=== PATIENT | female | born 1950 | race Two or more races ===

== ENCOUNTER 2018-04-05 12:06 | Emergency (ER) | payer MEDICARE, OTHER ==
[~2018-04-05] VITALS: Ht 157.5 cm; Wt 59.0 kg
[2018-04-05 12:16] VITALS: BP 117/69
[2018-04-05] MEDS ORDERED: IBUPROFEN 600 MG TAB PO ONE (13:30)
== END 2018-04-05 13:44 | disposition home or self-care (01) ==
LOC: ER 12:06
DX: S00.03XA Contusion of scalp, initial encounter (principal); E11.9 Type 2 diabetes mellitus without complications; W18.39XA Other fall on same level, initial encounter; Y93.89 Activity, other specified; Y92.89 Other specified places as the place of occurrence of the external cause; Y99.8 Other external cause status
CPT/HCPCS: 70450

== ENCOUNTER → 2023-01-10 | Outpatient (CLI) | payer MEDICARE, OTHER ==
[2023-01-10 06:58] LABS: Basophils # (auto) 0.1 10 ^3/uL (0-0.2); Monocytes # (auto) 0.3 10 ^3/uL (0-1.3); White Blood Cell 4.2 10^3/uL (4.4-10.8)
[2023-01-10 07:00] LABS: Eosinophils # (auto) 0.1 10 ^3/uL (0-0.8); Eosinophils % (auto) 1.5 % (0.0-7.0); Hematocrit 31.5 % (36.0-46.0); Hemoglobin 10.4 g/dL (12.2-16.2); Lymphocytes # (auto) 2.1 10 ^3/uL (0.4-5.4); Lymphocytes % (auto) 49.3 % (10.0-50.0); Mean Corpuscular Hemoglobin 23.1 pg (28.0-32.0); Mean Corpuscular Hgb Conc. 33.1 g/dL (32.0-36.0); Mean Corpuscular Volume 69.7 fL (80.0-100.0); Neutrophils # (auto) 1.7 10 ^3/uL (1.6-8.6); Neutrophils % (auto) 41.2 % (37.0-80.0); Nucleated Red Blood Cells % 0.2 %; Red Blood Cells 4.52 10^6/uL (4.0-5.20)
[2023-01-10 07:23] LABS: Potassium 4.1 mmol/L (3.5-5.1)
[2023-01-10 07:38] LABS: Albumin 3.6 g/dL (3.4-5.0); BUN/Creatinine Ratio 26.9 (10.0-20.0); Bilirubin, Total 0.2 mg/dL (0.2-1.0); Calcium 9.4 mg/dL (8.5-10.1); Magnesium 1.9 mg/dL (1.6-2.6); Total Protein 8.2 g/dL (6.4-8.2)
[2023-01-10 07:48] LABS: Urine Bacteria NONE SEEN /hpf (None Seen); Urine Blood Negative /uL (Negative); Urine Specific Gravity 1.008 (1.001-1.035); Urine WBC 1 /hpf (0 - 5)
[2023-01-10 09:43] LABS: Free T4 (Free Thyroxine) 1.19 ng/dL (0.89-1.76)
== END | disposition home or self-care (01) ==
LOC: EDBD 06:21 → LAB 06:21
PROVIDERS: ATTEND Internal Medicine
DX: I10 Essential (primary) hypertension (principal); E11.9 Type 2 diabetes mellitus without complications; R42 Dizziness and giddiness
CPT/HCPCS: 36415; 80053; 80061; 81001; 82607; 83735; 84439; 84443; 85025; 85379; 85652

== ENCOUNTER → 2023-03-06 | Outpatient (CLI) | payer MEDICARE, OTHER | END | disposition home or self-care (01) | LOC: LAB 15:29 | PROVIDERS: ATTEND Internal Medicine | DX: D64.9 Anemia, unspecified (principal) | CPT/HCPCS: 82270 ==

== ENCOUNTER 2023-04-11 15:38 | Emergency (ER) | payer MEDICARE, OTHER ==
[~2023-04-11] VITALS: Ht 154.9 cm; Wt 55.3 kg
[2023-04-11 15:45] VITALS: BP 134/60
[2023-04-11] MEDS ORDERED: SULF400T11 PO (18:48)
== END 2023-04-11 18:58 | disposition home or self-care (01) ==
LOC: ER 15:38
DX: N75.1 Abscess of Bartholin's gland (principal); E11.9 Type 2 diabetes mellitus without complications; E78.5 Hyperlipidemia, unspecified; Z79.899 Other long term (current) drug therapy
CPT/HCPCS: 82962

== ENCOUNTER → 2023-08-20 | Outpatient (CLI) | payer MEDICARE, OTHER ==
[~2023-08-20] MED LIST: SULF400T11 PO
== END | disposition home or self-care (01) ==
LOC: LAB 14:21
PROVIDERS: ATTEND Internal Medicine
DX: D64.9 Anemia, unspecified (principal)
CPT/HCPCS: 82270

== ENCOUNTER 2024-05-06 16:26 | Emergency (ER) | payer MEDICARE, OTHER ==
[~2024-05-06] VITALS: Ht 157.5 cm; Wt 52.3 kg
[2024-05-06 17:52] VITALS: PULSE 106; RESP 16; O2SAT 98
[2024-05-06 19:31] LABS: Basophils # (auto) 0 10 ^3/uL (0-0.2); Basophils % (auto) 0.2 % (0.0-2.0); Eosinophils # (auto) 0 10 ^3/uL (0-0.8); Hematocrit 31.5 % (36.0-46.0); Hemoglobin 10.1 g/dL (12.2-16.2); Lymphocytes # (auto) 1.2 10 ^3/uL (0.4-5.4); Lymphocytes % (auto) 20.2 % (10.0-50.0); Mean Corpuscular Hemoglobin 22.9 pg (28.0-32.0); Mean Corpuscular Hgb Conc. 32.2 g/dL (32.0-36.0); Mean Corpuscular Volume 71.2 fL (80.0-100.0); Monocytes # (auto) 0.5 10 ^3/uL (0-1.3); Neutrophils # (auto) 4.3 10 ^3/uL (1.6-8.6); Neutrophils % (auto) 71.6 % (37.0-80.0); Nucleated Red Blood Cells % 0.1 %; Red Blood Cells 4.42 10^6/uL (4.0-5.20); Red Cell Distribution Width 16.5 % (11.8-14.3)
[2024-05-06 19:40] LABS: Alanine Aminotransferase 24 U/L (7-40); Albumin 4.3 g/dL (3.2-4.8); Alkaline Phosphatase 65 U/L (46-116); Anion Gap 9 (5-15); Aspartate Aminotransferase 24 U/L (13-40); Blood Urea Nitrogen 17 mg/dL (9-23); Calcium 9.2 mg/dL (8.7-10.4); Carbon Dioxide 24 mmol/L (20-30); Chloride 99 mmol/L (98-107); Glucose 159 mg/dL (74-106); Potassium 4.3 mmol/L (3.5-5.1); Sodium 132 mmol/L (136-145)
[2024-05-06 19:41] LABS: Bilirubin, Total 0.4 mg/dL (0.2-1.0); Total Protein 8.8 g/dL (5.7-8.2)
[2024-05-06 21:56] VITALS: TEMP 99.2
[2024-05-06] MEDS ORDERED: BACL10TA PO (21:58)
[2024-05-06 22:05] LABS: Urine Amorphous Crystal FEW /hpf (None Seen); Urine Bacteria MOD /hpf (None Seen); Urine Blood TRACE /uL (Negative); Urine Clarity Turbid (Clear); Urine Color Colorless (Yellow); Urine Mucus FEW (None Seen); Urine Protein, UAD 1+ (Negative); Urine Specific Gravity 1.013 (1.001-1.035); Urine Urobilinogen Normal (Negative); Urine WBC 258 /hpf (0 - 5); Urine WBC Clumps PRESENT /hpf (None Seen); Urine pH 5.5 (5.0-9.0)
[2024-05-06 22:21] VITALS: BP 127/65; PULSE 95; RESP 14; O2SAT 98
== END 2024-05-06 22:24 | disposition home or self-care (01) ==
LOC: ER 16:26
DX: M54.16 Radiculopathy, lumbar region (principal); E11.9 Type 2 diabetes mellitus without complications; E78.5 Hyperlipidemia, unspecified
CPT/HCPCS: 36415; 71045; 80053; 81001; 83880; 85025

== ENCOUNTER → 2024-05-09 | Outpatient (CLI) | payer MEDICARE, OTHER ==
[~2024-05-09] MED LIST changes: +BACL10TA PO; +PANT40TA2 PO; +ZOFR4T PO
[2024-05-09 09:03] LABS: Basophils # (auto) 0 10 ^3/uL (0-0.2); Basophils % (auto) 0.1 % (0.0-2.0); Eosinophils # (auto) 0 10 ^3/uL (0-0.8); Eosinophils % (auto) 0.3 % (0.0-7.0); Hemoglobin 10.5 g/dL (12.2-16.2); Lymphocytes # (auto) 1.4 10 ^3/uL (0.4-5.4); Lymphocytes % (auto) 34.6 % (10.0-50.0); Mean Corpuscular Hemoglobin 23.4 pg (28.0-32.0); Mean Corpuscular Hgb Conc. 32.8 g/dL (32.0-36.0); Mean Corpuscular Volume 71.5 fL (80.0-100.0); Monocytes # (auto) 0.3 10 ^3/uL (0-1.3); Monocytes % (auto) 8.1 % (0.0-12.0); Neutrophils # (auto) 2.3 10 ^3/uL (1.6-8.6); Neutrophils % (auto) 56.9 % (37.0-80.0); Red Blood Cells 4.47 10^6/uL (4.0-5.20); Red Cell Distribution Width 16.3 % (11.8-14.3)
[2024-05-09 09:07] LABS: Urine Bacteria MOD /hpf (None Seen); Urine Blood TRACE /uL (Negative); Urine Clarity Turbid (Clear); Urine Color Colorless (Yellow); Urine Mucus FEW (None Seen); Urine Protein, UAD 1+ (Negative); Urine Specific Gravity 1.009 (1.001-1.035); Urine Urobilinogen Normal (Negative); Urine WBC 403 /hpf (0 - 5); Urine WBC Clumps PRESENT /hpf (None Seen); Urine pH 5.5 (5.0-9.0)
[2024-05-09 09:32] LABS: Erythrocyte Sedimentation Rate 91 mm/hr (0-20)
[2024-05-09 09:58] LABS: Creatinine, Urine 88.07 mg/dL (30.0-125.0)
[2024-05-09 10:06] LABS: Alanine Aminotransferase 27 U/L (7-40); Albumin 4.2 g/dL (3.2-4.8); Alkaline Phosphatase 68 U/L (46-116); Anion Gap 7 (5-15); Aspartate Aminotransferase 27 U/L (13-40); BUN/Creatinine Ratio 18.3 (10.0-20.0); Blood Urea Nitrogen 20 mg/dL (9-23); CRP High Sensitivity 0.79 mg/dL (<1.0); Calcium 9.5 mg/dL (8.7-10.4); Carbon Dioxide 27 mmol/L (20-30); Chloride 105 mmol/L (98-107); Glucose 228 mg/dL (74-106); LDL Cholesterol 98 mg/dL (< 100); Potassium 4.4 mmol/L (3.5-5.1); Sodium 139 mmol/L (136-145); Triglycerides 145 mg/dL (< 150)
[2024-05-09 10:07] LABS: Bilirubin, Total 0.3 mg/dL (0.2-1.0); Cholesterol 168 mg/dL (< 200); HDL Cholesterol 47 mg/dL (40-59); Total Protein 8.4 g/dL (5.7-8.2)
[2024-05-09 10:23] LABS: Free T4 (Free Thyroxine) 1.35 ng/dL (0.89-1.76)
== END | disposition home or self-care (01) ==
LOC: LAB 08:32
PROVIDERS: ATTEND Internal Medicine
DX: E11.9 Type 2 diabetes mellitus without complications (principal); E78.00 Pure hypercholesterolemia, unspecified
CPT/HCPCS: 36415; 80053; 80061; 81001; 82043; 82570; 82607; 83036; 84439; 84443; 85025; 85652; 86141; 86738

== ENCOUNTER 2024-05-10 01:18 | Emergency (ER) | payer MEDICARE, OTHER ==
[~2024-05-10] VITALS: Ht 157.5 cm; Wt 50.9 kg
[~2024-05-10 01:18] MED LIST changes: -PANT40TA2 PO; -ZOFR4T PO
[2024-05-10 03:43] LABS: Basophils # (auto) 0 10 ^3/uL (0-0.2); Eosinophils # (auto) 0 10 ^3/uL (0-0.8); Hemoglobin 9.6 g/dL (12.2-16.2); Monocytes # (auto) 0.3 10 ^3/uL (0-1.3); Neutrophils # (auto) 3.3 10 ^3/uL (1.6-8.6); Nucleated Red Blood Cells % 0.1 %; White Blood Cell 5.5 10^3/uL (4.4-10.8)
[2024-05-10 03:45] LABS: Basophils % (auto) 0.7 % (0.0-2.0); Eosinophils % (auto) 0.1 % (0.0-7.0); Hematocrit 29.8 % (36.0-46.0); Lymphocytes # (auto) 1.9 10 ^3/uL (0.4-5.4); Lymphocytes % (auto) 34.4 % (10.0-50.0); Mean Corpuscular Hgb Conc. 32.3 g/dL (32.0-36.0); Mean Corpuscular Volume 71.2 fL (80.0-100.0); Monocytes % (auto) 5.9 % (0.0-12.0); Neutrophils % (auto) 58.9 % (37.0-80.0); Red Blood Cells 4.18 10^6/uL (4.0-5.20); Red Cell Distribution Width 16.4 % (11.8-14.3)
[2024-05-10 03:54] LABS: Alanine Aminotransferase 24 U/L (7-40); Albumin 4.2 g/dL (3.2-4.8); Alkaline Phosphatase 64 U/L (46-116); Anion Gap 8 (5-15); Aspartate Aminotransferase 23 U/L (13-40); BUN/Creatinine Ratio 19.8 (10.0-20.0); Bilirubin, Total 0.4 mg/dL (0.2-1.0); Blood Urea Nitrogen 18 mg/dL (9-23); Calcium 9.3 mg/dL (8.7-10.4); Carbon Dioxide 22 mmol/L (20-30); Chloride 104 mmol/L (98-107); Glucose 227 mg/dL (74-106); Total Protein 8.7 g/dL (5.7-8.2)
[2024-05-10 03:58] LABS: Sodium 134 mmol/L (136-145)
[2024-05-10] MEDS: ONDANSETRON ODT 4 MG TAB PO ONE (04:09)
[2024-05-10 04:11] VITALS: BP 145/79; PULSE 78; RESP 16; TEMP 98.2; O2SAT 100
[2024-05-10] MEDS ORDERED: ZOFR4T PO (04:59)
[2024-05-10] MEDS ORDERED: PANT40TA2 PO (04:59)
== END 2024-05-10 05:10 | disposition home or self-care (01) ==
LOC: ER 01:18
DX: K29.70 Gastritis, unspecified, without bleeding (principal); E11.9 Type 2 diabetes mellitus without complications; E78.5 Hyperlipidemia, unspecified
CPT/HCPCS: 36415; 74176; 80053; 85025; 93005; 99284; Q0162

== ENCOUNTER 2024-08-14 14:12 | Emergency (ER) | payer MEDICARE, OTHER ==
[~2024-08-14] VITALS: Ht 152.4 cm; Wt 48.8 kg
[~2024-08-14 14:12] MED LIST changes: +PANT40TA2 PO; +ZOFR4T PO
--- NOTE | 2024-08-14 14:55 | ED.PDOC ---
History of Present Illness HPI Comments A 74 YEAR OLD FEMALE PRESENTS TO THE ED WITH CHIEF COMPLAINT OF EPISODE FEVER. PATIENT REPORTS THAT SHE HAS BEEN EXPERIENCING A FEVER SINCE YESTERDAY ON AND OFF. NO FEVER AT THIS TIME. PATIENT RELAYS THAT HER HAS BEEN SICK AT HOME PRIOR TO FEVER ONSET. PATIENT DENIES ANY N/V/D, CHEST PAIN, SOB, COUGH, OR DIZZINESS. PT IS ALERT, ORIENTATION X4 WITH NORMAL GAIT. Chief Complaint: Fever Time Seen by MD: 14:52 Primary Care Provider: DESI Hernandez Notes: Nurses Notes, Medications, Allergies Allergies: Coded Allergies: NO KNOWN ALLERGIES (Unverified , 04/05/18) Home Meds Active Scripts Acetaminophen (Tylenol 8 Hour Arthritis) 650 Mg Tab, 650 MG PO TID, #30 TAB Prov:DENIS YEH 08/14/24 Nitrofurantoin Monohydrate Mac (Macrobid) 100 Mg Cap, 100 MG PO BID, #14 CAP Prov:DENIS YEH 08/14/24 Pantoprazole Sodium Sesquihydr (Protonix) 40 Mg Tab, 40 MG PO DAILY PRN for 60 Days, #60 TAB Prov:RAMÓN RIDER MD 05/10/24 Ondansetron Odt 4MG Tab (ZOFRAN PO) 4 Mg Tb, 4 MG PO TID for 7 Days, #21 TAB ODT TAB-DISSOLVE IN MOUTH, THEN SWALLOW Prov:RAMÓN RIDER MD 05/10/24 Baclofen (Baclofen) 10 Mg Tab, 10 MG PO TID PRN, #30 TAB Prov:JAY HE 05/06/24 Sulfamethoxazole-Trimethoprim (Bactrim) 1 Tab Tab, 1 TAB PO BID for 7 Days, #14 TAB 0 Refills Prov:VARGHESE CABRERA 04/11/23 Information Source: Patient Mode of Arrival: Ambulatory Severity: Mild, Moderate Timing: Days Duration: Since onset, Intermittent Prehospital treatment: None Medication Refill: For: Other (ON AND OFF FEVER ) Past Medical History PAST MEDICAL HISTORY: DM, High Lipids Surgical History: Denies all surgeries [employer]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 Family History Family History: Reviewed,noncontributory to illness Social History Smoker: Non-Smoker Alcohol: Denies ETOH Use Drugs: Denies Drug Use Lives In: Home Constitutional: reports: fever; denies: chills, diaphoresis, fatigue, malaise, sweats, weakness, others EENTM: denies: blurred vision, double vision, ear bleeding, ear discharge, ear drainage, ear pain, ear ringing, eye pain, eye redness, hearing loss, mouth pain, mouth swelling, nasal discharge, nose bleeding, nose congestion, nose pain, photophobia, tearing, throat pain, throat swelling, voice changes, others Cardiovascular: denies: chest pain, dizzy spells, diaphoresis, Dyspnea on exertion, edema, irregular heart beat, left arm pain, lightheadedness, palpitations, PND, syncope, others Gastrointestinal: denies: abdomen distended, abdominal pain, blood streaked bowels, constipated, diarrhea, dysphagia, difficulty swallowing, hematemesis, melena, nausea, poor appetite, poor fluid intake, rectal bleeding, rectal pain, vomiting, others Genitourinary: denies: abnormal vagina bleeding, burning, dyspareunia, dysuria, flank pain, frequency, hematuria, incontinence, pain, , vagina discharge, urgency, others Neurological: denies: dizziness, fainting, headache, left sided numbness, left sided weakness, numbness, paresthesia, pre-existing deficit, right sided numbne ss, right sided weakness, seizure, speech problems, tingling, tremors, weakness, others Musculoskeletal: denies: back pain, gout, joint pain, joint swelling, muscle pain, muscle stiffness, neck pain, others Integumetry: denies: bruises, change in color, change in hair/nails, dryness, laceration, lesions, lumps, rash, wounds, others Allergic/Immunocompromised: denies: Difficulty Healing, Frequent Infections, Hives, Itching, others Hematologic/Lymphatic: denies: anemia, blood clots, easy bleeding, easy bruising, swollen glands, others Endocrine: denies: excessive hunger, excessive sweating, excessive thirst, excessive urination, flushing, intolerance to cold, intolerance to heat, unexplained weight gain, unexplained weight loss, others Psychiatric: denies: anxiety, bipolar disorder, depression, hopeless, panic disorder, schizophrenia, sleepless, suicidal, others All Other Systems: Reviewed and Negative Physical Exam General Appearance: No Apparent Distress, Normal HEENT: Normal ENT Inspection, PERRL/EOMI, Pharynx Normal Neck: Full Range of Motion, Non-Tender, Normal, Normal Inspection Respiratory: Chest Non-Tender, Lungs Clear, No Accessory Muscle Use, No Respiratory Distress, Normal Breath Sounds Cardiovascular: No Edema, No JVD, No Murmur, No Gallop, Normal Peripheral Pulses, Regular Rate/Rhythm Breast Exam: Deferred Gastrointestinal: No Organomegaly, Non Tender, No Pulsatile Mass, Normal Bowel Sounds, Soft Genitalia: Deferred Pelvic: Deferred Rectal: Deferred Extremities: No calf tenderness, Normal capillary refill, Normal inspection, Normal range of motion, Non-tender, No pedal edema Musculoskeletal : Apperance: Normal Neurologic: Alert, slide developer II-XII nml as Tested, No Motor Deficits, Normal Affect, Normal Mood, No Sensory Deficits Cerebellar Function: Normal Reflexes: Normal Skin: Dry, Normal Color, Warm Peripheral Pulses: 2+ carotid (R), 2+ carotid (L) Lymphatic: No Adenopathy Was a procedure done? Was a procedure done?: No Differential Dx Considerations may include: UTI, INTERMITTENT FEVER, PNEUMONIA X-Ray, Labs, Meds, VS Vital Signs Date Time Temp Pulse Resp B/P (MAP) Pulse Ox O2 Delivery O2 Flow Rate FiO2 08/14/24 15:00 99.6 92 17 133/62 (85) 99 99.6 08/14/24 15:00 92 17 99 Room Air 08/14/24 14:20 98.5 105 18 118/67 (84) 99 Lab Test 08/14/24 15:41 08/14/24 15:32 Range/Units Urine Color Light-yellow Yellow Urine Clarity Clear Clear Urine pH 6.5 5.0-9.0 Urine Specific [place] 1.014 1.001-1.035 Urine Protein Trace H Negative Urine Ketones Negative Negative Urine Blood Trace H Negative /uL Urine Nitrite Negative Negative Urine Bilirubin Negative Negative Urine Urobilinogen Normal Negative mg/dL Urine Leukocyte Esterase 1+ Negative /uL Urine RBC 6 0 - 4 /hpf Urine WBC 21 0 - 5 /hpf Urine Squamous Epithelial Cells Few <5 /hpf Urine Bacteria Few H None Seen /hpf Urine Mucus Few None Seen Urine Glucose 2+ H Normal mg/dL White Blood Count 4.7 4.4-10.8 10^3/uL Red Blood Count 3.58 L 4.0-5.20 10^6/uL Hemoglobin 8.4 L 12.2-16.2 g/dL Hematocrit 26.2 L 36.0-46.0 % Mean Corpuscular Volume 73.1 L 80.0-100.0 fL Mean Corpuscular Hemoglobin 23.6 L 28.0-32.0 pg Mean Corpuscular Hemoglobin Concent 32.3 32.0-36.0 g/dL Red Cell Distribution Width 19.8 H 11.8-14.3 % Platelet Count 162 140-450 10^3/uL Mean Platelet Volume 8.1 6.9-10.8 fL Neutrophils (%) (Auto) 82.0 H 37.0-80.0 % Lymphocytes (%) (Auto) 12.3 10.0-50.0 % Monocytes (%) (Auto) 5.0 0.0-12.0 % Eosinophils (%) (Auto) 0.1 0.0-7.0 % Basophils (%) (Auto) 0.6 0.0-2.0 % Neutrophils # (Auto) 3.9 1.6-8.6 10 ^3/uL Lymphocytes # (Auto) 0.6 0.4-5.4 10 ^3/uL Monocytes # (Auto) 0.2 0-1.3 10 ^3/uL Eosinophils # (Auto) 0 0-0.8 10 ^3/uL Basophils # (Auto) 0 0-0.2 10 ^3/uL Nucleated Red Blood Cells 0.0 % Sodium Level 135 L 136-145 mmol/L Potassium Level 4.2 3.5-5.1 mmol/L Chloride Level 103 98-107 mmol/L Carbon Dioxide Level 27 20-31 mmol/L Anion Gap 5 5-15 Blood Urea Nitrogen 20 9-23 mg/dL Creatinine 1.16 H 0.550-1.02 mg/dL Glomerular Filtration Rate Calc 49 >90 mL/min BUN/Creatinine Ratio 17.2 10.0-20.0 Serum Glucose 164 H 74-106 mg/dL Lactic Acid Level 0.8 0.4-2.0 mmol/L Calcium Level 9.2 8.7-10.4 mg/dL Current Medications Medications (Trade) Dose Ordered Sig/Walt Route Start Time Stop Time Status Last Admin Ceftriaxone Sodium (Rocephin) 1,000 mg ONCE ONCE IM 08/14/24 16:45 08/14/24 16:46 DC 08/14/24 17:17 CHEST XR: FINDINGS: Lines and Tubes: None Lungs: Clear Pleura: No effusion. No pneumothorax. Cardiomediastinal contours: Unremarkable Bones: Unremarkable IMPRESSION: No evidence of acute disease. X-Ray, Labs, Meds, VS Comment ROCEPHIN 1GM IM Images Reviewed?: Images reviewed and evaluated by me Time of 1ST Reevaluation: 15:23 Reevaluation 1ST: Improved Time of 2ND Reevaluation: 17:22 Reevaluation 2ND: Improved Patient Education/Counseling: Diagnosis, Treatment, Need For Follow Up Family Education/Counseling: Diagnosis, Treatment, Need For Follow Up, No Family Present Medical Screening: No EMC Exist At This Time Departure 1 Departure Time of Disposition: 17:40 Impression: Primary Impression: Subjective fever Additional Impression: UTI (urinary tract infection) Qualified Codes: N30.00 - Acute cystitis without hematuria Disposition: HOME / SELF CARE / HOMELESS Condition: Stable Additional Instructions: FOLLOW UP WITH PCP WITHIN 1-3 DAYS. RETURN TO THE ED IF SYMPTOMS PERSIST OR WORSEN. e-Prescriptions Acetaminophen (Tylenol 8 Hour Arthritis) 650 Mg Tab 650 MG PO TID, #30 TAB Prov: DENIS YEH 08/14/24 Nitrofurantoin Monohydrate Mac (Macrobid) 100 Mg Cap 100 MG PO BID, #14 CAP Prov: DENIS YEH 08/14/24 Discharged With: Self, Relative Critical Care Note Critical Care Time?: No Stability Stability form required: No Heart Score Heart Score: Heart Score Response (Comments) Value History N/A 0 EKG N/A 0 Age N/A 0 Risk Factors N/A 0 Troponin N/A 0 Total 0 I personally scribed for DENIS YEH ([email or web address]) on 08/14/24 at 14:55. Electronically submitted by Jay Villagran ([email or web address]). I personally scribed for DENIS YEH ([email or web address]) on 08/14/24 at 15:11. Electronically submitted by Jay Villagran ([email or web address]). I personally scribed for DENIS YEH ([email or web address]) on 08/14/24 at 15:12. Electronically submitted by Jay Villagran ([email or web address]). DENIS YEH Aug 14, 2024 14:55
--- NOTE | 2024-08-14 15:07 | DVH ---
CHEST RADIOGRAPH Indication:COUGH Technique: Frontal and lateral view of the chest was obtained Comparison: None FINDINGS: Lines and Tubes: None Lungs: Clear Pleura: No effusion. No pneumothorax. Cardiomediastinal contours: Unremarkable Bones: Unremarkable IMPRESSION: No evidence of acute disease.
[2024-08-14 16:03] LABS: Urine Bacteria FEW /hpf (None Seen); Urine Blood TRACE /uL (Negative); Urine Clarity Clear (Clear); Urine Color Light-Yellow (Yellow); Urine Mucus FEW (None Seen); Urine Protein, UAD TRACE (Negative); Urine Specific Gravity 1.014 (1.001-1.035); Urine Urobilinogen Normal (Negative); Urine WBC 21 /hpf (0 - 5); Urine pH 6.5 (5.0-9.0)
[2024-08-14 16:04] LABS: Basophils # (auto) 0 10 ^3/uL (0-0.2); Eosinophils # (auto) 0 10 ^3/uL (0-0.8); Eosinophils % (auto) 0.1 % (0.0-7.0); Lymphocytes # (auto) 0.6 10 ^3/uL (0.4-5.4); Red Cell Distribution Width 19.8 % (11.8-14.3)
[2024-08-14 16:06] LABS: Basophils % (auto) 0.6 % (0.0-2.0); Hematocrit 26.2 % (36.0-46.0); Hemoglobin 8.4 g/dL (12.2-16.2); Lymphocytes % (auto) 12.3 % (10.0-50.0); Mean Corpuscular Hemoglobin 23.6 pg (28.0-32.0); Mean Corpuscular Hgb Conc. 32.3 g/dL (32.0-36.0); Mean Corpuscular Volume 73.1 fL (80.0-100.0); Monocytes # (auto) 0.2 10 ^3/uL (0-1.3); Neutrophils # (auto) 3.9 10 ^3/uL (1.6-8.6); Platelet Count (auto) 162 10^3/uL (140-450); Red Blood Cells 3.58 10^6/uL (4.0-5.20); White Blood Cell 4.7 10^3/uL (4.4-10.8)
[2024-08-14 16:20] LABS: Chloride 103 mmol/L (98-107); Potassium 4.2 mmol/L (3.5-5.1); Sodium 135 mmol/L (136-145)
[2024-08-14 16:21] LABS: Anion Gap 5 (5-15); Calcium 9.2 mg/dL (8.7-10.4); Carbon Dioxide 27 mmol/L (20-31)
[2024-08-14 16:26] LABS: BUN/Creatinine Ratio 17.2 (10.0-20.0); Blood Urea Nitrogen 20 mg/dL (9-23); Glucose 164 mg/dL (74-106)
[2024-08-14] MEDS: cefTRIAXone SOD 1,000 MG VL IM ONE (17:17)
[2024-08-14] MEDS ORDERED: ACET-1080 PO (17:19)
[2024-08-14] MEDS ORDERED: NITR-87 PO (17:19)
[2024-08-14 17:38] VITALS: BP 132/60; PULSE 93; RESP 16; TEMP 98.5; O2SAT 95
== END 2024-08-14 17:46 | disposition home or self-care (01) ==
LOC: ER 14:17
DX: N39.0 Urinary tract infection, site not specified (principal); E11.9 Type 2 diabetes mellitus without complications
CPT/HCPCS: 36415; 71046; 80048; 81001; 83605; 85025; 96372; 99284; J0696

== ENCOUNTER 2024-08-25 14:41 | Inpatient (IN) | payer MEDICARE, OTHER ==
[~2024-08-25] VITALS: Ht 154.9 cm; Wt 58.3 kg
[~2024-08-25 14:41] MED LIST changes: +ACET-1080 PO; +NITR-87 PO
--- NOTE | 2024-08-25 15:34 | ED.PDOC ---
HPI (NEURO) HPI Comments 74-year-old female patient with past medical history of diabetes for which she takes metformin and glipizide and hyperlipidemia for which she takes simvastatin,presented with complaints of slurred speech that started at 0900 hours in the morning associated with generalized weakness after which patient had a fall at the same time. She did not lose consciousness and did not have any head injury. She had generalized weakness that started yesterday in the afternoon. She denied any previous history of any heart condition/stroke. Patient in the ED was evaluated, has slurred speech, as per that is not her baseline. Stroke protocol was activated. Tele neurology was consulted and patient was taken to head CT. Tele neurology Dr. Gomez called at 1526 and and mentioned that he will get access to completed in around 25 minutes and asked to order head CT and CTA. will follow up with the orders. CT head showed 1. No large acute territorial ischemia or intracranial hemorrhage. 2. Left frontal watershed infarcts can not be ruled out. Moderate underlying white matter disease / chronic microvascular ischemic changes limit evaluation. These can be better evaluated with MRI if clinically indicated. 3. Remote left FARNAZ territorial infarct Patient was given 325 mg aspirin and 80 mg atorvastatin, will be admitted for need for MRI and further assessment Past medical history Diabetes mellitus , dyslipidemia Medication history Metformin, glipizide, simvastatin Social history Does not drink, smoke, who marijuana or any other drug intake ROS Constitutional: Generalized weakness No: Fever, Chills, Sweats Respiratory: No: Cough, Dry, Shortness of breath, SOB with excertion, Wheezing, Hemoptysis, Pleuritic Pain, Sputum, Wheezing, Other Cardiovascular: No: Chest Pain, Palpitations, Orthopnea, Paroxysmal Noc. Dyspnea, Edema, Lt Headedness, Other Gastrointestinal: No: Nausea, Vomiting, Abdominal Pain, Diarrhea, Constipation, Melena, Hematochezia, Other Musculoskeletal: No: other, neck pain, shoulder pain, arm pain, back pain, hand pain, leg pain, foot pain Neurological:; mechanical fall, generalized weakness, slurred speech Examination General Appearance: Alert, Oriented X3, Cooperative, No acute distress Respiratory: Bilateral air entry present Cardiovascular: Regular rate, Normal S1, Normal S2 Abdominal: Normal bowel sounds Extremities: No cyanosis, No edema, Normal pulses, No tenderness/swelling Skin: No rashes, No breakdown Initial neuro examination Slurred speech Cranial nerve examination, 2-12, grossly intact No motor deficit, no sensory deficit, no cerebellar signs ( no nystagmus, normal [id number] test) Attestation note: Dr. Mcmullen: I was the supervising attending for this ED encounter. Please see the resident's notes. I was available for questions and consultations. Differential diagnosis: Stroke: DDX include TIA, TGA, CVA, intracranial bleed/mass/infection, cerebellar ischemia/infarct, carotid stenosis, lacunar infarct, vertebral/carotid artery dissection,, vertebrobasillary insufficiency, BPV, encephalopathy, electrolyte abnormality, thyroid disease, hydrocephalus, [place] palsy, multiple sclerosis, hypoglycemia, drug toxicity, cardiac arrhythmia, todds paralysis, seizure. MDM: Patient presented with the above HPI.---weakness/stroke-like symptoms---workup was initiated. patient was found with the above mentioned diagnosis. Stroke workup was initiated. Neurology was consulted. Patient was given antibiotics for multifocal pneumonia and UTI Patient ED course and VS have been stabilized. Patient has been reassessed in the ED and remained in a stable condition. Patient/family voices understanding and is agreeable with plan. Patient has been observed in the ED adequate length of time to insure improvement/stability. patient was admitted to the medicine team for further evaluation and treatment of their presentation. All the reports of any imaging studies that were ordered by myself were reviewed by myself. Chief Complaint: General Weakness Time Seen by MD: 14:50 Primary Care Provider: unknown Reviewed Notes: Nurses Notes, Allergies Information Source: Patient, Relative Mode of Arrival: Wheelchair Past Medical History PAST MEDICAL HISTORY: DM, High Lipids Surgical History: Denies all surgeries [employer] History: Denies all [employer] Hx Family History Family History: Reviewed,noncontributory to illness Social History Smoker: Non-Smoker Alcohol: Denies ETOH Use Drugs: Denies Drug Use Lives In: Home Physical Exam General Appearance: Other (Mentioned in the note) HEENT: Other (Mentioned in the notes) Neck: Other (Mentioned in the notes) Respiratory: Other (Mentioned in the note) Cardiovascular: Other (Mentioned in the note) Breast Exam: Deferred Gastrointestinal: Other (Mentioned in the note) Genitalia: Deferred Pelvic: Deferred Rectal: Deferred Extremities: Other (a) Neurologic: Speech Problem (slurred speach), Other (Mentioned in the note) Cerebellar Function: Other (Mentioned in the not) Reflexes: Other (Mentioned in the note) Skin: Other (Mentioned in the note) Lymphatic: Other (Mentioned in the note) Was a procedure done? Was a procedure done?: No Differential Diagnosis (SZ) CVA: Centeno's Palsy, CVA, Drug Overdose, Electrolyte Imbalance, Encephalopathy, Mass Lesion, SAH, TIA X-Ray, Labs, Meds, VS Vital Signs Date Time Temp Pulse Resp B/P (MAP) Pulse Ox O2 Delivery O2 Flow Rate FiO2 08/25/24 17:07 89 08/25/24 17:05 90 20 96 Room Air* 0 21 08/25/24 17:02 100.6 95 22 147/69 (95) 95 100.6 08/25/24 16:41 95 16 99 Room Air 08/25/24 16:41 98.7 95 16 157/69 (98) 99 98.7 08/25/24 15:00 113 08/25/24 15:00 99.0 116 20 139/68 (91) 96 Lab Test 08/25/24 15:57 08/25/24 14:54 Range/Units White Blood Count 10.6 4.4-10.8 10^3/uL Red Blood Count 3.77 L 4.0-5.20 10^6/uL Hemoglobin 8.8 L 12.2-16.2 g/dL Hematocrit 27.4 L 36.0-46.0 % Mean Corpuscular Volume 72.7 L 80.0-100.0 fL Mean Corpuscular Hemoglobin 23.4 L 28.0-32.0 pg Mean Corpuscular Hemoglobin Concent 32.2 32.0-36.0 g/dL Red Cell Distribution Width 19.8 H 11.8-14.3 % Platelet Count 225 140-450 10^3/uL Mean Platelet Volume 8.3 6.9-10.8 fL Neutrophils (%) (Auto) 37.0-80.0 % Lymphocytes (%) (Auto) 10.0-50.0 % Monocytes (%) (Auto) 0.0-12.0 % Basophils (%) (Auto) 0.0-2.0 % Neutrophils # (Auto) 1.6-8.6 10 ^3/uL Lymphocytes # (Auto) 0.4-5.4 10 ^3/uL Monocytes # (Auto) 0-1.3 10 ^3/uL Differential Total Cells Counted 100.0 100 Neutrophils % (Manual) 86 H 37.0-80.0 Band Neutrophils % (Manual) 6 Lymphocytes % (Manual) 4 L 10.0-50.0 Monocytes % (Manual) 4 0-12 Eosinophils % (Manual) 0 0-7 Basophils % (Manual) 0 0.0-2.0 Metamyelocytes % (manual) 0 Myelocytes % (Manual) 0 Promyelocytes % (Manual) 0 Blast Cells % (Manual) 0 Reactive Lymphocytes 0 Platelet Estimate Adequate Hypochromasia (manual) Moderate Anisocytosis (manual) Slight Microcytosis Moderate Sodium Level 136 136-145 mmol/L Potassium Level 3.9 3.5-5.1 mmol/L Chloride Level 103 98-107 mmol/L Carbon Dioxide Level 25 20-31 mmol/L Anion Gap 8 5-15 Blood Urea Nitrogen 18 9-23 mg/dL Creatinine 1.15 H 0.550-1.02 mg/dL Glomerular Filtration Rate Calc 49 >90 mL/min BUN/Creatinine Ratio 15.7 10.0-20.0 Serum Glucose 199 H 74-106 mg/dL Lactic Acid Level 1.2 0.4-2.0 mmol/L Calcium Level 9.5 8.7-10.4 mg/dL Magnesium Level 1.4 L 1.6-2.6 mg/dL Total Bilirubin 0.6 0.2-1.0 mg/dL Aspartate Amino Transferase (AST) 13 13-40 U/L Alanine Aminotransferase (ALT) 13 7-40 U/L Alkaline Phosphatase 74 46-116 U/L Troponin I High Sensitivity 28 </=34 ng/L Total Protein 8.8 H 5.7-8.2 g/dL Albumin 3.9 3.2-4.8 g/dL POC Glucose 207 H 70-106 mg/dl Microbiology Date/Time Source Procedure Growth Status 08/25/24 15:57 Blood Blood Culture - Final NO GROWTH AFTER 5 DAYS OF INCUBATION. [address] [address] Ph: [phone] DIAGNOSTIC IMAGING Diagnostic Imaging Report : [id number] Signed PATIENT: DAVID DOUGLAS ACCT: [id number] UNIT: [id number] : 1950 LOC: ER ROOM / BED: / AGE / SEX: 74 / F ADM STATUS: REG ER SERVICE 1533 ORDERING PHYSICIAN: AMBROSIO KAT RESIDENT PROCEDURE(s): [place] - ANGIO HEAD/Neck REASON: ?stroke ORDER NUMBER(s): [id number], ACCESSION NUMBER(s): [id number] EXAM: CT ANGIO HEAD/NECK HISTORY: stroke COMPARISON: None TECHNIQUE: CTA imaging of the head was performed through the [place] following the uneventful administration of intravenous contrast. Sagittal and coronal reformatted images were obtained from the source data. 3D/MIP post- processing of the source data set was performed and reviewed by the radiologist. Radiation Dose Information: CT Dose: CTDI volume is 22.36 mGy. Dose-length product is 728.12 mGy*cm All CT scans at this medical facility are performed using dose modulation techniques as appropriate to a performed exam including the following: Automated exposure control was utilized; adjustment of the MA and/or KV according to patient size; and use of iterative reconstruction technique. FINDINGS: CTA Neck: Aortic Arch: Not included in the field of view. Right brachiocephalic artery: Mild atherosclerotic calcification without significant stenosis. Right carotid artery: Mild atherosclerotic calcification of the carotid bulb and proximal ICA without significant stenosis. Right subclavian artery: Unremarkable. Right vertebral artery: Unremarkable. Left carotid artery: Mild atherosclerotic calcification of the carotid bulb and proximal ICA without significant stenosis. Left subclavian artery: Unremarkable. Left vertebral artery: Unremarkable. OTHER: Multinodular goiter predominantly involving the right lobe. Multilevel degenerative disc disease of the cervical spine noted CTA Head: [place]: The arteries of [place] are patent, without evidence of aneurysm, stenosis or thrombosis. Atherosclerotic calcification of the bilateral carotid siphons noted. Mild atherosclerotic calcification of the intracranial right vertebral artery. Dural venous: Grossly unremarkable. Other: None. IMPRESSION: 1. No large vessel occlusion or high-grade stenosis in the arteries of the head and neck. No aneurysm is identified. ATED BY: CAROLE WATSON MD DICTATED DATE/TIME: 08/25/24 1637 SIGNED BY: CAROLE WATSON MD SIGNED DATE/TIME: 08/25/24 1637 CC: [facility] [id number] [place] [address] Ph: [phone] DIAGNOSTIC IMAGING Diagnostic Imaging Report : [id number] Signed PATIENT: DAVID DOUGLAS ACCT: [id number] UNIT: [id number] : 1950 LOC: ER ROOM / BED: / AGE / SEX: 74 / F ADM STATUS: REG ER SERVICE 1511 ORDERING PHYSICIAN: MARY MCMULLEN DO PROCEDURE(s): CTH - STROKE CTH REASON: WEAK, FALL, SLURRED SPEECH ORDER NUMBER(s): [id number], ACCESSION NUMBER(s): [id number] EXAM: CT STROKE CTH HISTORY: WEAK, FALL, SLURRED SPEECH COMPARISON: None TECHNIQUE: Axial images were obtained and reformatted in coronal and sagittal planes. All CT scans at this medical facility are performed using dose modulation techniques as appropriate to a performed exam including the following: Automated exposure control was utilized; adjustment of the MA and/or KV according to patient size; and use of iterative reconstruction technique. CT Dose: CTDI volume is 54 mGy. Dose-length product is 864 mGy*cm FINDINGS: Supratentorial Region: No evidence for large acute territorial ischemia. Several small areas of old left upper frontal lobe infarcts noted. No intracranial hemorrhage is noted. Confluent white matter hypoattenuating foci are noted bilaterally, which typically reflect chronic microvascular ischemic changes. Posterior Fossa: No acute abnormality. Brainstem: Unremarkable. Sellar/Suprasellar Region: Unremarkable. Ventricles, Cisterns, Sulci: Age-appropriate. Orbits: Unremarkable. Paranasal Sinuses: Mild paranasal sinus mucosal thickening is seen. Mastoid Air Cells: Unremarkable. Vasculature: Intracranial arterial calcified plaque formation noted. Bones/Soft Tissues: No acute abnormality. Other: None. IMPRESSION: 1. No large acute territorial ischemia or intracranial hemorrhage. 2. Left frontal watershed infarcts can not be ruled out. Moderate underlying white matter disease / chronic microvascular ischemic changes limit evaluation. These can be better evaluated with MRI if clinically indicated. 3. Remote left FARNAZ territorial infarct . Dr. Kat was notified of findings on 08/25/2024 at 3 50 p.m.. ATED BY: CAROLE WATSON MD DICTATED DATE/TIME: 08/25/241555 SIGNED BY: CAROLE WATSON MD SIGNED DATE/TIME: 08/25/241555 CC: [address] [address] Ph: [phone] DIAGNOSTIC IMAGING Diagnostic Imaging Report : [id number] Signed PATIENT: DAVID DOUGLAS ACCT: [id number] UNIT: [id number] : 1950 LOC: ER ROOM / BED: / AGE / SEX: 74 / F ADM STATUS: REG ER SERVICE 150 ORDERING PHYSICIAN: MARY MCMULLEN DO PROCEDURE(s): CXRP - CHEST PORTABLE REASON: weakness ORDER NUMBER(s): [id number], ACCESSION NUMBER(s): [id number] EXAM: XY CHEST PORTABLE TECHNIQUE: Single frontal chest radiograph CLINICAL HISTORY: weakness COMPARISON: XY CHEST XRAY 1 VIEW on DOS: 05/06/24 Findings/Impression: Frontal chest radiograph demonstrates no acute osseous or superficial soft tissue abnormalities. The trachea is midline. The cardiac silhouette and mediastinum are within normal limits. Right mid and medial lower lung field haxy opacities may reflect multifocal pneumonia. No pneumothorax or pleural effusions. ATED BY: PRERNA SANTOS DO DICTATED DATE/TIME: 08/25/241551 SIGNED BY: PRERNA SANTOS DO SIGNED DATE/TIME: 08/25/241551 CC: Time of 1ST Reevaluation: 22:54 Reevaluation 1ST: Improved Patient Education/Counseling: Diagnosis, Treatment Family Education/Counseling: Diagnosis, Treatment Comments Patient presented with the slurred speech . workup was initiated. Stroke protocol was activated. Tele neurology was consulted and patient was taken to head CT. Tele neurology Dr. Gomez called at 1526 and and mentioned that he will get access to completed in around 25 minutes and asked to order head CT and CTA. will follow up with the orders. CT head showed 1. No large acute territorial ischemia or intracranial hemorrhage. 2. Left frontal watershed infarcts can not be ruled out. Moderate underlying white matter disease / chronic microvascular ischemic changes limit evaluation. These can be better evaluated with MRI if clinically indicated. 3. Remote left FARNAZ territorial infarct Patient was given 325 mg aspirin and 80 mg atorvastatin, will be admitted for need for MRI and further assessment Patient has been observed in the ED adequate length of time to insure improvement/stability. CTA was ordered, which revealed No large vessel occlusion or high-grade stenosis in the arteries of the head and neck. No aneurysm is identified. patient was admitted to the medicine team for further evaluation and treatment of their presentation. All the reports of any imaging studies that were ordered by myself were reviewed by myself. Departure 1 Departure Time of Disposition: 20:00 Impression: Primary Impression: Altered mental status Additional Impressions: Slurred speech Anemia Generalized weakness Multifocal pneumonia Stroke-like symptoms UTI (urinary tract infection) Disposition: ADMITTED INPATIENT Admit to: Tele Condition: Guarded Discharged With: Self, Spouse Critical Care Note Critical Care Time?: Yes (1 hr-critical care time only) Stability Stability form required: No Heart Score Heart Score: Heart Score Response (Comments) Value History N/A 0 EKG N/A 0 Age N/A 0 Risk Factors N/A 0 Troponin N/A 0 Total 0 AMBROSIO KAT RESIDENT Aug 25, 2024 15:34 MARY MCMULLEN DO Aug 25, 2024 19:25
--- NOTE | 2024-08-25 15:55 | DVH ---
EXAM: XY CHEST PORTABLE TECHNIQUE: Single frontal chest radiograph CLINICAL HISTORY: weakness COMPARISON: XY CHEST XRAY 1 VIEW on DOS: 05/06/24 Findings/Impression: Frontal chest radiograph demonstrates no acute osseous or superficial soft tissue abnormalities. The trachea is midline. The cardiac silhouette and mediastinum are within normal limits. Right mid and medial lower lung field haxy opacities may reflect multifocal pneumonia. No pneumothorax or pleural effusions.
--- NOTE | 2024-08-25 15:58 | DVH ---
EXAM: CT STROKE CTH HISTORY: WEAK, FALL, SLURRED SPEECH COMPARISON: None TECHNIQUE: Axial images were obtained and reformatted in coronal and sagittal planes. All CT scans at this medical facility are performed using dose modulation techniques as appropriate t o a performed exam including the following: Automated exposure control was utilized; adjustment of th e MA and/or KV according to patient size; and use of iterative reconstruction technique. CT Dose: CTDI volume is 54 mGy. Dose-length product is 864 mGy*cm FINDINGS: Supratentorial Region: No evidence for large acute territorial ischemia. Several small areas of old left upper frontal lobe infarcts noted. No intracranial hemorrhage is noted. Confluent white matter h ypoattenuating foci are noted bilaterally, which typically reflect chronic microvascular ischemic jaqueline nges. Posterior Fossa: No acute abnormality. Brainstem: Unremarkable. Sellar/Suprasellar Region: Unremarkable. Ventricles, Cisterns, Sulci: Age-appropriate. Orbits: Unremarkable. Paranasal Sinuses: Mild paranasal sinus mucosal thickening is seen. Mastoid Air Cells: Unremarkable. Vasculature: Intracranial arterial calcified plaque formation noted. Bones/Soft Tissues: No acute abnormality. Other: None. IMPRESSION: 1. No large acute territorial ischemia or intracranial hemorrhage. 2. Left frontal watershed infarcts can not be ruled out. Moderate underlying white matter disease / c hronic microvascular ischemic changes limit evaluation. These can be better evaluated with MRI if cli nically indicated. 3. Remote left FARNAZ territorial infarct . Dr. Kat was notified of findings on 08/25/2024 at 3 50 p.m..
[2024-08-25] MEDS: IOHEXOL 350 MG/ML 100ML IJ ONE (16:06)
[2024-08-25 16:18] LABS: Hemoglobin 8.8 g/dL (12.2-16.2); White Blood Cell 10.6 10^3/uL (4.4-10.8)
[2024-08-25 16:20] LABS: Hematocrit 27.4 % (36.0-46.0); Mean Corpuscular Hemoglobin 23.4 pg (28.0-32.0); Mean Corpuscular Hgb Conc. 32.2 g/dL (32.0-36.0); Mean Corpuscular Volume 72.7 fL (80.0-100.0); Platelet Count (auto) 225 10^3/uL (140-450); Red Blood Cells 3.77 10^6/uL (4.0-5.20); Red Cell Distribution Width 19.8 % (11.8-14.3)
[2024-08-25 16:29] LABS: Basophils % (manual) 0 (0.0-2.0); Blast Cells 0; Eosinophils % (manual) 0 (0-7); Metamyelocytes % 0; Myelocytes % 0; Promyelocytes % 0; Reactive Lymphocytes 0
[2024-08-25 16:35] LABS: Alanine Aminotransferase 13 U/L (7-40); Albumin 3.9 g/dL (3.2-4.8); Alkaline Phosphatase 74 U/L (46-116); Anion Gap 8 (5-15); Aspartate Aminotransferase 13 U/L (13-40); BUN/Creatinine Ratio 15.7 (10.0-20.0); Bilirubin, Total 0.6 mg/dL (0.2-1.0); Blood Urea Nitrogen 18 mg/dL (9-23); Calcium 9.5 mg/dL (8.7-10.4); Carbon Dioxide 25 mmol/L (20-31); Chloride 103 mmol/L (98-107); Glucose 199 mg/dL (74-106); Magnesium 1.4 mg/dL (1.6-2.6); Potassium 3.9 mmol/L (3.5-5.1); Sodium 136 mmol/L (136-145); Total Protein 8.8 g/dL (5.7-8.2)
--- NOTE | 2024-08-25 16:39 | DVH ---
EXAM: CT ANGIO HEAD/NECK HISTORY: stroke COMPARISON: None TECHNIQUE: CTA imaging of the head was performed through the [place] following the uneventf ul administration of intravenous contrast. Sagittal and coronal reformatted images were obtained from the source data. 3D/MIP post-processing of the source data set was performed and reviewed by the rad iologist. Radiation Dose Information: CT Dose: CTDI volume is 22.36 mGy. Dose-length product is 728.12 mGy*cm All CT scans at this medical facility are performed using dose modulation techniques as appropriate t o a performed exam including the following: Automated exposure control was utilized; adjustment of th e MA and/or KV according to patient size; and use of iterative reconstruction technique. FINDINGS: CTA Neck: Aortic Arch: Not included in the field of view. Right brachiocephalic artery: Mild atherosclerotic calcification without significant stenosis. Right carotid artery: Mild atherosclerotic calcification of the carotid bulb and proximal ICA without significant stenosis. Right subclavian artery: Unremarkable. Right vertebral artery: Unremarkable. Left carotid artery: Mild atherosclerotic calcification of the carotid bulb and proximal ICA without significant stenosis. Left subclavian artery: Unremarkable. Left vertebral artery: Unremarkable. OTHER: Multinodular goiter predominantly involving the right lobe. Multilevel degenerative disc disea se of the cervical spine noted CTA Head: [place]: The arteries of [place] are patent, without evidence of aneurysm, stenosis or thrombosis. Atherosclerotic calcification of the bilateral carotid siphons noted. Mild atherosclero tic calcification of the intracranial right vertebral artery. Dural venous: Grossly unremarkable. Other: None. IMPRESSION: 1. No large vessel occlusion or high-grade stenosis in the arteries of the head and neck. No aneurysm is identified.
[2024-08-25] MEDS: ATORVASTATIN 20 MG TAB PO ONE (16:49)
[2024-08-25] MEDS: ASPirin 325 MG TAB PO ONE (16:49)
[2024-08-25 17:05] VITALS: PULSE 90; RESP 20; O2SAT 96
[2024-08-25 17:05] LABS: Anisocytosis Slight; Band Neutrophils % (manual) 6; Hypochromia Moderate; Lymphocytes % (manual) 4 (10.0-50.0); Monocytes % (manual) 4 (0-12); Platelet Estimate Adequate
--- NOTE | 2024-08-25 17:29 | DVHHP2 ---
History of Present Illness Reason for Visit: Generalized weakness History of Present Illness The patient is a 74-year-old female with past medical history of diabetes mellitus, hypertension, and hyperlipidemia who presented to [facility] ED with complaint of generalized weakness. Patient reports symptoms progressively get worse with slurred speech, fall at home, altered mental status, getting worse that prompted this visit. Patient was seen and evaluated in the ED, stroke protocol was activated. Tele neurology was consulted and patient was taken to head CT. laboratory data shows WBC 10.6, hemoglobin 8.8, hematocrit 27.4, platelets 225, sodium 136, potassium 3.9, BUN 18, creatinine 1.15, GFR 49, glucose 199, magnesium 1.4, troponin 28, blood pressure 157/69, heart rate 89, temperature 98.7 F, O2 saturation 99% on oxygen. Head CT showed no large acute territorial ischemia or intracranial hemorrhage. Chest x-ray revealing right mid and medial lower lung filled hazy opacities may reflect multifocal pneumonia, no pneumothorax or pleural effusions. Patient was started on IV antibiotic regimen doxycycline, please see medication orders section in the computer. On my assessment, patient's at bedside, denies chest pain, no headache, no dizziness, no diaphoresis, no shortness of breath, no nausea, no vomiting, no fever, no chills. Patient was admitted for further evaluation and medical management. Past Medical History DM, High Lipids Past Surgical History Denies all surgeries Family History Reviewed, noncontributory to the management of this case. Past Social History The patient lives at home, denies smoking, alcohol or illicit drugs abuse. Review of Systems Constitutional: Yes: Weakness, Other (Fatigue); No: Fever, Chills, Sweats, Malaise Eyes: No: Pain, Vision change, Conjunctivae inflammation, Eyelid inflammation, Other, Redness ENT: No: Ear pain, Ear discharge, Nose pain, Nose discharge, Nose congestion, Mouth pain, Mouth swelling, Throat pain, Throat swelling, Other Respiratory: No: Cough, Dry, Shortness of breath, SOB with excertion, Wheezing, Hemoptysis, Pleuritic Pain, Sputum, Wheezing, Other Cardiovascular: No: Chest Pain, Palpitations, Orthopnea, Paroxysmal Noc. Dyspnea, Edema, Lt Headedness, Other Gastrointestinal: No: Nausea, Vomiting, Abdominal Pain, Diarrhea, Constipation, Melena, Hematochezia, Other Genitourinary: No Dysuria, No Frequency, No Incontinence, No Hematuria, No Rete ntion, No Other Musculoskeletal: No: other, neck pain, shoulder pain, arm pain, back pain, hand pain, leg pain, foot pain Skin: No: Rash, Lesions, Jaundice, Bruising, Other Neurological: Weakness, Change in speech; No: Numbness, Incoordination, Confusion, Seizures, Other Allergies: Coded Allergies: NO KNOWN ALLERGIES (Unverified , 04/05/18) Exam Vital Signs Vital Signs Date Time Temp Pulse Resp B/P (MAP) Pulse Ox O2 Delivery O2 Flow Rate FiO2 08/25/24 17:07 89 08/25/24 16:41 16 99 Room Air 08/25/24 16:41 98.7 157/69 (98) 98.7 General Appearance: Alert, Oriented X3, Cooperative, No acute distress HEENT: Atraumatic, PERRLA, EOMI, Mucous membr. moist/pink Respiratory: Normal air movement, Other (Diminished breath sounds) Cardiovascular: Regular rate, Normal S1, Normal S2, No murmurs Abdominal: Normal bowel sounds, Soft, No tenderness, No hepatospenomegaly, No masses Extremities: No clubbing, No cyanosis, No edema, Normal pulses, No tenderness/swelling Skin: No rashes, No breakdown, No significant lesion Neuro: Normal speech, Normal tone, Sensation intact, Cranial nerves 3-12 NL, Reflexes 2+, Other (Generalized weakness) Psych/Mental Status: Mood NL, Other (Altered mental status) Labs/Xrays Labs Test 08/25/24 15:57 08/25/24 14:54 Range/Units White Blood Count 10.6 4.4-10.8 10^3/uL Red Blood Count 3.77 L 4.0-5.20 10^6/uL Hemoglobin 8.8 L 12.2-16.2 g/dL Hematocrit 27.4 L 36.0-46.0 % Mean Corpuscular Volume 72.7 L 80.0-100.0 fL Mean Corpuscular Hemoglobin 23.4 L 28.0-32.0 pg Mean Corpuscular Hemoglobin Concent 32.2 32.0-36.0 g/dL Red Cell Distribution Width 19.8 H 11.8-14.3 % Platelet Count 225 140-450 10^3/uL Mean Platelet Volume 8.3 6.9-10.8 fL Neutrophils (%) (Auto) 37.0-80.0 % Lymphocytes (%) (Auto) 10.0-50.0 % Monocytes (%) (Auto) 0.0-12.0 % Basophils (%) (Auto) 0.0-2.0 % Neutrophils # (Auto) 1.6-8.6 10 ^3/uL Lymphocytes # (Auto) 0.4-5.4 10 ^3/uL Monocytes # (Auto) 0-1.3 10 ^3/uL Differential Total Cells Counted 100.0 100 Neutrophils % (Manual) 86 H 37.0-80.0 Band Neutrophils % (Manual) 6 Lymphocytes % (Manual) 4 L 10.0-50.0 Monocytes % (Manual) 4 0-12 Eosinophils % (Manual) 0 0-7 Basophils % (Manual) 0 0.0-2.0 Metamyelocytes % (manual) 0 Myelocytes % (Manual) 0 Promyelocytes % (Manual) 0 Blast Cells % (Manual) 0 Reactive Lymphocytes 0 Platelet Estimate Adequate Hypochromasia (manual) Moderate Anisocytosis (manual) Slight Microcytosis Moderate Sodium Level 136 136-145 mmol/L Potassium Level 3.9 3.5-5.1 mmol/L Chloride Level 103 98-107 mmol/L Carbon Dioxide Level 25 20-31 mmol/L Anion Gap 8 5-15 Blood Urea Nitrogen 18 9-23 mg/dL Creatinine 1.15 H 0.550-1.02 mg/dL Glomerular Filtration Rate Calc 49 >90 mL/min BUN/Creatinine Ratio 15.7 10.0-20.0 Serum Glucose 199 H 74-106 mg/dL Lactic Acid Level 1.2 0.4-2.0 mmol/L Calcium Level 9.5 8.7-10.4 mg/dL Magnesium Level 1.4 L 1.6-2.6 mg/dL Total Bilirubin 0.6 0.2-1.0 mg/dL Aspartate Amino Transferase (AST) 13 13-40 U/L Alanine Aminotransferase (ALT) 13 7-40 U/L Alkaline Phosphatase 74 46-116 U/L Troponin I High Sensitivity 28 </=34 ng/L Total Protein 8.8 H 5.7-8.2 g/dL Albumin 3.9 3.2-4.8 g/dL POC Glucose 207 H 70-106 mg/dl PATIENT: DAVID DOUGLAS ACCT: [id number] UNIT: [id number] : 1950 LOC: ER ROOM / BED: / AGE / SEX: 74 / F ADM STATUS: REG ER SERVICE 1511 ORDERING PHYSICIAN: MARY MCMULLEN DO PROCEDURE(s): CTH - STROKE CTH REASON: WEAK, FALL, SLURRED SPEECH ORDER NUMBER(s): [id number], ACCESSION NUMBER(s): [id number] EXAM: CT STROKE CTH HISTORY: WEAK, FALL, SLURRED SPEECH COMPARISON: None TECHNIQUE: Axial images were obtained and reformatted in coronal and sagittal planes. All CT scans at this medical facility are performed using dose modulation techniques as appropriate to a performed exam including the following: Automated exposure control was utilized; adjustment of the MA and/or KV according to patient size; and use of iterative reconstruction technique. CT Dose: CTDI volume is 54 mGy. Dose-length product is 864 mGy*cm FINDINGS: Supratentorial Region: No evidence for large acute territorial ischemia. Several small areas of old left upper frontal lobe infarcts noted. No intracranial hemorrhage is noted. Confluent white matter hypoattenuating foci are noted bilaterally, which typically reflect chronic microvascular ischemic changes. Posterior Fossa: No acute abnormality. Brainstem: Unremarkable. Sellar/Suprasellar Region: Unremarkable. Ventricles, Cisterns, Sulci: Age-appropriate. Orbits: Unremarkable. Paranasal Sinuses: Mild paranasal sinus mucosal thickening is seen. Mastoid Air Cells: Unremarkable. Vasculature: Intracranial arterial calcified plaque formation noted. Bones/Soft Tissues: No acute abnormality. Other: None. IMPRESSION: 1. No large acute territorial ischemia or intracranial hemorrhage. 2. Left frontal watershed infarcts can not be ruled out. Moderate underlying white matter disease/chronic microvascular ischemic changes limit evaluation. These can be better evaluated with MRI if clinically indicated. 3. Remote left FARNAZ territorial infarct. ORDERING PHYSICIAN: AMBROSIO ARZOLA PROCEDURE(s): [place] - ANGIO HEAD/Neck REASON: ?stroke ORDER NUMBER(s): [id number], ACCESSION NUMBER(s): [id number] EXAM: CT ANGIO HEAD/NECK HISTORY: stroke COMPARISON: None TECHNIQUE: CTA imaging of the head was performed through the [place] following the uneventful administration of intravenous contrast. Sagittal and coronal reformatted images were obtained from the source data. 3D/MIP post- processing of the source data set was performed and reviewed by the radiologist. Radiation Dose Information: CT Dose: CTDI volume is 22.36 mGy. Dose-length product is 728.12 mGy*cm All CT scans at this medical facility are performed using dose modulation techniques as appropriate to a performed exam including the following: Automated exposure control was utilized; adjustment of the MA and/or KV according to patient size; and use of iterative reconstruction technique. FINDINGS: CTA Neck: Aortic Arch: Not included in the field of view. Right brachiocephalic artery: Mild atherosclerotic calcification without significant stenosis. Right carotid artery: Mild atherosclerotic calcification of the carotid bulb and proximal ICA without significant stenosis. Right subclavian artery: Unremarkable. Right vertebral artery: Unremarkable. Left carotid artery: Mild atherosclerotic calcification of the carotid bulb and proximal ICA without significant stenosis. Left subclavian artery: Unremarkable. Left vertebral artery: Unremarkable. OTHER: Multinodular goiter predominantly involving the right lobe. Multilevel d egenerative disc disease of the cervical spine noted CTA Head: [place]: The arteries of [place] are patent, without evidence of aneurysm, stenosis or thrombosis. Atherosclerotic calcification of the bilateral carotid siphons noted. Mild atherosclerotic calcification of the intracranial right vertebral artery. Dural venous: Grossly unremarkable. Other: None. IMPRESSION: 1. No large vessel occlusion or high-grade stenosis in the arteries of the head and neck. No aneurysm is identified. ORDERING PHYSICIAN: MARY MCMULLEN DO PROCEDURE(s): CXRP - CHEST PORTABLE REASON: weakness ORDER NUMBER(s): [id number], ACCESSION NUMBER(s): [id number] EXAM: XY CHEST PORTABLE TECHNIQUE: Single frontal chest radiograph CLINICAL HISTORY: weakness COMPARISON: XY CHEST XRAY 1 VIEW on DOS: 05/06/24 Findings/Impression: Frontal chest radiograph demonstrates no acute osseous or superficial soft tissue abnormalities. The trachea is midline. The cardiac silhouette and mediastinum are within normal limits. Right mid and medial lower lung field haxy opacities may reflect multifocal pneumonia. No pneumothorax or pleural effusions. Assessment/Plan Assessment/Plan Altered mental status Slurred speech Hypomagnesemia Anemia, unspecified Generalized weakness Multifocal pneumonia Plan 1. Admit to telemetry unit 2. Breathing treatment 3. Pain control management 4. IV antibiotic management 5. Management of fluids and electrolytes 6. Consultation for hospitalist/neurology 7. Diagnostic test head CT 8. DVT prophylaxis-on aspirin 9. Repeat labs CBC, CMP in a.m. 10. Home medication reviewed and reconciled 11. Continue with current medical management 12. Treatment plan discussed with patient and RN. Patient/ verbalized understanding. Plan discussed with: Patient, Spouse ( at bedside), Other (RN) Problem List: (1) Altered mental status (2) Anemia, unspecified (3) Hypomagnesemia (4) Multifocal pneumonia (5) Slurred speech (6) Generalized weakness Date of Service: Aug 25, 2024 Billing Provider: SHEA CRISTINA DNP Common Visit Codes: [id number] INP/OBS CARE (HIGH) SHEA CRISTINA DNP Aug 25, 2024 17:29
[2024-08-25] MEDS ORDERED: DOCUSATE SOD 100 MG CAP PO PRN (17:30)
[2024-08-25] MEDS ORDERED: DEXTROSE (50%) 50ML SYRG IV PRN (17:30)
[2024-08-25] MEDS ORDERED: NITROGLYCERIN 0.4 MG SL TAB SL PRN (17:30)
[2024-08-25] MEDS ORDERED: MORPHINE SULFATE INJ 2 MG/ml SYRG IV PRN (17:30)
[2024-08-25] MEDS ORDERED: PIPERACILLIN-TAZOB 3.375GM 100 ML IV ONE (17:45)
[2024-08-25] MEDS: SODIUM CHLORIDE 0.9% 1,000 ML IV SCH (17:59)
[2024-08-25] MEDS: MAGNESIUM SULFATE 1GM/100ML 100 ML IV ONE (17:59)
[2024-08-25] MEDS: ACETAMINOPHEN 325 MG TAB PO PRN (18:00)
[2024-08-25] MEDS ORDERED: DOXYCYCLINE 100MG/250ML 250 ML IV SCH (18:15)
[2024-08-25 18:50] LABS: Urine Bacteria FEW /hpf (None Seen); Urine Blood TRACE /uL (Negative); Urine Budding Yeast FEW /hpf (None Seen); Urine Clarity Turbid (Clear); Urine Color Colorless (Yellow); Urine Protein, UAD TRACE (Negative); Urine Urobilinogen Normal (Negative); Urine WBC 257 /hpf (0 - 5); Urine pH 6.5 (5.0-9.0)
[2024-08-25 18:55] LABS: Urine Specific Gravity > 1.050 (1.001-1.035)
[2024-08-25] MEDS: PIPERACILLIN-TAZOB 3.375GM 100 ML IV ONE (19:07)
[2024-08-25 19:35] VITALS: PULSE 85; RESP 21
[2024-08-25] MEDS: DOXYCYCLINE 100MG/250ML 250 ML IV ONE (20:30)
--- NOTE | 2024-08-25 21:51 | BSKYNEURO ---
[place] Neuro Note # Demographics Consult Type: Acute Stroke Level 2 (4.5-24 hrs) Patient Location: Emergency Room First Name: Tyson Last Name: Kirt Date of : 1950 Age: 74 Gender: Female Facility: [facility] Time of Initial Page (): 08/25/2024, 15:11 Time of Return Call (): 08/25/2024, 15:14 # HPI History: 74 with diabetes around 9:00am this morning developed some slurred speech. She was also complaining of generalized weakness since yesterday # Scores Time of exam and NIHSS (): 08/25/2024, 16:29 Level of Consciousness 1a: [0] = Alert; keenly responsive LOC Questions 1b: [0] = Answers both questions correctly LOC Commands 1c: [0] = Performs both tasks correctly Best Gaze 2: [0] = Normal Visual 3: [0] = No visual loss Facial Palsy 4: [0] = Normal symmetrical movements Motor Arm Left 5a: [0] = No drift Motor Arm Right 5b: [0] = No drift Motor Leg Left 6a: [0] = No drift Motor Leg Right 6b: [0] = No drift Limb Ataxia 7: [0] = Absent Sensory 8: [0] = Normal Best Language 9: [0] = No aphasia Dysarthria 10: [0] = Normal Extinction and Inattention 11: [0] = No abnormality NIHSS Total: 0 # PMH-FH-SH Past Medical History: - Diabetes Social History: - non-smoker - non-drinker - no drugs Medications: - diabetic medication Allergies: - NKDA # Data Head CT: - no bleed CTA Head: no large vessel occlusion # Assessment Impression: possible CVA vs TIA # Plan Thrombolytic/Intervention: NOT IV Thrombolysis or IA Intervention candidate Thrombolytic Exclusion (< 3 hour window): - NIHSS = 0 Thrombolytic Exclusion: > 4.5 hours Intraarterial Exclusion: - no large vessel occlusion (LVO) Labs: - lipid panel - hemoglobin A1c - TSH Imaging: (urgency: STAT): - CT Angiogram Head and CT Angiogram Neck AND call back with results if abnormal Diagnostic Test: - echo without bubble study Imaging / diagnostics: (urgency: outpatient): - MRI brain without Therapy/Evaluation: - PT/OT evaluation - speech/swallow consultation Medication: - aspirin 81 mg daily Other: - If patient has any neurological deterioration please call back immediately - I have discussed my recommendations with the referring provider # Demographics First Name: Tyson Last Name: Kirt Facility: [facility] Yes MALCOM BERGERON Jr., MD Aug 25, 2024 21:51
[2024-08-25] MEDS: ATORVASTATIN 20 MG TAB PO SCH (22:08)
[2024-08-25] MEDS: InsuLIN REG 1unit/0.01ml Soln (100units/ml) SC SCH (22:09)
[2024-08-25] MEDS: ACCU-CHEK COMFORT CURVE STRIP VI SCH (22:12)
--- NOTE | 2024-08-25 23:35 | BSKYNEURO ---
[place] Neuro Note # Demographics Consult Type: General Neurology Patient Location: Emergency Room First Name: Tyson Last Name: Kirt Date of : 1950 Age: 74 Gender: Female Facility: [facility] Time of Initial Page (): 08/25/2024, 21:29 Time of Return Call (): 08/25/2024, 21:29 # HPI Chief Complaint: - speech changes - weakness (generalized) History: 74 yo F p/w word finding difficulties and difficulties with walking for the past 2-3 days. Last Known Normal: 2-3 days ago # Scores Time of exam and NIHSS (): 08/25/2024, 21:58 Level of Consciousness 1a: [0] = Alert; keenly responsive LOC Questions 1b: [0] = Answers both questions correctly LOC Commands 1c: [0] = Performs both tasks correctly Best Gaze 2: [0] = Normal Visual 3: [0] = No visual loss Facial Palsy 4: [0] = Normal symmetrical movements Motor Arm Left 5a: [0] = No drift Motor Arm Right 5b: [0] = No drift Motor Leg Left 6a: [0] = No drift Motor Leg Right 6b: [0] = No drift Limb Ataxia 7: [0] = Absent Sensory 8: [0] = Normal Best Language 9: [0] = No aphasia Dysarthria 10: [0] = Normal Extinction and Inattention 11: [0] = No abnormality NIHSS Total: 0 # ROS Additional: - complete review of systems otherwise negative # PMH-FH-SH Past Medical History: - Diabetes # Data Head CT: - no bleed Chronic L frontal infarct CTA Head: no large vessel occlusion # Assessment Impression: Acute ischemic stroke vs TIA # Plan Labs: - hemoglobin A1c - lipid panel - B12 - TSH - ua - ESR Imaging: (urgency: routine): - MRI Brain without contrast Diagnostic Test: - echo without bubble study Therapy/Evaluation: - PT/OT evaluation Medication: - aspirin 81 mg daily Other: - If patient has any neurological deterioration please call me back immediately - telemetry monitoring - I have discussed my recommendations with the referring provider - would not pursue stroke work-up if MRI is negative # Logistics Attestation of consult completion: The patient is located at: [facility]. Facility staff participated in the visit. I performed this telemedicine visit from my offsite office utilizing interactive 2 way audio and visual telecommunication technology. Total time spent in telemedicine encounter: I spent 21 minutes reviewing clinical data and/or imaging, obtaining history, examining the patient, communicating with the onsite care team, and in preparation of this report. # Demographics First Name: Tyson Last Name: Kirt Facility: [facility] Electronically signed at 08/25/2024 23:34 (Emmons Time) by Collette Kidd MD Yes COLLETTE KIDD MD Aug 25, 2024 23:35
[2024-08-25] MEDS ORDERED: GLIP5TAB21 PO (23:45)
[2024-08-25] MEDS ORDERED: PANT40T PO (23:45)
[2024-08-25 23:55] VITALS: BP 103/53; PULSE 73; RESP 18; TEMP 98.9; O2SAT 98
[2024-08-26] VITALS (8 sets, daily range): BP systolic 110–130; BP diastolic 46–69; PULSE 69–85; RESP 17–18; TEMP 97.4–98.5; O2SAT 97–100
[2024-08-26 06:13] LABS: Basophils # (auto) 0 10 ^3/uL (0-0.2); Basophils % (auto) 0.1 % (0.0-2.0); Eosinophils # (auto) 0 10 ^3/uL (0-0.8); Hemoglobin 7.7 g/dL (12.2-16.2); Red Blood Cells 3.25 10^6/uL (4.0-5.20)
[2024-08-26 06:14] LABS: Eosinophils % (auto) 0.1 % (0.0-7.0); Hematocrit 23.6 % (36.0-46.0); Lymphocytes # (auto) 0.7 10 ^3/uL (0.4-5.4); Lymphocytes % (auto) 8.9 % (10.0-50.0); Mean Corpuscular Hemoglobin 23.6 pg (28.0-32.0); Mean Corpuscular Hgb Conc. 32.4 g/dL (32.0-36.0); Mean Corpuscular Volume 72.7 fL (80.0-100.0); Monocytes # (auto) 0.4 10 ^3/uL (0-1.3); Monocytes % (auto) 4.9 % (0.0-12.0); Nucleated Red Blood Cells % 0.1 %; Platelet Count (auto) 167 10^3/uL (140-450); Red Cell Distribution Width 19.7 % (11.8-14.3); White Blood Cell 8.1 10^3/uL (4.4-10.8)
[2024-08-26 06:23] LABS: Alanine Aminotransferase 10 U/L (7-40); Albumin 3.4 g/dL (3.2-4.8); Alkaline Phosphatase 61 U/L (46-116); Anion Gap 8 (5-15); Aspartate Aminotransferase 13 U/L (13-40); BUN/Creatinine Ratio 15.5 (10.0-20.0); Bilirubin, Total 0.5 mg/dL (0.2-1.0); Blood Urea Nitrogen 16 mg/dL (9-23); Calcium 9.2 mg/dL (8.7-10.4); Carbon Dioxide 25 mmol/L (20-31); Chloride 105 mmol/L (98-107); Glucose 116 mg/dL (74-106); Potassium 3.7 mmol/L (3.5-5.1); Sodium 138 mmol/L (136-145); Total Protein 7.9 g/dL (5.7-8.2)
[2024-08-26] MEDS: InsuLIN REG 1unit/0.01ml Soln (100units/ml) SC SCH (06:46)
[2024-08-26] MEDS ORDERED: DOXYCYCLINE 100MG/250ML 250 ML IV SCH (10:00)
[2024-08-26] MEDS: FAMOTIDINE (10MG/ML) 2ML VL IV SCH (10:18)
[2024-08-26] MEDS: ASPirin 81 mg TAB PO SCH (10:19)
[2024-08-26] MEDS: DOXYCYCLINE 100MG/250ML 250 ML IV SCH (10:19)
--- NOTE | 2024-08-26 13:07 | ECG ---
[facility] Test Date: 2024-08-25 Test Time: 15:00:47 Pat Name: DAVID DOUGLAS Department: ER Room: 0214T B Gender: F [employer]: CONRADO : 1950 Requested By: MARY MCMULLEN Order Number: [id number] Reading MD: Melvin Armas Measurements Intervals [place] Rate: 113 P: 83 IL: 131 QRS: 87 QRSD: 76 T: 40 QT: 316 QTc: 434 Interpretive Statements Sinus tachycardia Right atrial enlargement Borderline right axis deviation Electronically Signed On 08-29-2024 17:14:09 PST by Melvin Armas Please click the below link to view image of tracing.
--- NOTE | 2024-08-26 13:30 | DVHPN2 ---
Reviewed: Care Plan, H&P, Labs, Medications, Previous Orders, Radiology Changes from previous H/P or p: No Changes Eyes: No Pain, No Vision change, No Conjunctivae inflammation, No Eyelid inflammation, No Other, No Redness ENT: No Ear pain, No Ear discharge, No Nose pain, No Nose discharge, No Nose congestion, No Mouth pain, No Mouth swelling, No Throat pain, No Throat swelling, No Other Cardiovascular: No Chest Pain, No Palpitations, No Orthopnea, No Paroxysmal Noc. Dyspnea, No Edema, No Lt Headedness, No Other Respiratory: No Cough, No Dry, No Shortness of breath, No SOB with excertion, No Wheezing, No Hemoptysis, No Pleuritic Pain, No Sputum, No Other Gastrointestinal: No Nausea, No Vomiting, No Abdominal Pain, No Diarrhea, No Constipation, No Melena, No Hematochezia, No Other Genitourinary: No Dysuria, No Frequency, No Incontinence, No Hematuria, No Retention, No Other Musculoskeletal: No other, No neck pain, No shoulder pain, No arm pain, No back pain, No hand pain, No leg pain, No foot pain Skin: No Rash, No Lesions, No Jaundice, No Bruising, No Other Objective Vitals Vital Signs Date Time Temp Pulse Resp B/P (MAP) Pulse Ox O2 Delivery O2 Flow Rate FiO2 08/26/24 12:24 98.0 76 18 120/57 (78) 97 98.0 08/25/24 23:40 Room Air* 0 21 Intake/Output Intake and Output 08/26/24 07:00 Intake Total 900 ml Output Total 300 ml Balance 600 ml Intake Oral 150 ml IV Total 750 ml Output Urine Total 300 ml Medications Current Medications Medications Dose Ordered Sig/Walt Route Start Time Stop Time Status Last Admin Dose Admin Aspirin 81 mg DAILY PO 08/26/24 10:00 08/26/24 10:19 81 MG Hydralazine HCl 10 mg Q6HP PRN IV 08/25/24 17:30 Atorvastatin Calcium 40 mg HS PO 08/25/24 22:00 08/25/24 22:08 40 MG Famotidine 20 mg DAILY IV 08/26/24 10:00 08/26/24 10:18 20 MG Diagnostic Test (Pha) 1 strip ACHS 08/25/24 22:00 08/26/24 11:28 1 STRIP Insulin Human Regular HS SC 11/18/24 22:00 08/25/24 22:09 6 UNITS Insulin Human Regular AC SC 08/26/24 07:00 08/26/24 11:26 3 UNITS Dextrose 50 ml UD PRN IV 08/25/24 17:30 Sodium Chloride 1,000 ml @ 60 mls/hr [id number] IV 08/25/24 17:30 08/26/24 10:20 60 MLS/HR Acetaminophen/ Hydrocodone Bitart 1 tab Q4HP PRN PO 08/25/24 17:30 Ondansetron HCl 4 mg Q4HP PRN IV 08/25/24 17:30 Docusate Sodium 100 mg BIDPRN PRN PO 08/25/24 17:30 Acetaminophen 650 mg Q6HP PRN PO 08/25/24 17:30 08/25/24 18:00 650 MG Nitroglycerin 0.4 mg Q5MINP PRN SL 08/25/24 17:30 Morphine Sulfate 2 mg Q30M PRN IV 08/25/24 17:30 Doxycycline Hyclate 250 ml @ 125 mls/hr Q12H IV 08/25/24 18:15 Cancel Doxycycline Hyclate 250 ml @ 125 mls/hr Q12HR IV 08/26/24 10:00 Cancel Doxycycline Hyclate 250 ml @ 125 mls/hr Q12HR IV 08/26/24 10:00 08/26/24 10:19 125 MLS/HR Ceftriaxone Sodium 50 ml @ 100 mls/hr DAILY@09 IV 08/27/24 09:00 UNV Laboratory Results Laboratory Tests 08/26/24 04:40 Chemistry Test 08/25/24 15:57 08/26/24 04:40 Albumin 3.9 g/dL (3.2-4.8) 3.4 g/dL (3.2-4.8) Calcium Level 9.5 mg/dL (8.7-10.4) 9.2 mg/dL (8.7-10.4) Magnesium Level 1.4 mg/dL (1.6-2.6) L Total Protein 8.8 g/dL (5.7-8.2) H 7.9 g/dL (5.7-8.2) LFT Test 08/25/24 15:57 08/26/24 04:40 Alanine Aminotransferase (ALT) 13 U/L (7-40) 10 U/L (7-40) Alkaline Phosphatase 74 U/L (46-116) 61 U/L (46-116) Aspartate Amino Transferase (AST) 13 U/L (13-40) 13 U/L (13-40) Total Bilirubin 0.6 mg/dL (0.2-1.0) 0.5 mg/dL (0.2-1.0) Urinalysis Test 08/25/24 18:33 Urine Color Colorless (Yellow) Urine Clarity Turbid (Clear) H Urine pH 6.5 (5.0-9.0) Urine Specific [place] > 1.050 (1.001-1.035) Urine Protein Trace (Negative) H Urine Ketones Negative (Negative) Urine Blood Trace /uL (Negative) H Urine Nitrite Negative (Negative) Urine Bilirubin Negative (Negative) Urine Urobilinogen Normal mg/dL (Negative) Urine Leukocyte Esterase 3+ /uL (Negative) Urine RBC 1 /hpf (0 - 4) Urine WBC 257 /hpf (0 - 5) Urine Squamous Epithelial Cells Few /hpf (<5) Urine Bacteria Few /hpf (None Seen) H Urine Yeast (Budding) Few /hpf (None Seen) Urine Glucose Normal mg/dL (Normal) Labs and/or images reviewed: Labs reviewed by me, Image(s) reviewed by me Assessment/Plan Assessment/Plan Generalized weakness and slurred speech rule out TIA rule out CVA: CT head negative CT angio neck negative, Neurology consult by Dr. Gomez appreciated, placed on aspirin Septic shock secondary to urinary tract infection: Blood cultures urine cultures Acute urinary tract infection: Rocephin Diabetes: Insulin sliding scale Hypertension Hypercholesterolemia Severe anemia hemoglobin 8.8, GI consult for Dr. Santamaria Time spent 65 minutes Patient is full code Advanced care planning time 20 mts Plan discussed with: Patient My Orders Orders - MARLIN SHAW MD Procedure Category Date Status Time Urine Bacterial ELICIA 08/26/24 Logged Culture 13:24 Blood Culture ELICIA 08/26/24 Transmitted 13:26 Ceftriaxone 1gm/50ml PHA 08/27/24 Logged D5w (Rocephin) 09:00 Ceftriaxone 1gm/50ml PHA 08/26/24 Logged D5w (Rocephin) 13:30 Date of Service: Aug 26, 2024 Billing Provider: MARLIN SHAW MD Common Visit Codes: [id number] CARE 30-74 MIN MARLIN SHAW MD Aug 26, 2024 13:30
--- NOTE | 2024-08-26 15:15 | DVH ---
PROCEDURE: MRI BRAIN HEAD WO CONTRAST INDICATION: Rule out stroke EXAM DATE: 08/26/2024 02:27 PM COMPARISON: None TECHNIQUE: MRI of the brain without intravenous contrast. FINDINGS: Diffusion weighted images of the brain demonstrate no evidence of acute infarction. There is no evidence of acute intracranial hemorrhage, extra-axial collection, mass effect, midline s hift, herniation or hydrocephalus. The ventricles, sulci and cisterns appear age appropriate. [id number] changes of chronic microvascular ischemic disease. There are no signal abnormalities on the susceptibility weighted sequences. The major vascular flow voids are present. The visualized paranasal sinuses and mastoid air cells are clear. The surrounding soft tissues and o sseous structures are unremarkable. IMPRESSION: 1. No evidence of acute infarction, intracranial hemorrhage, mass effect or hydrocephalus. Mild-to-mo derate changes of chronic microvascular ischemic disease. HS:Y
[2024-08-26] MEDS: cefTRIAXone 1GM/50ML D5W 50 ML IV ONE (17:00)
[2024-08-27] VITALS (8 sets, daily range): BP systolic 116–153; BP diastolic 46–71; PULSE 74–88; RESP 17–22; TEMP 97.7–98.4; O2SAT 96–100
--- NOTE | 2024-08-27 08:27 | DVHPN2 ---
Reviewed: Care Plan, H&P, Labs, Medications, Previous Orders, Radiology Changes from previous H/P or p: No Changes Eyes: No Pain, No Vision change, No Conjunctivae inflammation, No Eyelid inflammation, No Other, No Redness ENT: No Ear pain, No Ear discharge, No Nose pain, No Nose discharge, No Nose congestion, No Mouth pain, No Mouth swelling, No Throat pain, No Throat swelling, No Other Cardiovascular: No Chest Pain, No Palpitations, No Orthopnea, No Paroxysmal Noc. Dyspnea, No Edema, No Lt Headedness, No Other Respiratory: No Cough, No Dry, No Shortness of breath, No SOB with excertion, No Wheezing, No Hemoptysis, No Pleuritic Pain, No Sputum, No Other Gastrointestinal: No Nausea, No Vomiting, No Abdominal Pain, No Diarrhea, No Constipation, No Melena, No Hematochezia, No Other Genitourinary: No Dysuria, No Frequency, No Incontinence, No Hematuria, No Retention, No Other Musculoskeletal: No other, No neck pain, No shoulder pain, No arm pain, No back pain, No hand pain, No leg pain, No foot pain Skin: No Rash, No Lesions, No Jaundice, No Bruising, No Other Objective Vitals Vital Signs Date Time Temp Pulse Resp B/P (MAP) Pulse Ox O2 Delivery O2 Flow Rate FiO2 08/27/24 05:00 97.8 79 17 121/65 (83) 98 97.8 08/26/24 20:00 Room Air* 0 21 Intake/Output Intake and Output 08/27/24 07:00 Intake Total 1300 ml Balance 1300 ml Intake Oral 750 ml IV Total 550 ml # Voids 5 Medications Current Medications Medications Dose Ordered Sig/Walt Route Start Time Stop Time Status Last Admin Dose Admin Aspirin 81 mg DAILY PO 08/26/24 10:00 08/26/24 10:19 81 MG Hydralazine HCl 10 mg Q6HP PRN IV 08/25/24 17:30 Atorvastatin Calcium 40 mg HS PO 08/25/24 22:00 08/26/24 21:14 40 MG Famotidine 20 mg DAILY IV 08/26/24 10:00 08/26/24 10:18 20 MG Diagnostic Test (Pha) 1 strip ACHS 08/25/24 22:00 08/27/24 06:02 1 STRIP Insulin Human Regular HS SC 08/25/24 22:00 08/26/24 21:19 3 UNITS Insulin Human Regular AC SC 08/26/24 07:00 08/27/24 06:02 3 UNITS Dextrose 50 ml UD PRN IV 08/25/24 17:30 Sodium Chloride 1,000 ml @ 60 mls/hr [id number] IV 08/25/24 17:30 08/26/24 10:20 60 MLS/HR Acetaminophen/ Hydrocodone Bitart 1 tab Q4HP PRN PO 08/25/24 17:30 Ondansetron HCl 4 mg Q4HP PRN IV 08/25/24 17:30 Docusate Sodium 100 mg BIDPRN PRN PO 08/25/24 17:30 Acetaminophen 650 mg Q6HP PRN PO 08/25/24 17:30 08/25/24 18:00 650 MG Nitroglycerin 0.4 mg Q5MINP PRN SL 08/25/24 17:30 Morphine Sulfate 2 mg Q30M PRN IV 08/25/24 17:30 Doxycycline Hyclate 250 ml @ 125 mls/hr Q12H IV 08/25/24 18:15 Cancel Doxycycline Hyclate 250 ml @ 125 mls/hr Q12HR IV 08/26/24 10:00 Cancel Doxycycline Hyclate 250 ml @ 125 mls/hr Q12HR IV 08/26/24 10:00 08/26/24 21:11 125 MLS/HR Ceftriaxone Sodium 50 ml @ 100 mls/hr DAILY@09 IV 08/27/24 09:00 Laboratory Results Laboratory Tests 08/26/24 04:40 Urinalysis Test 08/25/24 18:33 Urine Color Colorless (Yellow) Urine Clarity Turbid (Clear) H Urine pH 6.5 (5.0-9.0) Urine Specific [place] > 1.050 (1.001-1.035) Urine Protein Trace (Negative) H Urine Ketones Negative (Negative) Urine Blood Trace /uL (Negative) H Urine Nitrite Negative (Negative) Urine Bilirubin Negative (Negative) Urine Urobilinogen Normal mg/dL (Negative) Urine Leukocyte Esterase 3+ /uL (Negative) Urine RBC 1 /hpf (0 - 4) Urine WBC 257 /hpf (0 - 5) Urine Squamous Epithelial Cells Few /hpf (<5) Urine Bacteria Few /hpf (None Seen) H Urine Yeast (Budding) Few /hpf (None Seen) Urine Glucose Normal mg/dL (Normal) Microbiology Microbiology Date/Time Source Procedure Growth Status 08/25/24 15:57 Blood Blood Culture - Preliminary NO GROWTH AFTER 24 HOURS OF INCUBATION. Resulted Labs and/or images reviewed: Labs reviewed by me, Image(s) reviewed by me Assessment/Plan Assessment/Plan Generalized weakness and slurred speech rule out TIA rule out CVA: CT head negative CT angio neck negative, MRI brain negative, Neurology consult by Dr. Gomez appreciated, placed on aspirin Septic shock secondary to urinary tract infection: Blood cultures negative, urine cultures pending Acute urinary tract infection: Rocephin Diabetes: Insulin sliding scale Hypertension Hypercholesterolemia Severe anemia hemoglobin 8.8, GI consult for Dr. Santamaria Time spent 55 minutes Patient is full code Plan discussed with: Patient My Orders Orders - MARLIN SHAW MD Procedure Category Date Status Time Urine Bacterial ELICIA 08/26/24 Logged Culture 13:24 Blood Culture ELICIA 08/26/24 In Process 13:26 Ceftriaxone 1gm/50ml PHA 08/27/24 In Process D5w (Rocephin) 09:00 Brain Head Wo Contrast MRI 08/26/24 Resulted 13:30 Date of Service: Aug 27, 2024 Billing Provider: MARLIN SHAW MD Common Visit Codes: [id number] INP/OBS CARE(HIGH) MARLIN SHAW MD Aug 27, 2024 08:27
[2024-08-27] MEDS: cefTRIAXone 1GM/50ML D5W 50 ML IV SCH (08:58)
--- NOTE | 2024-08-27 12:06 | DVHINCON2 ---
Date of service: Aug 27, [address] April MARTINI Reason for Consultation Severe generalized weakness and anemia History of Present Illness This 74-year-old female with a history of diabetes hypertension and hyperlipidemia came to the hospital with severe weakness apparently patient got worse slurring speech and almost fell at home and NSAID the neurological evaluation done which was unremarkable. Patient was found to have a hemoglobin is 8.8 patient is anemic grossly have was ordered a GI workup by the laryngologist oncologist Dr. Isabella Vu waiting for the GI workup and apparently has no prior mental loss next May and has not been able to schedu le the endoscopies apparently. Any gross GI bleeding has lost some weight but could not quantitate An EGD more than about eight years ago never had a colonoscopy Past Medical History Diabetes hypertension hyperlipidemia Past Surgical History None Family History: Patient reports no known family medical history. Family History Noncontributory Social History Denies smoking or drinking Allergies: Coded Allergies: NO KNOWN ALLERGIES (Unverified , 04/05/18) Home Meds Active Scripts Acetaminophen (Tylenol 8 Hour Arthritis) 650 Mg Tab, 650 MG PO TID, #30 TAB Prov:DENIS YEH 08/14/24 Nitrofurantoin Monohydrate Mac (Macrobid) 100 Mg Cap, 100 MG PO BID, #14 CAP Prov:DENIS YEH 08/14/24 Ondansetron Odt 4MG Tab (ZOFRAN PO) 4 Mg Tb, 4 MG PO TID for 7 Days, #21 TAB ODT TAB-DISSOLVE IN MOUTH, THEN SWALLOW Prov:RAMÓN RIDER MD 05/10/24 Baclofen (Baclofen) 10 Mg Tab, 10 MG PO TID PRN, #30 TAB Prov:JAY HE 05/06/24 Sulfamethoxazole-Trimethoprim (Bactrim) 1 Tab Tab, 1 TAB PO BID for 7 Days, #14 TAB 0 Refills Prov:VARGHESE CABRERA 04/11/23 Reported Medications Pantoprazole Sodium Sesquihydr (Pantoprazole Sodium) 40 Mg Tab, 1 TAB PO DAILY 08/25/24 Glipizide (Glipizide) 5 Mg Tab, 1 TAB PO BID 08/25/24 Current Medications Current Medications Medications (Trade) Dose Ordered Sig/Walt Route PRN Reason Start Time Stop Time Status Last Admin Ceftriaxone Sodium 50 ml @ 100 mls/hr DAILY@09 IV 08/27/24 09:00 08/27/24 08:58 Review of Systems Noncontributory Vital Signs Vital Signs Date Time Temp Pulse Resp B/P (MAP) Pulse Ox O2 Delivery O2 Flow Rate FiO2 08/27/24 08:25 98.2 75 18 116/59 (78) 96 98.2 08/26/24 20:00 Room Air* 0 21 Physical Exam Originally built and nourished slightly wasted female very cachectic in no acute distress vital signs stable HEENT examination mild pallor no icterus neck was supple no lymphadenopathy no thyromegaly Chest was bilaterally symmetrical lungs clear Cardiovascular unremarkable Abdomen soft no tenderness no rigidity no masses bowel sounds normal Extremities no edema Neurological grossly intact I have had shown that the hemoglobin was 8.8 hematocrit is 27.4 platelets 225 BUN creatinine normal Labs/Diagnostic Data Labs Test 08/27/24 05:52 08/26/24 04:40 08/25/24 19:54 08/25/24 18:33 Range/Units POC Glucose 197 H 70-106 mg/dl White Blood Count 8.1 4.4-10.8 10^3/uL Red Blood Count 3.25 L 4.0-5.20 10^6/uL Hemoglobin 7.7 L 12.2-16.2 g/dL Hematocrit 23.6 #L 36.0-46.0 % Mean Corpuscular Volume 72.7 L 80.0-100.0 fL Mean Corpuscular Hemoglobin 23.6 L 28.0-32.0 pg Mean Corpuscular Hemoglobin Concent 32.4 32.0-36.0 g/dL Red Cell Distribution Width 19.7 H 11.8-14.3 % Platelet Count 167 140-450 10^3/uL Mean Platelet Volume 7.7 6.9-10.8 fL Neutrophils (%) (Auto) 86.0 H 37.0-80.0 % Lymphocytes (%) (Auto) 8.9 L 10.0-50.0 % Monocytes (%) (Auto) 4.9 0.0-12.0 % Eosinophils (%) (Auto) 0.1 0.0-7.0 % Basophils (%) (Auto) 0.1 0.0-2.0 % Neutrophils # (Auto) 7.0 1.6-8.6 10 ^3/uL Lymphocytes # (Auto) 0.7 0.4-5.4 10 ^3/uL Monocytes # (Auto) 0.4 0-1.3 10 ^3/uL Eosinophils # (Auto) 0 0-0.8 10 ^3/uL Basophils # (Auto) 0 0-0.2 10 ^3/uL Nucleated Red Blood Cells 0.1 % Sodium Level 138 136-145 mmol/L Potassium Level 3.7 3.5-5.1 mmol/L Chloride Level 105 98-107 mmol/L Carbon Dioxide Level 25 20-31 mmol/L Anion Gap 8 5-15 Blood Urea Nitrogen 16 9-23 mg/dL Creatinine 1.03 H 0.550-1.02 mg/dL Glomerular Filtration Rate Calc 56 >90 mL/min BUN/Creatinine Ratio 15.5 10.0-20.0 Serum Glucose 116 H 74-106 mg/dL Calcium Level 9.2 8.7-10.4 mg/dL Total Bilirubin 0.5 0.2-1.0 mg/dL Aspartate Amino Transferase (AST) 13 13-40 U/L Alanine Aminotransferase (ALT) 10 7-40 U/L Alkaline Phosphatase 61 46-116 U/L Total Protein 7.9 5.7-8.2 g/dL Albumin 3.4 3.2-4.8 g/dL Troponin I High Sensitivity 34 </=34 ng/L Urine Color Colorless Yellow Urine Clarity Turbid H Clear Urine pH 6.5 5.0-9.0 Urine Specific [place] > 1.050 H 1.001-1.035 Urine Protein Trace H Negative Urine Ketones Negative Negative Urine Blood Trace H Negative /uL Urine Nitrite Negative Negative Urine Bilirubin Negative Negative Urine Urobilinogen Normal Negative mg/dL Urine Leukocyte Esterase 3+ Negative /uL Urine RBC 1 0 - 4 /hpf Urine WBC 257 0 - 5 /hpf Urine Squamous Epithelial Cells Few <5 /hpf Urine Bacteria Few H None Seen /hpf Urine Yeast (Budding) Few None Seen /hpf Urine Glucose Normal Normal mg/dL Test 08/25/24 15:57 Range/Units Differential Total Cells Counted 100.0 100 Neutrophils % (Manual) 86 H 37.0-80.0 Band Neutrophils % (Manual) 6 Lymphocytes % (Manual) 4 L 10.0-50.0 Monocytes % (Manual) 4 0-12 Eosinophils % (Manual) 0 0-7 Basophils % (Manual) 0 0.0-2.0 Metamyelocytes % (manual) 0 Myelocytes % (Manual) 0 Promyelocytes % (Manual) 0 Blast Cells % (Manual) 0 Reactive Lymphocytes 0 Platelet Estimate Adequate Hypochromasia (manual) Moderate Anisocytosis (manual) Slight Microcytosis Moderate Lactic Acid Level 1.2 0.4-2.0 mmol/L Magnesium Level 1.4 L 1.6-2.6 mg/dL Microbiology Date/Time Source Procedure Growth Status 08/25/24 15:57 Blood Blood Culture - Preliminary NO GROWTH AFTER 24 HOURS OF INCUBATION. Resulted Assessment A 74-year-old with a history of diabetes hypertension hyperlipidemia with a history of slurring speech as well as weakness and tiredness found to be anemic patient apparently has got chronic anemia and awaiting GI workup. But no gross GI bleeding but completely weak and tired. Impression is properly generalized weakness from severe anemia and possible dizziness because of the anemia no gross bleeding seen possible GI pathology gastric be ruled out as advised by laryngologist Dr. Rosario Plan/Recommendation We will recommend EGD and colon evaluation and further workup and treatment depending upon the finding Procedure risks benefits alternatives all explained to the patient and the family and agreeable for the same We will schedule those for tomorrow Thank you Dr. Rosalio Mcgee discussed with: Patient MISHA LESTER MD Aug 27, 2024 12:06
[2024-08-27] MEDS: GOLYTELY 4L KIT PO ONE (15:41)
[2024-08-27] MEDS: hydrALAZINE HCL 20 MG/ML VL IV PRN (21:11)
[2024-08-28] VITALS (9 sets, daily range): BP systolic 129–215; BP diastolic 60–93; PULSE 68–96; RESP 14–22; TEMP 97.7–98.3; O2SAT 97–100
[2024-08-28 07:14] LABS: INR 1.12 (0.9-1.15); Prothrombin Time 11.8 sec (9.3-11.8)
[2024-08-28 07:15] LABS: Basophils # (auto) 0 10 ^3/uL (0-0.2); Basophils % (auto) 0.6 % (0.0-2.0); Eosinophils # (auto) 0 10 ^3/uL (0-0.8); Hemoglobin 7.4 g/dL (12.2-16.2); Mean Corpuscular Volume 72.7 fL (80.0-100.0); Monocytes # (auto) 0.4 10 ^3/uL (0-1.3); Neutrophils # (auto) 1.6 10 ^3/uL (1.6-8.6); White Blood Cell 3.2 10^3/uL (4.4-10.8)
[2024-08-28 07:17] LABS: Eosinophils % (auto) 0.8 % (0.0-7.0); Hematocrit 23.4 % (36.0-46.0); Lymphocytes # (auto) 1.2 10 ^3/uL (0.4-5.4); Lymphocytes % (auto) 36.8 % (10.0-50.0); Mean Corpuscular Hemoglobin 22.9 pg (28.0-32.0); Mean Corpuscular Hgb Conc. 31.5 g/dL (32.0-36.0); Monocytes % (auto) 12.1 % (0.0-12.0); Neutrophils % (auto) 49.7 % (37.0-80.0); Platelet Count (auto) 209 10^3/uL (140-450); Red Blood Cells 3.22 10^6/uL (4.0-5.20)
[2024-08-28 07:22] LABS: Alanine Aminotransferase 18 U/L (7-40); Albumin 3.6 g/dL (3.2-4.8); Alkaline Phosphatase 56 U/L (46-116); Anion Gap 12 (5-15); Aspartate Aminotransferase 17 U/L (13-40); BUN/Creatinine Ratio 8.9 (10.0-20.0); Bilirubin, Total 0.4 mg/dL (0.2-1.0); Blood Urea Nitrogen 8 mg/dL (9-23); Calcium 9.1 mg/dL (8.7-10.4); Carbon Dioxide 22 mmol/L (20-31); Chloride 108 mmol/L (98-107); Glucose 185 mg/dL (74-106); Potassium 3.6 mmol/L (3.5-5.1); Sodium 142 mmol/L (136-145); Total Protein 7.9 g/dL (5.7-8.2)
[2024-08-28] MEDS ORDERED: SODIUM CHLORIDE LOCK 10 ML ONE (07:39)
[2024-08-28] MEDS ORDERED: NALOXONE HCL 0.4 MG/ML VIAL ONE (07:39)
[2024-08-28] MEDS ORDERED: diphenhdrAMINE HCL 50 MG/1 ML VL ONE (07:39)
[2024-08-28] MEDS ORDERED: FLUMAZENIL 0.1 MG/ML INJ 10ML MDV IV ONE (07:39)
[2024-08-28 08:14] LABS: Hypochromia Moderate; Platelet Estimate Adequate
[2024-08-28 08:15] LABS: Anisocytosis Slight
[2024-08-28 08:16] LABS: Ovalocytes FEW
[2024-08-28 08:17] LABS: Target Cell MODERATE
--- NOTE | 2024-08-28 08:29 | DVHPN2 ---
Reviewed: Care Plan, H&P, Labs, Medications, Previous Orders, Radiology Changes from previous H/P or p: No Changes Eyes: No Pain, No Vision change, No Conjunctivae inflammation, No Eyelid inflammation, No Other, No Redness ENT: No Ear pain, No Ear discharge, No Nose pain, No Nose discharge, No Nose congestion, No Mouth pain, No Mouth swelling, No Throat pain, No Throat swelling, No Other Cardiovascular: No Chest Pain, No Palpitations, No Orthopnea, No Paroxysmal Noc. Dyspnea, No Edema, No Lt Headedness, No Other Respiratory: No Cough, No Dry, No Shortness of breath, No SOB with excertion, No Wheezing, No Hemoptysis, No Pleuritic Pain, No Sputum, No Other Gastrointestinal: No Nausea, No Vomiting, No Abdominal Pain, No Diarrhea, No Constipation, No Melena, No Hematochezia, No Other Genitourinary: No Dysuria, No Frequency, No Incontinence, No Hematuria, No Retention, No Other Musculoskeletal: No other, No neck pain, No shoulder pain, No arm pain, No back pain, No hand pain, No leg pain, No foot pain Skin: No Rash, No Lesions, No Jaundice, No Bruising, No Other Objective Vitals Vital Signs Date Time Temp Pulse Resp B/P (MAP) Pulse Ox O2 Delivery O2 Flow Rate FiO2 08/28/24 05:00 98.3 84 22 142/60 (87) 99 98.3 08/27/24 20:00 Room Air* 0 21 Intake/Output Intake and Output 08/28/24 07:00 Intake Total 1845 ml Output Total 650 ml Balance 1195 ml Intake Oral 1295 ml IV Total 550 ml Output Urine Total 650 ml # Voids 2 # Bowel Movements 5 Medications Current Medications Medications Dose Ordered Sig/Walt Route Start Time Stop Time Status Last Admin Dose Admin Aspirin 81 mg DAILY PO 08/26/24 10:00 08/27/24 08:58 81 MG Hydralazine HCl 10 mg Q6HP PRN IV 08/25/24 17:30 08/27/24 21:11 10 MG Atorvastatin Calcium 40 mg HS PO 08/25/24 22:00 08/27/24 21:11 40 MG Famotidine 20 mg DAILY IV 08/26/24 10:00 08/27/24 08:59 20 MG Diagnostic Test (Pha) 1 strip ACHS 08/25/24 22:00 08/28/24 06:22 1 STRIP Insulin Human Regular HS SC 08/25/24 22:00 08/27/24 21:32 4 UNITS Insulin Human Regular AC SC 08/26/24 07:00 08/27/24 12:06 6 UNITS Dextrose 50 ml UD PRN IV 08/25/24 17:30 Sodium Chloride 1,000 ml @ 60 mls/hr [id number] IV 08/25/24 17:30 08/27/24 21:19 60 MLS/HR Acetaminophen/ Hydrocodone Bitart 1 tab Q4HP PRN PO 08/25/24 17:30 Ondansetron HCl 4 mg Q4HP PRN IV 08/25/24 17:30 Docusate Sodium 100 mg BIDPRN PRN PO 08/25/24 17:30 Acetaminophen 650 mg Q6HP PRN PO 08/25/24 17:30 08/25/24 18:00 650 MG Nitroglycerin 0.4 mg Q5MINP PRN SL 08/25/24 17:30 Morphine Sulfate 2 mg Q30M PRN IV 08/25/24 17:30 Doxycycline Hyclate 250 ml @ 125 mls/hr Q12H IV 08/25/24 18:15 Cancel Doxycycline Hyclate 250 ml @ 125 mls/hr Q12HR IV 08/26/24 10:00 Cancel Doxycycline Hyclate 250 ml @ 125 mls/hr Q12HR IV 08/26/24 10:00 08/27/24 22:20 125 MLS/HR Ceftriaxone Sodium 50 ml @ 100 mls/hr DAILY@09 IV 08/27/24 09:00 08/27/24 08:58 100 MLS/HR Laboratory Results Laboratory Tests 08/28/24 06:33 Chemistry Test 08/28/24 06:33 Albumin 3.6 g/dL (3.2-4.8) Calcium Level 9.1 mg/dL (8.7-10.4) Total Protein 7.9 g/dL (5.7-8.2) Coagulation Test 08/28/24 06:33 Prothrombin Time 11.8 sec (9.3-11.8) Prothrombin Time INR 1.12 (0.9-1.15) Activated Partial Thromboplast Time 23.0 SEC (24.5-34.5) L LFT Test 08/28/24 06:33 Alanine Aminotransferase (ALT) 18 U/L (7-40) Alkaline Phosphatase 56 U/L (46-116) Aspartate Amino Transferase (AST) 17 U/L (13-40) Total Bilirubin 0.4 mg/dL (0.2-1.0) Urinalysis Test 08/25/24 18:33 Urine Color Colorless (Yellow) Urine Clarity Turbid (Clear) H Urine pH 6.5 (5.0-9.0) Urine Specific [place] > 1.050 (1.001-1.035) Urine Protein Trace (Negative) H Urine Ketones Negative (Negative) Urine Blood Trace /uL (Negative) H Urine Nitrite Negative (Negative) Urine Bilirubin Negative (Negative) Urine Urobilinogen Normal mg/dL (Negative) Urine Leukocyte Esterase 3+ /uL (Negative) Urine RBC 1 /hpf (0 - 4) Urine WBC 257 /hpf (0 - 5) Urine Squamous Epithelial Cells Few /hpf (<5) Urine Bacteria Few /hpf (None Seen) H Urine Yeast (Budding) Few /hpf (None Seen) Urine Glucose Normal mg/dL (Normal) Microbiology Microbiology Date/Time Source Procedure Growth Status 08/26/24 15:03 Blood Blood Culture - Preliminary NO GROWTH AFTER 24 HOURS OF INCUBATION. Resulted Labs and/or images reviewed: Labs reviewed by me, Image(s) reviewed by me Assessment/Plan Assessment/Plan Generalized weakness and slurred speech rule out TIA rule out CVA: CT head negative CT angio neck negative, MRI brain negative, Neurology consult by Dr. Gomez appreciated, placed on aspirin Septic shock secondary to urinary tract infection: Blood cultures negative, urine cultures pending Acute urinary tract infection: Rocephin Diabetes: Insulin sliding scale Hypertension Hypercholesterolemia Severe anemia hemoglobin 8.8, GI consult for Dr. Santamaria appreciated, patient getting EGD and colonoscopy today Time spent 55 minutes Patient is full code Plan discussed with: Patient Date of Service: Aug 28, 2024 Billing Provider: MARLIN SHAW MD Common Visit Codes: [id number] INP/OBS CARE(HIGH) MARLIN SHAW MD Aug 28, 2024 08:29
[2024-08-28] MEDS: LIDOCAINE VISCOUS 2% 15ML UD ONE (13:29)
[2024-08-28] MEDS: fentaNYL CITRATE 100 MCG/2 ML VL ONE (13:35)
[2024-08-28] MEDS: MIDAZOLAM HCL 5 MG/ML-1ML VIAL ONE (13:35)
--- NOTE | 2024-08-28 14:14 | DVHOP2 ---
Operative Report DATE OF PROCEDURE: 08/28/24 INDICATIONS FOR THE PROCEDURE: Anemia possible GI lesion PROCEDURE PERFORMED: 1. Esophagogastroduodenoscopy and biopsy Esophagogastroduodenoscopy and polypectomy by biopsy of the gastric polyp POSTOPERATIVE DIAGNOSIS: Small gastric polyp 5 mm removed by biopsy Antral gastritis biopsies taken to ensure the nurse pylori or other pathology Minimal duodenitis without any bleeding or ulcers biopsies taken to ensure there is no celiac disease or other pathology No hiatal hernia no esophagitis no varices no bleeding INFORMED CONSENT: The risks and benefits and alternatives were explained to the patient and informed consent was obtained. PROCEDURE IN DETAIL: The patient was kept NPO after midnight. In the endoscopy room, she was given IV fentanyl 50 mcg and Versed, 2mg titrated slowly to get her sedated. Olympus gastroscope was passed through the oropharynx into the stomach and the duodenum, and the findings were as follows. Esophagus: No hiatal hernia No Esophagitis No bleeding Stomach: Small gastric polyp 5 mm in the fundus removed by biopsy forceps Body and antrum mild erythematous streaks suggestive of gastritis biopsies taken to ensure there is no H pylori or other pathology No ulcers no bleeding Pylorus normal Duodenum Mild duodenitis biopsies taken to ensure there is no celiac disease or other pathologie ENDOSCOPIC IMPRESSION: Mild gastritis of the antrum no ulcers no bleeding Small gastric polyp 5 mm in the fundus removed by biopsy Mild duodenitis No ulcers no bleeding SUGGESTIONS: Await the biopsy results Treat with PPIs or Pepcid for the gastritis Unable to explain the anemia from this study We will check the colon also Thank you With warm regards, MISHA Constantino MD Aug 28, 2024 14:14
--- NOTE | 2024-08-28 14:24 | DVHOP2 ---
Operative Report DATE OF PROCEDURE: 08/28/24 INDICATIONS FOR THE PROCEDURE: Anemia possible GI etiology PROCEDURE PERFORMED: Colonoscopy and biopsy of hepatic flexure lesion Colonoscopy and tattooing of the hepatic flexure lesion POSTOPERATIVE DIAGNOSIS: Hepatic flexor lesions slightly polypoid of about 2.5 cm to 3 cm possible villous adenoma possibility CA can not be excluded INFORMED CONSENT: The risks and benefits and alternatives were explained to the patient and informed consent was obtained. PROCEDURE IN DETAIL: The patient was kept NPO after midnight. Sedation was given with 3 mg Versed and 75 mcg of fentanyl Olympus colonoscope was passed through the rectum all the way up to cecum. Cecum, ascending colon, hepatic flexure, transverse colon, splenic flexure, descending colon, and sigmoid colon were all visualized and the findings were as follows: Findings: This some scattered stool particles in the right colon which was cleaned out as much as possible At the hepatic flexure there was a lesion which is slightly polypoid attached to the wall of about 2.5 to 3 cm possible villous adenoma with attached to the wall quite a lot and hence unable to remove endoscopically Multiple biopsies were taken and tattooing was done to delineate this area for possible surgical intervention Other alternative is to do EMR in a referral center The rest of the colon showed some few scattered diverticula without any gross bleeding In the rectum the internal hemorrhoids without any bleeding Patient tolerated the procedure extremely well and postop vitals stable ENDOSCOPIC IMPRESSION: Lesion of the hepatic flexure of about 2.5-3 cm slightly polypoid attached to the wall possible villous adenoma but malignancy can not be excluded since attached to the wall unable to remove endoscopically and hence multiple biopsies were taken and tattooing done delineate this area for possible surgical intervention Alternative with EMR in a referral center with lesion flat with with polypoid changes and attached and attached to the wall SUGGESTIONS: We will await the biopsy result Surgical consult for possible removal Alternative is to refer to a referral center for possible attempt at EMR, surgery may be more preferable for the patient Thank you Dr. Larson for asking me to take part in the care of this pleasant lady With warm regards, MISHA Constantino MD Aug 28, 2024 14:24
[2024-08-29] VITALS (8 sets, daily range): BP systolic 97–154; BP diastolic 56–79; PULSE 75–99; RESP 16–18; TEMP 97.4–99; O2SAT 98–100
--- NOTE | 2024-08-29 08:48 | DVHPN2 ---
Reviewed: Care Plan, H&P, Labs, Medications, Previous Orders, Radiology Changes from previous H/P or p: No Changes Eyes: No Pain, No Vision change, No Conjunctivae inflammation, No Eyelid inflammation, No Other, No Redness ENT: No Ear pain, No Ear discharge, No Nose pain, No Nose discharge, No Nose congestion, No Mouth pain, No Mouth swelling, No Throat pain, No Throat swelling, No Other Cardiovascular: No Chest Pain, No Palpitations, No Orthopnea, No Paroxysmal Noc. Dyspnea, No Edema, No Lt Headedness, No Other Respiratory: No Cough, No Dry, No Shortness of breath, No SOB with excertion, No Wheezing, No Hemoptysis, No Pleuritic Pain, No Sputum, No Other Gastrointestinal: No Nausea, No Vomiting, No Abdominal Pain, No Diarrhea, No Constipation, No Melena, No Hematochezia, No Other Genitourinary: No Dysuria, No Frequency, No Incontinence, No Hematuria, No Retention, No Other Musculoskeletal: No other, No neck pain, No shoulder pain, No arm pain, No back pain, No hand pain, No leg pain, No foot pain Skin: No Rash, No Lesions, No Jaundice, No Bruising, No Other Objective Vitals Vital Signs Date Time Temp Pulse Resp B/P (MAP) Pulse Ox O2 Delivery O2 Flow Rate FiO2 08/29/24 05:00 97.4 99 16 138/64 (88) 100 97.4 08/28/24 20:00 Room Air* 0 21 Intake/Output Intake and Output 08/29/24 07:00 Intake Total 450 ml Balance 450 ml Intake Oral 150 ml IV Total 300 ml # Voids 5 # Bowel Movements 2 Medications Current Medications Medications Dose Ordered Sig/Walt Route Start Time Stop Time Status Last Admin Dose Admin Aspirin 81 mg DAILY PO 08/26/24 10:00 08/27/24 08:58 81 MG Hydralazine HCl 10 mg Q6HP PRN IV 08/25/24 17:30 08/27/24 21:11 10 MG Atorvastatin Calcium 40 mg HS PO 08/25/24 22:00 08/28/24 22:54 40 MG Famotidine 20 mg DAILY IV 08/26/24 10:00 08/28/24 09:32 20 MG Diagnostic Test (Pha) 1 strip ACHS 08/25/24 22:00 08/29/24 06:08 1 STRIP Insulin Human Regular HS SC 08/25/24 22:00 08/27/24 21:32 4 UNITS Insulin Human Regular AC SC 08/26/24 07:00 08/29/24 06:12 6 UNITS Dextrose 50 ml UD PRN IV 08/25/24 17:30 Sodium Chloride 1,000 ml @ 60 mls/hr [id number] IV 08/25/24 17:30 08/29/24 06:08 60 MLS/HR Acetaminophen/ Hydrocodone Bitart 1 tab Q4HP PRN PO 08/25/24 17:30 Ondansetron HCl 4 mg Q4HP PRN IV 08/25/24 17:30 Docusate Sodium 100 mg BIDPRN PRN PO 08/25/24 17:30 Acetaminophen 650 mg Q6HP PRN PO 08/25/24 17:30 08/25/24 18:00 650 MG Nitroglycerin 0.4 mg Q5MINP PRN SL 08/25/24 17:30 Morphine Sulfate 2 mg Q30M PRN IV 08/25/24 17:30 Doxycycline Hyclate 250 ml @ 125 mls/hr Q12H IV 08/25/24 18:15 Cancel Doxycycline Hyclate 250 ml @ 125 mls/hr Q12HR IV 08/26/24 10:00 Cancel Doxycycline Hyclate 250 ml @ 125 mls/hr Q12HR IV 08/26/24 10:00 08/28/24 22:02 125 MLS/HR Ceftriaxone Sodium 50 ml @ 100 mls/hr DAILY@09 IV 08/27/24 09:00 08/28/24 09:32 100 MLS/HR Laboratory Results Laboratory Tests 08/28/24 06:33 Urinalysis Test 08/25/24 18:33 Urine Color Colorless (Yellow) Urine Clarity Turbid (Clear) H Urine pH 6.5 (5.0-9.0) Urine Specific [place] > 1.050 (1.001-1.035) Urine Protein Trace (Negative) H Urine Ketones Negative (Negative) Urine Blood Trace /uL (Negative) H Urine Nitrite Negative (Negative) Urine Bilirubin Negative (Negative) Urine Urobilinogen Normal mg/dL (Negative) Urine Leukocyte Esterase 3+ /uL (Negative) Urine RBC 1 /hpf (0 - 4) Urine WBC 257 /hpf (0 - 5) Urine Squamous Epithelial Cells Few /hpf (<5) Urine Bacteria Few /hpf (None Seen) H Urine Yeast (Budding) Few /hpf (None Seen) Urine Glucose Normal mg/dL (Normal) Microbiology Microbiology Date/Time Source Procedure Growth Status 08/26/24 15:03 Blood Blood Culture - Preliminary NO GROWTH AFTER 48 HOURS OF INCUBATION. Resulted Labs and/or images reviewed: Labs reviewed by me, Image(s) reviewed by me Assessment/Plan Assessment/Plan Generalized weakness and slurred speech rule out TIA rule out CVA: CT head negative CT angio neck negative, MRI brain negative, Neurology consult by Dr. Gomez appreciated, placed on aspirin Septic shock secondary to urinary tract infection: Blood cultures negative, urine cultures pending Acute urinary tract infection: Rocephin Diabetes: Insulin sliding scale Hypertension Hypercholesterolemia Severe anemia hemoglobin 8.8,, consult for Dr. Rosario Hepatic flexor lesions slightly polypoid of about 2.5 cm to 3 cm possible villous adenoma possibility CA can not be excluded by colonoscopy by Dr. Santamaria awaiting biopsy result, surgical consult for Dr. Lyle EGD and polypectomy with the biopsy of the gastric polyp by Dr. Santmaaria, Time spent 55 minutes Patient is full code Plan discussed with: Patient Date of Service: Aug 29, 2024 Billing Provider: MARLIN SHAW MD Common Visit Codes: [id number] INP/OBS CARE(HIGH) MARLIN SHAW MD Aug 29, 2024 08:48
--- NOTE | 2024-08-29 11:42 | DVHINCON2 ---
Date of service: Aug 29, 2024 Family History: Patient reports no known family medical history. Allergies: Coded Allergies: NO KNOWN ALLERGIES (Unverified , 04/05/18) Home Meds Active Scripts Acetaminophen (Tylenol 8 Hour Arthritis) 650 Mg Tab, 650 MG PO TID, #30 TAB Prov:DENIS YEH 08/14/24 Nitrofurantoin Monohydrate Mac (Macrobid) 100 Mg Cap, 100 MG PO BID, #14 CAP Prov:DENIS YEH 08/14/24 Ondansetron Odt 4MG Tab (ZOFRAN PO) 4 Mg Tb, 4 MG PO TID for 7 Days, #21 TAB ODT TAB-DISSOLVE IN MOUTH, THEN SWALLOW Prov:RAMÓN RIDER MD 05/10/24 Baclofen (Baclofen) 10 Mg Tab, 10 MG PO TID PRN, #30 TAB Prov:JAY HE 05/06/24 Sulfamethoxazole-Trimethoprim (Bactrim) 1 Tab Tab, 1 TAB PO BID for 7 Days, #14 TAB 0 Refills Prov:VARGHESE CABRERA 04/11/23 Reported Medications Pantoprazole Sodium Sesquihydr (Pantoprazole Sodium) 40 Mg Tab, 1 TAB PO DAILY 08/25/24 Glipizide (Glipizide) 5 Mg Tab, 1 TAB PO BID 08/25/24 Vital Signs Vital Signs Date Time Temp Pulse Resp B/P (MAP) Pulse Ox O2 Delivery O2 Flow Rate FiO2 08/29/24 09:00 98.1 91 17 132/63 (86) 98 98.1 08/29/24 08:00 Room Air* 0 21 Labs/Diagnostic Data Labs Test 08/29/24 05:59 08/28/24 06:33 08/25/24 19:54 08/25/24 18:33 Range/Units POC Glucose 222 H 70-106 mg/dl White Blood Count 3.2 #L 4.4-10.8 10^3/uL Red Blood Count 3.22 L 4.0-5.20 10^6/uL Hemoglobin 7.4 L 12.2-16.2 g/dL Hematocrit 23.4 L 36.0-46.0 % Mean Corpuscular Volume 72.7 L 80.0-100.0 fL Mean Corpuscular Hemoglobin 22.9 L 28.0-32.0 pg Mean Corpuscular Hemoglobin Concent 31.5 L 32.0-36.0 g/dL Red Cell Distribution Width 20.0 H 11.8-14.3 % Platelet Count 209 140-450 10^3/uL Mean Platelet Volume 8.0 6.9-10.8 fL Neutrophils (%) (Auto) 49.7 37.0-80.0 % Lymphocytes (%) (Auto) 36.8 10.0-50.0 % Monocytes (%) (Auto) 12.1 H 0.0-12.0 % Eosinophils (%) (Auto) 0.8 0.0-7.0 % Basophils (%) (Auto) 0.6 0.0-2.0 % Neutrophils # (Auto) 1.6 1.6-8.6 10 ^3/uL Lymphocytes # (Auto) 1.2 0.4-5.4 10 ^3/uL Monocytes # (Auto) 0.4 0-1.3 10 ^3/uL Eosinophils # (Auto) 0 0-0.8 10 ^3/uL Basophils # (Auto) 0 0-0.2 10 ^3/uL Nucleated Red Blood Cells 0.0 % Platelet Estimate Adequate Hypochromasia (manual) Moderate Anisocytosis (manual) Slight Microcytosis Moderate Target Cells Moderate Ovalocytes Few Prothrombin Time 11.8 9.3-11.8 sec Prothrombin Time INR 1.12 0.9-1.15 Activated Partial Thromboplast Time 23.0 L 24.5-34.5 SEC Sodium Level 142 136-145 mmol/L Potassium Level 3.6 3.5-5.1 mmol/L Chloride Level 108 H 98-107 mmol/L Carbon Dioxide Level 22 20-31 mmol/L Anion Gap 12 5-15 Blood Urea Nitrogen 8 L 9-23 mg/dL Creatinine 0.90 0.550-1.02 mg/dL Glomerular Filtration Rate Calc 66 >90 mL/min BUN/Creatinine Ratio 8.9 L 10.0-20.0 Serum Glucose 185 H 74-106 mg/dL Calcium Level 9.1 8.7-10.4 mg/dL Total Bilirubin 0.4 0.2-1.0 mg/dL Aspartate Amino Transferase (AST) 17 13-40 U/L Alanine Aminotransferase (ALT) 18 7-40 U/L Alkaline Phosphatase 56 46-116 U/L Total Protein 7.9 5.7-8.2 g/dL Albumin 3.6 3.2-4.8 g/dL Troponin I High Sensitivity 34 </=34 ng/L Urine Color Colorless Yellow Urine Clarity Turbid H Clear Urine pH 6.5 5.0-9.0 Urine Specific [place] > 1.050 H 1.001-1.035 Urine Protein Trace H Negative Urine Ketones Negative Negative Urine Blood Trace H Negative /uL Urine Nitrite Negative Negative Urine Bilirubin Negative Negative Urine Urobilinogen Normal Negative mg/dL Urine Leukocyte Esterase 3+ Negative /uL Urine RBC 1 0 - 4 /hpf Urine WBC 257 0 - 5 /hpf Urine Squamous Epithelial Cells Few <5 /hpf Urine Bacteria Few H None Seen /hpf Urine Yeast (Budding) Few None Seen /hpf Urine Glucose Normal Normal mg/dL Test 08/25/24 15:57 Range/Units Differential Total Cells Counted 100.0 100 Neutrophils % (Manual) 86 H 37.0-80.0 Band Neutrophils % (Manual) 6 Lymphocytes % (Manual) 4 L 10.0-50.0 Monocytes % (Manual) 4 0-12 Eosinophils % (Manual) 0 0-7 Basophils % (Manual) 0 0.0-2.0 Metamyelocytes % (manual) 0 Myelocytes % (Manual) 0 Promyelocytes % (Manual) 0 Blast Cells % (Manual) 0 Reactive Lymphocytes 0 Lactic Acid Level 1.2 0.4-2.0 mmol/L Magnesium Level 1.4 L 1.6-2.6 mg/dL Microbiology Date/Time Source Procedure Growth Status 08/26/24 15:03 Blood Blood Culture - Preliminary NO GROWTH AFTER 48 HOURS OF INCUBATION. Resulted Assessment 08/29/24 patient has mass in the hepatic flexure of her colon, needs cardiology eval and results of biopsy prior to resection, abdomen non distended, non tender, will order a PICC line and initiate TPN Plan discussed with: Patient LESTER PAREDES MD Aug 29, 2024 11:42
[2024-08-29] MEDS: HYDROcodone-ACET 5/325MG TAB PO PRN (21:21)
[2024-08-30] VITALS (9 sets, daily range): BP systolic 108–139; BP diastolic 52–72; PULSE 70–85; RESP 16–19; TEMP 97.5–98.4; O2SAT 96–99
--- NOTE | 2024-08-30 08:53 | DVHPN2 ---
Reviewed: Care Plan, H&P, Labs, Medications, Previous Orders, Radiology Changes from previous H/P or p: No Changes Eyes: No Pain, No Vision change, No Conjunctivae inflammation, No Eyelid inflammation, No Other, No Redness ENT: No Ear pain, No Ear discharge, No Nose pain, No Nose discharge, No Nose congestion, No Mouth pain, No Mouth swelling, No Throat pain, No Throat swelling, No Other Cardiovascular: No Chest Pain, No Palpitations, No Orthopnea, No Paroxysmal Noc. Dyspnea, No Edema, No Lt Headedness, No Other Respiratory: No Cough, No Dry, No Shortness of breath, No SOB with excertion, No Wheezing, No Hemoptysis, No Pleuritic Pain, No Sputum, No Other Gastrointestinal: No Nausea, No Vomiting, No Abdominal Pain, No Diarrhea, No Constipation, No Melena, No Hematochezia, No Other Genitourinary: No Dysuria, No Frequency, No Incontinence, No Hematuria, No Retention, No Other Musculoskeletal: No other, No neck pain, No shoulder pain, No arm pain, No back pain, No hand pain, No leg pain, No foot pain Skin: No Rash, No Lesions, No Jaundice, No Bruising, No Other Objective Vitals Vital Signs Date Time Temp Pulse Resp B/P (MAP) Pulse Ox O2 Delivery O2 Flow Rate FiO2 08/30/24 08:09 85 18 97 Room Air* 0 21 08/30/24 05:00 97.8 120/57 (78) 97.8 Intake/Output Intake and Output 08/30/24 07:00 Intake Total 1690 ml Balance 1690 ml Intake Oral 1140 ml IV Total 550 ml # Voids 10 # Bowel Movements 1 Medications Current Medications Medications Dose Ordered Sig/Walt Route Start Time Stop Time Status Last Admin Dose Admin Aspirin 81 mg DAILY PO 08/26/24 10:00 08/29/24 09:24 81 MG Hydralazine HCl 10 mg Q6HP PRN IV 08/25/24 17:30 08/27/24 21:11 10 MG Atorvastatin Calcium 40 mg HS PO 08/25/24 22:00 08/29/24 21:20 40 MG Famotidine 20 mg DAILY IV 08/26/24 10:00 08/29/24 09:24 20 MG Diagnostic Test (Pha) 1 strip ACHS 08/25/24 22:00 08/30/24 06:10 1 STRIP Insulin Human Regular HS SC 08/25/24 22:00 08/27/24 21:32 4 UNITS Insulin Human Regular AC SC 08/26/24 07:00 08/30/24 06:14 3 UNITS Dextrose 50 ml UD PRN IV 08/25/24 17:30 Sodium Chloride 1,000 ml @ 60 mls/hr [id number] IV 08/25/24 17:30 08/29/24 21:21 60 MLS/HR Acetaminophen/ Hydrocodone Bitart 1 tab Q4HP PRN PO 08/25/24 17:30 08/29/24 21:21 1 TAB Ondansetron HCl 4 mg Q4HP PRN IV 08/25/24 17:30 Docusate Sodium 100 mg BIDPRN PRN PO 08/25/24 17:30 Acetaminophen 650 mg Q6HP PRN PO 08/25/24 17:30 08/25/24 18:00 650 MG Nitroglycerin 0.4 mg Q5MINP PRN SL 08/25/24 17:30 Morphine Sulfate 2 mg Q30M PRN IV 08/25/24 17:30 Doxycycline Hyclate 250 ml @ 125 mls/hr Q12H IV 08/25/24 18:15 Cancel Doxycycline Hyclate 250 ml @ 125 mls/hr Q12HR IV 08/26/24 10:00 Cancel Doxycycline Hyclate 250 ml @ 125 mls/hr Q12HR IV 08/26/24 10:00 08/29/24 21:21 125 MLS/HR Ceftriaxone Sodium 50 ml @ 100 mls/hr DAILY@09 IV 08/27/24 09:00 08/29/24 09:24 100 MLS/HR Laboratory Results Laboratory Tests 08/28/24 06:33 Urinalysis Test 08/25/24 18:33 Urine Color Colorless (Yellow) Urine Clarity Turbid (Clear) H Urine pH 6.5 (5.0-9.0) Urine Specific [place] > 1.050 (1.001-1.035) Urine Protein Trace (Negative) H Urine Ketones Negative (Negative) Urine Blood Trace /uL (Negative) H Urine Nitrite Negative (Negative) Urine Bilirubin Negative (Negative) Urine Urobilinogen Normal mg/dL (Negative) Urine Leukocyte Esterase 3+ /uL (Negative) Urine RBC 1 /hpf (0 - 4) Urine WBC 257 /hpf (0 - 5) Urine Squamous Epithelial Cells Few /hpf (<5) Urine Bacteria Few /hpf (None Seen) H Urine Yeast (Budding) Few /hpf (None Seen) Urine Glucose Normal mg/dL (Normal) Microbiology Microbiology Date/Time Source Procedure Growth Status 08/28/24 06:00 Urine - Midstream Clean Catch Urine Culture - Preliminary Resulted 08/26/24 15:03 Blood Blood Culture - Preliminary NO GROWTH AFTER 72 HOURS OF INCUBATION. Resulted Labs and/or images reviewed: Labs reviewed by me, Image(s) reviewed by me Assessment/Plan Assessment/Plan Generalized weakness and slurred speech rule out TIA rule out CVA: CT head negative CT angio neck negative, MRI brain negative, Neurology consult by Dr. Gomez appreciated, placed on aspirin Septic shock secondary to urinary tract infection: Blood cultures negative, urine cultures pending Acute urinary tract infection: Rocephin Diabetes: Insulin sliding scale Hypertension Hypercholesterolemia Severe anemia hemoglobin 8.8,, consult for Dr. Rosario Hepatic flexor lesions slightly polypoid of about 2.5 cm to 3 cm possible villous adenoma possibility CA can not be excluded by colonoscopy by Dr. Santamaria awaiting biopsy result, surgical consult for Dr. Lyle appreciated requesting cardiac clearance started on TPN, PICC line order placed EGD and polypectomy with the biopsy of the gastric polyp by Dr. Santamaria, Time spent 55 minutes Patient is full code Discussed in detail with the patient and her at the bedside about the current diagnosis management and further plan for: colon Surgery after the biopsy result Advanced care planning time 20 minutes Plan discussed with: Patient My Orders Orders - MARLIN SHAW MD Procedure Category Date Status Time * Surgical Consult CONS 08/29/24 Transmitted * Hematology/Oncology CONS 08/29/24 Transmitted Consult 08:48 * Cardiology Consult CONS 08/30/24 Verified 08:36 Date of Service: Aug 30, 2024 Billing Provider: MARLIN SHAW MD Common Visit Codes: [id number] INP/OBS CARE(HIGH) Secondary Visit Codes: [id number] CARE PLAN 30 MINUTES MARLIN SHAW MD Aug 30, 2024 08:53
--- NOTE | 2024-08-30 14:33 | DVHSR ---
APPROVED REPORT EXAM: Two-dimensional and M-mode echocardiogram with Doppler and color Doppler. Blood Pressure: 125/53 mmHg INDICATION Pre-Op RISK FACTORS Height: 5'1", Weight: 109 DIMENSIONS LVDd3.6 (3.8-5.7cm)LA (2D)3.6 (1.9-4.0cm)Aortic Root3.2 (2.0-3.7cm) LVDs2.2 (2.5-4.0cm)LA (MM) (1.9-4.0cm)Aortic Cusp Exc1.1 (1.5-2.0cm) EF (%) 61.0 (55-70%)Rt. Atrium3.6 (1.9-4.0cm)Asc. Aorta cm IVSd1.1 (0.7-1.1cm)RV (D)3.3 (1.8-2.4cm) PWd0.8 (0.7-1.1cm) Mitral Valve MitralMitral Stenosis E wave1.03m/sMV Mean GR.mmHg A wave1.06m/sMV Peak GR.mmHg E/A ratio1.02D MVAcm2 DECEL [id number] 1/2 Timems Aortic Valve Aortic ValveAortic Stenosis V10.82m/Brandon Mean GR.3mmHg V21.10m/Brandon Peak GR.5mmHg LVOT Diameter1.8 (1.8-2.4cm)Doppler AVA1.90cm2 AI P 1/2 Scmt701.50ms Pulmonic Valve V20.77m/s Conclusion MILD LVH AND MILD LV DIASTOLIC DYSFUNCTION LV EJECTION FRACTION IS 65% HEAVILY CALCIFIED AORTIC LEAFLETS AORTIC CUSP SEPERATIN IS 1.1 CM (NORMAL MORE THAN 1.4 CM) AORTIC VALVE AREA IS 1.9 CM SQUARE STUDY SUGGEST MILD AORTIC STENOSIS NORMAL MV,TV AND PV NO EFFUSION NORMAL RV FUNCTION
[2024-08-30] MEDS ORDERED: TPN PER PHARMACY 0 ML IV SCH (17:15)
[2024-08-30] MEDS: LIDOCAINE 1% (LOCAL ANESTH.) PF 5ml SDV ID ONE (17:15)
[2024-08-30] MEDS ORDERED: DEXTROSE (50%) 50ML SYRG IV SCH (18:00)
[2024-08-30] MEDS: ACCU-CHEK COMFORT CURVE STRIP VI SCH (18:00)
[2024-08-30] MEDS: InsuLIN REG 1unit/0.01ml Soln (100units/ml) SC SCH (18:00)
--- NOTE | 2024-08-30 22:02 | DVHINCON2 ---
Date of service: Aug 30, 2024 Referring Physician Neo Reason for Consultation Preop clearance History of Present Illness This is a 74-year-old female patient with a past medical history of diabetes presented to the ED on 08/25 with complaints of slurred speech that started at 0900 hours on 08/25 associated with generalized weakness after which patient had a fall at the same time. Per chart review, the patient did not lose consciousness and did not have any head injuries. Patient denied any previous history of any heart condition/stroke. WBC 3.2, HGB 7.4, HCT 23.4. CT head dated 08/25 showed no large acute territorial ischemia or intracranial hemorrhage. Left frontal watershed infarcts can not be ruled out. Moderate underlying white matter disease / chronic microvascular ischemic changes limit evaluation. Remote left FARNAZ territorial infarct. Patient was admitted to the hospital. I am asked to consult on this patient for cardiac clearance. Family History: Patient reports no known family medical history. Allergies: Coded Allergies: NO KNOWN ALLERGIES (Unverified , 04/05/18) Home Meds Active Scripts Acetaminophen (Tylenol 8 Hour Arthritis) 650 Mg Tab, 650 MG PO TID, #30 TAB Prov:DENIS YEH 08/14/24 Nitrofurantoin Monohydrate Mac (Macrobid) 100 Mg Cap, 100 MG PO BID, #14 CAP Prov:DENIS YEH 08/14/24 Ondansetron Odt 4MG Tab (ZOFRAN PO) 4 Mg Tb, 4 MG PO TID for 7 Days, #21 TAB ODT TAB-DISSOLVE IN MOUTH, THEN SWALLOW Prov:RAMÓN RIDER MD 05/10/24 Baclofen (Baclofen) 10 Mg Tab, 10 MG PO TID PRN, #30 TAB Prov:JAY HE 05/06/24 Sulfamethoxazole-Trimethoprim (Bactrim) 1 Tab Tab, 1 TAB PO BID for 7 Days, #14 TAB 0 Refills Prov:VARGHESE CABRERA 04/11/23 Reported Medications Pantoprazole Sodium Sesquihydr (Pantoprazole Sodium) 40 Mg Tab, 1 TAB PO DAILY 08/25/24 Glipizide (Glipizide) 5 Mg Tab, 1 TAB PO BID 08/25/24 Current Medications Current Medications Medications (Trade) Dose Ordered Sig/Walt Route PRN Reason Start Time Stop Time Status Last Admin Sodium Chloride (Saline Lock Ns) 10 ml QSHIFT@10,22 IV 08/30/24 22:00 Amino Acids 0 ml @ 0 mls/hr PER PHARMACY IV 08/30/24 17:15 Amino Acids/ Electrolytes/ Dextrose 1,000 ml @ 41 mls/hr DAILY@2200 IV 08/30/24 22:00 08/31/24 21:59 Diagnostic Test (Pha) (Accu-Chek Comfort Curve T) 1 strip Q6HR 08/30/24 18:00 Insulin Human Regular (InsuLIN R) FOLLOW SLIDING SCALE Q6HR SC 08/30/24 18:00 Dextrose 50 ml UD IV 08/30/24 18:00 Review of Systems Constitutional: Generalized weakness No: Fever, Chills, Sweats Respiratory: No: Cough, Dry, Shortness of breath, SOB with excertion, Wheezing, Hemoptysis, Pleuritic Pain, Sputum, Wheezing, Other Cardiovascular: No: Chest Pain, Palpitations, Orthopnea, Paroxysmal Noc. Dyspnea, Edema, Lt Headedness, Other Gastrointestinal: No: Nausea, Vomiting, Abdominal Pain, Diarrhea, Constipation, Melena, Hematochezia, Other Musculoskeletal: No: other, neck pain, shoulder pain, arm pain, back pain, hand pain, leg pain, foot pain Neurological:; mechanical fall, generalized weakness, slurred speech Vital Signs Vital Signs Date Time Temp Pulse Resp B/P (MAP) Pulse Ox O2 Delivery O2 Flow Rate FiO2 08/30/24 16:54 98.4 78 16 139/72 (94) 96 98.4 08/30/24 08:09 Room Air* 0 21 Physical Exam GENERAL: Awake, alert, oriented. LUNGS: Clear. CARDIOVASCULAR: Heart sounds are good. ABDOMEN: Soft. NEURO: Slurred speech. Labs/Diagnostic Data Labs Test 08/30/24 17:29 08/29/24 15:22 08/28/24 06:33 08/25/24 19:54 Range/Units POC Glucose 162 H 70-106 mg/dl Carcinoembryonic Antigen 1.57 <=5.0 ng/mL White Blood Count 3.2 #L 4.4-10.8 10^3/uL Red Blood Count 3.22 L 4.0-5.20 10^6/uL Hemoglobin 7.4 L 12.2-16.2 g/dL Hematocrit 23.4 L 36.0-46.0 % Mean Corpuscular Volume 72.7 L 80.0-100.0 fL Mean Corpuscular Hemoglobin 22.9 L 28.0-32.0 pg Mean Corpuscular Hemoglobin Concent 31.5 L 32.0-36.0 g/dL Red Cell Distribution Width 20.0 H 11.8-14.3 % Platelet Count 209 140-450 10^3/uL Mean Platelet Volume 8.0 6.9-10.8 fL Neutrophils (%) (Auto) 49.7 37.0-80.0 % Lymphocytes (%) (Auto) 36.8 10.0-50.0 % Monocytes (%) (Auto) 12.1 H 0.0-12.0 % Eosinophils (%) (Auto) 0.8 0.0-7.0 % Basophils (%) (Auto) 0.6 0.0-2.0 % Neutrophils # (Auto) 1.6 1.6-8.6 10 ^3/uL Lymphocytes # (Auto) 1.2 0.4-5.4 10 ^3/uL Monocytes # (Auto) 0.4 0-1.3 10 ^3/uL Eosinophils # (Auto) 0 0-0.8 10 ^3/uL Basophils # (Auto) 0 0-0.2 10 ^3/uL Nucleated Red Blood Cells 0.0 % Platelet Estimate Adequate Hypochromasia (manual) Moderate Anisocytosis (manual) Slight Microcytosis Moderate Target Cells Moderate Ovalocytes Few Prothrombin Time 11.8 9.3-11.8 sec Prothrombin Time INR 1.12 0.9-1.15 Activated Partial Thromboplast Time 23.0 L 24.5-34.5 SEC Sodium Level 142 136-145 mmol/L Potassium Level 3.6 3.5-5.1 mmol/L Chloride Level 108 H 98-107 mmol/L Carbon Dioxide Level 22 20-31 mmol/L Anion Gap 12 5-15 Blood Urea Nitrogen 8 L 9-23 mg/dL Creatinine 0.90 0.550-1.02 mg/dL Glomerular Filtration Rate Calc 66 >90 mL/min BUN/Creatinine Ratio 8.9 L 10.0-20.0 Serum Glucose 185 H 74-106 mg/dL Calcium Level 9.1 8.7-10.4 mg/dL Total Bilirubin 0.4 0.2-1.0 mg/dL Aspartate Amino Transferase (AST) 17 13-40 U/L Alanine Aminotransferase (ALT) 18 7-40 U/L Alkaline Phosphatase 56 46-116 U/L Total Protein 7.9 5.7-8.2 g/dL Albumin 3.6 3.2-4.8 g/dL Troponin I High Sensitivity 34 </=34 ng/L Test 08/25/24 18:33 08/25/24 15:57 Range/Units Urine Color Colorless Yellow Urine Clarity Turbid H Clear Urine pH 6.5 5.0-9.0 Urine Specific [place] > 1.050 H 1.001-1.035 Urine Protein Trace H Negative Urine Ketones Negative Negative Urine Blood Trace H Negative /uL Urine Nitrite Negative Negative Urine Bilirubin Negative Negative Urine Urobilinogen Normal Negative mg/dL Urine Leukocyte Esterase 3+ Negative /uL Urine RBC 1 0 - 4 /hpf Urine WBC 257 0 - 5 /hpf Urine Squamous Epithelial Cells Few <5 /hpf Urine Bacteria Few H None Seen /hpf Urine Yeast (Budding) Few None Seen /hpf Urine Glucose Normal Normal mg/dL Differential Total Cells Counted 100.0 100 Neutrophils % (Manual) 86 H 37.0-80.0 Band Neutrophils % (Manual) 6 Lymphocytes % (Manual) 4 L 10.0-50.0 Monocytes % (Manual) 4 0-12 Eosinophils % (Manual) 0 0-7 Basophils % (Manual) 0 0.0-2.0 Metamyelocytes % (manual) 0 Myelocytes % (Manual) 0 Promyelocytes % (Manual) 0 Blast Cells % (Manual) 0 Reactive Lymphocytes 0 Lactic Acid Level 1.2 0.4-2.0 mmol/L Magnesium Level 1.4 L 1.6-2.6 mg/dL Microbiology Date/Time Source Procedure Growth Status 08/28/24 06:00 Urine - Midstream Clean Catch Urine Culture - Final Complete 08/26/24 15:03 Blood Blood Culture - Preliminary NO GROWTH AFTER 72 HOURS OF INCUBATION. Resulted Assessment Generalized weakness and slurred speech rule out TIA rule out CVA. Septic shock secondary to urinary tract infection. Acute urinary tract infection. Diabetes. Hypertension. Hypercholesterolemia. Severe anemia. Hepatic flexor lesions. Plan/Recommendation I agree with your ongoing assessment and care of plan. Echocardiogram. Aspirin, Lipitor. IV antibiotics as ordered. Morphine and [place] for pain management. Additional plan as per the hospital course. A total of 45 minutes was spent reviewing the patient record, examining the patient, making a diagnostic and therapeutic plan, discussing this plan with medical personnel, following up on diagnostic studies and following the patient for clinical stability excluding any and all procedures. At least 50% of this time was spent in direct, [id number] contact. Plan discussed with: Patient OTIS JOHNSON MD Aug 30, 2024 20:46
[2024-08-30] MEDS: SODIUM CHLOR 0.9% PF (SALINE LOCK) 10ML VIAL/SYR IV SCH (22:18)
[2024-08-30] MEDS: AMINO ACID INFUSION IN D10W 1,000 ML IV SCH (22:19)
[2024-08-31] VITALS (9 sets, daily range): BP systolic 133–158; BP diastolic 55–72; PULSE 74–85; RESP 16–19; TEMP 97.8–98.2; O2SAT 97–99
[2024-08-31 06:27] LABS: Alanine Aminotransferase 11 U/L (7-40); Albumin 3.2 g/dL (3.2-4.8); Alkaline Phosphatase 50 U/L (46-116); Anion Gap 7 (5-15); Aspartate Aminotransferase 15 U/L (13-40); BUN/Creatinine Ratio 7.7 (10.0-20.0); Bilirubin, Total 0.3 mg/dL (0.2-1.0); Blood Urea Nitrogen 6 mg/dL (9-23); Calcium 8.9 mg/dL (8.7-10.4); Carbon Dioxide 24 mmol/L (20-31); Chloride 113 mmol/L (98-107); Glucose 78 mg/dL (74-106); Magnesium 1.5 mg/dL (1.6-2.6); Phosphorus 2.4 mg/dL (2.4-5.1); Potassium 3.5 mmol/L (3.5-5.1); Sodium 144 mmol/L (136-145); Total Protein 7.2 g/dL (5.7-8.2); Triglycerides 87 mg/dL (< 150)
--- NOTE | 2024-08-31 08:27 | DVHPN2 ---
Reviewed: Care Plan, H&P, Labs, Medications, Previous Orders, Radiology Changes from previous H/P or p: No Changes Eyes: No Pain, No Vision change, No Conjunctivae inflammation, No Eyelid inflammation, No Other, No Redness ENT: No Ear pain, No Ear discharge, No Nose pain, No Nose discharge, No Nose congestion, No Mouth pain, No Mouth swelling, No Throat pain, No Throat swelling, No Other Cardiovascular: No Chest Pain, No Palpitations, No Orthopnea, No Paroxysmal Noc. Dyspnea, No Edema, No Lt Headedness, No Other Respiratory: No Cough, No Dry, No Shortness of breath, No SOB with excertion, No Wheezing, No Hemoptysis, No Pleuritic Pain, No Sputum, No Other Gastrointestinal: No Nausea, No Vomiting, No Abdominal Pain, No Diarrhea, No Constipation, No Melena, No Hematochezia, No Other Genitourinary: No Dysuria, No Frequency, No Incontinence, No Hematuria, No Retention, No Other Musculoskeletal: No other, No neck pain, No shoulder pain, No arm pain, No back pain, No hand pain, No leg pain, No foot pain Skin: No Rash, No Lesions, No Jaundice, No Bruising, No Other Objective Vitals Vital Signs Date Time Temp Pulse Resp B/P (MAP) Pulse Ox O2 Delivery O2 Flow Rate FiO2 08/31/24 05:00 98.1 78 19 141/67 (91) 99 98.1 08/30/24 20:00 Room Air* 0 21 Intake/Output Intake and Output 08/31/24 07:00 Intake Total 2100 ml Balance 2100 ml Intake Oral 830 ml IV Total 1270 ml # Voids 8 # Bowel Movements 5 Medications Current Medications Medications Dose Ordered Sig/Walt Route Start Time Stop Time Status Last Admin Dose Admin Aspirin 81 mg DAILY PO 08/26/24 10:00 08/30/24 10:35 81 MG Hydralazine HCl 10 mg Q6HP PRN IV 08/25/24 17:30 08/27/24 21:11 10 MG Atorvastatin Calcium 40 mg HS PO 08/25/24 22:00 08/30/24 22:19 40 MG Famotidine 20 mg DAILY IV 08/26/24 10:00 08/30/24 10:35 20 MG Sodium Chloride 1,000 ml @ 60 mls/hr [id number] IV 08/25/24 17:30 08/31/24 05:34 60 MLS/HR Acetaminophen/ Hydrocodone Bitart 1 tab Q4HP PRN PO 08/25/24 17:30 08/29/24 21:21 1 TAB Ondansetron HCl 4 mg Q4HP PRN IV 08/25/24 17:30 Docusate Sodium 100 mg BIDPRN PRN PO 08/25/24 17:30 Acetaminophen 650 mg Q6HP PRN PO 08/25/24 17:30 08/25/24 18:00 650 MG Nitroglycerin 0.4 mg Q5MINP PRN SL 08/25/24 17:30 Morphine Sulfate 2 mg Q30M PRN IV 08/25/24 17:30 Doxycycline Hyclate 250 ml @ 125 mls/hr Q12H IV 08/25/24 18:15 Cancel Doxycycline Hyclate 250 ml @ 125 mls/hr Q12HR IV 08/26/24 10:00 Cancel Doxycycline Hyclate 250 ml @ 125 mls/hr Q12HR IV 08/26/24 10:00 08/30/24 22:18 125 MLS/HR Ceftriaxone Sodium 50 ml @ 100 mls/hr DAILY@09 IV 08/27/24 09:00 08/30/24 08:59 100 MLS/HR Sodium Chloride 10 ml QSHIFT@10,22 IV 08/30/24 22:00 08/30/24 22:18 10 ML Amino Acids 0 ml @ 0 mls/hr PER PHARMACY IV 08/30/24 17:15 Amino Acids/ Electrolytes/ Dextrose 1,000 ml @ 41 mls/hr DAILY@2200 IV 08/30/24 22:00 08/31/24 21:59 08/30/24 22:19 41 MLS/HR Diagnostic Test (Pha) 1 strip Q6HR 08/30/24 18:00 08/31/24 05:28 1 STRIP Insulin Human Regular FOLLOW SLIDING SCALE Q6HR SC 08/30/24 18:00 08/31/24 00:26 216 UNITS Dextrose 50 ml UD IV 08/30/24 18:00 Laboratory Results Laboratory Tests 08/28/24 06:33 08/31/24 05:31 Chemistry Test 08/31/24 05:31 Albumin 3.2 g/dL (3.2-4.8) Calcium Level 8.9 mg/dL (8.7-10.4) Magnesium Level 1.5 mg/dL (1.6-2.6) L Phosphorus Level 2.4 mg/dL (2.4-5.1) Total Protein 7.2 g/dL (5.7-8.2) Lipid panel Test 08/31/24 05:31 Triglycerides Level 87 mg/dL (< 150) LFT Test 08/31/24 05:31 Alanine Aminotransferase (ALT) 11 U/L (7-40) Alkaline Phosphatase 50 U/L (46-116) Aspartate Amino Transferase (AST) 15 U/L (13-40) Total Bilirubin 0.3 mg/dL (0.2-1.0) Urinalysis Test 08/25/24 18:33 Urine Color Colorless (Yellow) Urine Clarity Turbid (Clear) H Urine pH 6.5 (5.0-9.0) Urine Specific [place] > 1.050 (1.001-1.035) Urine Protein Trace (Negative) H Urine Ketones Negative (Negative) Urine Blood Trace /uL (Negative) H Urine Nitrite Negative (Negative) Urine Bilirubin Negative (Negative) Urine Urobilinogen Normal mg/dL (Negative) Urine Leukocyte Esterase 3+ /uL (Negative) Urine RBC 1 /hpf (0 - 4) Urine WBC 257 /hpf (0 - 5) Urine Squamous Epithelial Cells Few /hpf (<5) Urine Bacteria Few /hpf (None Seen) H Urine Yeast (Budding) Few /hpf (None Seen) Urine Glucose Normal mg/dL (Normal) Microbiology Microbiology Date/Time Source Procedure Growth Status 08/28/24 06:00 Urine - Midstream Clean Catch Urine Culture - Final Complete 08/26/24 15:03 Blood Blood Culture - Preliminary NO GROWTH AFTER 72 HOURS OF INCUBATION. Resulted Labs and/or images reviewed: Labs reviewed by me, Image(s) reviewed by me Assessment/Plan Assessment/Plan Generalized weakness and slurred speech rule out TIA rule out CVA: CT head negative CT angio neck negative, MRI brain negative, Neurology consult by Dr. Gomez appreciated, placed on aspirin Septic shock secondary to urinary tract infection: Blood cultures negative, urine cultures pending Acute urinary tract infection: Rocephin Diabetes: Insulin sliding scale Hypertension Hypercholesterolemia Severe anemia hemoglobin 8.8,, consult for Dr. Rosario Hepatic flexor lesions slightly polypoid of about 2.5 cm to 3 cm possible villous adenoma possibility CA can not be excluded by colonoscopy by Dr. Santamaria awaiting biopsy result, surgical consult for Dr. Lyle appreciated requesting cardiac clearance started on TPN, PICC line order placed EGD and polypectomy with the biopsy of the gastric polyp by Dr. Santamaria, Time spent 55 minutes Patient is full code Discussed in detail with the patient and her at the bedside about the current diagnosis management and further plan for: colon Surgery after the biopsy result Advanced care planning time 20 minutes Awaiting biopsy report Plan discussed with: Patient My Orders Orders - MARLIN SHAW MD Procedure Category Date Status Time * Cardiology Consult CONS 08/30/24 Transmitted 08:36 Echo 2d Mode Cardiac US 08/30/24 Resulted DOP 09:13 Date of Service: Aug 31, 2024 Billing Provider: MARLIN SHAW MD Common Visit Codes: [id number] INP/OBS CARE(HIGH) MARLIN SHAW MD Aug 31, 2024 08:27
--- NOTE | 2024-08-31 09:27 | DVHPN2 ---
Progress Note Date Seen: Aug 31, 2024 Medical Necessity Reason Pt with a Central, PICC or Fol: Yes The following are medically ne: PICC Line Objective vital signs Vital Sign Date Time Temp Pulse Resp B/P (MAP) Pulse Ox O2 Delivery O2 Flow Rate FiO2 08/31/24 08:33 98.2 84 16 148/72 (97) 98 98.2 08/30/24 20:00 Room Air* 0 21 Total Intake and Output 08/30/24 08/30/24 08/31/24 15:00 23:00 07:00 Intake Total 770 ml 730 ml 600 ml Balance 770 ml 730 ml 600 ml medications Current Medications Medications Dose Ordered Sig/Walt Route Start Time Stop Time Status Last Admin Dose Admin Aspirin 81 mg DAILY PO 08/26/24 10:00 08/31/24 08:42 81 MG Hydralazine HCl 10 mg Q6HP PRN IV 08/25/24 17:30 08/27/24 21:11 10 MG Atorvastatin Calcium 40 mg HS PO 08/25/24 22:00 08/30/24 22:19 40 MG Famotidine 20 mg DAILY IV 08/26/24 10:00 08/31/24 08:42 20 MG Sodium Chloride 1,000 ml @ 60 mls/hr [id number] IV 08/25/24 17:30 08/31/24 05:34 60 MLS/HR Acetaminophen/ Hydrocodone Bitart 1 tab Q4HP PRN PO 08/25/24 17:30 08/31/24 08:56 1 TAB Ondansetron HCl 4 mg Q4HP PRN IV 08/25/24 17:30 Docusate Sodium 100 mg BIDPRN PRN PO 08/25/24 17:30 Acetaminophen 650 mg Q6HP PRN PO 08/25/24 17:30 08/25/24 18:00 650 MG Nitroglycerin 0.4 mg Q5MINP PRN SL 08/25/24 17:30 Morphine Sulfate 2 mg Q30M PRN IV 08/25/24 17:30 Doxycycline Hyclate 250 ml @ 125 mls/hr Q12H IV 08/25/24 18:15 Cancel Doxycycline Hyclate 250 ml @ 125 mls/hr Q12HR IV 08/26/24 10:00 Cancel Doxycycline Hyclate 250 ml @ 125 mls/hr Q12HR IV 08/26/24 10:00 08/30/24 22:18 125 MLS/HR Ceftriaxone Sodium 50 ml @ 100 mls/hr DAILY@09 IV 08/27/24 09:00 08/31/24 08:42 100 MLS/HR Sodium Chloride 10 ml QSHIFT@, IV 08/30/24 22:00 08/30/24 22:18 10 ML Amino Acids 0 ml @ 0 mls/hr PER PHARMACY IV 08/30/24 17:15 Amino Acids/ Electrolytes/ Dextrose 1,000 ml @ 41 mls/hr DAILY@2200 IV 08/30/24 22:00 08/31/24 21:59 08/30/24 22:19 41 MLS/HR Diagnostic Test (Pha) 1 strip Q6HR 08/30/24 18:00 08/31/24 05:28 1 STRIP Insulin Human Regular FOLLOW SLIDING SCALE Q6HR SC 08/30/24 18:00 08/31/24 00:26 216 UNITS Dextrose 50 ml UD IV 08/30/24 18:00 laboratory and microbiology Laboratory Tests 08/31/24 05:31 08/28/24 06:33 Test 08/31/24 05:31 Range/Units Serum Glucose 78 74-106 mg/dL Problem List/Assessment/Plan Problem List/Assessment/Plan 08/31/[address], NEEDS TO START TPN, AWAITING BIOPSY RESULTS Plan discussed with: Patient, Other LESTER PAREDES MD Aug 31, 2024 09:27
[2024-08-31] MEDS: MAGNESIUM SULFATE 1GM/100ML 100 ML IV ONE (16:10)
[2024-08-31] MEDS: POTASSIUM PHOSPHATE 22 MEQ in SODIUM CHL 0.9% 100 ML IV ONE (18:39)
--- NOTE | 2024-08-31 20:50 | DVHPN2 ---
Progress Note - Dictate Date Seen: Aug 31, 2024 Medical Necessity Reason Pt with a Central, PICC or Fol: Yes The following are medically ne: PICC Line Subjective Patient was seen and evaluated in follow up. Patient is complaining of generalized pain. GLUC 216. Patient is awaiting biopsy results. Planned to be started on TPN for nutritional support. vital signs Vital Sign Date Time Temp Pulse Resp B/P (MAP) Pulse Ox O2 Delivery O2 Flow Rate FiO2 08/31/24 12:20 84 16 133/55 (81) 08/31/24 12:11 97.8 98 97.8 08/30/24 20:00 Room Air* 0 21 Total Intake and Output 08/30/24 08/30/24 08/31/24 15:00 23:00 07:00 Intake Total 770 ml 730 ml 600 ml Balance 770 ml 730 ml 600 ml medications Current Medications Medications Dose Ordered Sig/Walt Route Start Time Stop Time Status Last Admin Dose Admin Aspirin 81 mg DAILY PO 08/26/24 10:00 08/31/24 08:42 81 MG Hydralazine HCl 10 mg Q6HP PRN IV 08/25/24 17:30 08/27/24 21:11 10 MG Atorvastatin Calcium 40 mg HS PO 08/25/24 22:00 08/30/24 22:19 40 MG Famotidine 20 mg DAILY IV 08/26/24 10:00 08/31/24 08:42 20 MG Sodium Chloride 1,000 ml @ 60 mls/hr [id number] IV 08/25/24 17:30 08/31/24 21:59 08/31/24 05:34 60 MLS/HR Acetaminophen/ Hydrocodone Bitart 1 tab Q4HP PRN PO 08/25/24 17:30 08/31/24 08:56 1 TAB Ondansetron HCl 4 mg Q4HP PRN IV 08/25/24 17:30 Docusate Sodium 100 mg BIDPRN PRN PO 08/25/24 17:30 Acetaminophen 650 mg Q6HP PRN PO 08/25/24 17:30 08/25/24 18:00 650 MG Nitroglycerin 0.4 mg Q5MINP PRN SL 08/25/24 17:30 Morphine Sulfate 2 mg Q30M PRN IV 08/25/24 17:30 Doxycycline Hyclate 250 ml @ 125 mls/hr Q12H IV 08/25/24 18:15 Cancel Doxycycline Hyclate 250 ml @ 125 mls/hr Q12HR IV 08/26/24 10:00 Cancel Doxycycline Hyclate 250 ml @ 125 mls/hr Q12HR IV 08/26/24 10:00 08/31/24 10:55 125 MLS/HR Ceftriaxone Sodium 50 ml @ 100 mls/hr DAILY@09 IV 08/27/24 09:00 08/31/24 08:42 100 MLS/HR Sodium Chloride 10 ml QSHIFT@,22 IV 08/30/24 22:00 08/31/24 10:00 10 ML Amino Acids 0 ml @ 0 mls/hr PER PHARMACY IV 08/30/24 17:15 Amino Acids/ Electrolytes/ Dextrose 1,000 ml @ 41 mls/hr DAILY@2200 IV 08/30/24 22:00 08/31/24 21:59 08/30/24 22:19 41 MLS/HR Diagnostic Test (Pha) 1 strip Q6HR 08/30/24 18:00 08/31/24 12:00 1 STRIP Insulin Human Regular FOLLOW SLIDING SCALE Q6HR SC 08/30/24 18:00 08/31/24 12:55 12 UNITS Dextrose 50 ml UD IV 08/30/24 18:00 Fat Emulsion Intravenous 50 ml/ Potassium Acetate 10 meq/Potassium Phosphate 22 meq/ Magnesium Sulfate 10 meq/ Multivitamins 10 ml/Chromium/ Copper/Manganese/ Zinc 1 ml/Amino Acids/Dextrose/ Purified Water 1,023.5 ml @ 42 mls/hr [id number] IV 08/31/24 22:00 09/01/24 21:59 Sodium Chloride 1,000 ml @ 30 mls/hr Q24H IV 08/31/24 22:00 objective GENERAL: Awake, alert, oriented. LUNGS: Clear. CARDIOVASCULAR: Heart sounds are good. ABDOMEN: Soft. NEURO: Slurred speech. laboratory and microbiology Laboratory Tests 08/31/24 05:31 08/28/24 06:33 Test 08/31/24 05:31 Range/Units Serum Glucose 78 74-106 mg/dL Problem List Generalized weakness and slurred speech rule out TIA rule out CVA. Septic shock secondary to urinary tract infection. Acute urinary tract infection. Diabetes. Hypertension. Hypercholesterolemia. Severe anemia. Hepatic flexor lesions. Assessment/Plan Continued all current supportive medical care. Aspirin, Lipitor. IV antibiotics as ordered. Morphine and [place] for pain management. Additional plan as per the hospital course. Plan discussed with: Patient OTIS JOHNSON MD Aug 31, 2024 13:52
[2024-08-31] MEDS: SODIUM CHLORIDE 0.9% 1,000 ML IV SCH (22:00)
[2024-09-01] VITALS (8 sets, daily range): BP systolic 144–151; BP diastolic 62–79; PULSE 71–82; RESP 16–20; TEMP 97.5–98.1; O2SAT 98–100
[2024-09-01] MEDS: TPN PER PHARMACY IV NR ×2 (00:12→22:13)
[2024-09-01 07:11] LABS: Alanine Aminotransferase 14 U/L (7-40); Albumin 3.4 g/dL (3.2-4.8); Alkaline Phosphatase 52 U/L (46-116); Anion Gap 8 (5-15); Aspartate Aminotransferase 16 U/L (13-40); BUN/Creatinine Ratio 9.9 (10.0-20.0); Bilirubin, Total 0.3 mg/dL (0.2-1.0); Blood Urea Nitrogen 8 mg/dL (9-23); Calcium 9.1 mg/dL (8.7-10.4); Carbon Dioxide 24 mmol/L (20-31); Chloride 111 mmol/L (98-107); Glucose 190 mg/dL (74-106); Magnesium 1.7 mg/dL (1.6-2.6); Phosphorus 3.6 mg/dL (2.4-5.1); Potassium 3.5 mmol/L (3.5-5.1); Sodium 143 mmol/L (136-145); Total Protein 7.5 g/dL (5.7-8.2)
--- NOTE | 2024-09-01 08:29 | DVHINCON2 ---
Date of service: Sep 01, [address] April Larson Reason for Consultation Anemia and colon mass History of Present Illness 74 years old female with a history of controlled diabetes and hyperlipidemia. She came to the hospital complaints of weakness and some slurring of the speech she was found to be anemic. She does not complain of any GI bleeding. No nausea vomiting. Slight abdominal discomfort more so on the right side. On 08/28/2024: He colonoscope a showed a lesion of the hepatic flexure of about 2.5-3 cm, slightly polypoid, attached to the wall possible villous adenoma but malignancy could not be excluded and unable to remove endoscopically and multip le biopsies were taken and the report is pending Her CBC from 08/28/2024 showed a white count of 3.2 hemoglobin 7.4 MCV 72.7 jacki telets [id number] Normal renal functions. Normal liver functions. Total protein 7.2 albumin 3.2 CEA 1.57 brain MRI was unremarkable without IV contrast The patient has been evaluated by the surgeon and is pending surgery for the colonic mass after the pathology report is available The patient does give a history of significant weight loss. No fevers night sweats. Past Medical History Diabetes mellitus Hyperlipidemia Some vaginal surgery Family History: Patient reports no known family medical history. Family History Mother had a colon cancer Social History Patient is . No smoking no drinking Allergies: Coded Allergies: NO KNOWN ALLERGIES (Unverified , 04/05/18) Home Meds Active Scripts Acetaminophen (Tylenol 8 Hour Arthritis) 650 Mg Tab, 650 MG PO TID, #30 TAB Prov:DENIS YEH 08/14/24 Nitrofurantoin Monohydrate Mac (Macrobid) 100 Mg Cap, 100 MG PO BID, #14 CAP Prov:DENIS YEH 08/14/24 Ondansetron Odt 4MG Tab (ZOFRAN PO) 4 Mg Tb, 4 MG PO TID for 7 Days, #21 TAB ODT TAB-DISSOLVE IN MOUTH, THEN SWALLOW Prov:RAMÓN RIDER MD 05/10/24 Baclofen (Baclofen) 10 Mg Tab, 10 MG PO TID PRN, #30 TAB Prov:JAY HE 05/06/24 Sulfamethoxazole-Trimethoprim (Bactrim) 1 Tab Tab, 1 TAB PO BID for 7 Days, #14 TAB 0 Refills Prov:ALDINONajmaVARGHESE MCKINNON 04/11/23 Reported Medications Pantoprazole Sodium Sesquihydr (Pantoprazole Sodium) 40 Mg Tab, 1 TAB PO DAILY 08/25/24 Glipizide (Glipizide) 5 Mg Tab, 1 TAB PO BID 08/25/24 Current Medications Current Medications Medications (Trade) Dose Ordered Sig/Walt Route PRN Reason Start Time Stop Time Status Last Admin Fat Emulsion Intravenous 50 ml/ Potassium Acetate 10 meq/Potassium Phosphate 22 meq/ Magnesium Sulfate 10 meq/ Multivitamins 10 ml/Chromium/ Copper/Manganese/ Zinc 1 ml/Amino Acids/Dextrose/ Purified Water 1,023.5 ml @ 42 mls/hr [id number] IV 08/31/24 22:00 09/01/24 21:59 09/01/24 00:12 Sodium Chloride 1,000 ml @ 30 mls/hr Q24H IV 08/31/24 22:00 Vital Signs Vital Signs Date Time Temp Pulse Resp B/P (MAP) Pulse Ox O2 Delivery O2 Flow Rate FiO2 09/01/24 05:00 98.1 72 16 151/72 (98) 98 98.1 08/31/24 20:00 Room Air* 0 21 Physical Exam Moderately built and nourished, in no acute distress, alert and oriented. No jaundice Head and neck: Unremarkable for any masses or neck nodes. No conjunctival or mucosal hemorrhage Lungs: Clear Cardiovascular: S1-S2 heard well Abdomen: No organomegaly, tenderness or ascites. Bowel sounds are present. Extremities: No clubbing edema cyanosis or calf tenderness. Skin: Unremarkable for petechia purpura ecchymosis Lymphadenopathy: None Neurological exam: No focal deficit Labs/Diagnostic Data Labs Test 09/01/24 05:39 08/31/24 23:58 08/31/24 05:31 08/29/24 15:22 Range/Units Sodium Level 143 136-145 mmol/L Potassium Level 3.5 3.5-5.1 mmol/L Chloride Level 111 H 98-107 mmol/L Carbon Dioxide Level 24 20-31 mmol/L Anion Gap 8 5-15 Blood Urea Nitrogen 8 L 9-23 mg/dL Creatinine 0.81 0.550-1.02 mg/dL Glomerular Filtration Rate Calc 75 >90 mL/min BUN/Creatinine Ratio 9.9 L 10.0-20.0 Serum Glucose 190 H 74-106 mg/dL Calcium Level 9.1 8.7-10.4 mg/dL Phosphorus Level 3.6 2.4-5.1 mg/dL Magnesium Level 1.7 1.6-2.6 mg/dL Total Bilirubin 0.3 0.2-1.0 mg/dL Aspartate Amino Transferase (AST) 16 13-40 U/L Alanine Aminotransferase (ALT) 14 7-40 U/L Alkaline Phosphatase 52 46-116 U/L Total Protein 7.5 5.7-8.2 g/dL Albumin 3.4 3.2-4.8 g/dL POC Glucose 230 H 70-106 mg/dl Triglycerides Level 87 < 150 mg/dL Carcinoembryonic Antigen 1.57 <=5.0 ng/mL Test 08/28/24 06:33 08/25/24 19:54 08/25/24 18:33 08/25/24 15:57 Range/Units White Blood Count 3.2 #L 4.4-10.8 10^3/uL Red Blood Count 3.22 L 4.0-5.20 10^6/uL Hemoglobin 7.4 L 12.2-16.2 g/dL Hematocrit 23.4 L 36.0-46.0 % Mean Corpuscular Volume 72.7 L 80.0-100.0 fL Mean Corpuscular Hemoglobin 22.9 L 28.0-32.0 pg Mean Corpuscular Hemoglobin Concent 31.5 L 32.0-36.0 g/dL Red Cell Distribution Width 20.0 H 11.8-14.3 % Platelet Count 209 140-450 10^3/uL Mean Platelet Volume 8.0 6.9-10.8 fL Neutrophils (%) (Auto) 49.7 37.0-80.0 % Lymphocytes (%) (Auto) 36.8 10.0-50.0 % Monocytes (%) (Auto) 12.1 H 0.0-12.0 % Eosinophils (%) (Auto) 0.8 0.0-7.0 % Basophils (%) (Auto) 0.6 0.0-2.0 % Neutrophils # (Auto) 1.6 1.6-8.6 10 ^3/uL Lymphocytes # (Auto) 1.2 0.4-5.4 10 ^3/uL Monocytes # (Auto) 0.4 0-1.3 10 ^3/uL Eosinophils # (Auto) 0 0-0.8 10 ^3/uL Basophils # (Auto) 0 0-0.2 10 ^3/uL Nucleated Red Blood Cells 0.0 % Platelet Estimate Adequate Hypochromasia (manual) Moderate Anisocytosis (manual) Slight Microcytosis Moderate Target Cells Moderate Ovalocytes Few Prothrombin Time 11.8 9.3-11.8 sec Prothrombin Time INR 1.12 0.9-1.15 Activated Partial Thromboplast Time 23.0 L 24.5-34.5 SEC Troponin I High Sensitivity 34 </=34 ng/L Urine Color Colorless Yellow Urine Clarity Turbid H Clear Urine pH 6.5 5.0-9.0 Urine Specific [place] > 1.050 H 1.001-1.035 Urine Protein Trace H Negative Urine Ketones Negative Negative Urine Blood Trace H Negative /uL Urine Nitrite Negative Negative Urine Bilirubin Negative Negative Urine Urobilinogen Normal Negative mg/dL Urine Leukocyte Esterase 3+ Negative /uL Urine RBC 1 0 - 4 /hpf Urine WBC 257 0 - 5 /hpf Urine Squamous Epithelial Cells Few <5 /hpf Urine Bacteria Few H None Seen /hpf Urine Yeast (Budding) Few None Seen /hpf Urine Glucose Normal Normal mg/dL Differential Total Cells Counted 100.0 100 Neutrophils % (Manual) 86 H 37.0-80.0 Band Neutrophils % (Manual) 6 Lymphocytes % (Manual) 4 L 10.0-50.0 Monocytes % (Manual) 4 0-12 Eosinophils % (Manual) 0 0-7 Basophils % (Manual) 0 0.0-2.0 Metamyelocytes % (manual) 0 Myelocytes % (Manual) 0 Promyelocytes % (Manual) 0 Blast Cells % (Manual) 0 Reactive Lymphocytes 0 Lactic Acid Level 1.2 0.4-2.0 mmol/L Microbiology Date/Time Source Procedure Growth Status 08/28/24 06:00 Urine - Midstream Clean Catch Urine Culture - Final Complete 08/26/24 15:03 Blood Blood Culture - Final NO GROWTH AFTER 5 DAYS OF INCUBATION. Complete Assessment 1. Right hepatic flexure colon mass status post biopsies in the report pending. CEA 1.57. The patient presented with anemia 2. Diabetes 3. Hyperlipidemia Plan/Recommendation For the pathology We will do a CT scan of the chest abdomen pelvis with IV contrast For the large mass in the hepatic flexure which was not able to be endoscopically removed the patient will need surgery and the extent of the surgery will depend on the pathology I will follow her after the surgery Plan discussed with: Patient CANDY FOLEY MD Sep 01, 2024 08:29
--- NOTE | 2024-09-01 09:16 | DVHPN2 ---
Reviewed: Care Plan, H&P, Labs, Medications, Previous Orders, Radiology Changes from previous H/P or p: No Changes Eyes: No Pain, No Vision change, No Conjunctivae inflammation, No Eyelid inflammation, No Other, No Redness ENT: No Ear pain, No Ear discharge, No Nose pain, No Nose discharge, No Nose congestion, No Mouth pain, No Mouth swelling, No Throat pain, No Throat swelling, No Other Cardiovascular: No Chest Pain, No Palpitations, No Orthopnea, No Paroxysmal Noc. Dyspnea, No Edema, No Lt Headedness, No Other Respiratory: No Cough, No Dry, No Shortness of breath, No SOB with excertion, No Wheezing, No Hemoptysis, No Pleuritic Pain, No Sputum, No Other Gastrointestinal: No Nausea, No Vomiting, No Abdominal Pain, No Diarrhea, No Constipation, No Melena, No Hematochezia, No Other Genitourinary: No Dysuria, No Frequency, No Incontinence, No Hematuria, No Retention, No Other Musculoskeletal: No other, No neck pain, No shoulder pain, No arm pain, No back pain, No hand pain, No leg pain, No foot pain Skin: No Rash, No Lesions, No Jaundice, No Bruising, No Other Objective Vitals Vital Signs Date Time Temp Pulse Resp B/P (MAP) Pulse Ox O2 Delivery O2 Flow Rate FiO2 09/01/24 08:25 97.6 76 18 150/68 (95) 100 97.6 09/01/24 08:00 Room Air* 0 21 Intake/Output Intake and Output 09/01/24 07:00 Intake Total 1975.00 ml Output Total 1000 ml Balance 975.00 ml Intake Oral 400 ml IV Total 1575.00 ml Output Urine Total 1000 ml # Voids 1 # Bowel Movements 1 Medications Current Medications Medications Dose Ordered Sig/Walt Route Start Time Stop Time Status Last Admin Dose Admin Aspirin 81 mg DAILY PO 08/26/24 10:00 08/31/24 08:42 81 MG Hydralazine HCl 10 mg Q6HP PRN IV 08/25/24 17:30 08/27/24 21:11 10 MG Atorvastatin Calcium 40 mg HS PO 08/25/24 22:00 08/31/24 21:34 40 MG Famotidine 20 mg DAILY IV 08/26/24 10:00 08/31/24 08:42 20 MG Acetaminophen/ Hydrocodone Bitart 1 tab Q4HP PRN PO 08/25/24 17:30 08/31/24 08:56 1 TAB Ondansetron HCl 4 mg Q4HP PRN IV 08/25/24 17:30 Docusate Sodium 100 mg BIDPRN PRN PO 08/25/24 17:30 Acetaminophen 650 mg Q6HP PRN PO 08/25/24 17:30 08/25/24 18:00 650 MG Nitroglycerin 0.4 mg Q5MINP PRN SL 08/25/24 17:30 Morphine Sulfate 2 mg Q30M PRN IV 08/25/24 17:30 Doxycycline Hyclate 250 ml @ 125 mls/hr Q12H IV 08/25/24 18:15 Cancel Doxycycline Hyclate 250 ml @ 125 mls/hr Q12HR IV 08/26/24 10:00 Cancel Doxycycline Hyclate 250 ml @ 125 mls/hr Q12HR IV 08/26/24 10:00 08/31/24 21:36 125 MLS/HR Ceftriaxone Sodium 50 ml @ 100 mls/hr DAILY@09 IV 08/27/24 09:00 09/01/24 08:50 100 MLS/HR Sodium Chloride 10 ml QSHIFT@10,22 IV 08/30/24 22:00 08/31/24 21:36 10 ML Amino Acids 0 ml @ 0 mls/hr PER PHARMACY IV 08/30/24 17:15 Diagnostic Test (Pha) 1 strip Q6HR 08/30/24 18:00 09/01/24 05:12 1 STRIP Insulin Human Regular FOLLOW SLIDING SCALE Q6HR SC 08/30/24 18:00 09/01/24 05:25 2 UNITS Dextrose 50 ml UD IV 08/30/24 18:00 Fat Emulsion Intravenous 50 ml/ Potassium Acetate 10 meq/Potassium Phosphate 22 meq/ Magnesium Sulfate 10 meq/ Multivitamins 10 ml/Chromium/ Copper/Manganese/ Zinc 1 ml/Amino Acids/Dextrose/ Purified Water 1,023.5 ml @ 42 mls/hr [id number] IV 08/31/24 22:00 09/01/24 21:59 09/01/24 00:12 42 MLS/HR Sodium Chloride 1,000 ml @ 30 mls/hr Q24H IV 08/31/24 22:00 Laboratory Results Laboratory Tests 08/28/24 06:33 09/01/24 05:39 Chemistry Test 09/01/24 05:39 Albumin 3.4 g/dL (3.2-4.8) Calcium Level 9.1 mg/dL (8.7-10.4) Magnesium Level 1.7 mg/dL (1.6-2.6) Phosphorus Level 3.6 mg/dL (2.4-5.1) Total Protein 7.5 g/dL (5.7-8.2) LFT Test 09/01/24 05:39 Alanine Aminotransferase (ALT) 14 U/L (7-40) Alkaline Phosphatase 52 U/L (46-116) Aspartate Amino Transferase (AST) 16 U/L (13-40) Total Bilirubin 0.3 mg/dL (0.2-1.0) Urinalysis Test 08/25/24 18:33 Urine Color Colorless (Yellow) Urine Clarity Turbid (Clear) H Urine pH 6.5 (5.0-9.0) Urine Specific [place] > 1.050 (1.001-1.035) Urine Protein Trace (Negative) H Urine Ketones Negative (Negative) Urine Blood Trace /uL (Negative) H Urine Nitrite Negative (Negative) Urine Bilirubin Negative (Negative) Urine Urobilinogen Normal mg/dL (Negative) Urine Leukocyte Esterase 3+ /uL (Negative) Urine RBC 1 /hpf (0 - 4) Urine WBC 257 /hpf (0 - 5) Urine Squamous Epithelial Cells Few /hpf (<5) Urine Bacteria Few /hpf (None Seen) H Urine Yeast (Budding) Few /hpf (None Seen) Urine Glucose Normal mg/dL (Normal) Microbiology Microbiology Date/Time Source Procedure Growth Status 08/28/24 06:00 Urine - Midstream Clean Catch Urine Culture - Final Complete 08/26/24 15:03 Blood Blood Culture - Final NO GROWTH AFTER 5 DAYS OF INCUBATION. Complete Labs and/or images reviewed: Labs reviewed by me, Image(s) reviewed by me Assessment/Plan Assessment/Plan Generalized weakness and slurred speech rule out TIA rule out CVA: CT head negative CT angio neck negative, MRI brain negative, Neurology consult by Dr. Gomez appreciated, placed on aspirin Septic shock secondary to urinary tract infection: Blood cultures negative, urine cultures pending Acute urinary tract infection: Rocephin Diabetes: Insulin sliding scale Hypertension Hypercholesterolemia Severe anemia hemoglobin 8.8,, consult for Dr. Rosario Hepatic flexor lesions slightly polypoid of about 2.5 cm to 3 cm possible villous adenoma possibility CA can not be excluded by colonoscopy by Dr. Santamaria awaiting biopsy result, surgical consult for Dr. Lyle appreciated requesting cardiac clearance started on TPN, PICC line order placed EGD and polypectomy with the biopsy of the gastric polyp by Dr. Santamaria, Oncology consult by Dr. Rosario appreciated, he ordered CT chest abdomen pelvis with IV contrast, awaiting biopsy report for further plan for surgery Time spent 55 minutes Patient is full code Discussed in detail with the patient and her at the bedside about the current diagnosis management and further plan for: colon Surgery after the biopsy result Plan discussed with: Patient Date of Service: Sep 01, 2024 Billing Provider: MARLIN SHAW MD Common Visit Codes: [id number] INP/OBS CARE(HIGH) MARLIN SHAW MD Sep 01, 2024 09:16
[2024-09-01] MEDS: IOHEXOL 300 MG/ML 100ML BOTTLE IJ ONE (09:49)
--- NOTE | 2024-09-01 12:08 | DVH ---
Exam: US US GUIDED VASCULAR ACCESS Date: 08/30/2024 03:49 PM Clinical History: PICC line placement Comparison: None Findings: Targeted sonographic evaluation of the RUE was obtained utilizing grayscale and color Doppler imaging . IMPRESSION: Sonographic assistance for central line placement. Please refer to procedural report for detailed fin dings.
--- NOTE | 2024-09-01 12:27 | DVH ---
CLINICAL HISTORY: R/O METS TECHNIQUE: CT of the chest, abdomen and pelvis was performed with IV contrast . This exam was perform ed according to our departmental dose optimization program. Up-to-date CT equipment and radiation dos e reduction techniques are utilized as appropriate. CTDI: [CTDIvol] DLP: 388.03 COMPARISON: CT CT AB PEL WO CON-NO ORAL OR IV on DOS: 05/10/24 FINDINGS: CHEST FINDINGS: Lower Neck: There are low-density bilateral thyroid nodules, more numerous on the right, with a repre sentative nodule measuring 1.4 cm on series 2, image 11 Axilla, Mediastinum and Flower: Mildly prominent mediastinal and hilar lymph nodes, though are predomin antly normal-sized. No axillary lymphadenopathy. Heart and Great Vessels: Normal-sized heart without pericardial effusion. The thoracic aorta is lópez nt and normal caliber containing mild mixed atherosclerotic plaque. the central pulmonary arteries ar e normal in caliber. There is a right PICC in place with the tip terminating in the low SVC. At least mild coronary artery calcifications most pronounced in the left anterior descending artery. Airway, Lungs and Pleura: The trachea and central airways are patent. Mild linear bibasilar scarring or atelectasis. A few patchy ground-glass opacities in the right upper and right middle lobes no airs pace consolidation, pleural effusion, or pneumothorax Chest Wall and Osseous Structures: Mild multilevel thoracic spondylosis. No destructive osseous lesio n. Abdomen and Pelvis Findings: Liver and Biliary system: Hepatic steatosis. Normal-sized liver. No discrete hepatic lesion. Major portal veins are patent. There is cholelithiasis and a normal caliber gallbladder. There is no biliar y ductal dilatation. Spleen: There are hypodense splenic lesions likely cysts or hemangiomas. Normal-sized spleen. Adrenal Glands and Kidneys: Mild thickening of the bilateral adrenal glands without discrete mass. Th ere is no hydronephrosis or nephrolithiasis. There are patchy peripheral renal hypodensities. Pancreas and Retroperitoneum: Normal pancreas. Mildly prominent retroperitoneal lymph nodes Aorta and Major Vessels: Aortoiliac vessels are patent and normal caliber containing [id number] mixed atherosclerotic plaque. Bowel, Mesentery and Peritoneal space: The small and large bowel loops are normal in caliber. Normal appendix. Trace ascites. There is mild wall thickening of the large bowel. There is no free air or fl uid collection Pelvis: Mild bladder wall thickening the uterus and ovaries are grossly unremarkable. 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 no yuan tructive osseous lesion. Multilevel lumbar spondylosis IMPRESSION: 1. Patchy peripheral hypodensities in the kidneys which could reflect pyelonephritis. Correlate with urinalysis and urine culture. 2. Mild bladder wall thickening, nonspecific though could reflect cystitis. This could also be evalua edu with a urinalysis. 3. A few patchy ground-glass opacities in the right middle and upper lobes which could reflect atypic al infection or atelectasis. 4. Mild hepatic steatosis. 5. Mildly prominent mediastinal, hilar, and retroperitoneal lymph nodes, nonspecific. This could be r eactive. If there is history of malignancy, follow-up CT could be obtained in 3 -6 months for re-eval uation. 6. Mild wall thickening throughout the large bowel which may be in part due to underdistention or mil d infectious or inflammatory colitis 7. At least mild calcified coronary artery disease. 8. Low-density thyroid nodules more numerous in the right lobe. This is not optimally evaluated by CT . If clinically indicated, thyroid ultrasound could be obtained for characterization on a nonemergen t or outpatient basis 9. Cholelithiasis.
[2024-09-01] MEDS: GOLYTELY 4L KIT PO ONE (13:08)
--- NOTE | 2024-09-01 18:13 | DVHPN2 ---
Progress Note - Dictate Date Seen: Sep 01, 2024 Medical Necessity Reason Pt with a Central, PICC or Fol: Yes The following are medically ne: PICC Line Subjective Patient was seen and evaluated in follow up. Patient is complaining of generalized pain. Oncologist by Dr. Rosario seen patient and ordered CT chest abdomen pelvis with IV contrast. Awaiting biopsy report for further plan for surgery. vital signs Vital Sign Date Time Temp Pulse Resp B/P (MAP) Pulse Ox O2 Delivery O2 Flow Rate FiO2 09/01/24 16:00 98.0 78 19 151/79 (103) 100 98.0 09/01/24 08:00 Room Air* 0 21 Total Intake and Output 08/31/24 08/31/24 09/01/24 15:00 23:00 07:00 Intake Total 50 ml 1496.25 ml 428.75 ml Output Total 1000 ml Balance 50 ml 496.25 ml 428.75 ml medications Current Medications Medications Dose Ordered Sig/Walt Route Start Time Stop Time Status Last Admin Dose Admin Aspirin 81 mg DAILY PO 08/26/24 10:00 09/01/24 10:11 81 MG Hydralazine HCl 10 mg Q6HP PRN IV 08/25/24 17:30 08/27/24 21:11 10 MG Atorvastatin Calcium 40 mg HS PO 08/25/24 22:00 08/31/24 21:34 40 MG Famotidine 20 mg DAILY IV 08/26/24 10:00 09/01/24 10:11 20 MG Acetaminophen/ Hydrocodone Bitart 1 tab Q4HP PRN PO 08/25/24 17:30 08/31/24 08:56 1 TAB Ondansetron HCl 4 mg Q4HP PRN IV 08/25/24 17:30 Docusate Sodium 100 mg BIDPRN PRN PO 08/25/24 17:30 Acetaminophen 650 mg Q6HP PRN PO 08/25/24 17:30 08/25/24 18:00 650 MG Nitroglycerin 0.4 mg Q5MINP PRN SL 08/25/24 17:30 Morphine Sulfate 2 mg Q30M PRN IV 08/25/24 17:30 Doxycycline Hyclate 250 ml @ 125 mls/hr Q12H IV 08/25/24 18:15 Cancel Doxycycline Hyclate 250 ml @ 125 mls/hr Q12HR IV 08/26/24 10:00 Cancel Doxycycline Hyclate 250 ml @ 125 mls/hr Q12HR IV 08/26/24 10:00 09/01/24 10:11 125 MLS/HR Ceftriaxone Sodium 50 ml @ 100 mls/hr DAILY@09 IV 08/27/24 09:00 09/01/24 08:50 100 MLS/HR Sodium Chloride 10 ml QSHIFT@10,22 IV 08/30/24 22:00 09/01/24 10:14 10 ML Amino Acids 0 ml @ 0 mls/hr PER PHARMACY IV 08/30/24 17:15 Diagnostic Test (Pha) 1 strip Q6HR 08/30/24 18:00 09/01/24 13:09 1 STRIP Insulin Human Regular FOLLOW SLIDING SCALE Q6HR SC 08/30/24 18:00 09/01/24 13:18 16 UNITS Dextrose 50 ml UD IV 08/30/24 18:00 Fat Emulsion Intravenous 50 ml/ Potassium Acetate 10 meq/Potassium Phosphate 22 meq/ Magnesium Sulfate 10 meq/ Multivitamins 10 ml/Chromium/ Copper/Manganese/ Zinc 1 ml/Amino Acids/Dextrose/ Purified Water 1,023.5 ml @ 42 mls/hr [id number] IV 08/31/24 22:00 09/01/24 21:59 09/01/24 00:12 42 MLS/HR Sodium Chloride 1,000 ml @ 30 mls/hr Q24H IV 08/31/24 22:00 Fat Emulsion Intravenous 100 ml/Potassium Acetate 30 meq/ Potassium Phosphate 22 meq/ Magnesium Sulfate 18 meq/ Multivitamins 10 ml/Chromium/ Copper/Manganese/ Zinc 1 ml/Amino Acids/Dextrose/ Purified Water 1,135.5 ml @ 47 mls/hr [id number] IV 09/01/24 22:00 09/02/24 21:59 objective GENERAL: Awake, alert, oriented. LUNGS: Clear. CARDIOVASCULAR: Heart sounds are good. ABDOMEN: Soft. NEURO: Slurred speech. laboratory and microbiology Laboratory Tests 09/01/24 05:39 08/28/24 06:33 Test 09/01/24 05:39 Range/Units Serum Glucose 190 H 74-106 mg/dL Problem List Generalized weakness and slurred speech rule out TIA rule out CVA. Septic shock secondary to urinary tract infection. Acute urinary tract infection. Diabetes. Hypertension. Hypercholesterolemia. Severe anemia. Hepatic flexor lesions. Assessment/Plan Continued all current supportive medical care. Aspirin, Lipitor. IV antibiotics as ordered. Morphine and [place] for pain management. Additional plan as per the hospital course. Dietary Evaluation Review Comments: 1) Advance pt diet when medically feasible to a CCHO 45g/2gNa diet 2) Continue current plan of care Expected Outcomes/Goals: 1) Pt diet to advance Plan discussed with: Patient OTIS JOHNSON MD Sep 01, 2024 18:13
[2024-09-02] VITALS (7 sets, daily range): BP systolic 132–146; BP diastolic 66–75; PULSE 77–111; RESP 12–20; TEMP 97.6–100.8; O2SAT 98–100
[2024-09-02 07:19] LABS: Alanine Aminotransferase 16 U/L (7-40); Albumin 3.7 g/dL (3.2-4.8); Alkaline Phosphatase 59 U/L (46-116); Anion Gap 8 (5-15); Aspartate Aminotransferase 17 U/L (13-40); BUN/Creatinine Ratio 15.7 (10.0-20.0); Bilirubin, Total 0.2 mg/dL (0.2-1.0); Blood Urea Nitrogen 13 mg/dL (9-23); Calcium 9.7 mg/dL (8.7-10.4); Carbon Dioxide 26 mmol/L (20-31); Chloride 108 mmol/L (98-107); Glucose 90 mg/dL (74-106); Magnesium 1.9 mg/dL (1.6-2.6); Phosphorus 3.6 mg/dL (2.4-5.1); Potassium 3.5 mmol/L (3.5-5.1); Sodium 142 mmol/L (136-145); Total Protein 8.5 g/dL (5.7-8.2)
[2024-09-02] MEDS: ceFAZolin 2 GM/D5W100ml 100 ML IV ONE (08:29)
[2024-09-02] MEDS: BUPIVACAINE W/ EPINEPH 0.5% INJ 50ML MDV IJ ONE (08:55)
[2024-09-02] MEDS ORDERED: fentaNYL CITRATE 100 MCG/2 ML VL ONE (09:03)
[2024-09-02] MEDS ORDERED: MIDAZOLAM HCL 2MG/2ML 2ml VIAL (1mg/ml) ONE (09:03)
--- NOTE | 2024-09-02 09:19 | DVHPN2 ---
Reviewed: Care Plan, H&P, Labs, Medications, Previous Orders, Radiology Changes from previous H/P or p: No Changes Eyes: No Pain, No Vision change, No Conjunctivae inflammation, No Eyelid inflammation, No Other, No Redness ENT: No Ear pain, No Ear discharge, No Nose pain, No Nose discharge, No Nose congestion, No Mouth pain, No Mouth swelling, No Throat pain, No Throat swelling, No Other Cardiovascular: No Chest Pain, No Palpitations, No Orthopnea, No Paroxysmal Noc. Dyspnea, No Edema, No Lt Headedness, No Other Respiratory: No Cough, No Dry, No Shortness of breath, No SOB with excertion, No Wheezing, No Hemoptysis, No Pleuritic Pain, No Sputum, No Other Gastrointestinal: No Nausea, No Vomiting, No Abdominal Pain, No Diarrhea, No Constipation, No Melena, No Hematochezia, No Other Genitourinary: No Dysuria, No Frequency, No Incontinence, No Hematuria, No Retention, No Other Musculoskeletal: No other, No neck pain, No shoulder pain, No arm pain, No back pain, No hand pain, No leg pain, No foot pain Skin: No Rash, No Lesions, No Jaundice, No Bruising, No Other Objective Vitals Vital Signs Date Time Temp Pulse Resp B/P (MAP) Pulse Ox O2 Delivery O2 Flow Rate FiO2 09/02/24 07:51 Room Air* 0 21 09/02/24 05:00 98.6 87 20 134/75 (94) 98 98.6 Intake/Output Intake and Output 09/02/24 07:00 Intake Total 640 ml Output Total 1300 ml Balance -660 ml IV Total 640 ml Output Urine Total 1300 ml # Bowel Movements 4 Medications Current Medications Medications Dose Ordered Sig/Walt Route Start Time Stop Time Status Last Admin Dose Admin Aspirin 81 mg DAILY PO 08/26/24 10:00 09/01/24 10:11 81 MG Hydralazine HCl 10 mg Q6HP PRN IV 08/25/24 17:30 08/27/24 21:11 10 MG Atorvastatin Calcium 40 mg HS PO 08/25/24 22:00 09/01/24 21:52 40 MG Famotidine 20 mg DAILY IV 08/26/24 10:00 09/01/24 10:11 20 MG Acetaminophen/ Hydrocodone Bitart 1 tab Q4HP PRN PO 08/25/24 17:30 08/31/24 08:56 1 TAB Ondansetron HCl 4 mg Q4HP PRN IV 08/25/24 17:30 Docusate Sodium 100 mg BIDPRN PRN PO 08/25/24 17:30 Acetaminophen 650 mg Q6HP PRN PO 08/25/24 17:30 08/25/24 18:00 650 MG Nitroglycerin 0.4 mg Q5MINP PRN SL 08/25/24 17:30 Morphine Sulfate 2 mg Q30M PRN IV 08/25/24 17:30 Doxycycline Hyclate 250 ml @ 125 mls/hr Q12H IV 08/25/24 18:15 Cancel Doxycycline Hyclate 250 ml @ 125 mls/hr Q12HR IV 08/26/24 10:00 Cancel Doxycycline Hyclate 250 ml @ 125 mls/hr Q12HR IV 08/26/24 10:00 09/01/24 21:52 125 MLS/HR Ceftriaxone Sodium 50 ml @ 100 mls/hr DAILY@09 IV 08/27/24 09:00 09/01/24 08:50 100 MLS/HR Sodium Chloride 10 ml QSHIFT@10,22 IV 08/30/24 22:00 09/01/24 21:52 10 ML Amino Acids 0 ml @ 0 mls/hr PER PHARMACY IV 08/30/24 17:15 Diagnostic Test (Pha) 1 strip Q6HR 08/30/24 18:00 09/02/24 05:21 1 STRIP Insulin Human Regular FOLLOW SLIDING SCALE Q6HR SC 08/30/24 18:00 09/02/24 00:12 12 UNITS Dextrose 50 ml UD IV 08/30/24 18:00 Sodium Chloride 1,000 ml @ 30 mls/hr Q24H IV 08/31/24 22:00 09/02/24 00:05 30 MLS/HR Fat Emulsion Intravenous 100 ml/Potassium Acetate 30 meq/ Potassium Phosphate 22 meq/ Magnesium Sulfate 18 meq/ Multivitamins 10 ml/Chromium/ Copper/Manganese/ Zinc 1 ml/Amino Acids/Dextrose/ Purified Water 1,135.5 ml @ 47 mls/hr [id number] IV 09/01/24 22:00 09/02/24 21:59 09/01/24 22:13 47 MLS/HR Laboratory Results Laboratory Tests 08/28/24 06:33 09/02/24 04:42 Chemistry Test 09/02/24 04:42 Albumin 3.7 g/dL (3.2-4.8) Calcium Level 9.7 mg/dL (8.7-10.4) Magnesium Level 1.9 mg/dL (1.6-2.6) Phosphorus Level 3.6 mg/dL (2.4-5.1) Total Protein 8.5 g/dL (5.7-8.2) H LFT Test 09/02/24 04:42 Alanine Aminotransferase (ALT) 16 U/L (7-40) Alkaline Phosphatase 59 U/L (46-116) Aspartate Amino Transferase (AST) 17 U/L (13-40) Total Bilirubin 0.2 mg/dL (0.2-1.0) Urinalysis Test 08/25/24 18:33 Urine Color Colorless (Yellow) Urine Clarity Turbid (Clear) H Urine pH 6.5 (5.0-9.0) Urine Specific [place] > 1.050 (1.001-1.035) Urine Protein Trace (Negative) H Urine Ketones Negative (Negative) Urine Blood Trace /uL (Negative) H Urine Nitrite Negative (Negative) Urine Bilirubin Negative (Negative) Urine Urobilinogen Normal mg/dL (Negative) Urine Leukocyte Esterase 3+ /uL (Negative) Urine RBC 1 /hpf (0 - 4) Urine WBC 257 /hpf (0 - 5) Urine Squamous Epithelial Cells Few /hpf (<5) Urine Bacteria Few /hpf (None Seen) H Urine Yeast (Budding) Few /hpf (None Seen) Urine Glucose Normal mg/dL (Normal) Microbiology Microbiology Date/Time Source Procedure Growth Status 08/28/24 06:00 Urine - Midstream Clean Catch Urine Culture - Final Complete 08/26/24 15:03 Blood Blood Culture - Final NO GROWTH AFTER 5 DAYS OF INCUBATION. Complete Labs and/or images reviewed: Labs reviewed by me, Image(s) reviewed by me Assessment/Plan Assessment/Plan Generalized weakness and slurred speech rule out TIA rule out CVA: CT head negative CT angio neck negative, MRI brain negative, Neurology consult by Dr. Gomez appreciated, placed on aspirin Septic shock secondary to urinary tract infection: Blood cultures negative, urine cultures pending Acute urinary tract infection: Rocephin Diabetes: Insulin sliding scale Hypertension Hypercholesterolemia Severe anemia hemoglobin 8.8,, consult for Dr. Rosario Hepatic flexor lesions slightly polypoid of about 2.5 cm to 3 cm possible villous adenoma possibility CA can not be excluded by colonoscopy by Dr. Santamaria awaiting biopsy result, surgical consult for Dr. Lyle appreciated requesting cardiac clearance started on TPN, PICC line order placed EGD and polypectomy with the biopsy of the gastric polyp by Dr. Santamaria, Oncology consult by Dr. Rosario appreciated, he ordered CT chest abdomen pelvis with IV contrast, awaiting biopsy report for further plan for surgery Time spent 55 minutes Patient is full code Discussed in detail with the patient and her at the bedside about the current diagnosis management and further plan for: colon Surgery after the biopsy result Plan discussed with: Patient MARLIN SHAW MD Sep 02, 2024 09:19
[2024-09-02] MEDS ORDERED: MEPERIDINE HCL (50 MG/ML) 1 ML VIAL ONE ×2 (09:23→09:25)
--- NOTE | 2024-09-02 09:23 | DVHPN2 ---
Reviewed: Care Plan, H&P, Labs, Medications, Previous Orders, Radiology Changes from previous H/P or p: No Changes Eyes: No Pain, No Vision change, No Conjunctivae inflammation, No Eyelid inflammation, No Other, No Redness ENT: No Ear pain, No Ear discharge, No Nose pain, No Nose discharge, No Nose congestion, No Mouth pain, No Mouth swelling, No Throat pain, No Throat swelling, No Other Cardiovascular: No Chest Pain, No Palpitations, No Orthopnea, No Paroxysmal Noc. Dyspnea, No Edema, No Lt Headedness, No Other Respiratory: No Cough, No Dry, No Shortness of breath, No SOB with excertion, No Wheezing, No Hemoptysis, No Pleuritic Pain, No Sputum, No Other Gastrointestinal: No Nausea, No Vomiting, No Abdominal Pain, No Diarrhea, No Constipation, No Melena, No Hematochezia, No Other Genitourinary: No Dysuria, No Frequency, No Incontinence, No Hematuria, No Retention, No Other Musculoskeletal: No other, No neck pain, No shoulder pain, No arm pain, No back pain, No hand pain, No leg pain, No foot pain Skin: No Rash, No Lesions, No Jaundice, No Bruising, No Other Objective Vitals Vital Signs Date Time Temp Pulse Resp B/P (MAP) Pulse Ox O2 Delivery O2 Flow Rate FiO2 09/02/24 07:51 Room Air* 0 21 09/02/24 05:00 98.6 87 20 134/75 (94) 98 98.6 Intake/Output Intake and Output 09/02/24 07:00 Intake Total 640 ml Output Total 1300 ml Balance -660 ml IV Total 640 ml Output Urine Total 1300 ml # Bowel Movements 4 Medications Current Medications Medications Dose Ordered Sig/Walt Route Start Time Stop Time Status Last Admin Dose Admin Aspirin 81 mg DAILY PO 08/26/24 10:00 09/01/24 10:11 81 MG Hydralazine HCl 10 mg Q6HP PRN IV 08/25/24 17:30 08/27/24 21:11 10 MG Atorvastatin Calcium 40 mg HS PO 08/25/24 22:00 09/01/24 21:52 40 MG Famotidine 20 mg DAILY IV 08/26/24 10:00 09/01/24 10:11 20 MG Acetaminophen/ Hydrocodone Bitart 1 tab Q4HP PRN PO 08/25/24 17:30 08/31/24 08:56 1 TAB Ondansetron HCl 4 mg Q4HP PRN IV 08/25/24 17:30 Docusate Sodium 100 mg BIDPRN PRN PO 08/25/24 17:30 Acetaminophen 650 mg Q6HP PRN PO 08/25/24 17:30 08/25/24 18:00 650 MG Nitroglycerin 0.4 mg Q5MINP PRN SL 08/25/24 17:30 Morphine Sulfate 2 mg Q30M PRN IV 08/25/24 17:30 Doxycycline Hyclate 250 ml @ 125 mls/hr Q12H IV 08/25/24 18:15 Cancel Doxycycline Hyclate 250 ml @ 125 mls/hr Q12HR IV 08/26/24 10:00 Cancel Doxycycline Hyclate 250 ml @ 125 mls/hr Q12HR IV 08/26/24 10:00 09/01/24 21:52 125 MLS/HR Ceftriaxone Sodium 50 ml @ 100 mls/hr DAILY@09 IV 08/27/24 09:00 09/01/24 08:50 100 MLS/HR Sodium Chloride 10 ml QSHIFT@10,22 IV 08/30/24 22:00 09/01/24 21:52 10 ML Amino Acids 0 ml @ 0 mls/hr PER PHARMACY IV 08/30/24 17:15 Diagnostic Test (Pha) 1 strip Q6HR 08/30/24 18:00 09/02/24 05:21 1 STRIP Insulin Human Regular FOLLOW SLIDING SCALE Q6HR SC 08/30/24 18:00 09/02/24 00:12 12 UNITS Dextrose 50 ml UD IV 08/30/24 18:00 Sodium Chloride 1,000 ml @ 30 mls/hr Q24H IV 08/31/24 22:00 09/02/24 00:05 30 MLS/HR Fat Emulsion Intravenous 100 ml/Potassium Acetate 30 meq/ Potassium Phosphate 22 meq/ Magnesium Sulfate 18 meq/ Multivitamins 10 ml/Chromium/ Copper/Manganese/ Zinc 1 ml/Amino Acids/Dextrose/ Purified Water 1,135.5 ml @ 47 mls/hr [id number] IV 09/01/24 22:00 09/02/24 21:59 09/01/24 22:13 47 MLS/HR Laboratory Results Laboratory Tests 08/28/24 06:33 09/02/24 04:42 Chemistry Test 09/02/24 04:42 Albumin 3.7 g/dL (3.2-4.8) Calcium Level 9.7 mg/dL (8.7-10.4) Magnesium Level 1.9 mg/dL (1.6-2.6) Phosphorus Level 3.6 mg/dL (2.4-5.1) Total Protein 8.5 g/dL (5.7-8.2) H LFT Test 09/02/24 04:42 Alanine Aminotransferase (ALT) 16 U/L (7-40) Alkaline Phosphatase 59 U/L (46-116) Aspartate Amino Transferase (AST) 17 U/L (13-40) Total Bilirubin 0.2 mg/dL (0.2-1.0) Urinalysis Test 08/25/24 18:33 Urine Color Colorless (Yellow) Urine Clarity Turbid (Clear) H Urine pH 6.5 (5.0-9.0) Urine Specific [place] > 1.050 (1.001-1.035) Urine Protein Trace (Negative) H Urine Ketones Negative (Negative) Urine Blood Trace /uL (Negative) H Urine Nitrite Negative (Negative) Urine Bilirubin Negative (Negative) Urine Urobilinogen Normal mg/dL (Negative) Urine Leukocyte Esterase 3+ /uL (Negative) Urine RBC 1 /hpf (0 - 4) Urine WBC 257 /hpf (0 - 5) Urine Squamous Epithelial Cells Few /hpf (<5) Urine Bacteria Few /hpf (None Seen) H Urine Yeast (Budding) Few /hpf (None Seen) Urine Glucose Normal mg/dL (Normal) Microbiology Microbiology Date/Time Source Procedure Growth Status 08/28/24 06:00 Urine - Midstream Clean Catch Urine Culture - Final Complete 08/26/24 15:03 Blood Blood Culture - Final NO GROWTH AFTER 5 DAYS OF INCUBATION. Complete Labs and/or images reviewed: Labs reviewed by me, Image(s) reviewed by me Assessment/Plan Assessment/Plan Generalized weakness and slurred speech rule out TIA rule out CVA: CT head negative CT angio neck negative, MRI brain negative, Neurology consult by Dr. Gomez appreciated, placed on aspirin Septic shock secondary to urinary tract infection: Blood cultures negative, urine cultures pending Acute urinary tract infection: Rocephin Diabetes: Insulin sliding scale Hypertension Hypercholesterolemia Severe anemia hemoglobin 8.8,, consult for Dr. Rosario Hepatic flexor lesions slightly polypoid of about 2.5 cm to 3 cm possible villous adenoma possibility CA can not be excluded by colonoscopy by Dr. Santamaria awaiting biopsy result, surgical consult for Dr. Lyle appreciated requesting cardiac clearance started on TPN, PICC line order placed EGD and polypectomy with the biopsy of the gastric polyp by Dr. Santamaria, Oncology consult by Dr. Rosario appreciated, he ordered CT chest abdomen pelvis with IV contrast, awaiting biopsy report for further plan for surgery Time spent 55 minutes Patient is full code Patient getting surgery today by Dr. Lyle. Plan discussed with: Patient Date of Service: Sep 02, 2024 Billing Provider: MARLIN SHAW MD Common Visit Codes: [id number] INP/OBS CARE(HIGH) MARLIN SHAW MD Sep 02, 2024 09:23
[2024-09-02] MEDS ORDERED: ETOMIDATE (2MG/ML) 20ML VIAL IV ONE (09:24)
[2024-09-02] MEDS ORDERED: DexAMETHasone SOD PHOS 10MG/1ML VIAL INJ ONE (09:24)
[2024-09-02] MEDS: POTASSIUM CHLORIDE 20 MEQ in D5W/LACTATED RINGERS 1,000 ML IV SCH (12:00)
[2024-09-02] MEDS ORDERED: MIDAZOLAM HCL 2MG/2ML 2ml VIAL (1mg/ml) IV PRN (12:15)
[2024-09-02] MEDS ORDERED: hydrALAZINE HCL 20 MG/ML VL IV PRN ×2 (12:15→13:00)
[2024-09-02] MEDS: ONDANSETRON HCL 4 MG/2 ML VIAL IV ONE (12:15)
[2024-09-02] MEDS ORDERED: ePHEDrine SULFATE 50 MG/ML AMP IV PRN (12:15)
[2024-09-02] MEDS: HYDROmorphone HCL 2 MG/ML VL/or syr ONE ×2 (12:24→17:53)
[2024-09-02] MEDS: HYDROmorphone HCL 2 MG/ML VL/or syr IV ONE ×2 (12:43→14:28)
[2024-09-02 12:47] LABS: Basophils # (auto) 0 10 ^3/uL (0-0.2); Eosinophils # (auto) 0 10 ^3/uL (0-0.8); Monocytes # (auto) 0.4 10 ^3/uL (0-1.3); White Blood Cell 4.2 10^3/uL (4.4-10.8)
[2024-09-02 12:49] LABS: Basophils % (auto) 0.2 % (0.0-2.0); Eosinophils % (auto) 1.1 % (0.0-7.0); Hematocrit 26.3 % (36.0-46.0); Hemoglobin 8.4 g/dL (12.2-16.2); Lymphocytes # (auto) 1.3 10 ^3/uL (0.4-5.4); Lymphocytes % (auto) 30.9 % (10.0-50.0); Mean Corpuscular Hemoglobin 23.1 pg (28.0-32.0); Mean Corpuscular Hgb Conc. 31.9 g/dL (32.0-36.0); Mean Corpuscular Volume 72.5 fL (80.0-100.0); Monocytes % (auto) 10.4 % (0.0-12.0); Neutrophils # (auto) 2.4 10 ^3/uL (1.6-8.6); Neutrophils % (auto) 57.4 % (37.0-80.0); Nucleated Red Blood Cells % 0.2 %; Platelet Count (auto) 260 10^3/uL (140-450); Red Blood Cells 3.63 10^6/uL (4.0-5.20)
[2024-09-02 12:50] LABS: Red Cell Distribution Width 20.3 % (11.8-14.3)
[2024-09-02] MEDS: hydrALAZINE HCL 20 MG/ML VL ONE (13:14)
[2024-09-02] MEDS ORDERED: LABETALOL HCL 20 MG/4 ML VL IV PRN (13:15)
[2024-09-02] MEDS: LABETALOL HCL 20 MG/4 ML VL IV ONE (13:20)
[2024-09-02 13:32] LABS: Basophils # (auto) 0 10 ^3/uL (0-0.2); Basophils % (auto) 0.5 % (0.0-2.0); Eosinophils # (auto) 0 10 ^3/uL (0-0.8); Eosinophils % (auto) 0.4 % (0.0-7.0); Hemoglobin 11.2 g/dL (12.2-16.2); Lymphocytes # (auto) 1.9 10 ^3/uL (0.4-5.4); Lymphocytes % (auto) 25.2 % (10.0-50.0); Mean Corpuscular Hemoglobin 25.2 pg (28.0-32.0); Mean Corpuscular Volume 78.9 fL (80.0-100.0); Monocytes # (auto) 0.3 10 ^3/uL (0-1.3); Monocytes % (auto) 4.3 % (0.0-12.0); Neutrophils # (auto) 5.3 10 ^3/uL (1.6-8.6); Neutrophils % (auto) 69.6 % (37.0-80.0); Nucleated Red Blood Cells % 0.2 %; Platelet Count (auto) 203 10^3/uL (140-450); Red Blood Cells 4.43 10^6/uL (4.0-5.20); Red Cell Distribution Width 21.3 % (11.8-14.3); White Blood Cell 7.6 10^3/uL (4.4-10.8)
[2024-09-02 14:16] LABS: Anisocytosis Slight; Platelet Estimate Adequate
[2024-09-02 14:17] LABS: Hypochromia Slight
[2024-09-02 14:18] LABS: Ovalocytes FEW
[2024-09-02] MEDS: MORPHINE SULFATE 4 MG/ML SYR/VIAL IV PRN (15:34)
--- NOTE | 2024-09-02 16:17 | DVHOP ---
DATE OF SURGERY: 09/02/2024 PREOPERATIVE DIAGNOSIS: Tumor hepatic flexure of the colon. POSTOPERATIVE DIAGNOSIS: Tumor ascending colon. SURGEON: Donny Lyle MD EPILEPSY PHYSICIAN: Miky Groves. ANESTHESIA: General endotracheal. ANESTHESIOLOGIST: Dr. Beltran. PROCEDURES: Exploratory laparotomy, right hemicolectomy. DESCRIPTION OF PROCEDURE: Under general endotracheal anesthesia, with the patient's skin prepped and draped, upper abdominal incision was made through which the hepatic flexure was delivered. Palpation and visual inspection of the part of the abdomen was devoid of any unexpected pathology. The liver appears normal. However, the entire colon on the right side was stained with the tattooing ink. It was impossible to distinguish the exact location of the mass in the reportedly hepatic flexure of the colon. There was one area just to the left of the hepatic flexure, which felt like it may contain a nodularity. For which reason, that part of the colon was mobilized. The mesentery, which was also stained with ink as well as the omentum as well as the anterior surface of the liver was from the colon and the section of the colon was secured with bowel clamps and Cem clamps. The portion of the transverse colon and the hepatic flexure of the colon was then completely mobilized by incision along the mesentery. Mesenteric vessels were ligated, divided and the specimen submitted for histopathologic examination. This was reported as showing no evidence of mass, tumor or mucosal abnormality. For this reason, the incision was extended and the entire right colon was mobilized due to the fact that it was stained with ink from the cecum just to the right of the middle colic artery. The distal ileum was divided between clamps and the entire right colon was then excised with mesenteric being ligated. Appendix cecum, ascending colon and proximal part of the splenic flexure were all submitted as a second specimen. The second specimen was reported ____ ascending colon containing mucosal abnormalities. The anastomosis was fashioned between the distal ileum and the transverse colon using 3-0 Monocryl sutures for the inner layer and 3-0 Prolene suture for the outer layer. The mesenteric defect was approximated using 2-0 Monocryl suture. The abdomen was irrigated, irrigant was aspirated. Hemostasis was meticulously accomplished, found to be complete. A 10 mm José Miguel-Alejo drain was then inserted to the vicinity, but not abutting against the anastomosis. The drain was exteriorized through separate incision, secured with a 2-0 nylon suture. The wound was then approximated using #1 double stranded PDS suture for approximation of the fascia. Skin was approximated using metallic skin nikki. The patient remained hemodynamically stable throughout the procedure and she left the operating room following an accurate needle and sponge count. Her was thoroughly informed by phone. MD ATUL Jo TID: [id number] RECEIPT: [id number]
[2024-09-02] MEDS: HYDROmorphone HCL 2 MG/ML VL/or syr IV PRN (17:40)
[2024-09-02] MEDS: TPN PER PHARMACY IV NR (21:31)
--- NOTE | 2024-09-02 22:33 | DVHPN2 ---
Progress Note - Dictate Date Seen: Sep 02, 2024 Medical Necessity Reason Pt with a Central, PICC or Fol: Yes The following are medically ne: PICC Line Subjective Patient was seen and evaluated in follow up. Patient underwent exploratory laparotomy, right hemicolectomy with Dr. Lyle and tolerated the procedure well. Patient is receiving Dilaudid for postop pain. vital signs Vital Sign Date Time Temp Pulse Resp B/P (MAP) Pulse Ox O2 Delivery O2 Flow Rate FiO2 09/02/24 22:17 99.7 99.7 09/02/24 21:38 151/66 09/02/24 21:00 111 18 100 09/02/24 20:00 Nasal Cannula* 2 28 Total Intake and Output 09/01/24 09/01/24 09/02/24 15:00 23:00 07:00 Intake Total 300 ml 340 ml Output Total 800 ml 500 ml Balance 300 ml -800 ml -160 ml medications Current Medications Medications Dose Ordered Sig/Walt Route Start Time Stop Time Status Last Admin Dose Admin Aspirin 81 mg DAILY PO 08/26/24 10:00 09/01/24 10:11 81 MG Hydralazine HCl 10 mg Q6HP PRN IV 08/25/24 17:30 09/02/24 21:38 10 MG Atorvastatin Calcium 40 mg HS PO 08/25/24 22:00 09/01/24 21:52 40 MG Famotidine 20 mg DAILY IV 08/26/24 10:00 09/01/24 10:11 20 MG Ondansetron HCl 4 mg Q4HP PRN IV 08/25/24 17:30 Docusate Sodium 100 mg BIDPRN PRN PO 08/25/24 17:30 Acetaminophen 650 mg Q6HP PRN PO 08/25/24 17:30 08/25/24 18:00 650 MG Nitroglycerin 0.4 mg Q5MINP PRN SL 08/25/24 17:30 Morphine Sulfate 2 mg Q30M PRN IV 08/25/24 17:30 Doxycycline Hyclate 250 ml @ 125 mls/hr Q12H IV 08/25/24 18:15 Cancel Doxycycline Hyclate 250 ml @ 125 mls/hr Q12HR IV 08/26/24 10:00 Cancel Doxycycline Hyclate 250 ml @ 125 mls/hr Q12HR IV 08/26/24 10:00 09/02/24 21:26 125 MLS/HR Ceftriaxone Sodium 50 ml @ 100 mls/hr DAILY@09 IV 08/27/24 09:00 09/01/24 08:50 100 MLS/HR Sodium Chloride 10 ml QSHIFT@10,22 IV 08/30/24 22:00 09/02/24 21:38 10 ML Amino Acids 0 ml @ 0 mls/hr PER PHARMACY IV 08/30/24 17:15 Diagnostic Test (Pha) 1 strip Q6HR 08/30/24 18:00 09/02/24 05:21 1 STRIP Insulin Human Regular FOLLOW SLIDING SCALE Q6HR SC 08/30/24 18:00 09/02/24 00:12 12 UNITS Dextrose 50 ml UD IV 08/30/24 18:00 Sodium Chloride 1,000 ml @ 30 mls/hr Q24H IV 08/31/24 22:00 09/02/24 00:05 30 MLS/HR Fat Emulsion Intravenous 100 ml/Potassium Acetate 40 meq/ Potassium Phosphate 22 meq/ Magnesium Sulfate 20 meq/ Multivitamins 10 ml/Chromium/ Copper/Manganese/ Zinc 1 ml/Insulin Human Regular 4 units/Amino Acids/ Dextrose/Purified Water 1,241.04 ml @ 52 mls/hr [id number] IV 09/02/24 22:00 09/03/24 21:59 09/02/24 21:31 52 MLS/HR Potassium Chloride 20 meq/ Dextrose/Lactated Ringer's 1,010 ml @ 100 mls/hr Q10H6M IV 09/02/24 12:00 09/02/24 12:00 100 MLS/HR Hydralazine HCl 5 mg [id number] PRN IV 09/02/24 13:00 Labetalol HCl 5 mg Q5MINP PRN IV 09/02/24 13:15 Hydromorphone HCl 0.5 mg Q4HPRN PRN IV 09/02/24 17:30 objective GENERAL: Awake, alert, oriented. LUNGS: Clear. CARDIOVASCULAR: Heart sounds are good. ABDOMEN: Soft. NEURO: Slurred speech. laboratory and microbiology Laboratory Tests 09/02/24 12:53 09/02/24 04:42 Test 09/02/24 04:42 Range/Units Serum Glucose 90 74-106 mg/dL Problem List Generalized weakness and slurred speech rule out TIA rule out CVA. Septic shock secondary to urinary tract infection. Acute urinary tract infection. Diabetes. Hypertension. Hypercholesterolemia. Severe anemia. Hepatic flexor lesions. Assessment/Plan Continued all current supportive medical care. Aspirin, Lipitor. IV antibiotics as ordered. Morphine and Concan for pain management. Additional plan as per the hospital course. Dietary Evaluation Review Comments: 1) Advance pt diet when medically feasible to a CCHO 45g/2gNa diet 2) Continue current plan of care Expected Outcomes/Goals: 1) Pt diet to advance Plan discussed with: Patient OTIS JOHNSON MD Sep 02, 2024 22:33
[2024-09-03] VITALS (15 sets, daily range): BP systolic 114–155; BP diastolic 56–66; PULSE 95–125; RESP 13–27; TEMP 98–99.3; O2SAT 96–100
[2024-09-03] MEDS ORDERED: DEXTROSE (50%) 50ML SYRG IV SCH (00:30)
[2024-09-03] MEDS: ACCU-CHEK COMFORT CURVE STRIP VI SCH ×2 (00:38→15:51)
[2024-09-03] MEDS: InsuLIN REG 1unit/0.01ml Soln (100units/ml) SC SCH ×2 (00:38→15:48)
[2024-09-03] MEDS: HYDROmorphone HCL 2 MG/ML VL/or syr IV PRN (01:58)
[2024-09-03 06:31] LABS: Alanine Aminotransferase 12 U/L (7-40); Alkaline Phosphatase 54 U/L (46-116); Anion Gap 7 (5-15); BUN/Creatinine Ratio 17.8 (10.0-20.0); Blood Urea Nitrogen 19 mg/dL (9-23); Calcium 9.1 mg/dL (8.7-10.4); Carbon Dioxide 25 mmol/L (20-31); Chloride 109 mmol/L (98-107); Magnesium 1.7 mg/dL (1.6-2.6); Potassium 4.3 mmol/L (3.5-5.1); Sodium 141 mmol/L (136-145)
[2024-09-03 06:32] LABS: Albumin 2.9 g/dL (3.2-4.8); Aspartate Aminotransferase 15 U/L (13-40)
[2024-09-03 06:33] LABS: Bilirubin, Total 0.4 mg/dL (0.2-1.0)
[2024-09-03 06:40] LABS: Basophils # (auto) 0 10 ^3/uL (0-0.2); Eosinophils # (auto) 0 10 ^3/uL (0-0.8); Hemoglobin 8.6 g/dL (12.2-16.2); Lymphocytes # (auto) 0.5 10 ^3/uL (0.4-5.4); Monocytes # (auto) 0.3 10 ^3/uL (0-1.3); Neutrophils # (auto) 6.4 10 ^3/uL (1.6-8.6); Nucleated Red Blood Cells % 0.1 %
[2024-09-03 06:43] LABS: Basophils % (auto) 0.2 % (0.0-2.0); Hematocrit 25.7 % (36.0-46.0); Lymphocytes % (auto) 6.9 % (10.0-50.0); Mean Corpuscular Hemoglobin 25.6 pg (28.0-32.0); Mean Corpuscular Hgb Conc. 33.3 g/dL (32.0-36.0); Mean Corpuscular Volume 76.8 fL (80.0-100.0); Monocytes % (auto) 4.4 % (0.0-12.0); Neutrophils % (auto) 88.5 % (37.0-80.0); Platelet Count (auto) 167 10^3/uL (140-450); Red Blood Cells 3.35 10^6/uL (4.0-5.20); White Blood Cell 7.2 10^3/uL (4.4-10.8)
[2024-09-03 06:44] LABS: Glucose 407 mg/dL (74-106)
[2024-09-03 06:46] LABS: Red Cell Distribution Width 20.7 % (11.8-14.3)
[2024-09-03 09:14] LABS: Anisocytosis Slight; Hypochromia Moderate
[2024-09-03 09:15] LABS: Ovalocytes FEW; Platelet Estimate Decreased
--- NOTE | 2024-09-03 10:54 | DVHPN2 ---
Reviewed: Care Plan, H&P, Labs, Medications, Previous Orders, Radiology Changes from previous H/P or p: No Changes Eyes: No Pain, No Vision change, No Conjunctivae inflammation, No Eyelid inflammation, No Other, No Redness ENT: No Ear pain, No Ear discharge, No Nose pain, No Nose discharge, No Nose congestion, No Mouth pain, No Mouth swelling, No Throat pain, No Throat swelling, No Other Cardiovascular: No Chest Pain, No Palpitations, No Orthopnea, No Paroxysmal Noc. Dyspnea, No Edema, No Lt Headedness, No Other Respiratory: No Cough, No Dry, No Shortness of breath, No SOB with excertion, No Wheezing, No Hemoptysis, No Pleuritic Pain, No Sputum, No Other Gastrointestinal: No Nausea, No Vomiting, No Abdominal Pain, No Diarrhea, No Constipation, No Melena, No Hematochezia, No Other Genitourinary: No Dysuria, No Frequency, No Incontinence, No Hematuria, No Retention, No Other Musculoskeletal: No other, No neck pain, No shoulder pain, No arm pain, No back pain, No hand pain, No leg pain, No foot pain Skin: No Rash, No Lesions, No Jaundice, No Bruising, No Other Objective Vitals Vital Signs Date Time Temp Pulse Resp B/P (MAP) Pulse Ox O2 Delivery O2 Flow Rate FiO2 09/03/24 09:43 112 16 144/62 09/03/24 07:00 98 09/03/24 04:00 99.3 99.3 09/02/24 20:00 Nasal Cannula* 2 28 Intake/Output Intake and Output 09/03/24 07:00 Intake Total 1612.0 ml Output Total 1895 ml Balance -283.0 ml Intake Oral 0 ml IV Total 1612.0 ml Output Urine Total 1825 ml Other 70 ml Medications Current Medications Medications Dose Ordered Sig/Walt Route Start Time Stop Time Status Last Admin Dose Admin Aspirin 81 mg DAILY PO 08/26/24 10:00 09/01/24 10:11 81 MG Hydralazine HCl 10 mg Q6HP PRN IV 08/25/24 17:30 09/02/24 21:38 10 MG Atorvastatin Calcium 40 mg HS PO 08/25/24 22:00 09/01/24 21:52 40 MG Famotidine 20 mg DAILY IV 08/26/24 10:00 09/01/24 10:11 20 MG Ondansetron HCl 4 mg Q4HP PRN IV 08/25/24 17:30 Docusate Sodium 100 mg BIDPRN PRN PO 08/25/24 17:30 Acetaminophen 650 mg Q6HP PRN PO 08/25/24 17:30 08/25/24 18:00 650 MG Nitroglycerin 0.4 mg Q5MINP PRN SL 08/25/24 17:30 Morphine Sulfate 2 mg Q30M PRN IV 08/25/24 17:30 Doxycycline Hyclate 250 ml @ 125 mls/hr Q12H IV 08/25/24 18:15 Cancel Doxycycline Hyclate 250 ml @ 125 mls/hr Q12HR IV 08/26/24 10:00 Cancel Doxycycline Hyclate 250 ml @ 125 mls/hr Q12HR IV 08/26/24 10:00 09/02/24 21:26 125 MLS/HR Ceftriaxone Sodium 50 ml @ 100 mls/hr DAILY@09 IV 08/27/24 09:00 09/03/24 09:52 100 MLS/HR Sodium Chloride 10 ml QSHIFT@10,22 IV 08/30/24 22:00 09/02/24 21:38 10 ML Amino Acids 0 ml @ 0 mls/hr PER PHARMACY IV 08/30/24 17:15 Sodium Chloride 1,000 ml @ 30 mls/hr Q24H IV 08/31/24 22:00 09/02/24 00:05 30 MLS/HR Fat Emulsion Intravenous 100 ml/Potassium Acetate 40 meq/ Potassium Phosphate 22 meq/ Magnesium Sulfate 20 meq/ Multivitamins 10 ml/Chromium/ Copper/Manganese/ Zinc 1 ml/Insulin Human Regular 4 units/Amino Acids/ Dextrose/Purified Water 1,241.04 ml @ 52 mls/hr [id number] IV 09/02/24 22:00 09/03/24 21:59 09/02/24 21:31 52 MLS/HR Potassium Chloride 20 meq/ Dextrose/Lactated Ringer's 1,010 ml @ 100 mls/hr Q10H6M IV 09/02/24 12:00 09/02/24 22:06 100 MLS/HR Hydralazine HCl 5 mg [id number] PRN IV 09/02/24 13:00 Labetalol HCl 5 mg Q5MINP PRN IV 09/02/24 13:15 Hydromorphone HCl 0.5 mg Q4HPRN PRN IV 09/02/24 17:30 09/03/24 09:10 0.5 MG Dextrose 50 ml UD IV 09/03/24 00:30 Diagnostic Test (Pha) 1 strip Q4HR 09/03/24 00:30 09/03/24 09:44 1 STRIP Insulin Human Regular FOLLOW SLIDING SCALE Q4HR SC 09/03/24 00:30 09/03/24 09:49 16 UNITS Laboratory Results Laboratory Tests 09/03/24 05:36 Chemistry Test 09/03/24 05:36 Albumin 2.9 g/dL (3.2-4.8) L Calcium Level 9.1 mg/dL (8.7-10.4) Magnesium Level 1.7 mg/dL (1.6-2.6) Phosphorus Level 3.0 mg/dL (2.4-5.1) Total Protein 7.0 g/dL (5.7-8.2) LFT Test 09/03/24 05:36 Alanine Aminotransferase (ALT) 12 U/L (7-40) Alkaline Phosphatase 54 U/L (46-116) Aspartate Amino Transferase (AST) 15 U/L (13-40) Total Bilirubin 0.4 mg/dL (0.2-1.0) Urinalysis Test 08/25/24 18:33 Urine Color Colorless (Yellow) Urine Clarity Turbid (Clear) H Urine pH 6.5 (5.0-9.0) Urine Specific [place] > 1.050 (1.001-1.035) Urine Protein Trace (Negative) H Urine Ketones Negative (Negative) Urine Blood Trace /uL (Negative) H Urine Nitrite Negative (Negative) Urine Bilirubin Negative (Negative) Urine Urobilinogen Normal mg/dL (Negative) Urine Leukocyte Esterase 3+ /uL (Negative) Urine RBC 1 /hpf (0 - 4) Urine WBC 257 /hpf (0 - 5) Urine Squamous Epithelial Cells Few /hpf (<5) Urine Bacteria Few /hpf (None Seen) H Urine Yeast (Budding) Few /hpf (None Seen) Urine Glucose Normal mg/dL (Normal) Microbiology Microbiology Date/Time Source Procedure Growth Status 08/28/24 06:00 Urine - Midstream Clean Catch Urine Culture - Final Complete 08/26/24 15:03 Blood Blood Culture - Final NO GROWTH AFTER 5 DAYS OF INCUBATION. 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 Lyle on 09-02-24 with INDU drain, no colostomy bag Generalized weakness and slurred speech rule out TIA rule out CVA: CT head negative CT angio neck negative, MRI brain negative, Neurology consult by Dr. Gomez appreciated, placed on aspirin Septic shock secondary to urinary tract infection: Blood cultures negative, urine cultures pending Acute urinary tract infection: Rocephin Diabetes: Insulin sliding scale Hypertension Hypercholesterolemia Anxiety: Ativan 0.5 mg IV q.8h Severe anemia hemoglobin 8.8,, consult for Dr. Rosario TPN, PICC line order placed EGD and polypectomy with the biopsy of the gastric polyp by Dr. Santamaria, Oncology consult by Dr. Rosario appreciated, he ordered CT chest abdomen pelvis with IV contrast, awaiting biopsy report for further plan for surgery Time spent 65 minutes Patient is full code Plan discussed with: Patient Date of Service: Sep 03, 2024 Billing Provider: MARLIN SHAW MD Common Visit Codes: [id number] CARE 30-74 MIN MARLIN SHAW MD Sep 03, 2024 10:54
--- NOTE | 2024-09-03 10:59 | DVHPN2 ---
Progress Note Date Seen: Sep 03, 2024 Medical Necessity Reason Pt with a Central, PICC or Fol: Yes The following are medically ne: PICC Line Objective vital signs Vital Sign Date Time Temp Pulse Resp B/P (MAP) Pulse Ox O2 Delivery O2 Flow Rate FiO2 09/03/24 09:43 112 16 144/62 09/03/24 07:00 98 09/03/24 04:00 99.3 99.3 09/02/24 20:00 Nasal Cannula* 2 28 Total Intake and Output 09/02/24 09/02/24 09/03/24 15:00 23:00 07:00 Intake Total 20 ml 465.5 ml 1126.5 ml Output Total 375 ml 1520 ml Balance -355 ml 465.5 ml -393.5 ml medications Current Medications Medications Dose Ordered Sig/Walt Route Start Time Stop Time Status Last Admin Dose Admin Aspirin 81 mg DAILY PO 08/26/24 10:00 09/01/24 10:11 81 MG Hydralazine HCl 10 mg Q6HP PRN IV 08/25/24 17:30 09/02/24 21:38 10 MG Atorvastatin Calcium 40 mg HS PO 08/25/24 22:00 09/01/24 21:52 40 MG Famotidine 20 mg DAILY IV 08/26/24 10:00 09/01/24 10:11 20 MG Ondansetron HCl 4 mg Q4HP PRN IV 08/25/24 17:30 Docusate Sodium 100 mg BIDPRN PRN PO 08/25/24 17:30 Acetaminophen 650 mg Q6HP PRN PO 08/25/24 17:30 08/25/24 18:00 650 MG Nitroglycerin 0.4 mg Q5MINP PRN SL 08/25/24 17:30 Morphine Sulfate 2 mg Q30M PRN IV 08/25/24 17:30 Doxycycline Hyclate 250 ml @ 125 mls/hr Q12H IV 08/25/24 18:15 Cancel Doxycycline Hyclate 250 ml @ 125 mls/hr Q12HR IV 08/26/24 10:00 Cancel Doxycycline Hyclate 250 ml @ 125 mls/hr Q12HR IV 08/26/24 10:00 09/02/24 21:26 125 MLS/HR Ceftriaxone Sodium 50 ml @ 100 mls/hr DAILY@09 IV 08/27/24 09:00 09/03/24 09:52 100 MLS/HR Sodium Chloride 10 ml QSHIFT@10,22 IV 08/30/24 22:00 09/02/24 21:38 10 ML Amino Acids 0 ml @ 0 mls/hr PER PHARMACY IV 08/30/24 17:15 Sodium Chloride 1,000 ml @ 30 mls/hr Q24H IV 08/31/24 22:00 09/02/24 00:05 30 MLS/HR Fat Emulsion Intravenous 100 ml/Potassium Acetate 40 meq/ Potassium Phosphate 22 meq/ Magnesium Sulfate 20 meq/ Multivitamins 10 ml/Chromium/ Copper/Manganese/ Zinc 1 ml/Insulin Human Regular 4 units/Amino Acids/ Dextrose/Purified Water 1,241.04 ml @ 52 mls/hr [id number] IV 09/02/24 22:00 09/03/24 21:59 09/02/24 21:31 52 MLS/HR Potassium Chloride 20 meq/ Dextrose/Lactated Ringer's 1,010 ml @ 100 mls/hr Q10H6M IV 09/02/24 12:00 09/02/24 22:06 100 MLS/HR Hydralazine HCl 5 mg [id number] PRN IV 09/02/24 13:00 Labetalol HCl 5 mg Q5MINP PRN IV 09/02/24 13:15 Hydromorphone HCl 0.5 mg Q4HPRN PRN IV 09/02/24 17:30 09/03/24 09:10 0.5 MG Dextrose 50 ml UD IV 09/03/24 00:30 Diagnostic Test (Pha) 1 strip Q4HR 09/03/24 00:30 09/03/24 09:44 1 STRIP Insulin Human Regular FOLLOW SLIDING SCALE Q4HR SC 09/03/24 00:30 09/03/24 09:49 16 UNITS Lorazepam 0.5 mg Q6HP PRN IV 09/03/24 11:00 UNV laboratory and microbiology Laboratory Tests 09/03/24 05:36 Test 09/03/24 05:36 Range/Units Serum Glucose 407 *H 74-106 mg/dL Problem List/Assessment/Plan Problem List/Assessment/Plan 08/31/[address], NEEDS TO START TPN, AWAITING BIOPSY RESULTS 11/27/24 awake orientsed, cooperative, wound clean and dressing dry, serous drainage, abdomen non distended. Plan discussed with: Patient Dietary Evaluation Review Comments: 1) Advance pt diet when medically feasible to a CCHO 45g/2gNa diet 2) Continue current plan of care Expected Outcomes/Goals: 1) Pt diet to advance LESTER PAREDES MD Sep 03, 2024 10:59
[2024-09-03] MEDS: KETOROLAC TROMETH 30 MG/ML 1ML VIAL IV PRN (12:34)
[2024-09-03] MEDS ORDERED: DEXTROSE (50%) 50ML SYRG IV PRN (13:30)
[2024-09-03] MEDS: INSULIN LANTUS (GLARGINE) 1 /0.01ml (100units/ml) SC ONE (15:49)
[2024-09-03] MEDS: POTASSIUM CHLORIDE 20 MEQ in LACTATED RINGER'S 1,000 ML IV SCH (16:15)
--- NOTE | 2024-09-03 20:15 | DVHPN2 ---
Progress Note - Dictate Date Seen: Sep 03, 2024 Medical Necessity Reason Pt with a Central, PICC or Fol: Yes The following are medically ne: PICC Line Subjective Patient was seen and evaluated in follow up in the [facility]. Patient is complaining of generalized pain. NGT had 50 ml light brown drainage. HGB 8.6, HCT 25.7, CL 109, MA[employer] YACHT 1.07, GLUC 335. vital signs Vital Sign Date Time Temp Pulse Resp B/P (MAP) Pulse Ox O2 Delivery O2 Flow Rate FiO2 09/03/24 12:30 98.0 98 20 145/60 (88) 96 98.0 09/03/24 10:40 Nasal Cannula* 2 28 Total Intake and Output 09/02/24 09/02/24 09/03/24 15:00 23:00 07:00 Intake Total 20 ml 465.5 ml 1126.5 ml Output Total 375 ml 1520 ml Balance -355 ml 465.5 ml -393.5 ml medications Current Medications Medications Dose Ordered Sig/Walt Route Start Time Stop Time Status Last Admin Dose Admin Aspirin 81 mg DAILY PO 08/26/24 10:00 09/01/24 10:11 81 MG Hydralazine HCl 10 mg Q6HP PRN IV 08/25/24 17:30 09/02/24 21:38 10 MG Atorvastatin Calcium 40 mg HS PO 08/25/24 22:00 09/01/24 21:52 40 MG Famotidine 20 mg DAILY IV 08/26/24 10:00 09/03/24 11:20 20 MG Ondansetron HCl 4 mg Q4HP PRN IV 08/25/24 17:30 Docusate Sodium 100 mg BIDPRN PRN PO 08/25/24 17:30 Acetaminophen 650 mg Q6HP PRN PO 08/25/24 17:30 08/25/24 18:00 650 MG Nitroglycerin 0.4 mg Q5MINP PRN SL 08/25/24 17:30 Morphine Sulfate 2 mg Q30M PRN IV 08/25/24 17:30 Doxycycline Hyclate 250 ml @ 125 mls/hr Q12H IV 08/25/24 18:15 Cancel Doxycycline Hyclate 250 ml @ 125 mls/hr Q12HR IV 08/26/24 10:00 Cancel Doxycycline Hyclate 250 ml @ 125 mls/hr Q12HR IV 08/26/24 10:00 09/03/24 11:21 125 MLS/HR Ceftriaxone Sodium 50 ml @ 100 mls/hr DAILY@09 IV 08/27/24 09:00 09/03/24 09:52 100 MLS/HR Sodium Chloride 10 ml QSHIFT@10,22 IV 08/30/24 22:00 09/03/24 11:21 10 ML Amino Acids 0 ml @ 0 mls/hr PER PHARMACY IV 08/30/24 17:15 Sodium Chloride 1,000 ml @ 30 mls/hr Q24H IV 08/31/24 22:00 09/02/24 00:05 30 MLS/HR Fat Emulsion Intravenous 100 ml/Potassium Acetate 40 meq/ Potassium Phosphate 22 meq/ Magnesium Sulfate 20 meq/ Multivitamins 10 ml/Chromium/ Copper/Manganese/ Zinc 1 ml/Insulin Human Regular 4 units/Amino Acids/ Dextrose/Purified Water 1,241.04 ml @ 52 mls/hr [id number] IV 09/02/24 22:00 09/03/24 21:59 09/02/24 21:31 52 MLS/HR Hydromorphone HCl 0.5 mg Q4HPRN PRN IV 09/02/24 17:30 09/03/24 09:10 0.5 MG Dextrose 50 ml UD IV 09/03/24 00:30 Lorazepam 0.5 mg Q6HP PRN IV 09/03/24 11:00 Ketorolac Tromethamine 15 mg Q6HPRN PRN IV 09/03/24 11:00 09/08/24 10:59 09/03/24 12:34 15 MG Fat Emulsion Intravenous 100 ml/Sodium Phosphate 20 meq/ Potassium Acetate 10 meq/Potassium Phosphate 22 meq/ Magnesium Sulfate 26 meq/ Multivitamins 10 ml/Chromium/ Copper/Manganese/ Zinc 1 ml/Insulin Human Regular 10 units/Amino Acids/ Dextrose/Purified Water 1,182.6 ml @ 49 mls/hr Q24H9M IV 09/03/24 22:00 09/04/24 21:59 Insulin Glargine 30 units DAILY@1000 SC 09/04/24 10:00 UNV Diagnostic Test (Pha) 1 strip IQ4HR 09/03/24 16:00 UNV Insulin Human Regular IQ4HR SC 09/03/24 16:00 UNV Dextrose 50 ml UD PRN IV 09/03/24 13:30 UNV Potassium Chloride 20 meq/ Lactated Ringer's 1,010 ml @ 100 mls/hr Q10H6M IV 09/03/24 13:30 UNV objective GENERAL: Awake, alert, oriented. LUNGS: Clear. CARDIOVASCULAR: Heart sounds are good. ABDOMEN: Soft. NEURO: Slurred speech. laboratory and microbiology Laboratory Tests 09/03/24 05:36 Test 09/03/24 05:36 Range/Units Serum Glucose 407 *H 74-106 mg/dL Problem List Generalized weakness and slurred speech rule out TIA rule out CVA. Septic shock secondary to urinary tract infection. Acute urinary tract infection. Diabetes. Hypertension. Hypercholesterolemia. Severe anemia. Hepatic flexor lesions. Assessment/Plan Continued all current supportive medical care. Aspirin, Lipitor. IV antibiotics as ordered. Morphine and [place] for pain management. Additional plan as per the hospital course. Critical care time of 45 minutes provided to include time spent evaluation of patient at bedside, when appropriate patient/family education for diagnosis, treatment plan, review of pertinent medical information and discussion of care with specialty providers and PCP. Dietary Evaluation Review Comments: 1) Advance pt diet when medically feasible to a CCHO 45g/2gNa diet 2) Continue current plan of care Expected Outcomes/Goals: 1) Pt diet to advance Plan discussed with: Patient OTIS JOHNSON MD Sep 03, 2024 14:03
[2024-09-03] MEDS: TPN PER PHARMACY IV NR (21:12)
[2024-09-04] VITALS (8 sets, daily range): BP systolic 129–148; BP diastolic 58–120; PULSE 89–97; RESP 13–24; TEMP 97.8–98.6; O2SAT 94–97
[2024-09-04] MEDS: ONDANSETRON HCL 4 MG/2 ML VIAL IV PRN (03:11)
[2024-09-04 09:14] LABS: Anion Gap 6 (5-15)
[2024-09-04 09:23] LABS: Alanine Aminotransferase 11 U/L (7-40); Albumin 2.9 g/dL (3.2-4.8); Alkaline Phosphatase 63 U/L (46-116); Aspartate Aminotransferase 18 U/L (13-40); Blood Urea Nitrogen 23 mg/dL (9-23); Calcium 9.2 mg/dL (8.7-10.4); Carbon Dioxide 29 mmol/L (20-31); Chloride 106 mmol/L (98-107); Glucose 171 mg/dL (74-106); Phosphorus 3.1 mg/dL (2.4-5.1); Potassium 4.2 mmol/L (3.5-5.1); Sodium 141 mmol/L (136-145)
[2024-09-04 09:24] LABS: Bilirubin, Total 0.4 mg/dL (0.2-1.0)
[2024-09-04] MEDS: INSULIN LANTUS (GLARGINE) 1 /0.01ml (100units/ml) SC SCH (10:05)
--- NOTE | 2024-09-04 10:50 | DVHPN2 ---
Progress Note Date Seen: Sep 04, 2024 Medical Necessity Reason Pt with a Central, PICC or Fol: Yes The following are medically ne: PICC Line Objective vital signs Vital Sign Date Time Temp Pulse Resp B/P (MAP) Pulse Ox O2 Delivery O2 Flow Rate FiO2 09/04/24 09:00 98.2 97 22 129/69 (89) 97 98.2 09/03/24 20:00 Room Air* 0 21 Total Intake and Output 09/03/24 09/03/24 09/04/24 15:00 23:00 07:00 Intake Total 1166 ml 508 ml 1260 ml Output Total 850 ml 225 ml Balance 1166 ml -342 ml 1035 ml medications Current Medications Medications Dose Ordered Sig/Walt Route Start Time Stop Time Status Last Admin Dose Admin Aspirin 81 mg DAILY PO 08/26/24 10:00 09/04/24 10:05 81 MG Hydralazine HCl 10 mg Q6HP PRN IV 08/25/24 17:30 09/02/24 21:38 10 MG Atorvastatin Calcium 40 mg HS PO 08/25/24 22:00 09/01/24 21:52 40 MG Famotidine 20 mg DAILY IV 08/26/24 10:00 09/04/24 10:04 20 MG Ondansetron HCl 4 mg Q4HP PRN IV 08/25/24 17:30 09/04/24 03:11 4 MG Docusate Sodium 100 mg BIDPRN PRN PO 08/25/24 17:30 Acetaminophen 650 mg Q6HP PRN PO 08/25/24 17:30 08/25/24 18:00 650 MG Nitroglycerin 0.4 mg Q5MINP PRN SL 08/25/24 17:30 Doxycycline Hyclate 250 ml @ 125 mls/hr Q12H IV 08/25/24 18:15 Cancel Doxycycline Hyclate 250 ml @ 125 mls/hr Q12HR IV 08/26/24 10:00 Cancel Doxycycline Hyclate 250 ml @ 125 mls/hr Q12HR IV 08/26/24 10:00 09/04/24 10:05 125 MLS/HR Ceftriaxone Sodium 50 ml @ 100 mls/hr DAILY@09 IV 08/27/24 09:00 09/04/24 08:20 100 MLS/HR Sodium Chloride 10 ml QSHIFT@ IV 08/30/24 22:00 09/04/24 10:05 10 ML Amino Acids 0 ml @ 0 mls/hr PER PHARMACY IV 08/30/24 17:15 Sodium Chloride 1,000 ml @ 30 mls/hr Q24H IV 08/31/24 22:00 09/03/24 22:26 30 MLS/HR Hydromorphone HCl 0.5 mg Q4HPRN PRN IV 09/02/24 17:30 09/04/24 08:20 0.5 MG Dextrose 50 ml UD IV 09/03/24 00:30 Lorazepam 0.5 mg Q6HP PRN IV 09/03/24 11:00 Ketorolac Tromethamine 15 mg Q6HPRN PRN IV 09/03/24 11:00 09/08/24 10:59 09/03/24 12:34 15 MG Fat Emulsion Intravenous 100 ml/Sodium Phosphate 20 meq/ Potassium Acetate 10 meq/Potassium Phosphate 22 meq/ Magnesium Sulfate 26 meq/ Multivitamins 10 ml/Chromium/ Copper/Manganese/ Zinc 1 ml/Insulin Human Regular 10 units/Amino Acids/ Dextrose/Purified Water 1,182.6 ml @ 49 mls/hr Q24H9M IV 09/03/24 22:00 09/04/24 21:59 09/03/24 21:12 49 MLS/HR Insulin Glargine 30 units DAILY@1000 ID 09/04/24 10:00 09/04/24 10:05 30 UNITS Diagnostic Test (Pha) 1 strip IQ4HR 09/03/24 16:00 09/04/24 08:20 1 STRIP Insulin Human Regular IQ4HR ID 09/03/24 16:00 09/04/24 08:30 2 UNITS Dextrose 50 ml UD PRN IV 09/03/24 13:30 Potassium Chloride 20 meq/ Lactated Ringer's 1,010 ml @ 100 mls/hr Q10H6M IV 09/03/24 13:30 09/03/24 23:36 100 MLS/HR laboratory and microbiology Laboratory Tests 09/04/24 08:44 09/03/24 05:36 Test 09/04/24 08:44 Range/Units Serum Glucose 171 H 74-106 mg/dL Problem List/Assessment/Plan Problem List/Assessment/Plan 08/31/[address], NEEDS TO START TPN, AWAITING BIOPSY RESULTS 09/03/24 awake orientsed, cooperative, wound clean and dressing dry, serous drainage, abdomen non distended. 09/04/24 no complaints, abdomen soft, non distended, appropriately tender, wound clean and well approximated, drainage serous, must ambulate Plan discussed with: Patient Dietary Evaluation Review Comments: 1) Advance pt diet when medically feasible to a CCHO 45g/2gNa diet 2) Continue current plan of care Expected Outcomes/Goals: 1) Pt diet to advance LESTER PAREDES MD Sep 04, 2024 10:49
--- NOTE | 2024-09-04 11:18 | DVHPN2 ---
Reviewed: Care Plan, H&P, Labs, Medications, Previous Orders, Radiology Changes from previous H/P or p: No Changes Eyes: No Pain, No Vision change, No Conjunctivae inflammation, No Eyelid inflammation, No Other, No Redness ENT: No Ear pain, No Ear discharge, No Nose pain, No Nose discharge, No Nose congestion, No Mouth pain, No Mouth swelling, No Throat pain, No Throat swelling, No Other Cardiovascular: No Chest Pain, No Palpitations, No Orthopnea, No Paroxysmal Noc. Dyspnea, No Edema, No Lt Headedness, No Other Respiratory: No Cough, No Dry, No Shortness of breath, No SOB with excertion, No Wheezing, No Hemoptysis, No Pleuritic Pain, No Sputum, No Other Gastrointestinal: No Nausea, No Vomiting, No Abdominal Pain, No Diarrhea, No Constipation, No Melena, No Hematochezia, No Other Genitourinary: No Dysuria, No Frequency, No Incontinence, No Hematuria, No Retention, No Other Musculoskeletal: No other, No neck pain, No shoulder pain, No arm pain, No back pain, No hand pain, No leg pain, No foot pain Skin: No Rash, No Lesions, No Jaundice, No Bruising, No Other Objective Vitals Vital Signs Date Time Temp Pulse Resp B/P (MAP) Pulse Ox O2 Delivery O2 Flow Rate FiO2 09/04/24 09:00 98.2 97 22 129/69 (89) 97 98.2 09/03/24 20:00 Room Air* 0 21 Intake/Output Intake and Output 09/04/24 06:59 Intake Total 3086 ml Output Total 1075 ml Balance 2011 ml Intake Oral 0 ml IV Total 3086 ml Output Urine Total 650 ml Gastric Drainage Total 200 ml Drainage Total 200 ml Other 25 ml Medications Current Medications Medications Dose Ordered Sig/Walt Route Start Time Stop Time Status Last Admin Dose Admin Aspirin 81 mg DAILY PO 08/26/24 10:00 09/04/24 10:05 81 MG Hydralazine HCl 10 mg Q6HP PRN IV 08/25/24 17:30 09/02/24 21:38 10 MG Atorvastatin Calcium 40 mg HS PO 08/25/24 22:00 09/01/24 21:52 40 MG Famotidine 20 mg DAILY IV 08/26/24 10:00 09/04/24 10:04 20 MG Ondansetron HCl 4 mg Q4HP PRN IV 08/25/24 17:30 09/04/24 03:11 4 MG Docusate Sodium 100 mg BIDPRN PRN PO 08/25/24 17:30 Acetaminophen 650 mg Q6HP PRN PO 08/25/24 17:30 08/25/24 18:00 650 MG Nitroglycerin 0.4 mg Q5MINP PRN SL 08/25/24 17:30 Doxycycline Hyclate 250 ml @ 125 mls/hr Q12H IV 08/25/24 18:15 Cancel Doxycycline Hyclate 250 ml @ 125 mls/hr Q12HR IV 08/26/24 10:00 Cancel Doxycycline Hyclate 250 ml @ 125 mls/hr Q12HR IV 08/26/24 10:00 09/04/24 10:05 125 MLS/HR Ceftriaxone Sodium 50 ml @ 100 mls/hr DAILY@09 IV 08/27/24 09:00 09/04/24 08:20 100 MLS/HR Sodium Chloride 10 ml QSHIFT@,22 IV 08/30/24 22:00 09/04/24 10:05 10 ML Amino Acids 0 ml @ 0 mls/hr PER PHARMACY IV 08/30/24 17:15 Sodium Chloride 1,000 ml @ 30 mls/hr Q24H IV 08/31/24 22:00 09/03/24 22:26 30 MLS/HR Hydromorphone HCl 0.5 mg Q4HPRN PRN IV 09/02/24 17:30 09/04/24 08:20 0.5 MG Dextrose 50 ml UD IV 09/03/24 00:30 Lorazepam 0.5 mg Q6HP PRN IV 09/03/24 11:00 Ketorolac Tromethamine 15 mg Q6HPRN PRN IV 09/03/24 11:00 09/08/24 10:59 09/03/24 12:34 15 MG Fat Emulsion Intravenous 100 ml/Sodium Phosphate 20 meq/ Potassium Acetate 10 meq/Potassium Phosphate 22 meq/ Magnesium Sulfate 26 meq/ Multivitamins 10 ml/Chromium/ Copper/Manganese/ Zinc 1 ml/Insulin Human Regular 10 units/Amino Acids/ Dextrose/Purified Water 1,182.6 ml @ 49 mls/hr Q24H9M IV 09/03/24 22:00 09/04/24 21:59 09/03/24 21:12 49 MLS/HR Insulin Glargine 30 units DAILY@1000 SC 09/04/24 10:00 09/04/24 10:05 30 UNITS Diagnostic Test (Pha) 1 strip IQ4HR 09/03/24 16:00 09/04/24 08:20 1 STRIP Insulin Human Regular IQ4HR SC 09/03/24 16:00 09/04/24 08:30 2 UNITS Dextrose 50 ml UD PRN IV 09/03/24 13:30 Potassium Chloride 20 meq/ Lactated Ringer's 1,010 ml @ 100 mls/hr Q10H6M IV 09/03/24 13:30 09/04/24 10:30 100 MLS/HR Laboratory Results Laboratory Tests 09/03/24 05:36 09/04/24 08:44 Chemistry Test 09/04/24 08:44 Albumin 2.9 g/dL (3.2-4.8) L Calcium Level 9.2 mg/dL (8.7-10.4) Magnesium Level 2.0 mg/dL (1.6-2.6) Phosphorus Level 3.1 mg/dL (2.4-5.1) Total Protein 7.0 g/dL (5.7-8.2) LFT Test 09/04/24 08:44 Alanine Aminotransferase (ALT) 11 U/L (7-40) Alkaline Phosphatase 63 U/L (46-116) Aspartate Amino Transferase (AST) 18 U/L (13-40) Total Bilirubin 0.4 mg/dL (0.2-1.0) Urinalysis Test 08/25/24 18:33 Urine Color Colorless (Yellow) Urine Clarity Turbid (Clear) H Urine pH 6.5 (5.0-9.0) Urine Specific [place] > 1.050 (1.001-1.035) Urine Protein Trace (Negative) H Urine Ketones Negative (Negative) Urine Blood Trace /uL (Negative) H Urine Nitrite Negative (Negative) Urine Bilirubin Negative (Negative) Urine Urobilinogen Normal mg/dL (Negative) Urine Leukocyte Esterase 3+ /uL (Negative) Urine RBC 1 /hpf (0 - 4) Urine WBC 257 /hpf (0 - 5) Urine Squamous Epithelial Cells Few /hpf (<5) Urine Bacteria Few /hpf (None Seen) H Urine Yeast (Budding) Few /hpf (None Seen) Urine Glucose Normal mg/dL (Normal) Microbiology Microbiology Date/Time Source Procedure Growth Status 08/28/24 06:00 Urine - Midstream Clean Catch Urine Culture - Final Complete 08/26/24 15:03 Blood Blood Culture - Final NO GROWTH AFTER 5 DAYS OF INCUBATION. 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 Lyle on 09-02-24 with INDU drain, no colostomy bag, continue Rocephin add Flagyl DC doxycycline Generalized weakness and slurred speech TIA and CVA ruled out, CT head negative CT angio neck negative, MRI brain negative, Neurology consult by Dr. Gomez appreciated, placed on aspirin Septic shock secondary to urinary tract infection: Blood cultures negative, urine cultures negative Acute urinary tract infection: Rocephin Diabetes: Insulin sliding scale Hypertension Hypercholesterolemia Anxiety: Ativan 0.5 mg IV q.8h Severe anemia hemoglobin 8.8,, consult for Dr. Rosario TPN via PICC line EGD and polypectomy with the biopsy of the gastric polyp by Dr. Santamaria, Oncology consult by Dr. Rosario appreciated, he ordered CT chest abdomen pelvis with IV contrast, awaiting biopsy report for further plan for surgery Time spent 65 minutes Patient is full code Plan discussed with: Patient My Orders Orders - MARLIN SHAW MD Procedure Category Date Status Time Insulin Lantus PHA 09/04/24 In Process (Glargine) (Lantus) 10:00 Glucose Blood PHA 09/03/24 In Process (Accu-Chek Comfort 16:00 Insulin R (Human) PHA 09/03/24 In Process (Insulin R) 16:00 Dextrose 50% Syringe PHA 09/03/24 In Process 13:30 Lactated Ringer's PHA 09/03/24 In Process W/Potassium Chloride 13:30 Date of Service: Sep 04, 2024 Billing Provider: MARLIN SHAW MD Common Visit Codes: [id number] CARE 30-74 MIN MARLIN SHAW MD Sep 04, 2024 11:18
[2024-09-04] MEDS: metroNIDAZOLE 500MG/100ML 100 ML IV SCH (13:37)
--- NOTE | 2024-09-04 20:58 | DVHPN2 ---
Progress Note - Dictate Date Seen: Sep 04, 2024 Medical Necessity Reason Pt with a Central, PICC or Fol: Yes The following are medically ne: PICC Line Subjective Patient was seen and evaluated in follow up. Patient is complaining of generalized pain. NG tube is draining 100 ml light brown output. Patient is on TPN at 49 ml/hr. Patient is working with PT. vital signs Vital Sign Date Time Temp Pulse Resp B/P (MAP) Pulse Ox O2 Delivery O2 Flow Rate FiO2 09/04/24 09:00 98.2 97 22 129/69 (89) 97 98.2 09/03/24 20:00 Room Air* 0 21 Total Intake and Output 09/03/24 09/03/24 09/04/24 15:00 23:00 07:00 Intake Total 1166 ml 508 ml 1260 ml Output Total 850 ml 225 ml Balance 1166 ml -342 ml 1035 ml medications Current Medications Medications Dose Ordered Sig/Walt Route Start Time Stop Time Status Last Admin Dose Admin Aspirin 81 mg DAILY PO 08/26/24 10:00 09/04/24 10:05 81 MG Hydralazine HCl 10 mg Q6HP PRN IV 08/25/24 17:30 09/02/24 21:38 10 MG Atorvastatin Calcium 40 mg HS PO 08/25/24 22:00 09/01/24 21:52 40 MG Famotidine 20 mg DAILY IV 08/26/24 10:00 09/04/24 10:04 20 MG Ondansetron HCl 4 mg Q4HP PRN IV 08/25/24 17:30 09/04/24 03:11 4 MG Docusate Sodium 100 mg BIDPRN PRN PO 08/25/24 17:30 Acetaminophen 650 mg Q6HP PRN PO 08/25/24 17:30 08/25/24 18:00 650 MG Nitroglycerin 0.4 mg Q5MINP PRN SL 08/25/24 17:30 Doxycycline Hyclate 250 ml @ 125 mls/hr Q12H IV 08/25/24 18:15 Cancel Doxycycline Hyclate 250 ml @ 125 mls/hr Q12HR IV 08/26/24 10:00 Cancel Ceftriaxone Sodium 50 ml @ 100 mls/hr DAILY@09 IV 08/27/24 09:00 09/04/24 08:20 100 MLS/HR Sodium Chloride 10 ml QSHIFT@10,22 IV 08/30/24 22:00 09/04/24 10:05 10 ML Amino Acids 0 ml @ 0 mls/hr PER PHARMACY IV 08/30/24 17:15 Sodium Chloride 1,000 ml @ 30 mls/hr Q24H IV 08/31/24 22:00 09/03/24 22:26 30 MLS/HR Hydromorphone HCl 0.5 mg Q4HPRN PRN IV 09/02/24 17:30 09/04/24 08:20 0.5 MG Dextrose 50 ml UD IV 09/03/24 00:30 Lorazepam 0.5 mg Q6HP PRN IV 09/03/24 11:00 Ketorolac Tromethamine 15 mg Q6HPRN PRN IV 09/03/24 11:00 09/08/24 10:59 09/03/24 12:34 15 MG Fat Emulsion Intravenous 100 ml/Sodium Phosphate 20 meq/ Potassium Acetate 10 meq/Potassium Phosphate 22 meq/ Magnesium Sulfate 26 meq/ Multivitamins 10 ml/Chromium/ Copper/Manganese/ Zinc 1 ml/Insulin Human Regular 10 units/Amino Acids/ Dextrose/Purified Water 1,182.6 ml @ 49 mls/hr Q24H9M IV 09/03/24 22:00 09/04/24 21:59 09/03/24 21:12 49 MLS/HR Insulin Glargine 30 units DAILY@1000 [place] 09/04/24 10:00 09/04/24 10:05 30 UNITS Diagnostic Test (Pha) 1 strip IQ4HR 09/03/24 16:00 09/04/24 08:20 1 STRIP Insulin Human Regular IQ4HR [place] 09/03/24 16:00 09/04/24 08:30 2 UNITS Dextrose 50 ml UD PRN IV 09/03/24 13:30 Potassium Chloride 20 meq/ Lactated Ringer's 1,010 ml @ 100 mls/hr Q10H6M IV 09/03/24 13:30 09/04/24 10:30 100 MLS/HR Metronidazole 100 ml @ 100 mls/hr Q8HR IV 09/04/24 14:00 Fat Emulsion Intravenous 100 ml/Potassium Acetate 20 meq/ Potassium Phosphate 22 meq/ Magnesium Sulfate 24 meq/ Multivitamins 10 ml/Chromium/ Copper/Manganese/ Zinc 1 ml/Insulin Human Regular 10 units/Amino Acids/ Dextrose/Purified Water 1,282.1 ml @ 53 mls/hr [id number] IV 09/04/24 22:00 09/05/24 21:59 objective GENERAL: Awake, alert, oriented. LUNGS: Clear. CARDIOVASCULAR: Heart sounds are good. ABDOMEN: Soft. NEURO: Slurred speech. laboratory and microbiology Laboratory Tests 09/04/24 08:44 09/03/24 05:36 Test 09/04/24 08:44 Range/Units Serum Glucose 171 H 74-106 mg/dL Problem List Generalized weakness and slurred speech rule out TIA rule out CVA. Septic shock secondary to urinary tract infection. Acute urinary tract infection. Diabetes. Hypertension. Hypercholesterolemia. Severe anemia. Hepatic flexor lesions. Assessment/Plan Continued all current supportive medical care. Aspirin, Lipitor. IV antibiotics as ordered. Morphine and [place] for pain management. Additional plan as per the hospital course. Dietary Evaluation Review Comments: 1) Advance pt diet when medically feasible [facility] 2) Continue current plan of care Expected Outcomes/Goals: 1) Pt diet to advance Plan discussed with: Patient OTIS JOHNSON MD Sep 04, 2024 11:45
[2024-09-04] MEDS: TPN PER PHARMACY IV NR (21:54)
[2024-09-05] VITALS (8 sets, daily range): BP systolic 132–159; BP diastolic 68–80; PULSE 74–90; RESP 16–19; TEMP 97.7–98.6; O2SAT 94–98
[2024-09-05 06:33] LABS: Alanine Aminotransferase 23 U/L (7-40); Anion Gap 6 (5-15); Aspartate Aminotransferase 31 U/L (13-40); BUN/Creatinine Ratio 32.4 (10.0-20.0); Bilirubin, Total 0.4 mg/dL (0.2-1.0); Calcium 9.2 mg/dL (8.7-10.4); Chloride 103 mmol/L (98-107); Glucose 103 mg/dL (74-106); Magnesium 1.8 mg/dL (1.6-2.6); Phosphorus 3.3 mg/dL (2.4-5.1); Potassium 3.9 mmol/L (3.5-5.1); Sodium 141 mmol/L (136-145); Total Protein 7.2 g/dL (5.7-8.2)
[2024-09-05 06:37] LABS: Alkaline Phosphatase 122 U/L (46-116); Blood Urea Nitrogen 24 mg/dL (9-23); Carbon Dioxide 32 mmol/L (20-31)
[2024-09-05 06:56] LABS: Hematocrit 24.5 % (36.0-46.0); Hemoglobin 8.1 g/dL (12.2-16.2); Mean Corpuscular Hemoglobin 25.9 pg (28.0-32.0); Mean Corpuscular Volume 78.3 fL (80.0-100.0); Platelet Count (auto) 158 10^3/uL (140-450); Red Blood Cells 3.13 10^6/uL (4.0-5.20); White Blood Cell 7.3 10^3/uL (4.4-10.8)
[2024-09-05 06:58] LABS: Red Cell Distribution Width 21.9 % (11.8-14.3)
[2024-09-05 07:35] LABS: Anisocytosis Slight; Hypochromia Slight
[2024-09-05 07:36] LABS: Ovalocytes FEW
[2024-09-05 07:38] LABS: Platelet Estimate Decreased
--- NOTE | 2024-09-05 08:07 | DVHPN2 ---
Reviewed: Care Plan, H&P, Labs, Medications, Previous Orders, Radiology Changes from previous H/P or p: No Changes Eyes: No Pain, No Vision change, No Conjunctivae inflammation, No Eyelid inflammation, No Other, No Redness ENT: No Ear pain, No Ear discharge, No Nose pain, No Nose discharge, No Nose congestion, No Mouth pain, No Mouth swelling, No Throat pain, No Throat swelling, No Other Cardiovascular: No Chest Pain, No Palpitations, No Orthopnea, No Paroxysmal Noc. Dyspnea, No Edema, No Lt Headedness, No Other Respiratory: No Cough, No Dry, No Shortness of breath, No SOB with excertion, No Wheezing, No Hemoptysis, No Pleuritic Pain, No Sputum, No Other Gastrointestinal: No Nausea, No Vomiting, No Abdominal Pain, No Diarrhea, No Constipation, No Melena, No Hematochezia, No Other Genitourinary: No Dysuria, No Frequency, No Incontinence, No Hematuria, No Retention, No Other Musculoskeletal: No other, No neck pain, No shoulder pain, No arm pain, No back pain, No hand pain, No leg pain, No foot pain Skin: No Rash, No Lesions, No Jaundice, No Bruising, No Other Objective Vitals Vital Signs Date Time Temp Pulse Resp B/P (MAP) Pulse Ox O2 Delivery O2 Flow Rate FiO2 09/05/24 06:24 85 17 145/72 09/05/24 05:00 98.0 97 98.0 09/04/24 20:00 Room Air* 0 21 Intake/Output Intake and Output 09/05/24 07:00 Intake Total 1538 ml Output Total 1500 ml Balance 38 ml IV Total 1538 ml Output Urine Total 1000 ml Gastric Drainage Total 150 ml Drainage Total 350 ml Medications Current Medications Medications Dose Ordered Sig/Walt Route Start Time Stop Time Status Last Admin Dose Admin Aspirin 81 mg DAILY PO 08/26/24 10:00 09/04/24 10:05 81 MG Hydralazine HCl 10 mg Q6HP PRN IV 08/25/24 17:30 09/02/24 21:38 10 MG Atorvastatin Calcium 40 mg HS PO 08/25/24 22:00 09/01/24 21:52 40 MG Famotidine 20 mg DAILY IV 08/26/24 10:00 09/04/24 10:04 20 MG Ondansetron HCl 4 mg Q4HP PRN IV 08/25/24 17:30 09/04/24 03:11 4 MG Docusate Sodium 100 mg BIDPRN PRN PO 08/25/24 17:30 Acetaminophen 650 mg Q6HP PRN PO 08/25/24 17:30 08/25/24 18:00 650 MG Nitroglycerin 0.4 mg Q5MINP PRN SL 08/25/24 17:30 Doxycycline Hyclate 250 ml @ 125 mls/hr Q12H IV 08/25/24 18:15 Cancel Doxycycline Hyclate 250 ml @ 125 mls/hr Q12HR IV 08/26/24 10:00 Cancel Ceftriaxone Sodium 50 ml @ 100 mls/hr DAILY@09 IV 08/27/24 09:00 09/04/24 08:20 100 MLS/HR Sodium Chloride 10 ml QSHIFT@10,22 IV 08/30/24 22:00 09/04/24 21:30 10 ML Amino Acids 0 ml @ 0 mls/hr PER PHARMACY IV 08/30/24 17:15 Sodium Chloride 1,000 ml @ 30 mls/hr Q24H IV 08/31/24 22:00 09/04/24 21:30 30 MLS/HR Hydromorphone HCl 0.5 mg Q4HPRN PRN IV 09/02/24 17:30 09/05/24 05:54 0.5 MG Lorazepam 0.5 mg Q6HP PRN IV 09/03/24 11:00 Ketorolac Tromethamine 15 mg Q6HPRN PRN IV 09/03/24 11:00 09/08/24 10:59 09/04/24 17:31 15 MG Insulin Glargine 30 units DAILY@1000 ME 09/04/24 10:00 09/04/24 10:05 30 UNITS Diagnostic Test (Pha) 1 strip IQ4HR 09/03/24 16:00 09/05/24 04:00 1 STRIP Insulin Human Regular IQ4HR SC 09/03/24 16:00 09/04/24 12:03 8 UNITS Dextrose 50 ml UD PRN IV 09/03/24 13:30 Potassium Chloride 20 meq/ Lactated Ringer's 1,010 ml @ 100 mls/hr Q10H6M IV 09/03/24 13:30 09/04/24 10:30 100 MLS/HR Metronidazole 100 ml @ 100 mls/hr Q8HR IV 09/04/24 14:00 09/05/24 05:53 100 MLS/HR Fat Emulsion Intravenous 100 ml/Potassium Acetate 20 meq/ Potassium Phosphate 22 meq/ Magnesium Sulfate 24 meq/ Multivitamins 10 ml/Chromium/ Copper/Manganese/ Zinc 1 ml/Insulin Human Regular 10 units/Amino Acids/ Dextrose/Purified Water 1,282.1 ml @ 53 mls/hr [id number] IV 09/04/24 22:00 09/05/24 21:59 09/04/24 21:54 53 MLS/HR Laboratory Results Laboratory Tests 09/05/24 05:28 Chemistry Test 09/04/24 08:44 09/05/24 05:28 Albumin 2.9 g/dL (3.2-4.8) L 3.0 g/dL (3.2-4.8) L Calcium Level 9.2 mg/dL (8.7-10.4) 9.2 mg/dL (8.7-10.4) Magnesium Level 2.0 mg/dL (1.6-2.6) 1.8 mg/dL (1.6-2.6) Phosphorus Level 3.1 mg/dL (2.4-5.1) 3.3 mg/dL (2.4-5.1) Total Protein 7.0 g/dL (5.7-8.2) 7.2 g/dL (5.7-8.2) LFT Test 09/04/24 08:44 09/05/24 05:28 Alanine Aminotransferase (ALT) 11 U/L (7-40) 23 U/L (7-40) Alkaline Phosphatase 63 U/L (46-116) 122 U/L (46-116) H Aspartate Amino Transferase (AST) 18 U/L (13-40) 31 U/L (13-40) Total Bilirubin 0.4 mg/dL (0.2-1.0) 0.4 mg/dL (0.2-1.0) Urinalysis Test 08/25/24 18:33 Urine Color Colorless (Yellow) Urine Clarity Turbid (Clear) H Urine pH 6.5 (5.0-9.0) Urine Specific [place] > 1.050 (1.001-1.035) Urine Protein Trace (Negative) H Urine Ketones Negative (Negative) Urine Blood Trace /uL (Negative) H Urine Nitrite Negative (Negative) Urine Bilirubin Negative (Negative) Urine Urobilinogen Normal mg/dL (Negative) Urine Leukocyte Esterase 3+ /uL (Negative) Urine RBC 1 /hpf (0 - 4) Urine WBC 257 /hpf (0 - 5) Urine Squamous Epithelial Cells Few /hpf (<5) Urine Bacteria Few /hpf (None Seen) H Urine Yeast (Budding) Few /hpf (None Seen) Urine Glucose Normal mg/dL (Normal) Microbiology Microbiology Date/Time Source Procedure Growth Status 08/28/24 06:00 Urine - Midstream Clean Catch Urine Culture - Final Complete 08/26/24 15:03 Blood Blood Culture - Final NO GROWTH AFTER 5 DAYS OF INCUBATION. 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 Lyle on 09-02-24 with INDU drain, no colostomy bag, continue Rocephin add Flagyl DC doxycycline Generalized weakness and slurred speech TIA and CVA ruled out, CT head negative CT angio neck negative, MRI brain negative, Neurology consult by Dr. Gomez appreciated, placed on aspirin Septic shock secondary to urinary tract infection: Blood cultures negative, urine cultures negative Acute urinary tract infection: Rocephin Diabetes: Insulin sliding scale Hypertension Hypercholesterolemia Anxiety: Ativan 0.5 mg IV q.8h Severe anemia hemoglobin 8.8,, consult for Dr. Rosario TPN via PICC line EGD and polypectomy with the biopsy of the gastric polyp by Dr. Santamaria, which is benign Time spent 65 minutes Patient is full code Plan discussed with: Patient My Orders Orders - MARLIN SHAW MD Procedure Category Date Status Time Metronidazole PHA 09/04/24 In Process 500mg/100ml (Flagyl 14:00 Date of Service: Sep 05, 2024 Billing Provider: MARLIN SHAW MD Common Visit Codes: [id number] CARE 30-74 MIN MARLIN SHAW MD Sep 05, 2024 08:07
--- NOTE | 2024-09-05 09:27 | DVHPN2 ---
Progress Note Date Seen: Sep 05, 2024 Medical Necessity Reason Pt with a Central, PICC or Fol: Yes The following are medically ne: PICC Line Objective vital signs Vital Sign Date Time Temp Pulse Resp B/P (MAP) Pulse Ox O2 Delivery O2 Flow Rate FiO2 09/05/24 06:24 85 17 145/72 09/05/24 05:00 98.0 97 98.0 09/04/24 20:00 Room Air* 0 21 Total Intake and Output 09/04/24 09/04/24 09/05/24 15:00 23:00 07:00 Intake Total 50 ml 1388 ml 100 ml Output Total 70 ml 1430 ml Balance 50 ml 1318 ml -1330 ml medications Current Medications Medications Dose Ordered Sig/Walt Route Start Time Stop Time Status Last Admin Dose Admin Hydralazine HCl 10 mg Q6HP PRN IV 08/25/24 17:30 09/02/24 21:38 10 MG Atorvastatin Calcium 40 mg HS PO 08/25/24 22:00 09/01/24 21:52 40 MG Ondansetron HCl 4 mg Q4HP PRN IV 08/25/24 17:30 09/04/24 03:11 4 MG Docusate Sodium 100 mg BIDPRN PRN PO 08/25/24 17:30 Acetaminophen 650 mg Q6HP PRN PO 08/25/24 17:30 08/25/24 18:00 650 MG Nitroglycerin 0.4 mg Q5MINP PRN SL 08/25/24 17:30 Doxycycline Hyclate 250 ml @ 125 mls/hr Q12H IV 08/25/24 18:15 Cancel Doxycycline Hyclate 250 ml @ 125 mls/hr Q12HR IV 08/26/24 10:00 Cancel Ceftriaxone Sodium 50 ml @ 100 mls/hr DAILY@09 IV 08/27/24 09:00 09/04/24 08:20 100 MLS/HR Sodium Chloride 10 ml QSHIFT@, IV 08/30/24 22:00 09/04/24 21:30 10 ML Amino Acids 0 ml @ 0 mls/hr PER PHARMACY IV 08/30/24 17:15 Sodium Chloride 1,000 ml @ 30 mls/hr Q24H IV 08/31/24 22:00 09/04/24 21:30 30 MLS/HR Hydromorphone HCl 0.5 mg Q4HPRN PRN IV 09/02/24 17:30 09/05/24 05:54 0.5 MG Lorazepam 0.5 mg Q6HP PRN IV 09/03/24 11:00 Ketorolac Tromethamine 15 mg Q6HPRN PRN IV 09/03/24 11:00 09/08/24 10:59 09/05/24 08:19 15 MG Insulin Glargine 30 units DAILY@1000 SC 09/04/24 10:00 09/04/24 10:05 30 UNITS Diagnostic Test (Pha) 1 strip IQ4HR 09/03/24 16:00 09/05/24 08:22 1 STRIP Insulin Human Regular IQ4HR SC 09/03/24 16:00 09/05/24 08:21 2 UNITS Dextrose 50 ml UD PRN IV 09/03/24 13:30 Potassium Chloride 20 meq/ Lactated Ringer's 1,010 ml @ 100 mls/hr Q10H6M IV 09/03/24 13:30 09/04/24 10:30 100 MLS/HR Metronidazole 100 ml @ 100 mls/hr Q8HR IV 09/04/24 14:00 09/05/24 05:53 100 MLS/HR Fat Emulsion Intravenous 100 ml/Potassium Acetate 20 meq/ Potassium Phosphate 22 meq/ Magnesium Sulfate 24 meq/ Multivitamins 10 ml/Chromium/ Copper/Manganese/ Zinc 1 ml/Insulin Human Regular 10 units/Amino Acids/ Dextrose/Purified Water 1,282.1 ml @ 53 mls/hr [id number] IV 09/04/24 22:00 09/05/24 21:59 09/04/24 21:54 53 MLS/HR Pantoprazole Sodium 40 mg BID IV 09/05/24 10:00 laboratory and microbiology Laboratory Tests 09/05/24 05:28 Test 09/05/24 05:28 Range/Units Serum Glucose 103 74-106 mg/dL Problem List/Assessment/Plan Problem List/Assessment/Plan 08/31/[address], NEEDS TO START TPN, AWAITING BIOPSY RESULTS 09/03/24 awake orientsed, cooperative, wound clean and dressing dry, serous drainage, abdomen non distended. 09/04/24 no complaints, abdomen soft, non distended, appropriately tender, wound clean and well approximated, drainage serous, must ambulate 09/05/24 comfortable, no flatus or BM, wound clean and well approximated. abdomen soft, non distended Plan discussed with: Patient Dietary Evaluation Review Comments: 1) Advance pt diet when medically feasible [facility] 2) Continue current plan of care Expected Outcomes/Goals: 1) Pt diet to advance LESTER PAREDES MD Sep 05, 2024 09:27
[2024-09-05] MEDS: PANTOPRAZOLE 40 MG/10 ML VIAL INJ IV SCH (09:42)
--- NOTE | 2024-09-05 19:36 | DVHPN2 ---
Progress Note - Dictate Date Seen: Sep 05, 2024 Medical Necessity Reason Pt with a Central, PICC or Fol: Yes The following are medically ne: PICC Line Subjective Patient was seen and evaluated in follow up. Patient is complaining of generalized pain. Patient has not any BMs or flatus. INDU drain continues to have output. HGB 8.1, HCT 24.5, CO2 32, BUN 24, GLUC 113. vital signs Vital Sign Date Time Temp Pulse Resp B/P (MAP) Pulse Ox O2 Delivery O2 Flow Rate FiO2 09/05/24 08:30 98.5 85 16 159/72 (101) 98 98.5 09/04/24 20:00 Room Air* 0 21 Total Intake and Output 09/04/24 09/04/24 09/05/24 15:00 23:00 07:00 Intake Total 50 ml 1388 ml 100 ml Output Total 70 ml 1430 ml Balance 50 ml 1318 ml -1330 ml medications Current Medications Medications Dose Ordered Sig/Walt Route Start Time Stop Time Status Last Admin Dose Admin Hydralazine HCl 10 mg Q6HP PRN IV 08/25/24 17:30 09/02/24 21:38 10 MG Atorvastatin Calcium 40 mg HS PO 08/25/24 22:00 09/01/24 21:52 40 MG Ondansetron HCl 4 mg Q4HP PRN IV 08/25/24 17:30 09/04/24 03:11 4 MG Docusate Sodium 100 mg BIDPRN PRN PO 08/25/24 17:30 Acetaminophen 650 mg Q6HP PRN PO 08/25/24 17:30 08/25/24 18:00 650 MG Nitroglycerin 0.4 mg Q5MINP PRN SL 08/25/24 17:30 Doxycycline Hyclate 250 ml @ 125 mls/hr Q12H IV 08/25/24 18:15 Cancel Doxycycline Hyclate 250 ml @ 125 mls/hr Q12HR IV 08/26/24 10:00 Cancel Ceftriaxone Sodium 50 ml @ 100 mls/hr DAILY@09 IV 08/27/24 09:00 09/05/24 09:42 100 MLS/HR Sodium Chloride 10 ml QSHIFT@10,22 IV 08/30/24 22:00 09/05/24 09:46 10 ML Amino Acids 0 ml @ 0 mls/hr PER PHARMACY IV 08/30/24 17:15 Sodium Chloride 1,000 ml @ 30 mls/hr Q24H IV 08/31/24 22:00 09/04/24 21:30 30 MLS/HR Hydromorphone HCl 0.5 mg Q4HPRN PRN IV 09/02/24 17:30 09/05/24 05:54 0.5 MG Lorazepam 0.5 mg Q6HP PRN IV 09/03/24 11:00 Ketorolac Tromethamine 15 mg Q6HPRN PRN IV 09/03/24 11:00 09/08/24 10:59 09/05/24 08:19 15 MG Insulin Glargine 30 units DAILY@1000 SC 09/04/24 10:00 09/05/24 09:46 30 UNITS Diagnostic Test (Pha) 1 strip IQ4HR 09/03/24 16:00 09/05/24 08:22 1 STRIP Insulin Human Regular IQ4HR SC 09/03/24 16:00 09/05/24 08:21 2 UNITS Dextrose 50 ml UD PRN IV 09/03/24 13:30 Potassium Chloride 20 meq/ Lactated Ringer's 1,010 ml @ 100 mls/hr Q10H6M IV 09/03/24 13:30 09/04/24 10:30 100 MLS/HR Metronidazole 100 ml @ 100 mls/hr Q8HR IV 09/04/24 14:00 09/05/24 05:53 100 MLS/HR Fat Emulsion Intravenous 100 ml/Potassium Acetate 20 meq/ Potassium Phosphate 22 meq/ Magnesium Sulfate 24 meq/ Multivitamins 10 ml/Chromium/ Copper/Manganese/ Zinc 1 ml/Insulin Human Regular 10 units/Amino Acids/ Dextrose/Purified Water 1,282.1 ml @ 53 mls/hr [id number] IV 09/04/24 22:00 09/05/24 21:59 09/04/24 21:54 53 MLS/HR Pantoprazole Sodium 40 mg BID IV 09/05/24 10:00 09/05/24 09:42 40 MG Fat Emulsion Intravenous 100 ml/Potassium Chloride 10 meq/ Potassium Acetate 10 meq/Potassium Phosphate 22 meq/ Magnesium Sulfate 24 meq/ Multivitamins 10 ml/Chromium/ Copper/Manganese/ Zinc 1 ml/Insulin Human Regular 12 units/Amino Acids/ Dextrose/Purified Water 1,332.12 ml @ 55 mls/hr [id number] IV 09/05/24 22:00 09/06/24 21:59 objective GENERAL: Awake, alert, oriented. LUNGS: Clear. CARDIOVASCULAR: Heart sounds are good. ABDOMEN: Soft. NEURO: Slurred speech. laboratory and microbiology Laboratory Tests 09/05/24 05:28 Test 09/05/24 05:28 Range/Units Serum Glucose 103 74-106 mg/dL Problem List Generalized weakness and slurred speech rule out TIA rule out CVA. Septic shock secondary to urinary tract infection. Acute urinary tract infection. Diabetes. Hypertension. Hypercholesterolemia. Severe anemia. Hepatic flexor lesions. Assessment/Plan Continued all current supportive medical care. Aspirin, Lipitor. IV antibiotics as ordered. Morphine and [place] for pain management. Additional plan as per the hospital course. Dietary Evaluation Review Comments: 1) Advance pt diet when medically feasible to a [facility] 45g/2gNa diet 2) Continue current plan of care Expected Outcomes/Goals: 1) Pt diet to advance Plan discussed with: Patient OTIS JOHNSON MD Sep 05, 2024 12:25
[2024-09-05] MEDS: POTASSIUM CHLORIDE IV NR (21:37)
[2024-09-05] MEDS: POTASSIUM ACETATE IV NR (21:37)
[2024-09-05] MEDS: FAT EMULSION IV NR (21:37)
[2024-09-05] MEDS: [UNRECOGNIZED DRUG - OTHER] IV NR (21:37)
[2024-09-06] VITALS (9 sets, daily range): BP systolic 138–163; BP diastolic 65–81; PULSE 78–101; RESP 14–20; TEMP 97.5–98.2; O2SAT 97–99
[2024-09-06 07:07] LABS: Alanine Aminotransferase 30 U/L (7-40); Anion Gap 7 (5-15); Blood Urea Nitrogen 23 mg/dL (9-23); Carbon Dioxide 28 mmol/L (20-31); Chloride 105 mmol/L (98-107); Magnesium 1.9 mg/dL (1.6-2.6); Potassium 3.5 mmol/L (3.5-5.1); Sodium 140 mmol/L (136-145)
[2024-09-06 07:08] LABS: BUN/Creatinine Ratio 30.3 (10.0-20.0); Bilirubin, Total 0.3 mg/dL (0.2-1.0); Phosphorus 3.3 mg/dL (2.4-5.1); Total Protein 6.6 g/dL (5.7-8.2)
[2024-09-06 07:09] LABS: Albumin 2.7 g/dL (3.2-4.8); Alkaline Phosphatase 163 U/L (46-116); Aspartate Aminotransferase 43 U/L (13-40); Calcium 8.4 mg/dL (8.7-10.4); Glucose 157 mg/dL (74-106)
--- NOTE | 2024-09-06 08:56 | DVHPN2 ---
Reviewed: Care Plan, H&P, Labs, Medications, Previous Orders, Radiology Changes from previous H/P or p: No Changes Eyes: No Pain, No Vision change, No Conjunctivae inflammation, No Eyelid inflammation, No Other, No Redness ENT: No Ear pain, No Ear discharge, No Nose pain, No Nose discharge, No Nose congestion, No Mouth pain, No Mouth swelling, No Throat pain, No Throat swelling, No Other Cardiovascular: No Chest Pain, No Palpitations, No Orthopnea, No Paroxysmal Noc. Dyspnea, No Edema, No Lt Headedness, No Other Respiratory: No Cough, No Dry, No Shortness of breath, No SOB with excertion, No Wheezing, No Hemoptysis, No Pleuritic Pain, No Sputum, No Other Gastrointestinal: No Nausea, No Vomiting, No Abdominal Pain, No Diarrhea, No Constipation, No Melena, No Hematochezia, No Other Genitourinary: No Dysuria, No Frequency, No Incontinence, No Hematuria, No Retention, No Other Musculoskeletal: No other, No neck pain, No shoulder pain, No arm pain, No back pain, No hand pain, No leg pain, No foot pain Skin: No Rash, No Lesions, No Jaundice, No Bruising, No Other Objective Vitals Vital Signs Date Time Temp Pulse Resp B/P (MAP) Pulse Ox O2 Delivery O2 Flow Rate FiO2 09/06/24 05:00 98.0 84 16 147/72 (97) 97 98.0 09/05/24 20:00 Room Air* 0 21 Intake/Output Intake and Output 09/06/24 07:00 Intake Total 1690 ml Output Total 2225 ml Balance -535 ml IV Total 1690 ml Output Urine Total 1900 ml Gastric Drainage Total 150 ml Drainage Total 75 ml Other 100 ml Medications Current Medications Medications Dose Ordered Sig/Walt Route Start Time Stop Time Status Last Admin Dose Admin Hydralazine HCl 10 mg Q6HP PRN IV 08/25/24 17:30 09/02/24 21:38 10 MG Atorvastatin Calcium 40 mg HS PO 08/25/24 22:00 09/01/24 21:52 40 MG Ondansetron HCl 4 mg Q4HP PRN IV 08/25/24 17:30 09/04/24 03:11 4 MG Docusate Sodium 100 mg BIDPRN PRN PO 08/25/24 17:30 Acetaminophen 650 mg Q6HP PRN PO 08/25/24 17:30 08/25/24 18:00 650 MG Nitroglycerin 0.4 mg Q5MINP PRN SL 08/25/24 17:30 Doxycycline Hyclate 250 ml @ 125 mls/hr Q12H IV 08/25/24 18:15 Cancel Doxycycline Hyclate 250 ml @ 125 mls/hr Q12HR IV 08/26/24 10:00 Cancel Ceftriaxone Sodium 50 ml @ 100 mls/hr DAILY@09 IV 08/27/24 09:00 09/05/24 09:42 100 MLS/HR Sodium Chloride 10 ml QSHIFT@10,22 IV 08/30/24 22:00 09/05/24 21:21 10 ML Amino Acids 0 ml @ 0 mls/hr PER PHARMACY IV 08/30/24 17:15 Sodium Chloride 1,000 ml @ 30 mls/hr Q24H IV 08/31/24 22:00 09/04/24 21:30 30 MLS/HR Hydromorphone HCl 0.5 mg Q4HPRN PRN IV 09/02/24 17:30 09/05/24 22:10 0.5 MG Lorazepam 0.5 mg Q6HP PRN IV 09/03/24 11:00 Ketorolac Tromethamine 15 mg Q6HPRN PRN IV 09/03/24 11:00 09/08/24 10:59 09/06/24 03:23 15 MG Insulin Glargine 30 units DAILY@1000 SC 09/04/24 10:00 09/05/24 09:46 30 UNITS Diagnostic Test (Pha) 1 strip IQ4HR 09/03/24 16:00 09/06/24 03:30 1 STRIP Insulin Human Regular IQ4HR SC 09/03/24 16:00 09/05/24 08:21 2 UNITS Dextrose 50 ml UD PRN IV 09/03/24 13:30 Potassium Chloride 20 meq/ Lactated Ringer's 1,010 ml @ 100 mls/hr Q10H6M IV 09/03/24 13:30 09/05/24 16:41 100 MLS/HR Metronidazole 100 ml @ 100 mls/hr Q8HR IV 09/04/24 14:00 09/06/24 05:38 100 MLS/HR Pantoprazole Sodium 40 mg BID IV 09/05/24 10:00 09/05/24 21:21 40 MG Fat Emulsion Intravenous 100 ml/Potassium Chloride 10 meq/ Potassium Acetate 10 meq/Potassium Phosphate 22 meq/ Magnesium Sulfate 24 meq/ Multivitamins 10 ml/Chromium/ Copper/Manganese/ Zinc 1 ml/Insulin Human Regular 12 units/Amino Acids/ Dextrose/Purified Water 1,332.12 ml @ 55 mls/hr [id number] IV 09/05/24 22:00 09/06/24 21:59 09/05/24 21:37 55 MLS/HR Laboratory Results Laboratory Tests 09/05/24 05:28 09/06/24 06:05 Chemistry Test 09/06/24 06:05 Albumin 2.7 g/dL (3.2-4.8) L Calcium Level 8.4 mg/dL (8.7-10.4) L Magnesium Level 1.9 mg/dL (1.6-2.6) Phosphorus Level 3.3 mg/dL (2.4-5.1) Total Protein 6.6 g/dL (5.7-8.2) LFT Test 09/06/24 06:05 Alanine Aminotransferase (ALT) 30 U/L (7-40) Alkaline Phosphatase 163 U/L (46-116) H Aspartate Amino Transferase (AST) 43 U/L (13-40) H Total Bilirubin 0.3 mg/dL (0.2-1.0) Urinalysis Test 08/25/24 18:33 Urine Color Colorless (Yellow) Urine Clarity Turbid (Clear) H Urine pH 6.5 (5.0-9.0) Urine Specific [place] > 1.050 (1.001-1.035) Urine Protein Trace (Negative) H Urine Ketones Negative (Negative) Urine Blood Trace /uL (Negative) H Urine Nitrite Negative (Negative) Urine Bilirubin Negative (Negative) Urine Urobilinogen Normal mg/dL (Negative) Urine Leukocyte Esterase 3+ /uL (Negative) Urine RBC 1 /hpf (0 - 4) Urine WBC 257 /hpf (0 - 5) Urine Squamous Epithelial Cells Few /hpf (<5) Urine Bacteria Few /hpf (None Seen) H Urine Yeast (Budding) Few /hpf (None Seen) Urine Glucose Normal mg/dL (Normal) Microbiology Microbiology Date/Time Source Procedure Growth Status 08/28/24 06:00 Urine - Midstream Clean Catch Urine Culture - Final Complete 08/26/24 15:03 Blood Blood Culture - Final NO GROWTH AFTER 5 DAYS OF INCUBATION. 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 Lyle on 09-02-24 with ileotransverse colon anastomosis, with INDU drain, continue Rocephin add Flagyl DC doxycycline Generalized weakness and slurred speech TIA and CVA ruled out, CT head negative CT angio neck negative, MRI brain negative, Neurology consult by Dr. Gomez appreciated, placed on aspirin Septic shock secondary to urinary tract infection: Blood cultures negative, urine cultures negative Acute urinary tract infection: Rocephin Diabetes: Insulin sliding scale Hypertension Hypercholesterolemia Anxiety: Ativan 0.5 mg IV q.8h Severe anemia hemoglobin 8.8,, consult for Dr. Rosario TPN via PICC line EGD and polypectomy with the biopsy of the gastric polyp by Dr. Santamaria, which is benign Time spent 65 minutes Patient is full code Patient passing gas and having bowel movement Continue NG suction Plan discussed with: Patient Date of Service: Sep 06, 2024 Billing Provider: MARLIN SHAW MD Common Visit Codes: [id number] CARE 30-74 MIN MARLIN SHAW MD Sep 06, 2024 08:56
--- NOTE | 2024-09-06 09:25 | DVHPN2 ---
Progress Note Date Seen: Sep 06, 2024 Medical Necessity Reason Pt with a Central, PICC or Fol: Yes The following are medically ne: PICC Line Subjective Review of Systems Patient seen and evaluated today. Notes that she's feeling better compared to yesterday. Endorses having a bowel movement yesterday. NGT in place. Noted to be working with PT. Objective vital signs Vital Sign Date Time Temp Pulse Resp B/P (MAP) Pulse Ox O2 Delivery O2 Flow Rate FiO2 09/06/24 05:00 98.0 84 16 147/72 (97) 97 98.0 09/05/24 20:00 Room Air* 0 21 Total Intake and Output 09/05/24 09/05/24 09/06/24 15:00 23:00 07:00 Intake Total 50 ml 200 ml 1440 ml Output Total 1075 ml 1150 ml Balance 50 ml -875 ml 290 ml medications Current Medications Medications Dose Ordered Sig/Walt Route Start Time Stop Time Status Last Admin Dose Admin Hydralazine HCl 10 mg Q6HP PRN IV 08/25/24 17:30 09/02/24 21:38 10 MG Atorvastatin Calcium 40 mg HS PO 08/25/24 22:00 09/01/24 21:52 40 MG Ondansetron HCl 4 mg Q4HP PRN IV 08/25/24 17:30 09/04/24 03:11 4 MG Docusate Sodium 100 mg BIDPRN PRN PO 08/25/24 17:30 Acetaminophen 650 mg Q6HP PRN PO 08/25/24 17:30 08/25/24 18:00 650 MG Nitroglycerin 0.4 mg Q5MINP PRN SL 08/25/24 17:30 Doxycycline Hyclate 250 ml @ 125 mls/hr Q12H IV 08/25/24 18:15 Cancel Doxycycline Hyclate 250 ml @ 125 mls/hr Q12HR IV 08/26/24 10:00 Cancel Ceftriaxone Sodium 50 ml @ 100 mls/hr DAILY@09 IV 08/27/24 09:00 09/06/24 09:05 100 MLS/HR Sodium Chloride 10 ml QSHIFT@10,22 IV 08/30/24 22:00 09/06/24 09:05 10 ML Amino Acids 0 ml @ 0 mls/hr PER PHARMACY IV 08/30/24 17:15 Sodium Chloride 1,000 ml @ 30 mls/hr Q24H IV 08/31/24 22:00 09/04/24 21:30 30 MLS/HR Hydromorphone HCl 0.5 mg Q4HPRN PRN IV 09/02/24 17:30 09/05/24 22:10 0.5 MG Lorazepam 0.5 mg Q6HP PRN IV 09/03/24 11:00 Ketorolac Tromethamine 15 mg Q6HPRN PRN IV 09/03/24 11:00 09/08/24 10:59 09/06/24 03:23 15 MG Insulin Glargine 30 units DAILY@1000 SC 09/04/24 10:00 09/06/24 09:17 30 UNITS Diagnostic Test (Pha) 1 strip IQ4HR 09/03/24 16:00 09/06/24 09:06 1 STRIP Insulin Human Regular IQ4HR SC 09/03/24 16:00 09/05/24 08:21 2 UNITS Dextrose 50 ml UD PRN IV 09/03/24 13:30 Potassium Chloride 20 meq/ Lactated Ringer's 1,010 ml @ 100 mls/hr Q10H6M IV 09/03/24 13:30 09/05/24 16:41 100 MLS/HR Metronidazole 100 ml @ 100 mls/hr Q8HR IV 09/04/24 14:00 09/06/24 05:38 100 MLS/HR Pantoprazole Sodium 40 mg BID IV 09/05/24 10:00 09/06/24 09:05 40 MG Fat Emulsion Intravenous 100 ml/Potassium Chloride 10 meq/ Potassium Acetate 10 meq/Potassium Phosphate 22 meq/ Magnesium Sulfate 24 meq/ Multivitamins 10 ml/Chromium/ Copper/Manganese/ Zinc 1 ml/Insulin Human Regular 12 units/Amino Acids/ Dextrose/Purified Water 1,332.12 ml @ 55 mls/hr [id number] IV 09/05/24 22:00 09/06/24 21:59 09/05/24 21:37 55 MLS/HR Examination GENERAL: Awake, alert, oriented. LUNGS: Clear. CARDIOVASCULAR: Regular rate and rhythm. ABDOMEN: Soft. NGT in place. Examination: GENERAL:Abnormal laboratory and microbiology Laboratory Tests 09/06/24 06:05 09/05/24 05:28 Test 09/06/24 06:05 Range/Units Serum Glucose 157 H 74-106 mg/dL Microbiology Date/Time Source Procedure Growth Status 08/28/24 06:00 Urine - Midstream Clean Catch Urine Culture - Final Complete 08/26/24 15:03 Blood Blood Culture - Final NO GROWTH AFTER 5 DAYS OF INCUBATION. Complete Problem List/Assessment/Plan Problem List/Assessment/Plan 1. 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 CEA 1.57. --Colonoscopy on 08/28/2024: Lesion of the hepatic flexure of about 2.5-3 cm slightly polypoid attached to the wall possible villous adenoma but malignancy can not be excluded since attached to the wall unable to remove endoscopically and hence multiple biopsies were taken and tattooing done delineate this area for possible surgical intervention. 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 --Status post right hemicolectomy by Dr. Lyle on 09-02-24 with ileotransverse colon anastomosis --Awaiting final pathology results 2. Anemia, microcytic --Iron studies pending. 3. Diabetes 4. Hyperlipidemia Plan/Recommendation Follow-up pathology results on surgical intervention. Further plan of care to be determined based on final pathology results. Recommend checking iron studies, if not checked previously, and proceed with IV iron supplementation based on results of iron studies. Plan discussed with: Spouse Dietary Evaluation Review Comments: 1) Advance pt diet when medically feasible to a CCHO 45g/2gNa diet 2) Continue current plan of care Expected Outcomes/Goals: 1) Pt diet to advance TEODORO ROJAS MD Sep 06, 2024 09:25
--- NOTE | 2024-09-06 14:24 | DVHPN2 ---
Progress Note - Dictate Date Seen: Sep 06, 2024 Medical Necessity Reason Pt with a Central, PICC or Fol: Yes The following are medically ne: PICC Line Subjective Patient was seen and evaluated in follow up. Patient is complaining of generalized pain. INDU drain and NG tube remains with output. CA 8.4, AST 43. vital signs Vital Sign Date Time Temp Pulse Resp B/P (MAP) Pulse Ox O2 Delivery O2 Flow Rate FiO2 09/06/24 09:00 98.2 79 18 145/68 (93) 98 98.2 09/06/24 07:34 Room Air* 0 21 Total Intake and Output 09/05/24 09/05/24 09/06/24 15:00 23:00 07:00 Intake Total 50 ml 200 ml 1440 ml Output Total 1075 ml 1150 ml Balance 50 ml -875 ml 290 ml medications Current Medications Medications Dose Ordered Sig/Walt Route Start Time Stop Time Status Last Admin Dose Admin Hydralazine HCl 10 mg Q6HP PRN IV 08/25/24 17:30 09/02/24 21:38 10 MG Atorvastatin Calcium 40 mg HS PO 08/25/24 22:00 09/01/24 21:52 40 MG Ondansetron HCl 4 mg Q4HP PRN IV 08/25/24 17:30 09/04/24 03:11 4 MG Docusate Sodium 100 mg BIDPRN PRN PO 08/25/24 17:30 Acetaminophen 650 mg Q6HP PRN PO 08/25/24 17:30 08/25/24 18:00 650 MG Nitroglycerin 0.4 mg Q5MINP PRN SL 08/25/24 17:30 Doxycycline Hyclate 250 ml @ 125 mls/hr Q12H IV 08/25/24 18:15 Cancel Doxycycline Hyclate 250 ml @ 125 mls/hr Q12HR IV 08/26/24 10:00 Cancel Ceftriaxone Sodium 50 ml @ 100 mls/hr DAILY@ IV 08/27/24 09:00 09/06/24 09:05 100 MLS/HR Sodium Chloride 10 ml QSHIFT@10,22 IV 08/30/24 22:00 09/06/24 09:05 10 ML Amino Acids 0 ml @ 0 mls/hr PER PHARMACY IV 08/30/24 17:15 Sodium Chloride 1,000 ml @ 30 mls/hr Q24H IV 08/31/24 22:00 09/04/24 21:30 30 MLS/HR Hydromorphone HCl 0.5 mg Q4HPRN PRN IV 09/02/24 17:30 09/05/24 22:10 0.5 MG Lorazepam 0.5 mg Q6HP PRN IV 09/03/24 11:00 Ketorolac Tromethamine 15 mg Q6HPRN PRN IV 09/03/24 11:00 09/08/24 10:59 09/06/24 03:23 15 MG Insulin Glargine 30 units DAILY@1000 SC 09/04/24 10:00 09/06/24 09:17 30 UNITS Diagnostic Test (Pha) 1 strip IQ4HR 09/03/24 16:00 09/06/24 09:06 1 STRIP Insulin Human Regular IQ4HR SC 09/03/24 16:00 09/05/24 08:21 2 UNITS Dextrose 50 ml UD PRN IV 09/03/24 13:30 Potassium Chloride 20 meq/ Lactated Ringer's 1,010 ml @ 100 mls/hr Q10H6M IV 09/03/24 13:30 09/05/24 16:41 100 MLS/HR Metronidazole 100 ml @ 100 mls/hr Q8HR IV 09/04/24 14:00 09/06/24 05:38 100 MLS/HR Pantoprazole Sodium 40 mg BID IV 09/05/24 10:00 09/06/24 09:05 40 MG Fat Emulsion Intravenous 100 ml/Potassium Chloride 10 meq/ Potassium Acetate 10 meq/Potassium Phosphate 22 meq/ Magnesium Sulfate 24 meq/ Multivitamins 10 ml/Chromium/ Copper/Manganese/ Zinc 1 ml/Insulin Human Regular 12 units/Amino Acids/ Dextrose/Purified Water 1,332.12 ml @ 55 mls/hr [id number] IV 09/05/24 22:00 09/06/24 21:59 09/05/24 21:37 55 MLS/HR Fat Emulsion Intravenous 150 ml/Potassium Chloride 10 meq/ Potassium Acetate 10 meq/Potassium Phosphate 22 meq/ Magnesium Sulfate 24 meq/ Multivitamins 10 ml/Chromium/ Copper/Manganese/ Zinc 1 ml/Insulin Human Regular 15 units/Amino Acids/ Dextrose/Purified Water 1,382.15 ml @ 57 mls/hr [id number] IV 09/06/24 22:00 09/07/24 21:59 objective GENERAL: Awake, alert, oriented. LUNGS: Clear. CARDIOVASCULAR: Heart sounds are good. ABDOMEN: Soft. NEURO: Slurred speech. laboratory and microbiology Laboratory Tests 09/06/24 06:05 09/05/24 05:28 Test 09/06/24 06:05 Range/Units Serum Glucose 157 H 74-106 mg/dL Problem List Generalized weakness and slurred speech rule out TIA rule out CVA. Septic shock secondary to urinary tract infection. Acute urinary tract infection. Diabetes. Hypertension. Hypercholesterolemia. Severe anemia. Hepatic flexor lesions. Assessment/Plan Continued all current supportive medical care. Aspirin, Lipitor. IV antibiotics as ordered. Morphine and [place] for pain management. Additional plan as per the hospital course. Dietary Evaluation Review Comments: 1) Advance pt diet when medically feasible to a CCHO 45g/2gNa diet 2) Continue current plan of care Expected Outcomes/Goals: 1) Pt diet to advance Plan discussed with: Patient OTIS JOHNSON MD Sep 06, 2024 12:11
[2024-09-06] MEDS: TPN PER PHARMACY IV NR (21:43)
[2024-09-07] VITALS (9 sets, daily range): BP systolic 139–163; BP diastolic 58–80; PULSE 62–99; RESP 18–22; TEMP 97.5–98.5; O2SAT 97–99
[2024-09-07 06:08] LABS: % Iron Saturation 24.7 % (15-50)
[2024-09-07 06:17] LABS: Alanine Aminotransferase 31 U/L (7-40); Albumin 2.7 g/dL (3.2-4.8); Alkaline Phosphatase 156 U/L (46-116); Anion Gap 6 (5-15); Aspartate Aminotransferase 50 U/L (13-40); BUN/Creatinine Ratio 32.4 (10.0-20.0); Blood Urea Nitrogen 22 mg/dL (9-23); Calcium 8.4 mg/dL (8.7-10.4); Carbon Dioxide 26 mmol/L (20-31); Chloride 108 mmol/L (98-107); Glucose 107 mg/dL (74-106); Magnesium 1.9 mg/dL (1.6-2.6); Phosphorus 2.9 mg/dL (2.4-5.1); Potassium 3.6 mmol/L (3.5-5.1); Sodium 140 mmol/L (136-145); Total Protein 6.6 g/dL (5.7-8.2); Triglycerides 67 mg/dL (< 150)
[2024-09-07 06:19] LABS: Bilirubin, Total 0.3 mg/dL (0.2-1.0)
--- NOTE | 2024-09-07 08:26 | DVHPN2 ---
Reviewed: Care Plan, H&P, Labs, Medications, Previous Orders, Radiology Changes from previous H/P or p: No Changes Eyes: No Pain, No Vision change, No Conjunctivae inflammation, No Eyelid inflammation, No Other, No Redness ENT: No Ear pain, No Ear discharge, No Nose pain, No Nose discharge, No Nose congestion, No Mouth pain, No Mouth swelling, No Throat pain, No Throat swelling, No Other Cardiovascular: No Chest Pain, No Palpitations, No Orthopnea, No Paroxysmal Noc. Dyspnea, No Edema, No Lt Headedness, No Other Respiratory: No Cough, No Dry, No Shortness of breath, No SOB with excertion, No Wheezing, No Hemoptysis, No Pleuritic Pain, No Sputum, No Other Gastrointestinal: No Nausea, No Vomiting, No Abdominal Pain, No Diarrhea, No Constipation, No Melena, No Hematochezia, No Other Genitourinary: No Dysuria, No Frequency, No Incontinence, No Hematuria, No Retention, No Other Musculoskeletal: No other, No neck pain, No shoulder pain, No arm pain, No back pain, No hand pain, No leg pain, No foot pain Skin: No Rash, No Lesions, No Jaundice, No Bruising, No Other Objective Vitals Vital Signs Date Time Temp Pulse Resp B/P (MAP) Pulse Ox O2 Delivery O2 Flow Rate FiO2 09/07/24 05:36 161/68 09/07/24 05:00 98.2 62 20 99 98.2 09/06/24 20:00 Room Air* 0 21 Intake/Output Intake and Output 09/07/24 07:00 Intake Total 2012 ml Output Total 240 ml Balance 1773 ml IV Total 2012 ml Drainage Total 90 ml Other 150 ml Medications Current Medications Medications Dose Ordered Sig/Walt Route Start Time Stop Time Status Last Admin Dose Admin Hydralazine HCl 10 mg Q6HP PRN IV 08/25/24 17:30 09/07/24 05:36 10 MG Atorvastatin Calcium 40 mg HS PO 08/25/24 22:00 09/01/24 21:52 40 MG Ondansetron HCl 4 mg Q4HP PRN IV 08/25/24 17:30 09/04/24 03:11 4 MG Docusate Sodium 100 mg BIDPRN PRN PO 08/25/24 17:30 Acetaminophen 650 mg Q6HP PRN PO 08/25/24 17:30 08/25/24 18:00 650 MG Nitroglycerin 0.4 mg Q5MINP PRN SL 08/25/24 17:30 Doxycycline Hyclate 250 ml @ 125 mls/hr Q12H IV 08/25/24 18:15 Cancel Doxycycline Hyclate 250 ml @ 125 mls/hr Q12HR IV 08/26/24 10:00 Cancel Ceftriaxone Sodium 50 ml @ 100 mls/hr DAILY@09 IV 08/27/24 09:00 09/06/24 09:05 100 MLS/HR Sodium Chloride 10 ml QSHIFT@10,22 IV 08/30/24 22:00 09/06/24 22:00 10 ML Amino Acids 0 ml @ 0 mls/hr PER PHARMACY IV 08/30/24 17:15 Sodium Chloride 1,000 ml @ 30 mls/hr Q24H IV 08/31/24 22:00 09/06/24 21:41 30 MLS/HR Hydromorphone HCl 0.5 mg Q4HPRN PRN IV 09/02/24 17:30 09/05/24 22:10 0.5 MG Lorazepam 0.5 mg Q6HP PRN IV 09/03/24 11:00 Ketorolac Tromethamine 15 mg Q6HPRN PRN IV 09/03/24 11:00 09/08/24 10:59 09/06/24 20:02 15 MG Insulin Glargine 30 units DAILY@1000 SC 09/04/24 10:00 09/06/24 09:17 30 UNITS Diagnostic Test (Pha) 1 strip IQ4HR 09/03/24 16:00 09/07/24 03:07 1 STRIP Insulin Human Regular IQ4HR SC 09/03/24 16:00 09/06/24 12:32 8 UNITS Dextrose 50 ml UD PRN IV 09/03/24 13:30 Potassium Chloride 20 meq/ Lactated Ringer's 1,010 ml @ 100 mls/hr Q10H6M IV 09/03/24 13:30 09/07/24 02:42 100 MLS/HR Metronidazole 100 ml @ 100 mls/hr Q8HR IV 09/04/24 14:00 09/07/24 05:07 100 MLS/HR Pantoprazole Sodium 40 mg BID IV 09/05/24 10:00 09/06/24 21:54 40 MG Fat Emulsion Intravenous 150 ml/Potassium Chloride 10 meq/ Potassium Acetate 10 meq/Potassium Phosphate 22 meq/ Magnesium Sulfate 24 meq/ Multivitamins 10 ml/Chromium/ Copper/Manganese/ Zinc 1 ml/Insulin Human Regular 15 units/Amino Acids/ Dextrose/Purified Water 1,382.15 ml @ 57 mls/hr [id number] IV 09/06/24 22:00 09/07/24 21:59 09/06/24 21:43 57 MLS/HR Laboratory Results Laboratory Tests 09/05/24 05:28 09/07/24 05:20 Chemistry Test 09/07/24 05:20 Albumin 2.7 g/dL (3.2-4.8) L Calcium Level 8.4 mg/dL (8.7-10.4) L Magnesium Level 1.9 mg/dL (1.6-2.6) Phosphorus Level 2.9 mg/dL (2.4-5.1) Total Protein 6.6 g/dL (5.7-8.2) Lipid panel Test 09/07/24 05:20 Triglycerides Level 67 mg/dL (< 150) LFT Test 09/07/24 05:20 Alanine Aminotransferase (ALT) 31 U/L (7-40) Alkaline Phosphatase 156 U/L (46-116) H Aspartate Amino Transferase (AST) 50 U/L (13-40) H Total Bilirubin 0.3 mg/dL (0.2-1.0) Urinalysis Test 08/25/24 18:33 Urine Color Colorless (Yellow) Urine Clarity Turbid (Clear) H Urine pH 6.5 (5.0-9.0) Urine Specific [place] > 1.050 (1.001-1.035) Urine Protein Trace (Negative) H Urine Ketones Negative (Negative) Urine Blood Trace /uL (Negative) H Urine Nitrite Negative (Negative) Urine Bilirubin Negative (Negative) Urine Urobilinogen Normal mg/dL (Negative) Urine Leukocyte Esterase 3+ /uL (Negative) Urine RBC 1 /hpf (0 - 4) Urine WBC 257 /hpf (0 - 5) Urine Squamous Epithelial Cells Few /hpf (<5) Urine Bacteria Few /hpf (None Seen) H Urine Yeast (Budding) Few /hpf (None Seen) Urine Glucose Normal mg/dL (Normal) Microbiology Microbiology Date/Time Source Procedure Growth Status 08/28/24 06:00 Urine - Midstream Clean Catch Urine Culture - Final Complete 08/26/24 15:03 Blood Blood Culture - Final NO GROWTH AFTER 5 DAYS OF INCUBATION. 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 Lyle on 09-02-24 with ileotransverse colon anastomosis, with INDU drain, continue Rocephin add Flagyl DC doxycycline Generalized weakness and slurred speech TIA and CVA ruled out, CT head negative CT angio neck negative, MRI brain negative, Neurology consult by Dr. Gomez appreciated, placed on aspirin Septic shock secondary to urinary tract infection: Blood cultures negative, urine cultures negative Acute urinary tract infection: Rocephin Diabetes: Insulin sliding scale Hypertension Hypercholesterolemia Anxiety: Ativan 0.5 mg IV q.8h Severe anemia hemoglobin 8.8,, consult for Dr. Rosario TPN via PICC line EGD and polypectomy with the biopsy of the gastric polyp by Dr. Santamaria, which is benign Time spent 65 minutes Patient is full code Patient passing gas and having bowel movement Continue NG suction Awaiting pathology report from the specimen sent to the lab at the time of surgery Plan discussed with: Patient My Orders Orders - MARLIN SHAW MD Procedure Category Date Status Time Transfer Orders XFER 09/06/24 Transmitted 14:58 Date of Service: Sep 07, 2024 Billing Provider: MARLIN SHAW MD Common Visit Codes: [id number] INP/OBS CARE(HIGH) MARLIN SHAW MD Sep 07, 2024 08:26
--- NOTE | 2024-09-07 09:28 | ECG ---
[facility] Test Date: 2024-09-02 Test Time: 08:07:49 Pat Name: DAVID DOUGLAS Department: Respiratoy Room: 0217T A Gender: F Financial Reporting Advisor: : [id number] Requested By: OTIS JOHNSON Order Number: [id number] Reading MD: Trisha Gonzalez Measurements Intervals [place] Rate: 82 P: 83 OK: 137 QRS: 80 QRSD: 87 T: 38 QT: 378 QTc: 442 Interpretive Statements Sinus rhythm Consider left ventricular hypertrophy Baseline wander in lead(s) V4,V6 Electronically Signed On 09-08-2024 9:08:35 PST by Trisha Gonzalez Please click the below link to view image of tracing.
--- NOTE | 2024-09-07 12:25 | DVHPN2 ---
Progress Note Date Seen: Sep 07, 2024 Medical Necessity Reason Pt with a Central, PICC or Fol: Yes The following are medically ne: PICC Line Objective vital signs Vital Sign Date Time Temp Pulse Resp B/P (MAP) Pulse Ox O2 Delivery O2 Flow Rate FiO2 09/07/24 10:00 74 16 146/68 09/07/24 09:00 97.5 98 97.5 09/07/24 07:34 Room Air* 0 21 Total Intake and Output 09/06/24 09/06/24 09/07/24 15:00 23:00 07:00 Intake Total 200 ml 1570 ml 1713 ml Output Total 150 ml 90 ml Balance 200 ml 1420 ml 1623 ml medications Current Medications Medications Dose Ordered Sig/Walt Route Start Time Stop Time Status Last Admin Dose Admin Hydralazine HCl 10 mg Q6HP PRN IV 08/25/24 17:30 09/07/24 05:36 10 MG Atorvastatin Calcium 40 mg HS PO 08/25/24 22:00 09/01/24 21:52 40 MG Ondansetron HCl 4 mg Q4HP PRN IV 08/25/24 17:30 09/04/24 03:11 4 MG Docusate Sodium 100 mg BIDPRN PRN PO 08/25/24 17:30 Acetaminophen 650 mg Q6HP PRN PO 08/25/24 17:30 08/25/24 18:00 650 MG Nitroglycerin 0.4 mg Q5MINP PRN SL 08/25/24 17:30 Doxycycline Hyclate 250 ml @ 125 mls/hr Q12H IV 08/25/24 18:15 Cancel Doxycycline Hyclate 250 ml @ 125 mls/hr Q12HR IV 08/26/24 10:00 Cancel Sodium Chloride 10 ml QSHIFT@10,22 IV 08/30/24 22:00 09/07/24 09:32 10 ML Amino Acids 0 ml @ 0 mls/hr PER PHARMACY IV 08/30/24 17:15 Sodium Chloride 1,000 ml @ 30 mls/hr Q24H IV 08/31/24 22:00 09/06/24 21:41 30 MLS/HR Hydromorphone HCl 0.5 mg Q4HPRN PRN IV 09/02/24 17:30 09/07/24 09:33 0.5 MG Lorazepam 0.5 mg Q6HP PRN IV 09/03/24 11:00 Ketorolac Tromethamine 15 mg Q6HPRN PRN IV 09/03/24 11:00 09/08/24 10:59 09/06/24 20:02 15 MG Insulin Glargine 30 units DAILY@1000 SC 09/04/24 10:00 09/07/24 10:21 30 UNITS Diagnostic Test (Pha) 1 strip IQ4HR 09/03/24 16:00 09/07/24 11:59 1 STRIP Insulin Human Regular IQ4HR SC 09/03/24 16:00 09/07/24 10:22 4 UNITS Dextrose 50 ml UD PRN IV 09/03/24 13:30 Potassium Chloride 20 meq/ Lactated Ringer's 1,010 ml @ 100 mls/hr Q10H6M IV 09/03/24 13:30 09/07/24 02:42 100 MLS/HR Metronidazole 100 ml @ 100 mls/hr Q8HR IV 09/04/24 14:00 09/07/24 05:07 100 MLS/HR Pantoprazole Sodium 40 mg BID IV 09/05/24 10:00 09/07/24 09:32 40 MG Fat Emulsion Intravenous 150 ml/Potassium Chloride 10 meq/ Potassium Acetate 10 meq/Potassium Phosphate 22 meq/ Magnesium Sulfate 24 meq/ Multivitamins 10 ml/Chromium/ Copper/Manganese/ Zinc 1 ml/Insulin Human Regular 15 units/Amino Acids/ Dextrose/Purified Water 1,382.15 ml @ 57 mls/hr [id number] IV 09/06/24 22:00 09/07/24 21:59 09/06/24 21:43 57 MLS/HR Fat Emulsion Intravenous 150 ml/Potassium Chloride 10 meq/ Potassium Acetate 20 meq/Potassium Phosphate 33 meq/ Magnesium Sulfate 28 meq/ Multivitamins 10 ml/Chromium/ Copper/Manganese/ Zinc 1 ml/Insulin Human Regular 15 units/Amino Acids/ Dextrose/Purified Water 1,390.65 ml @ 58 mls/hr [id number] IV 09/07/24 22:00 09/08/24 21:59 laboratory and microbiology Laboratory Tests 09/07/24 05:20 09/05/24 05:28 Test 09/07/24 05:20 Range/Units Serum Glucose 107 H 74-106 mg/dL Problem List/Assessment/Plan Problem List/Assessment/Plan 08/31/[address], NEEDS TO START TPN, AWAITING BIOPSY RESULTS 09/03/24 awake orientsed, cooperative, wound clean and dressing dry, serous drainage, abdomen non distended. 09/04/24 no complaints, abdomen soft, non distended, appropriately tender, wound clean and well approximated, drainage serous, must ambulate 09/05/24 comfortable, no flatus or BM, wound clean and well approximated. abdomen soft, non distended 09/07/24 HAVING NORMAL BOWEL ACTIVITY, TOLERATING PO INTAKE, OK TO ADVANCE PO DIET GRADUALLY, AMBULATE, WOUND OK Plan discussed with: Patient, Spouse Dietary Evaluation Review Comments: 1) Advance pt diet when medically feasible to a CCHO 45g/2gNa diet 2) Continue current plan of care Expected Outcomes/Goals: 1) Pt diet to advance LESTER PAREDES MD Sep 07, 2024 12:25
--- NOTE | 2024-09-07 16:36 | DVHPN2 ---
Progress Note - Dictate Date Seen: Sep 07, 2024 Medical Necessity Reason Pt with a Central, PICC or Fol: Yes The following are medically ne: PICC Line Subjective Patient was seen and evaluated in follow up. Patient is complaining of generalized discomfort. Patient is tolerating current diet. Patient is currently having normal bowel activity. CL 108, GLUC 121, CA 8.4. vital signs Vital Sign Date Time Temp Pulse Resp B/P (MAP) Pulse Ox O2 Delivery O2 Flow Rate FiO2 09/07/24 10:00 74 16 146/68 09/07/24 09:00 97.5 98 97.5 09/07/24 07:34 Room Air* 0 21 Total Intake and Output 09/06/24 09/06/24 09/07/24 15:00 23:00 07:00 Intake Total 200 ml 1570 ml 1713 ml Output Total 150 ml 90 ml Balance 200 ml 1420 ml 1623 ml medications Current Medications Medications Dose Ordered Sig/Walt Route Start Time Stop Time Status Last Admin Dose Admin Hydralazine HCl 10 mg Q6HP PRN IV 08/25/24 17:30 09/07/24 05:36 10 MG Atorvastatin Calcium 40 mg HS PO 08/25/24 22:00 09/01/24 21:52 40 MG Ondansetron HCl 4 mg Q4HP PRN IV 08/25/24 17:30 09/04/24 03:11 4 MG Docusate Sodium 100 mg BIDPRN PRN PO 08/25/24 17:30 Acetaminophen 650 mg Q6HP PRN PO 08/25/24 17:30 08/25/24 18:00 650 MG Nitroglycerin 0.4 mg Q5MINP PRN SL 08/25/24 17:30 Doxycycline Hyclate 250 ml @ 125 mls/hr Q12H IV 08/25/24 18:15 Cancel Doxycycline Hyclate 250 ml @ 125 mls/hr Q12HR IV 08/26/24 10:00 Cancel Sodium Chloride 10 ml QSHIFT@10,22 IV 08/30/24 22:00 09/07/24 09:32 10 ML Amino Acids 0 ml @ 0 mls/hr PER PHARMACY IV 08/30/24 17:15 Sodium Chloride 1,000 ml @ 30 mls/hr Q24H IV 08/31/24 22:00 09/06/24 21:41 30 MLS/HR Hydromorphone HCl 0.5 mg Q4HPRN PRN IV 09/02/24 17:30 09/07/24 09:33 0.5 MG Lorazepam 0.5 mg Q6HP PRN IV 09/03/24 11:00 Ketorolac Tromethamine 15 mg Q6HPRN PRN IV 09/03/24 11:00 09/08/24 10:59 09/06/24 20:02 15 MG Insulin Glargine 30 units DAILY@1000 SC 09/04/24 10:00 09/07/24 10:21 30 UNITS Diagnostic Test (Pha) 1 strip IQ4HR 09/03/24 16:00 09/07/24 11:59 1 STRIP Insulin Human Regular IQ4HR SC 09/03/24 16:00 09/07/24 12:51 4 UNITS Dextrose 50 ml UD PRN IV 09/03/24 13:30 Potassium Chloride 20 meq/ Lactated Ringer's 1,010 ml @ 100 mls/hr Q10H6M IV 09/03/24 13:30 09/07/24 02:42 100 MLS/HR Metronidazole 100 ml @ 100 mls/hr Q8HR IV 09/04/24 14:00 09/07/24 12:47 100 MLS/HR Pantoprazole Sodium 40 mg BID IV 09/05/24 10:00 09/07/24 09:32 40 MG Fat Emulsion Intravenous 150 ml/Potassium Chloride 10 meq/ Potassium Acetate 10 meq/Potassium Phosphate 22 meq/ Magnesium Sulfate 24 meq/ Multivitamins 10 ml/Chromium/ Copper/Manganese/ Zinc 1 ml/Insulin Human Regular 15 units/Amino Acids/ Dextrose/Purified Water 1,382.15 ml @ 57 mls/hr [id number] IV 09/06/24 22:00 09/07/24 21:59 09/06/24 21:43 57 MLS/HR Fat Emulsion Intravenous 150 ml/Potassium Chloride 10 meq/ Potassium Acetate 20 meq/Potassium Phosphate 33 meq/ Magnesium Sulfate 28 meq/ Multivitamins 10 ml/Chromium/ Copper/Manganese/ Zinc 1 ml/Insulin Human Regular 15 units/Amino Acids/ Dextrose/Purified Water 1,390.65 ml @ 58 mls/hr [id number] IV 09/07/24 22:00 09/08/24 21:59 objective GENERAL: Awake, alert, oriented. LUNGS: Clear. CARDIOVASCULAR: Heart sounds are good. ABDOMEN: Soft. NEURO: Slurred speech. laboratory and microbiology Laboratory Tests 09/07/24 05:20 09/05/24 05:28 Test 09/07/24 05:20 Range/Units Serum Glucose 107 H 74-106 mg/dL Problem List Generalized weakness and slurred speech rule out TIA rule out CVA. Septic shock secondary to urinary tract infection. Acute urinary tract infection. Diabetes. Hypertension. Hypercholesterolemia. Severe anemia. Hepatic flexor lesions. Assessment/Plan Continued all current supportive medical care. Aspirin, Lipitor. IV antibiotics as ordered. Morphine and [place] for pain management. Additional plan as per the hospital course. Dietary Evaluation Review Comments: 1) Advance pt diet when medically feasible to a CCHO 45g/2gNa diet 2) Continue current plan of care Expected Outcomes/Goals: 1) Pt diet to advance Plan discussed with: Patient OTIS JOHNSON MD Sep 07, 2024 13:21
[2024-09-07] MEDS: TPN PER PHARMACY IV NR (21:02)
[2024-09-08] VITALS (8 sets, daily range): BP systolic 115–164; BP diastolic 47–68; PULSE 86–103; RESP 16–20; TEMP 97.3–98.2; O2SAT 98–100
[2024-09-08 06:14] LABS: Basophils # (auto) 0 10 ^3/uL (0-0.2); Basophils % (auto) 0.1 % (0.0-2.0); Eosinophils # (auto) 0.1 10 ^3/uL (0-0.8); Eosinophils % (auto) 1.2 % (0.0-7.0); Hematocrit 23.7 % (36.0-46.0); Hemoglobin 7.8 g/dL (12.2-16.2); Lymphocytes # (auto) 0.8 10 ^3/uL (0.4-5.4); Lymphocytes % (auto) 13.5 % (10.0-50.0); Mean Corpuscular Hemoglobin 25.5 pg (28.0-32.0); Mean Corpuscular Volume 77.2 fL (80.0-100.0); Monocytes # (auto) 0.5 10 ^3/uL (0-1.3); Monocytes % (auto) 8.8 % (0.0-12.0); Neutrophils # (auto) 4.6 10 ^3/uL (1.6-8.6); Neutrophils % (auto) 76.4 % (37.0-80.0); Platelet Count (auto) 179 10^3/uL (140-450); Red Blood Cells 3.07 10^6/uL (4.0-5.20)
[2024-09-08 06:15] LABS: Red Cell Distribution Width 22.4 % (11.8-14.3)
[2024-09-08 06:36] LABS: Alanine Aminotransferase 26 U/L (7-40); Alkaline Phosphatase 115 U/L (46-116); Anion Gap 8 (5-15); Aspartate Aminotransferase 35 U/L (13-40); BUN/Creatinine Ratio 28.6 (10.0-20.0); Blood Urea Nitrogen 18 mg/dL (9-23); Carbon Dioxide 22 mmol/L (20-31); Potassium 4.4 mmol/L (3.5-5.1); Sodium 138 mmol/L (136-145)
[2024-09-08 06:37] LABS: Phosphorus 2.9 mg/dL (2.4-5.1); Total Protein 6.5 g/dL (5.7-8.2)
[2024-09-08 06:38] LABS: Albumin 2.7 g/dL (3.2-4.8); Bilirubin, Total 0.3 mg/dL (0.2-1.0); Calcium 8.2 mg/dL (8.7-10.4); Chloride 108 mmol/L (98-107); Glucose 149 mg/dL (74-106)
--- NOTE | 2024-09-08 09:57 | DVHPN2 ---
Reviewed: Care Plan, H&P, Labs, Medications, Previous Orders, Radiology Changes from previous H/P or p: No Changes Eyes: No Pain, No Vision change, No Conjunctivae inflammation, No Eyelid inflammation, No Other, No Redness ENT: No Ear pain, No Ear discharge, No Nose pain, No Nose discharge, No Nose congestion, No Mouth pain, No Mouth swelling, No Throat pain, No Throat swelling, No Other Cardiovascular: No Chest Pain, No Palpitations, No Orthopnea, No Paroxysmal Noc. Dyspnea, No Edema, No Lt Headedness, No Other Respiratory: No Cough, No Dry, No Shortness of breath, No SOB with excertion, No Wheezing, No Hemoptysis, No Pleuritic Pain, No Sputum, No Other Gastrointestinal: No Nausea, No Vomiting, No Abdominal Pain, No Diarrhea, No Constipation, No Melena, No Hematochezia, No Other Genitourinary: No Dysuria, No Frequency, No Incontinence, No Hematuria, No Retention, No Other Musculoskeletal: No other, No neck pain, No shoulder pain, No arm pain, No back pain, No hand pain, No leg pain, No foot pain Skin: No Rash, No Lesions, No Jaundice, No Bruising, No Other Objective Vitals Vital Signs Date Time Temp Pulse Resp B/P (MAP) Pulse Ox O2 Delivery O2 Flow Rate FiO2 09/08/24 08:00 89 09/08/24 05:00 98.2 20 164/62 (96) 98 98.2 09/07/24 20:00 Room Air* 0 21 Intake/Output Intake and Output 09/08/24 07:00 Intake Total 4422 ml Output Total 1890 ml Balance 2532 ml Intake Oral 345 ml IV Total 4077 ml Output Urine Total 1800 ml Drainage Total 90 ml # Bowel Movements 1 Medications Current Medications Medications Dose Ordered Sig/Walt Route Start Time Stop Time Status Last Admin Dose Admin Hydralazine HCl 10 mg Q6HP PRN IV 08/25/24 17:30 09/07/24 21:26 10 MG Atorvastatin Calcium 40 mg HS PO 08/25/24 22:00 09/07/24 21:12 40 MG Ondansetron HCl 4 mg Q4HP PRN IV 08/25/24 17:30 09/04/24 03:11 4 MG Docusate Sodium 100 mg BIDPRN PRN PO 08/25/24 17:30 Acetaminophen 650 mg Q6HP PRN PO 08/25/24 17:30 08/25/24 18:00 650 MG Nitroglycerin 0.4 mg Q5MINP PRN SL 08/25/24 17:30 Doxycycline Hyclate 250 ml @ 125 mls/hr Q12H IV 08/25/24 18:15 Cancel Doxycycline Hyclate 250 ml @ 125 mls/hr Q12HR IV 08/26/24 10:00 Cancel Sodium Chloride 10 ml QSHIFT@10,22 IV 08/30/24 22:00 09/07/24 21:13 10 ML Amino Acids 0 ml @ 0 mls/hr PER PHARMACY IV 08/30/24 17:15 Sodium Chloride 1,000 ml @ 30 mls/hr Q24H IV 08/31/24 22:00 09/06/24 21:41 30 MLS/HR Hydromorphone HCl 0.5 mg Q4HPRN PRN IV 09/02/24 17:30 09/07/24 17:44 0.5 MG Lorazepam 0.5 mg Q6HP PRN IV 09/03/24 11:00 Ketorolac Tromethamine 15 mg Q6HPRN PRN IV 09/03/24 11:00 09/08/24 10:59 09/08/24 05:37 15 MG Insulin Glargine 30 units DAILY@1000 [place] 09/04/24 10:00 09/07/24 10:21 30 UNITS Diagnostic Test (Pha) 1 strip IQ4HR 09/03/24 16:00 09/08/24 07:47 1 STRIP Insulin Human Regular IQ4HR SC 09/03/24 16:00 09/08/24 08:04 4 UNITS Dextrose 50 ml UD PRN IV 09/03/24 13:30 Potassium Chloride 20 meq/ Lactated Ringer's 1,010 ml @ 100 mls/hr Q10H6M IV 09/03/24 13:30 09/07/24 18:56 100 MLS/HR Metronidazole 100 ml @ 100 mls/hr Q8HR IV 09/04/24 14:00 09/08/24 05:09 100 MLS/HR Pantoprazole Sodium 40 mg BID IV 09/05/24 10:00 09/07/24 21:11 40 MG Fat Emulsion Intravenous 150 ml/Potassium Chloride 10 meq/ Potassium Acetate 20 meq/Potassium Phosphate 33 meq/ Magnesium Sulfate 28 meq/ Multivitamins 10 ml/Chromium/ Copper/Manganese/ Zinc 1 ml/Insulin Human Regular 15 units/Amino Acids/ Dextrose/Purified Water 1,390.65 ml @ 58 mls/hr [id number] IV 09/07/24 22:00 09/08/24 21:59 09/07/24 21:02 58 MLS/HR Laboratory Results Laboratory Tests 09/08/24 05:54 Chemistry Test 09/08/24 05:54 Albumin 2.7 g/dL (3.2-4.8) L Calcium Level 8.2 mg/dL (8.7-10.4) L Magnesium Level 2.0 mg/dL (1.6-2.6) Phosphorus Level 2.9 mg/dL (2.4-5.1) Total Protein 6.5 g/dL (5.7-8.2) LFT Test 09/08/24 05:54 Alanine Aminotransferase (ALT) 26 U/L (7-40) Alkaline Phosphatase 115 U/L (46-116) Aspartate Amino Transferase (AST) 35 U/L (13-40) Total Bilirubin 0.3 mg/dL (0.2-1.0) Urinalysis Test 08/25/24 18:33 Urine Color Colorless (Yellow) Urine Clarity Turbid (Clear) H Urine pH 6.5 (5.0-9.0) Urine Specific [place] > 1.050 (1.001-1.035) Urine Protein Trace (Negative) H Urine Ketones Negative (Negative) Urine Blood Trace /uL (Negative) H Urine Nitrite Negative (Negative) Urine Bilirubin Negative (Negative) Urine Urobilinogen Normal mg/dL (Negative) Urine Leukocyte Esterase 3+ /uL (Negative) Urine RBC 1 /hpf (0 - 4) Urine WBC 257 /hpf (0 - 5) Urine Squamous Epithelial Cells Few /hpf (<5) Urine Bacteria Few /hpf (None Seen) H Urine Yeast (Budding) Few /hpf (None Seen) Urine Glucose Normal mg/dL (Normal) Microbiology Microbiology Date/Time Source Procedure Growth Status 08/28/24 06:00 Urine - Midstream Clean Catch Urine Culture - Final Complete 08/26/24 15:03 Blood Blood Culture - Final NO GROWTH AFTER 5 DAYS OF INCUBATION. 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 Lyle on 09-02-24 with ileotransverse colon anastomosis, with INDU drain, continue Rocephin add Flagyl DC doxycycline Generalized weakness and slurred speech TIA and CVA ruled out, CT head negative CT angio neck negative, MRI brain negative, Neurology consult by Dr. Gomez appreciated, placed on aspirin Septic shock secondary to urinary tract infection: Blood cultures negative, urine cultures negative Acute urinary tract infection: Rocephin Diabetes: Insulin sliding scale Hypertension Hypercholesterolemia Iron-deficiency anemia: Iron infusion Anxiety: Ativan 0.5 mg IV q.8h Severe anemia hemoglobin 8.8,, consult for Dr. Rosario TPN via PICC line EGD and polypectomy with the biopsy of the gastric polyp by Dr. Santamaria, which is benign Time spent 65 minutes Patient is full code Patient started on soft diet and tolerating well Awaiting pathology report from the specimen sent to the lab at the time of surgery Discussed with Dr. Rosario advised patient can follow up with him as an outpatient after the pathology report Plan discussed with: Patient Date of Service: Sep 08, 2024 Billing Provider: MARLIN SHAW MD Common Visit Codes: [id number] CARE 30-74 MIN MARLIN SHAW MD Sep 08, 2024 09:57
--- NOTE | 2024-09-08 10:42 | DVHPN2 ---
Progress Note Date Seen: Sep 08, 2024 Medical Necessity Reason Pt with a Central, PICC or Fol: Yes The following are medically ne: PICC Line Subjective Patient reports: No new complaints, Feels better Review of Systems: HEENT:Normal, CVS:Normal, RESPIRATORY:Normal, GI:Normal, :Normal, MSK:Normal, NEURO:Normal Objective vital signs Vital Sign Date Time Temp Pulse Resp B/P (MAP) Pulse Ox O2 Delivery O2 Flow Rate FiO2 09/08/24 08:30 97.9 89 16 151/67 (95) 98 97.9 09/07/24 20:00 Room Air* 0 21 Total Intake and Output 09/07/24 09/07/24 09/08/24 15:00 23:00 07:00 Intake Total 200 ml 2203 ml 2019 ml Output Total 1890 ml Balance 200 ml 2203 ml 129 ml medications Current Medications Medications Dose Ordered Sig/Walt Route Start Time Stop Time Status Last Admin Dose Admin Hydralazine HCl 10 mg Q6HP PRN IV 08/25/24 17:30 09/07/24 21:26 10 MG Atorvastatin Calcium 40 mg HS PO 08/25/24 22:00 09/07/24 21:12 40 MG Ondansetron HCl 4 mg Q4HP PRN IV 08/25/24 17:30 09/04/24 03:11 4 MG Docusate Sodium 100 mg BIDPRN PRN PO 08/25/24 17:30 Acetaminophen 650 mg Q6HP PRN PO 08/25/24 17:30 08/25/24 18:00 650 MG Nitroglycerin 0.4 mg Q5MINP PRN SL 08/25/24 17:30 Doxycycline Hyclate 250 ml @ 125 mls/hr Q12H IV 08/25/24 18:15 Cancel Doxycycline Hyclate 250 ml @ 125 mls/hr Q12HR IV 08/26/24 10:00 Cancel Sodium Chloride 10 ml QSHIFT@ IV 08/30/24 22:00 09/07/24 21:13 10 ML Amino Acids 0 ml @ 0 mls/hr PER PHARMACY IV 08/30/24 17:15 Sodium Chloride 1,000 ml @ 30 mls/hr Q24H IV 08/31/24 22:00 09/06/24 21:41 30 MLS/HR Hydromorphone HCl 0.5 mg Q4HPRN PRN IV 09/02/24 17:30 09/07/24 17:44 0.5 MG Lorazepam 0.5 mg Q6HP PRN IV 09/03/24 11:00 Ketorolac Tromethamine 15 mg Q6HPRN PRN IV 09/03/24 11:00 09/08/24 10:59 09/08/24 05:37 15 MG Insulin Glargine 30 units DAILY@1000 SC 09/04/24 10:00 09/07/24 10:21 30 UNITS Diagnostic Test (Pha) 1 strip IQ4HR 09/03/24 16:00 09/08/24 07:47 1 STRIP Insulin Human Regular IQ4HR SC 09/03/24 16:00 09/08/24 08:04 4 UNITS Dextrose 50 ml UD PRN IV 09/03/24 13:30 Potassium Chloride 20 meq/ Lactated Ringer's 1,010 ml @ 100 mls/hr Q10H6M IV 09/03/24 13:30 09/07/24 18:56 100 MLS/HR Metronidazole 100 ml @ 100 mls/hr Q8HR IV 09/04/24 14:00 09/08/24 05:09 100 MLS/HR Pantoprazole Sodium 40 mg BID IV 09/05/24 10:00 09/07/24 21:11 40 MG Fat Emulsion Intravenous 150 ml/Potassium Chloride 10 meq/ Potassium Acetate 20 meq/Potassium Phosphate 33 meq/ Magnesium Sulfate 28 meq/ Multivitamins 10 ml/Chromium/ Copper/Manganese/ Zinc 1 ml/Insulin Human Regular 15 units/Amino Acids/ Dextrose/Purified Water 1,390.65 ml @ 58 mls/hr [id number] IV 09/07/24 22:00 09/08/24 21:59 09/07/24 21:02 58 MLS/HR Iron Sucrose 110 ml @ 110 mls/hr DAILY@1200 IV 09/08/24 12:00 09/12/24 12:59 UNV Examination: GENERAL:Normal, HEENT:Normal, NECK:Normal, LUNGS:Normal, CVS:Normal, ABDOMEN:Abnormal (INDU drain), MSK:Normal, SKIN:Normal laboratory and microbiology Laboratory Tests 09/08/24 05:54 Test 09/08/24 05:54 Range/Units Serum Glucose 149 H 74-106 mg/dL Problem List/Assessment/Plan Problem List/Assessment/Plan 09/08/24 abdomen soft, non distended, non tender, wound clean dry and intact, patient to ambulate dressings to stay off. Plan discussed with: Patient Dietary Evaluation Review Comments: 1) Advance pt diet when medically feasible to a CCHO 45g/2gNa diet 2) Continue current plan of care Expected Outcomes/Goals: 1) Pt diet to advance OLIVER ROLDAN NP Sep 08, 2024 10:42
[2024-09-08] MEDS: IRON SUCROSE COMPLEX 110 ML IV SCH (12:36)
[2024-09-08] MEDS: LORazepam 2MG/ML-1ML VIAL IV PRN (15:44)
--- NOTE | 2024-09-08 17:49 | DVHPN2 ---
Progress Note - Dictate Date Seen: Sep 08, 2024 Medical Necessity Reason Pt with a Central, PICC or Fol: Yes The following are medically ne: PICC Line Subjective Patient was seen and evaluated in follow up. Patient is complaining of generalized pain. Pathology report from the colon biopsy shows villous adenoma no high-grade dysplasia or malignancy. HGB 7.8, HCT 23.7. vital signs Vital Sign Date Time Temp Pulse Resp B/P (MAP) Pulse Ox O2 Delivery O2 Flow Rate FiO2 09/08/24 17:28 97.9 90 16 115/47 (69) 98 97.9 09/08/24 08:00 Room Air* 0 21 Total Intake and Output 09/07/24 09/07/24 09/08/24 15:00 23:00 07:00 Intake Total 200 ml 2203 ml 2019 ml Output Total 1890 ml Balance 200 ml 2203 ml 129 ml medications Current Medications Medications Dose Ordered Sig/Walt Route Start Time Stop Time Status Last Admin Dose Admin Hydralazine HCl 10 mg Q6HP PRN IV 08/25/24 17:30 09/08/24 12:36 10 MG Atorvastatin Calcium 40 mg HS PO 08/25/24 22:00 09/07/24 21:12 40 MG Ondansetron HCl 4 mg Q4HP PRN IV 08/25/24 17:30 09/04/24 03:11 4 MG Docusate Sodium 100 mg BIDPRN PRN PO 08/25/24 17:30 Acetaminophen 650 mg Q6HP PRN PO 08/25/24 17:30 08/25/24 18:00 650 MG Nitroglycerin 0.4 mg Q5MINP PRN SL 08/25/24 17:30 Doxycycline Hyclate 250 ml @ 125 mls/hr Q12H IV 08/25/24 18:15 Cancel Doxycycline Hyclate 250 ml @ 125 mls/hr Q12HR IV 08/26/24 10:00 Cancel Sodium Chloride 10 ml QSHIFT@10,22 IV 08/30/24 22:00 09/08/24 10:34 10 ML Amino Acids 0 ml @ 0 mls/hr PER PHARMACY IV 08/30/24 17:15 Sodium Chloride 1,000 ml @ 30 mls/hr Q24H IV 08/31/24 22:00 09/08/24 10:41 30 MLS/HR Hydromorphone HCl 0.5 mg Q4HPRN PRN IV 09/02/24 17:30 09/08/24 14:18 0.5 MG Lorazepam 0.5 mg Q6HP PRN IV 09/03/24 11:00 09/08/24 15:44 0.5 MG Insulin Glargine 30 units DAILY@1000 SC 09/04/24 10:00 09/08/24 10:39 30 UNITS Diagnostic Test (Pha) 1 strip IQ4HR 09/03/24 16:00 09/08/24 16:05 1 STRIP Insulin Human Regular IQ4HR SC 09/03/24 16:00 09/08/24 12:20 2 UNITS Dextrose 50 ml UD PRN IV 09/03/24 13:30 Potassium Chloride 20 meq/ Lactated Ringer's 1,010 ml @ 100 mls/hr Q10H6M IV 09/03/24 13:30 09/08/24 10:36 100 MLS/HR Metronidazole 100 ml @ 100 mls/hr Q8HR IV 09/04/24 14:00 09/08/24 14:19 100 MLS/HR Pantoprazole Sodium 40 mg BID IV 09/05/24 10:00 09/08/24 10:34 40 MG Fat Emulsion Intravenous 150 ml/Potassium Chloride 10 meq/ Potassium Acetate 20 meq/Potassium Phosphate 33 meq/ Magnesium Sulfate 28 meq/ Multivitamins 10 ml/Chromium/ Copper/Manganese/ Zinc 1 ml/Insulin Human Regular 15 units/Amino Acids/ Dextrose/Purified Water 1,390.65 ml @ 58 mls/hr [id number] IV 09/07/24 22:00 09/08/24 21:59 09/07/24 21:02 58 MLS/HR Iron Sucrose 110 ml @ 110 mls/hr DAILY@1200 IV 09/08/24 12:00 09/12/24 12:59 09/08/24 12:36 110 MLS/HR Fat Emulsion Intravenous 150 ml/Sodium Acetate 20 meq/Sodium Phosphate 20 meq/ Potassium Acetate 20 meq/Potassium Phosphate 22 meq/ Calcium Gluconate 2.3 meq/Magnesium Sulfate 28 meq/ Multivitamins 10 ml/Chromium/ Copper/Manganese/ Zinc 1 ml/Insulin Human Regular 16 units/Amino Acids/ Dextrose/Purified Water 1,403.1062 ml @ 58 mls/hr [id number] IV 09/08/24 22:00 09/09/24 21:59 objective GENERAL: Awake, alert, oriented. LUNGS: Clear. CARDIOVASCULAR: Heart sounds are good. ABDOMEN: Soft. NEURO: Slurred speech. laboratory and microbiology Laboratory Tests 09/08/24 05:54 Test 09/08/24 05:54 Range/Units Serum Glucose 149 H 74-106 mg/dL Problem List Generalized weakness and slurred speech rule out TIA rule out CVA. Septic shock secondary to urinary tract infection. Acute urinary tract infection. Diabetes. Hypertension. Hypercholesterolemia. Severe anemia. Hepatic flexor lesions. Villous adenoma. Assessment/Plan Continued all current supportive medical care. Aspirin, Lipitor. IV antibiotics as ordered. Morphine and [place] for pain management. Additional plan as per the hospital course. Dietary Evaluation Review Comments: 1) Advance pt diet when medically feasible to a CCHO 45g/2gNa diet 2) Continue current plan of care Expected Outcomes/Goals: 1) Pt diet to advance Plan discussed with: Patient OTIS JOHNSON MD Sep 08, 2024 17:49
[2024-09-08] MEDS: TPN PER PHARMACY IV NR (21:58)
[2024-09-09] VITALS (7 sets, daily range): BP systolic 134–159; BP diastolic 61–71; PULSE 72–103; RESP 16–19; TEMP 97.5–98; O2SAT 95–98
--- NOTE | 2024-09-09 10:32 | DVHPN2 ---
Reviewed: Care Plan, H&P, Labs, Medications, Previous Orders, Radiology Changes from previous H/P or p: No Changes Eyes: No Pain, No Vision change, No Conjunctivae inflammation, No Eyelid inflammation, No Other, No Redness ENT: No Ear pain, No Ear discharge, No Nose pain, No Nose discharge, No Nose congestion, No Mouth pain, No Mouth swelling, No Throat pain, No Throat swelling, No Other Cardiovascular: No Chest Pain, No Palpitations, No Orthopnea, No Paroxysmal Noc. Dyspnea, No Edema, No Lt Headedness, No Other Respiratory: No Cough, No Dry, No Shortness of breath, No SOB with excertion, No Wheezing, No Hemoptysis, No Pleuritic Pain, No Sputum, No Other Gastrointestinal: No Nausea, No Vomiting, No Abdominal Pain, No Diarrhea, No Constipation, No Melena, No Hematochezia, No Other Genitourinary: No Dysuria, No Frequency, No Incontinence, No Hematuria, No Retention, No Other Musculoskeletal: No other, No neck pain, No shoulder pain, No arm pain, No back pain, No hand pain, No leg pain, No foot pain Skin: No Rash, No Lesions, No Jaundice, No Bruising, No Other Objective Vitals Vital Signs Date Time Temp Pulse Resp B/P (MAP) Pulse Ox O2 Delivery O2 Flow Rate FiO2 09/09/24 08:51 98.0 89 16 134/62 (86) 98 98.0 09/08/24 20:00 Room Air* 0 21 Intake/Output Intake and Output 09/09/24 07:00 Intake Total 2856 ml Output Total 2420 ml Balance 436 ml Intake Oral 450 ml IV Total 2406 ml Output Urine Total 2350 ml Drainage Total 70 ml Medications Current Medications Medications Dose Ordered Sig/Walt Route Start Time Stop Time Status Last Admin Dose Admin Hydralazine HCl 10 mg Q6HP PRN IV 08/25/24 17:30 09/08/24 12:36 10 MG Atorvastatin Calcium 40 mg HS PO 08/25/24 22:00 09/08/24 21:54 40 MG Ondansetron HCl 4 mg Q4HP PRN IV 08/25/24 17:30 09/04/24 03:11 4 MG Docusate Sodium 100 mg BIDPRN PRN PO 08/25/24 17:30 Acetaminophen 650 mg Q6HP PRN PO 08/25/24 17:30 08/25/24 18:00 650 MG Nitroglycerin 0.4 mg Q5MINP PRN SL 08/25/24 17:30 Doxycycline Hyclate 250 ml @ 125 mls/hr Q12H IV 08/25/24 18:15 Cancel Doxycycline Hyclate 250 ml @ 125 mls/hr Q12HR IV 08/26/24 10:00 Cancel Sodium Chloride 10 ml QSHIFT@10,22 IV 08/30/24 22:00 09/08/24 22:20 10 ML Amino Acids 0 ml @ 0 mls/hr PER PHARMACY IV 08/30/24 17:15 Sodium Chloride 1,000 ml @ 30 mls/hr Q24H IV 08/31/24 22:00 09/08/24 10:41 30 MLS/HR Hydromorphone HCl 0.5 mg Q4HPRN PRN IV 09/02/24 17:30 09/09/24 04:21 0.5 MG Lorazepam 0.5 mg Q6HP PRN IV 09/03/24 11:00 09/08/24 15:44 0.5 MG Insulin Glargine 30 units DAILY@1000 SC 09/04/24 10:00 09/08/24 10:39 30 UNITS Diagnostic Test (Pha) 1 strip IQ4HR 09/03/24 16:00 09/09/24 08:51 1 STRIP Insulin Human Regular IQ4HR SC 09/03/24 16:00 09/08/24 12:20 2 UNITS Dextrose 50 ml UD PRN IV 09/03/24 13:30 Potassium Chloride 20 meq/ Lactated Ringer's 1,010 ml @ 100 mls/hr Q10H6M IV 09/03/24 13:30 09/08/24 10:36 100 MLS/HR Metronidazole 100 ml @ 100 mls/hr Q8HR IV 09/04/24 14:00 09/09/24 05:20 100 MLS/HR Pantoprazole Sodium 40 mg BID IV 09/05/24 10:00 09/08/24 21:55 40 MG Iron Sucrose 110 ml @ 110 mls/hr DAILY@1200 IV 09/08/24 12:00 09/12/24 12:59 09/08/24 12:36 110 MLS/HR Fat Emulsion Intravenous 150 ml/Sodium Acetate 20 meq/Sodium Phosphate 20 meq/ Potassium Acetate 20 meq/Potassium Phosphate 22 meq/ Calcium Gluconate 2.3 meq/Magnesium Sulfate 28 meq/ Multivitamins 10 ml/Chromium/ Copper/Manganese/ Zinc 1 ml/Insulin Human Regular 16 units/Amino Acids/ Dextrose/Purified Water 1,403.1062 ml @ 58 mls/hr [id number] IV 09/08/24 22:00 09/09/24 21:59 09/08/24 21:58 58 MLS/HR Laboratory Results Laboratory Tests 09/08/24 05:54 Urinalysis Test 08/25/24 18:33 Urine Color Colorless (Yellow) Urine Clarity Turbid (Clear) H Urine pH 6.5 (5.0-9.0) Urine Specific [place] > 1.050 (1.001-1.035) Urine Protein Trace (Negative) H Urine Ketones Negative (Negative) Urine Blood Trace /uL (Negative) H Urine Nitrite Negative (Negative) Urine Bilirubin Negative (Negative) Urine Urobilinogen Normal mg/dL (Negative) Urine Leukocyte Esterase 3+ /uL (Negative) Urine RBC 1 /hpf (0 - 4) Urine WBC 257 /hpf (0 - 5) Urine Squamous Epithelial Cells Few /hpf (<5) Urine Bacteria Few /hpf (None Seen) H Urine Yeast (Budding) Few /hpf (None Seen) Urine Glucose Normal mg/dL (Normal) Microbiology Microbiology Date/Time Source Procedure Growth Status 08/28/24 06:00 Urine - Midstream Clean Catch Urine Culture - Final Complete 08/26/24 15:03 Blood Blood Culture - Final NO GROWTH AFTER 5 DAYS OF INCUBATION. 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 Lyle on 09-02-24 with ileotransverse colon anastomosis, with INDU drain, continue Rocephin add Flagyl DC doxycycline, INDU drain to come out in two weeks as an outpatient per Dr yLle Generalized weakness and slurred speech TIA and CVA ruled out, CT head negative CT angio neck negative, MRI brain negative, Neurology consult by Dr. Gomez appreciated, placed on aspirin Septic shock secondary to urinary tract infection: Blood cultures negative, urine cultures negative Acute urinary tract infection: Rocephin Diabetes: Insulin sliding scale Hypertension Hypercholesterolemia Iron-deficiency anemia: Iron infusion Anxiety: Ativan 0.5 mg IV q.8h Severe anemia hemoglobin 8.8,, consult for Dr. Rosario TPN via PICC line EGD and polypectomy with the biopsy of the gastric polyp by Dr. Santamaria, which is benign Time spent 65 minutes Patient is full code Patient started on soft diet and tolerating well Awaiting pathology report from the specimen sent to the lab at the time of surgery Discussed with Dr. Rosario advised patient can follow up with him as an outpatient after the pathology report Patient has PICC line Physical therapy ordered Discussed with the patient and the and willing to go to [facility] for [facility] antibiotics physical therapy and rehab Plan discussed with: Patient My Orders Orders - MARLIN SHAW MD Procedure Category Date Status Time * Wound Consult CONS 09/09/24 Transmitted Complete Blood Count LAB 09/09/24 Logged 10:16 Date of Service: Sep 09, 2024 Billing Provider: MARLIN SHAW MD Common Visit Codes: [id number] INP/OBS CARE(HIGH) Secondary Visit Codes: [id number] CARE PLAN 30 MINUTES MARLIN SHAW MD Sep 09, 2024 10:32
--- NOTE | 2024-09-09 10:56 | DVHPN2 ---
Progress Note Date Seen: Sep 09, 2024 Medical Necessity Reason Pt with a Central, PICC or Fol: Yes The following are medically ne: PICC Line Objective vital signs Vital Sign Date Time Temp Pulse Resp B/P (MAP) Pulse Ox O2 Delivery O2 Flow Rate FiO2 09/09/24 08:51 98.0 89 16 134/62 (86) 98 98.0 09/08/24 20:00 Room Air* 0 21 Total Intake and Output 09/08/24 09/08/24 09/09/24 15:00 23:00 07:00 Intake Total 2556 ml 300 ml Output Total 1220 ml 1200 ml Balance 1336 ml -900 ml medications Current Medications Medications Dose Ordered Sig/Walt Route Start Time Stop Time Status Last Admin Dose Admin Hydralazine HCl 10 mg Q6HP PRN IV 08/25/24 17:30 09/08/24 12:36 10 MG Atorvastatin Calcium 40 mg HS PO 08/25/24 22:00 09/08/24 21:54 40 MG Ondansetron HCl 4 mg Q4HP PRN IV 08/25/24 17:30 09/04/24 03:11 4 MG Docusate Sodium 100 mg BIDPRN PRN PO 08/25/24 17:30 Acetaminophen 650 mg Q6HP PRN PO 08/25/24 17:30 08/25/24 18:00 650 MG Nitroglycerin 0.4 mg Q5MINP PRN SL 08/25/24 17:30 Doxycycline Hyclate 250 ml @ 125 mls/hr Q12H IV 08/25/24 18:15 Cancel Doxycycline Hyclate 250 ml @ 125 mls/hr Q12HR IV 08/26/24 10:00 Cancel Sodium Chloride 10 ml QSHIFT@10,22 IV 08/30/24 22:00 09/08/24 22:20 10 ML Amino Acids 0 ml @ 0 mls/hr PER PHARMACY IV 08/30/24 17:15 Sodium Chloride 1,000 ml @ 30 mls/hr Q24H IV 08/31/24 22:00 09/08/24 10:41 30 MLS/HR Hydromorphone HCl 0.5 mg Q4HPRN PRN IV 09/02/24 17:30 09/09/24 04:21 0.5 MG Lorazepam 0.5 mg Q6HP PRN IV 09/03/24 11:00 09/08/24 15:44 0.5 MG Insulin Glargine 30 units DAILY@1000 SC 09/04/24 10:00 09/08/24 10:39 30 UNITS Diagnostic Test (Pha) 1 strip IQ4HR 09/03/24 16:00 09/09/24 08:51 1 STRIP Insulin Human Regular IQ4HR SC 09/03/24 16:00 09/08/24 12:20 2 UNITS Dextrose 50 ml UD PRN IV 09/03/24 13:30 Potassium Chloride 20 meq/ Lactated Ringer's 1,010 ml @ 100 mls/hr Q10H6M IV 09/03/24 13:30 09/08/24 10:36 100 MLS/HR Metronidazole 100 ml @ 100 mls/hr Q8HR IV 09/04/24 14:00 09/09/24 05:20 100 MLS/HR Pantoprazole Sodium 40 mg BID IV 09/05/24 10:00 09/08/24 21:55 40 MG Iron Sucrose 110 ml @ 110 mls/hr DAILY@1200 IV 09/08/24 12:00 09/12/24 12:59 09/08/24 12:36 110 MLS/HR Fat Emulsion Intravenous 150 ml/Sodium Acetate 20 meq/Sodium Phosphate 20 meq/ Potassium Acetate 20 meq/Potassium Phosphate 22 meq/ Calcium Gluconate 2.3 meq/Magnesium Sulfate 28 meq/ Multivitamins 10 ml/Chromium/ Copper/Manganese/ Zinc 1 ml/Insulin Human Regular 16 units/Amino Acids/ Dextrose/Purified Water 1,403.1062 ml @ 58 mls/hr [id number] IV 09/08/24 22:00 09/09/24 21:59 09/08/24 21:58 58 MLS/HR laboratory and microbiology Laboratory Tests 09/08/24 05:54 Test 09/08/24 05:54 Range/Units Serum Glucose 149 H 74-106 mg/dL Problem List/Assessment/Plan Problem List/Assessment/Plan 08/31/[address], NEEDS TO START TPN, AWAITING BIOPSY RESULTS 09/03/24 awake orientsed, cooperative, wound clean and dressing dry, serous drainage, abdomen non distended. 09/04/24 no complaints, abdomen soft, non distended, appropriately tender, wound clean and well approximated, drainage serous, must ambulate 09/05/24 comfortable, no flatus or BM, wound clean and well approximated. abdomen soft, non distended 09/07/24 HAVING NORMAL BOWEL ACTIVITY, TOLERATING PO INTAKE, OK TO ADVANCE PO DIET GRADUALLY, AMBULATE, WOUND OK 09/09/24 tolerating po intake, normal bowel and bladder activity, wound clean and well approximated, drainage serous, OK to discharge Plan discussed with: Patient Dietary Evaluation Review Comments: 1) Advance pt diet when medically feasible to a CCHO 45g/2gNa diet 2) Continue current plan of care Expected Outcomes/Goals: 1) Pt diet to advance LESTER PAREDES MD Sep 09, 2024 10:56
[2024-09-09 12:15] LABS: Basophils # (auto) 0 10 ^3/uL (0-0.2); Basophils % (auto) 0.4 % (0.0-2.0); Eosinophils # (auto) 0.1 10 ^3/uL (0-0.8); Hematocrit 22.9 % (36.0-46.0); Hemoglobin 7.2 g/dL (12.2-16.2); Lymphocytes # (auto) 0.9 10 ^3/uL (0.4-5.4); Lymphocytes % (auto) 17.5 % (10.0-50.0); Mean Corpuscular Hemoglobin 25.1 pg (28.0-32.0); Mean Corpuscular Hgb Conc. 31.6 g/dL (32.0-36.0); Mean Corpuscular Volume 79.4 fL (80.0-100.0); Monocytes # (auto) 0.3 10 ^3/uL (0-1.3); Monocytes % (auto) 6.7 % (0.0-12.0); Neutrophils # (auto) 3.8 10 ^3/uL (1.6-8.6); Neutrophils % (auto) 74.4 % (37.0-80.0); Nucleated Red Blood Cells % 0.1 %; Platelet Count (auto) 181 10^3/uL (140-450); Red Blood Cells 2.89 10^6/uL (4.0-5.20); White Blood Cell 5.1 10^3/uL (4.4-10.8)
[2024-09-09 12:17] LABS: Red Cell Distribution Width 22.3 % (11.8-14.3)
[2024-09-09] MEDS: HYDROmorphone HCL 2 MG/ML VL/or syr IM ONE (14:15)
[2024-09-09 14:45] LABS: Alanine Aminotransferase 23 U/L (7-40); Alkaline Phosphatase 94 U/L (46-116); Anion Gap 6 (5-15); Aspartate Aminotransferase 35 U/L (13-40); BUN/Creatinine Ratio 28.2 (10.0-20.0); Blood Urea Nitrogen 20 mg/dL (9-23); Carbon Dioxide 24 mmol/L (20-31); Chloride 107 mmol/L (98-107); Magnesium 2.1 mg/dL (1.6-2.6); Potassium 4.1 mmol/L (3.5-5.1); Sodium 137 mmol/L (136-145)
[2024-09-09 14:46] LABS: Phosphorus 4.3 mg/dL (2.4-5.1); Total Protein 6.6 g/dL (5.7-8.2)
[2024-09-09 14:47] LABS: Albumin 2.6 g/dL (3.2-4.8); Bilirubin, Total 0.2 mg/dL (0.2-1.0); Calcium 8.3 mg/dL (8.7-10.4); Glucose 162 mg/dL (74-106)
[2024-09-09] MEDS: IOHEXOL 300 MG/ML 100ML BOTTLE IJ ONE (14:48)
--- NOTE | 2024-09-09 15:31 | DVH ---
Exam: CT CT AB PEL WITH IV CON ONLY History: Right lower quadrant abdominal pain status post hemicolectom COMPARISON: CT CT CHEST/AB/PL W CON- IV ONLY on DOS: 09/01/24, CT CT AB PEL WO CON-NO ORAL OR IV on D OS: 05/10/24 Technique: Multidetector spiral CT of the abdomen and pelvis was performed from lung bases to pubic symphysis. Intravenous contrast was administered during this examination. Portal venous imaging was obtained. Axial, coronal and sagittal multiplanar reformats were performed by the technologist on a separate workstation. Radiation Dose : Abdomen/Pelvis: CTDIvol 5 mGy, DLP 268.1 mGy*cm. CONTRAST: Type of contrast: Omni 300 Contrast injected: 100 mL Findings: Lung Bases: No acute or significant lung base finding. Normal heart size. No pleural or pericardial effusion. Liver: The liver is normal in size. No focal lesions. Normal hepatic vascular enhancement. Gallbladder and biliary Tree: Unremarkable Spleen: Subcentimeter cystic lesions in the spleen Pancreas: The pancreas is normal in appearance without focal lesions or abnormal enhancement. Adrenal Glands: Unremarkable Kidneys: No hydronephrosis. Bladder: Bladder is decompressed with a Santillan catheter and cannot be adequately assessed. Bowel: The stomach is grossly normal in appearance. Status post right hemicolectomy. Mild distention of small-bowel. The appendix is not visualized; however, no secondary findings of acute appendicitis identified. Ascites: Trace free fluid in the pelvis. Lymphadenopathy: No mesenteric, retroperitoneal or periportal lymphadenopathy. Abdominal wall and Mesentery: Mild stranding in the mesentery. No significant fluid collection associ ated with the INDU drain in the region of the pancreas. Fluid collection in the right abdomen measuring up to 30 mm. Vasculature: The visualized abdominal aorta is normal in size and caliber. There is calcified atheros clerotic plaque involving the aorta and its branches. Abdominal and pelvic vessels demonstrate normal enhancement. Pelvic Organs: Unremarkable Musculoskeletal: No aggressive focal bony lesions, acute fractures or dislocation. IMPRESSION: 1. Status post right hemicolectomy. INDU drain in place. No significant fluid collection associated wi th the INDU drain. Fluid collection in the right abdomen measuring up to 30 mm. Given deep location thi s may be difficult to drain percutaneously. Nonspecific stranding in the mesentery. Nonspecific diste ntion of small bowel likely secondary to ileus. Clinical correlation and continued follow-up is recom mended. 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 Radiation optimization: All CT scans at this facility use at least one of these dose optimization davidson hniques: Automated exposure control mA and/or kV adjustment per patient size (includes targeted exams where dose is matched to clinical indication) or iterative reconstruction. HS:Y
--- NOTE | 2024-09-09 18:41 | DVHPN2 ---
Progress Note - Dictate Date Seen: Sep 09, 2024 Medical Necessity Reason Pt with a Central, PICC or Fol: Yes The following are medically ne: PICC Line Subjective Patient was seen and evaluated in follow up. Patient is complaining of generalized pain. She is tolerating po intake. Patient is willing to go to nursing home facility for IV antibiotics physical therapy and rehab. HGB 7.2, HCT 22.9. vital signs Vital Sign Date Time Temp Pulse Resp B/P (MAP) Pulse Ox O2 Delivery O2 Flow Rate FiO2 09/09/24 16:53 98.0 99 16 159/71 (100) 95 98.0 09/09/24 08:25 Room Air* 0 21 Total Intake and Output 09/08/24 09/08/24 09/09/24 15:00 23:00 07:00 Intake Total 2556 ml 300 ml Output Total 1220 ml 1200 ml Balance 1336 ml -900 ml medications Current Medications Medications Dose Ordered Sig/Walt Route Start Time Stop Time Status Last Admin Dose Admin Hydralazine HCl 10 mg Q6HP PRN IV 08/25/24 17:30 09/08/24 12:36 10 MG Atorvastatin Calcium 40 mg HS PO 08/25/24 22:00 09/08/24 21:54 40 MG Ondansetron HCl 4 mg Q4HP PRN IV 08/25/24 17:30 09/04/24 03:11 4 MG Docusate Sodium 100 mg BIDPRN PRN PO 08/25/24 17:30 Acetaminophen 650 mg Q6HP PRN PO 08/25/24 17:30 08/25/24 18:00 650 MG Nitroglycerin 0.4 mg Q5MINP PRN SL 08/25/24 17:30 Doxycycline Hyclate 250 ml @ 125 mls/hr Q12H IV 08/25/24 18:15 Cancel Doxycycline Hyclate 250 ml @ 125 mls/hr Q12HR IV 08/26/24 10:00 Cancel Sodium Chloride 10 ml QSHIFT@10,22 IV 08/30/24 22:00 09/09/24 11:51 10 ML Amino Acids 0 ml @ 0 mls/hr PER PHARMACY IV 08/30/24 17:15 Sodium Chloride 1,000 ml @ 30 mls/hr Q24H IV 08/31/24 22:00 09/08/24 10:41 30 MLS/HR Hydromorphone HCl 0.5 mg Q4HPRN PRN IV 09/02/24 17:30 09/09/24 04:21 0.5 MG Lorazepam 0.5 mg Q6HP PRN IV 09/03/24 11:00 09/08/24 15:44 0.5 MG Insulin Glargine 30 units DAILY@1000 SC 09/04/24 10:00 09/09/24 12:00 30 UNITS Diagnostic Test (Pha) 1 strip IQ4HR 09/03/24 16:00 09/09/24 16:00 1 STRIP Insulin Human Regular IQ4HR SC 09/03/24 16:00 09/09/24 16:00 2 UNITS Dextrose 50 ml UD PRN IV 09/03/24 13:30 Potassium Chloride 20 meq/ Lactated Ringer's 1,010 ml @ 100 mls/hr Q10H6M IV 09/03/24 13:30 09/08/24 10:36 100 MLS/HR Metronidazole 100 ml @ 100 mls/hr Q8HR IV 09/04/24 14:00 09/09/24 05:20 100 MLS/HR Pantoprazole Sodium 40 mg BID IV 09/05/24 10:00 09/09/24 11:51 40 MG Iron Sucrose 110 ml @ 110 mls/hr DAILY@1200 IV 09/08/24 12:00 09/12/24 12:59 09/09/24 12:17 110 MLS/HR Fat Emulsion Intravenous 150 ml/Sodium Acetate 20 meq/Sodium Phosphate 20 meq/ Potassium Acetate 20 meq/Potassium Phosphate 22 meq/ Calcium Gluconate 2.3 meq/Magnesium Sulfate 28 meq/ Multivitamins 10 ml/Chromium/ Copper/Manganese/ Zinc 1 ml/Insulin Human Regular 16 units/Amino Acids/ Dextrose/Purified Water 1,403.1062 ml @ 58 mls/hr [id number] IV 09/08/24 22:00 09/09/24 21:59 09/08/24 21:58 58 MLS/HR Fat Emulsion Intravenous 150 ml/Sodium Acetate 20 meq/Potassium Acetate 20 meq/ Magnesium Sulfate 24 meq/ Multivitamins 10 ml/Chromium/ Copper/Manganese/ Zinc 1 ml/Insulin Human Regular 16 units/Amino Acids/ Dextrose/Purified Water 1,387.16 ml @ 57 mls/hr [id number] IV 09/09/24 22:00 09/10/24 21:59 objective GENERAL: Awake, alert, oriented. LUNGS: Clear. CARDIOVASCULAR: Heart sounds are good. ABDOMEN: Soft. NEURO: Slurred speech. laboratory and microbiology Laboratory Tests 09/09/24 11:40 Test 09/09/24 11:40 Range/Units Serum Glucose 162 H 74-106 mg/dL Problem List Generalized weakness and slurred speech rule out TIA rule out CVA. Septic shock secondary to urinary tract infection. Acute urinary tract infection. Diabetes. Hypertension. Hypercholesterolemia. Severe anemia. Hepatic flexor lesions. Villous adenoma. Assessment/Plan Continued all current supportive medical care. Aspirin, Lipitor. IV antibiotics as ordered. Morphine and Stitzer for pain management. Additional plan as per the hospital course. Dietary Evaluation Review Comments: 1) Advance pt diet when medically feasible to a CCHO 45g/2gNa diet 2) Continue current plan of care Expected Outcomes/Goals: 1) Pt diet to advance Plan discussed with: Patient OTIS JOHNSON MD Sep 09, 2024 18:41
[2024-09-09] MEDS: TPN PER PHARMACY IV NR (22:19)
[2024-09-10] VITALS (10 sets, daily range): BP systolic 126–160; BP diastolic 55–79; PULSE 72–93; RESP 18–20; TEMP 97.7–98.7; O2SAT 97–99
[2024-09-10 06:39] LABS: Alanine Aminotransferase 21 U/L (7-40); Alkaline Phosphatase 88 U/L (46-116); Anion Gap 5 (5-15); Aspartate Aminotransferase 31 U/L (13-40); BUN/Creatinine Ratio 23.7 (10.0-20.0); Bilirubin, Total 0.4 mg/dL (0.2-1.0); Blood Urea Nitrogen 18 mg/dL (9-23); Carbon Dioxide 26 mmol/L (20-31); Magnesium 1.9 mg/dL (1.6-2.6); Phosphorus 3.8 mg/dL (2.4-5.1); Sodium 139 mmol/L (136-145); Total Protein 6.6 g/dL (5.7-8.2)
[2024-09-10 06:46] LABS: Albumin 2.5 g/dL (3.2-4.8); Calcium 8.5 mg/dL (8.7-10.4); Chloride 108 mmol/L (98-107); Glucose 117 mg/dL (74-106)
--- NOTE | 2024-09-10 08:21 | DVHPN2 ---
Reviewed: Care Plan, H&P, Labs, Medications, Previous Orders, Radiology Changes from previous H/P or p: No Changes Eyes: No Pain, No Vision change, No Conjunctivae inflammation, No Eyelid inflammation, No Other, No Redness ENT: No Ear pain, No Ear discharge, No Nose pain, No Nose discharge, No Nose congestion, No Mouth pain, No Mouth swelling, No Throat pain, No Throat swelling, No Other Cardiovascular: No Chest Pain, No Palpitations, No Orthopnea, No Paroxysmal Noc. Dyspnea, No Edema, No Lt Headedness, No Other Respiratory: No Cough, No Dry, No Shortness of breath, No SOB with excertion, No Wheezing, No Hemoptysis, No Pleuritic Pain, No Sputum, No Other Gastrointestinal: No Nausea, No Vomiting, No Abdominal Pain, No Diarrhea, No Constipation, No Melena, No Hematochezia, No Other Genitourinary: No Dysuria, No Frequency, No Incontinence, No Hematuria, No Retention, No Other Musculoskeletal: No other, No neck pain, No shoulder pain, No arm pain, No back pain, No hand pain, No leg pain, No foot pain Skin: No Rash, No Lesions, No Jaundice, No Bruising, No Other Objective Vitals Vital Signs Date Time Temp Pulse Resp B/P (MAP) Pulse Ox O2 Delivery O2 Flow Rate FiO2 09/10/24 05:30 90 147/77 (100) 09/10/24 05:19 16 09/10/24 05:00 97.7 99 97.7 09/09/24 20:00 Room Air* 0 21 Intake/Output Intake and Output 09/10/24 07:00 Intake Total 2600 ml Output Total 4000 ml Balance -1400 ml Intake Oral 1800 ml IV Total 200 ml Blood Product 300 ml Other 300 ml Output Urine Total 4000 ml Medications Current Medications Medications Dose Ordered Sig/Walt Route Start Time Stop Time Status Last Admin Dose Admin Hydralazine HCl 10 mg Q6HP PRN IV 08/25/24 17:30 09/08/24 12:36 10 MG Atorvastatin Calcium 40 mg HS PO 08/25/24 22:00 09/09/24 20:27 40 MG Ondansetron HCl 4 mg Q4HP PRN IV 08/25/24 17:30 09/04/24 03:11 4 MG Docusate Sodium 100 mg BIDPRN PRN PO 08/25/24 17:30 Acetaminophen 650 mg Q6HP PRN PO 08/25/24 17:30 08/25/24 18:00 650 MG Nitroglycerin 0.4 mg Q5MINP PRN SL 08/25/24 17:30 Doxycycline Hyclate 250 ml @ 125 mls/hr Q12H IV 08/25/24 18:15 Cancel Doxycycline Hyclate 250 ml @ 125 mls/hr Q12HR IV 08/26/24 10:00 Cancel Sodium Chloride 10 ml QSHIFT@10,22 IV 08/30/24 22:00 09/09/24 20:25 10 ML Amino Acids 0 ml @ 0 mls/hr PER PHARMACY IV 08/30/24 17:15 Sodium Chloride 1,000 ml @ 30 mls/hr Q24H IV 08/31/24 22:00 09/08/24 10:41 30 MLS/HR Hydromorphone HCl 0.5 mg Q4HPRN PRN IV 09/02/24 17:30 09/10/24 04:49 0.5 MG Lorazepam 0.5 mg Q6HP PRN IV 09/03/24 11:00 09/08/24 15:44 0.5 MG Insulin Glargine 30 units DAILY@1000 SC 09/04/24 10:00 09/09/24 12:00 30 UNITS Diagnostic Test (Pha) 1 strip IQ4HR 09/03/24 16:00 09/10/24 04:41 1 STRIP Insulin Human Regular IQ4HR SC 09/03/24 16:00 09/10/24 04:45 2 UNITS Dextrose 50 ml UD PRN IV 09/03/24 13:30 Potassium Chloride 20 meq/ Lactated Ringer's 1,010 ml @ 100 mls/hr Q10H6M IV 09/03/24 13:30 09/10/24 04:57 100 MLS/HR Metronidazole 100 ml @ 100 mls/hr Q8HR IV 09/04/24 14:00 09/10/24 05:49 100 MLS/HR Pantoprazole Sodium 40 mg BID IV 09/05/24 10:00 09/09/24 20:28 40 MG Iron Sucrose 110 ml @ 110 mls/hr DAILY@1200 IV 09/08/24 12:00 09/12/24 12:59 123/24 12:17 110 MLS/HR Fat Emulsion Intravenous 150 ml/Sodium Acetate 20 meq/Potassium Acetate 20 meq/ Magnesium Sulfate 24 meq/ Multivitamins 10 ml/Chromium/ Copper/Manganese/ Zinc 1 ml/Insulin Human Regular 16 units/Amino Acids/ Dextrose/Purified Water 1,387.16 ml @ 57 mls/hr [id number] IV 09/09/24 22:00 09/10/24 21:59 09/09/24 22:19 57 MLS/HR Laboratory Results Laboratory Tests 09/09/24 11:40 09/10/24 05:34 Chemistry Test 09/09/24 11:40 09/10/24 05:34 Albumin 2.6 g/dL (3.2-4.8) L 2.5 g/dL (3.2-4.8) L Calcium Level 8.3 mg/dL (8.7-10.4) L 8.5 mg/dL (8.7-10.4) L Magnesium Level 2.1 mg/dL (1.6-2.6) 1.9 mg/dL (1.6-2.6) Phosphorus Level 4.3 mg/dL (2.4-5.1) 3.8 mg/dL (2.4-5.1) Total Protein 6.6 g/dL (5.7-8.2) 6.6 g/dL (5.7-8.2) LFT Test 09/09/24 11:40 09/10/24 05:34 Alanine Aminotransferase (ALT) 23 U/L (7-40) 21 U/L (7-40) Alkaline Phosphatase 94 U/L (46-116) 88 U/L (46-116) Aspartate Amino Transferase (AST) 35 U/L (13-40) 31 U/L (13-40) Total Bilirubin 0.2 mg/dL (0.2-1.0) 0.4 mg/dL (0.2-1.0) Urinalysis Test 08/25/24 18:33 Urine Color Colorless (Yellow) Urine Clarity Turbid (Clear) H Urine pH 6.5 (5.0-9.0) Urine Specific [place] > 1.050 (1.001-1.035) Urine Protein Trace (Negative) H Urine Ketones Negative (Negative) Urine Blood Trace /uL (Negative) H Urine Nitrite Negative (Negative) Urine Bilirubin Negative (Negative) Urine Urobilinogen Normal mg/dL (Negative) Urine Leukocyte Esterase 3+ /uL (Negative) Urine RBC 1 /hpf (0 - 4) Urine WBC 257 /hpf (0 - 5) Urine Squamous Epithelial Cells Few /hpf (<5) Urine Bacteria Few /hpf (None Seen) H Urine Yeast (Budding) Few /hpf (None Seen) Urine Glucose Normal mg/dL (Normal) Microbiology Microbiology Date/Time Source Procedure Growth Status 08/28/24 06:00 Urine - Midstream Clean Catch Urine Culture - Final Complete 08/26/24 15:03 Blood Blood Culture - Final NO GROWTH AFTER 5 DAYS OF INCUBATION. 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 Lyle on 09-02-24 with ileotransverse colon anastomosis, with INDU drain, continue Rocephin add Flagyl DC doxycycline, INDU drain to come out in two weeks as an outpatient per Dr Lyle Generalized weakness and slurred speech TIA and CVA ruled out, CT head negative CT angio neck negative, MRI brain negative, Neurology consult by Dr. Gomez appreciated, placed on aspirin Septic shock secondary to urinary tract infection: Blood cultures negative, urine cultures negative Acute urinary tract infection: Rocephin Diabetes: Insulin sliding scale Hypertension Hypercholesterolemia Iron-deficiency anemia: Iron infusion Anxiety: Ativan 0.5 mg IV q.8h Severe anemia hemoglobin 8.8,, consult for Dr. Rosario TPN via PICC line EGD and polypectomy with the biopsy of the gastric polyp by Dr. Santamaria, which is benign Time spent 55 minutes Patient is full code Patient started on soft diet and tolerating well Cleared for discharge by surgeon Discussed with Dr. Rosario advised patient can follow up with him as an outpatient after the pathology report Patient has PICC line CT abdomen pelvis without contrast 09/09/2024 showed minimal fluid collection 30 mm in the right lower quadrant Physical therapy ordered Discussed with the patient and the and willing to go to correction facility for IV antibiotics physical therapy and rehab Plan discussed with: Patient My Orders Orders - MARLIN SHAW MD Procedure Category Date Status Time * Wound Consult CONS 09/09/24 Transmitted Pt Request For Service PT 09/09/24 Logged 10:29 Ct Ab Pel With Iv Con CT 09/09/24 Resulted Only 14:24 Date of Service: Sep 10, 2024 Billing Provider: MARLIN SHAW MD Common Visit Codes: [id number] INP/OBS CARE(HIGH) MARLIN SHAW MD Sep 10, 2024 08:21
--- NOTE | 2024-09-10 09:04 | DVHDS2 ---
Discharge Summary Date of Admission Aug 25, 2024 at 17:24 Date of Discharge: Sep 10, 2024 Admitting Diagnosis Generalized weakness and abdominal pain Wounds: Exploratory laparotomy with right hemicolectomy and ileotransverse colostomy Labs/Diagnostic Data: Laboratory Results Test 09/10/24 05:34 09/10/24 04:34 09/09/24 11:40 09/07/24 05:20 Sodium Level 139 mmol/L (136-145) Potassium Level 4.0 mmol/L (3.5-5.1) Chloride Level 108 mmol/L (98-107) Carbon Dioxide Level 26 mmol/L (20-31) Anion Gap 5 (5-15) Blood Urea Nitrogen 18 mg/dL (9-23) Creatinine 0.76 mg/dL (0.550-1.02) Glomerular Filtration Rate Calc 81 mL/min (>90) BUN/Creatinine Ratio 23.7 (10.0-20.0) Serum Glucose 117 mg/dL (74-106) Calcium Level 8.5 mg/dL (8.7-10.4) Phosphorus Level 3.8 mg/dL (2.4-5.1) Magnesium Level 1.9 mg/dL (1.6-2.6) Total Bilirubin 0.4 mg/dL (0.2-1.0) Aspartate Amino Transferase (AST) 31 U/L (13-40) Alanine Aminotransferase (ALT) 21 U/L (7-40) Alkaline Phosphatase 88 U/L (46-116) Total Protein 6.6 g/dL (5.7-8.2) Albumin 2.5 g/dL (3.2-4.8) POC Glucose 142 mg/dl (70-106) White Blood Count 5.1 10^3/uL (4.4-10.8) Red Blood Count 2.89 10^6/uL (4.0-5.20) Hemoglobin 7.2 g/dL (12.2-16.2) Hematocrit 22.9 % (36.0-46.0) Mean Corpuscular Volume 79.4 fL (80.0-100.0) Mean Corpuscular Hemoglobin 25.1 pg (28.0-32.0) Mean Corpuscular Hemoglobin Concent 31.6 g/dL (32.0-36.0) Red Cell Distribution Width 22.3 % (11.8-14.3) Platelet Count 181 10^3/uL (140-450) Mean Platelet Volume 8.4 fL (6.9-10.8) Neutrophils (%) (Auto) 74.4 % (37.0-80.0) Lymphocytes (%) (Auto) 17.5 % (10.0-50.0) Monocytes (%) (Auto) 6.7 % (0.0-12.0) Eosinophils (%) (Auto) 1.0 % (0.0-7.0) Basophils (%) (Auto) 0.4 % (0.0-2.0) Neutrophils # (Auto) 3.8 10 ^3/uL (1.6-8.6) Lymphocytes # (Auto) 0.9 10 ^3/uL (0.4-5.4) Monocytes # (Auto) 0.3 10 ^3/uL (0-1.3) Eosinophils # (Auto) 0.1 10 ^3/uL (0-0.8) Basophils # (Auto) 0 10 ^3/uL (0-0.2) Nucleated Red Blood Cells 0.1 % Iron Level 38 ug/dL (50-170) Total Iron Binding Capacity 154 ug/dL (250-425) Percent Iron Saturation 24.7 % (15-50) Ferritin 681.9 ng/mL (10-291) Triglycerides Level 67 mg/dL (< 150) Test 09/05/24 05:28 08/29/24 15:22 08/28/24 06:33 08/25/24 19:54 Platelet Estimate Decreased Hypochromasia (manual) Slight Anisocytosis (manual) Slight Microcytosis Slight Ovalocytes Few Carcinoembryonic Antigen 1.57 ng/mL (<=5.0) Target Cells Moderate Prothrombin Time 11.8 sec (9.3-11.8) Prothrombin Time INR 1.12 (0.9-1.15) Activated Partial Thromboplast Time 23.0 SEC (24.5-34.5) Troponin I High Sensitivity 34 ng/L (</=34) Test 08/25/24 18:33 08/25/24 15:57 Urine Color Colorless (Yellow) Urine Clarity Turbid (Clear) Urine pH 6.5 (5.0-9.0) Urine Specific [place] > 1.050 (1.001-1.035) Urine Protein Trace (Negative) Urine Ketones Negative (Negative) Urine Blood Trace /uL (Negative) Urine Nitrite Negative (Negative) Urine Bilirubin Negative (Negative) Urine Urobilinogen Normal mg/dL (Negative) Urine Leukocyte Esterase 3+ /uL (Negative) Urine RBC 1 /hpf (0 - 4) Urine WBC 257 /hpf (0 - 5) Urine Squamous Epithelial Cells Few /hpf (<5) Urine Bacteria Few /hpf (None Seen) Urine Yeast (Budding) Few /hpf (None Seen) Urine Glucose Normal mg/dL (Normal) Differential Total Cells Counted 100.0 (100) Neutrophils % (Manual) 86 (37.0-80.0) Band Neutrophils % (Manual) 6 Lymphocytes % (Manual) 4 (10.0-50.0) Monocytes % (Manual) 4 (0-12) Eosinophils % (Manual) 0 (0-7) Basophils % (Manual) 0 (0.0-2.0) Metamyelocytes % (manual) 0 Myelocytes % (Manual) 0 Promyelocytes % (Manual) 0 Blast Cells % (Manual) 0 Reactive Lymphocytes 0 Lactic Acid Level 1.2 mmol/L (0.4-2.0) Other Laboratory Tests 09/10/24 05:34 09/09/24 11:40 Brief Hx & Hospital Course: 74-year-old female came in for generalized weakness and confusion abdominal pain. Patient has history of diabetes hypertension hypercholesterolemia and anxiety. Patient was found to have acute urinary tract infection treated with Rocephin blood cultures negative urine cultures negative patient found to be in septic shock which has recovered . Colonoscopy by Dr. Santamaria showed villous adenoma right hepatic flexure. Patient subsequently underwent exploratory laparotomy right hemicolectomy and ileotransverse colostomy by Dr. Lyle with drain placement. TIA and CVA was ruled out with CT head negative CT angio neck negative MRI brain negative neurology consult by Dr. Gomez. Patient was treated with Rocephin for UTI and Rocephin and Flagyl for intestinal infection. The patient had severe anemia hemoglobin 8.8 . The patient was given iron infusion. EGD and polypectomy with a biopsy of the gastric polyp by Dr. Santamaria which is benign . Patient received physical therapy. Cleared for discharge by Dr. Lyle. Dr. Rosario advised that he would see her as an outpatient Discharged to [facility] Consults/Reason for consult Surgeon Dr. Lyle Oncology Dr. Rosario Operations or Procedures Exploratory laparotomy right hemicolectomy ileotransverse colostomy Condition at Discharge: Fair Final Diagnosis/Problems List Exploratory laparotomy, right hemicolectomy for villous adenoma hepatic flexure of the colon by Dr. Lyle on 09-02-24 with ileotransverse colon anastomosis, with INDU drain, continue Rocephin add Flagyl DC doxycycline, INDU drain to come out in two weeks as an outpatient per Dr Lyle Generalized weakness and slurred speech TIA and CVA ruled out, CT head negative CT angio neck negative, MRI brain negative, Neurology consult by Dr. Gomez appreciated, placed on aspirin Septic shock secondary to urinary tract infection: Blood cultures negative, urine cultures negative Acute urinary tract infection: Rocephin Diabetes: Insulin sliding scale Hypertension Hypercholesterolemia Iron-deficiency anemia: Iron infusion Anxiety: Ativan 0.5 mg IV q.8h Severe anemia hemoglobin 8.8,, consult for Dr. Rosario TPN via PICC line EGD and polypectomy with the biopsy of the gastric polyp by Dr. Santamaria, which is benign Discharge Disposition: Assisted Facility Discharge Instruct/Medications Diet: Regular Activity: Light activity Follow Up/Referral: [facility] with [facility] Medications: Rocephin 1 g IV daily for two weeks Flagyl 500 mg IV q.8 hours for two weeks 39 (Time taken for discharge summary 39 minutes) Discharge Statement: "Patient was advised to return to the ER or call 911 if any headaches, dizziness, shortness of breath, chest pain, abdominal pain, bleeding, fevers, or worsening of medical condition. Patient was counseled about treatment plan, medications, possible side effects, patientverbalized understanding. All questions were answered to the best of my ability. This discharge took greater then 30 minutes in planning, reviewing documentation, counseling the patient, and discussing with other team members." ASSESSMENT ASSESSMENT Hospital Course Improved Assessment Exploratory laparotomy, right hemicolectomy for villous adenoma hepatic flexure of the colon by Dr. Lyle on 09-02-24 with ileotransverse colon anastomosis, with INDU drain, continue Rocephin add Flagyl DC doxycycline, INDU drain to come out in two weeks as an outpatient per Dr Lyle Generalized weakness and slurred speech TIA and CVA ruled out, CT head negative CT angio neck negative, MRI brain negative, Neurology consult by Dr. Gomez appreciated, placed on aspirin Septic shock secondary to urinary tract infection: Blood cultures negative, urine cultures negative Acute urinary tract infection: Rocephin Diabetes: Insulin sliding scale Hypertension Hypercholesterolemia Iron-deficiency anemia: Iron infusion Anxiety: Ativan 0.5 mg IV q.8h Severe anemia hemoglobin 8.8,, consult for Dr. Rosario TPN via PICC line EGD and polypectomy with the biopsy of the gastric polyp by Dr. Santamaria, which is benign Date of Service: Sep 10, 2024 Billing Provider: MARLIN SHAW MD Common Visit Codes: [id number] DISCH DAY >30min MARLIN SHAW MD Sep 10, 2024 09:04
[2024-09-10] MEDS: cefTRIAXone 1GM/50ML D5W 50 ML IV SCH (11:58)
--- NOTE | 2024-09-10 17:25 | DVHPN2 ---
Progress Note - Dictate Date Seen: Sep 10, 2024 Medical Necessity Reason Pt with a Central, PICC or Fol: Yes The following are medically ne: PICC Line Subjective Patient was seen and evaluated in follow up. Patient is complaining of generalized pain. Patient received 1 unit PRBCs this morning due to low H&H. Patient is being arranged for placement to SNF. vital signs Vital Sign Date Time Temp Pulse Resp B/P (MAP) Pulse Ox O2 Delivery O2 Flow Rate FiO2 09/10/24 09:00 98.2 84 20 132/79 (96) 99 98.2 09/09/24 20:00 Room Air* 0 21 Total Intake and Output 09/09/24 09/09/24 09/10/24 15:00 23:00 07:00 Intake Total 800 ml 1800 ml Output Total 1500 ml 2500 ml Balance -700 ml -700 ml medications Current Medications Medications Dose Ordered Sig/Walt Route Start Time Stop Time Status Last Admin Dose Admin Hydralazine HCl 10 mg Q6HP PRN IV 08/25/24 17:30 09/08/24 12:36 10 MG Atorvastatin Calcium 40 mg HS PO 08/25/24 22:00 09/09/24 20:27 40 MG Ondansetron HCl 4 mg Q4HP PRN IV 08/25/24 17:30 09/04/24 03:11 4 MG Docusate Sodium 100 mg BIDPRN PRN PO 08/25/24 17:30 Acetaminophen 650 mg Q6HP PRN PO 08/25/24 17:30 08/25/24 18:00 650 MG Nitroglycerin 0.4 mg Q5MINP PRN SL 08/25/24 17:30 Doxycycline Hyclate 250 ml @ 125 mls/hr Q12H IV 08/25/24 18:15 Cancel Doxycycline Hyclate 250 ml @ 125 mls/hr Q12HR IV 08/26/24 10:00 Cancel Sodium Chloride 10 ml QSHIFT@10,22 IV 08/30/24 22:00 09/10/24 11:58 10 ML Sodium Chloride 1,000 ml @ 30 mls/hr Q24H IV 08/31/24 22:00 09/08/24 10:41 30 MLS/HR Hydromorphone HCl 0.5 mg Q4HPRN PRN IV 09/02/24 17:30 09/10/24 04:49 0.5 MG Lorazepam 0.5 mg Q6HP PRN IV 09/03/24 11:00 09/08/24 15:44 0.5 MG Insulin Glargine 30 units DAILY@1000 SC 09/04/24 10:00 09/09/24 12:00 30 UNITS Diagnostic Test (Pha) 1 strip IQ4HR 09/03/24 16:00 09/10/24 12:10 1 STRIP Insulin Human Regular IQ4HR SC 09/03/24 16:00 09/10/24 04:45 2 UNITS Dextrose 50 ml UD PRN IV 09/03/24 13:30 Potassium Chloride 20 meq/ Lactated Ringer's 1,010 ml @ 100 mls/hr Q10H6M IV 09/03/24 13:30 09/10/24 04:57 100 MLS/HR Metronidazole 100 ml @ 100 mls/hr Q8HR IV 09/04/24 14:00 09/10/24 05:49 100 MLS/HR Pantoprazole Sodium 40 mg BID IV 09/05/24 10:00 09/10/24 11:58 40 MG Iron Sucrose 110 ml @ 110 mls/hr DAILY@1200 IV 09/08/24 12:00 09/12/24 12:59 09/10/24 12:09 110 MLS/HR Fat Emulsion Intravenous 150 ml/Sodium Acetate 20 meq/Potassium Acetate 20 meq/ Magnesium Sulfate 24 meq/ Multivitamins 10 ml/Chromium/ Copper/Manganese/ Zinc 1 ml/Insulin Human Regular 16 units/Amino Acids/ Dextrose/Purified Water 1,387.16 ml @ 57 mls/hr [id number] IV 09/09/24 22:00 09/10/24 21:59 09/09/24 22:19 57 MLS/HR Ceftriaxone Sodium 50 ml @ 100 mls/hr DAILY@09 IV 09/10/24 09:00 09/10/24 11:58 100 MLS/HR objective GENERAL: Awake, alert, oriented. LUNGS: Clear. CARDIOVASCULAR: Heart sounds are good. ABDOMEN: Soft. NEURO: Slurred speech. laboratory and microbiology Laboratory Tests 09/10/24 05:34 09/09/24 11:40 Test 09/10/24 05:34 Range/Units Serum Glucose 117 H 74-106 mg/dL Problem List Generalized weakness and slurred speech rule out TIA rule out CVA. Septic shock secondary to urinary tract infection. Acute urinary tract infection. Diabetes. Hypertension. Hypercholesterolemia. Severe anemia. Hepatic flexor lesions. Villous adenoma. Assessment/Plan Continued all current supportive medical care. Aspirin, Lipitor. IV antibiotics as ordered. Morphine and [place] for pain management. Additional plan as per the hospital course. Dietary Evaluation Review Comments: 1) Advance pt diet when medically feasible to a CCHO 45g/2gNa diet 2) Continue current plan of care Expected Outcomes/Goals: 1) Pt diet to advance Plan discussed with: Patient OTIS JOHNSON MD Sep 10, 2024 13:54
[2024-09-10 18:40] LABS: COVID19 ANTIGEN SOFIA FIA NEGATIVE (NEGATIVE)
== END 2024-09-10 18:38 | DRG 871 ==
LOC: ER 14:41 → TELE 17:24 → TELE-CENTR 17:28 → EAST 09-02 22:54 → DOU IN ADS 09-02 23:56 → TELE-E-ADS 09-03 22:13 → TELE-CENTR 09-04 20:36
PROVIDERS: ADMIT Nurse Practitioner Family; ATTEND Family Medicine
PROC: 0DBE8ZX Excision of Large Intestine, Via Natural or Artificial Opening Endoscopic, Diagnostic (ICD-10-PCS; 2024-08-28)
PROC: 0DB98ZX Excision of Duodenum, Via Natural or Artificial Opening Endoscopic, Diagnostic (ICD-10-PCS; principal; 2024-08-28 13:18)
PROC: 0DB78ZX Excision of Stomach, Pylorus, Via Natural or Artificial Opening Endoscopic, Diagnostic (ICD-10-PCS; 2024-08-28 13:18)
PROC: 02HV33Z Insertion of Infusion Device into Superior Vena Cava, Percutaneous Approach (ICD-10-PCS; 2024-08-30)
PROC: B548ZZA Ultrasonography of Superior Vena Cava, Guidance (ICD-10-PCS; 2024-08-30)
PROC: 30233N1 Transfusion of Nonautologous Red Blood Cells into Peripheral Vein, Percutaneous Approach (ICD-10-PCS; 2024-09-02)
DX: A41.9 Sepsis, unspecified organism (principal); J18.9 Pneumonia, unspecified organism; R65.21 Severe sepsis with septic shock; N39.0 Urinary tract infection, site not specified; K31.7 Polyp of stomach and duodenum; E83.42 Hypomagnesemia; K29.80 Duodenitis without bleeding; K29.70 Gastritis, unspecified, without bleeding; F41.9 Anxiety disorder, unspecified; E78.00 Pure hypercholesterolemia, unspecified; E11.9 Type 2 diabetes mellitus without complications; I10 Essential (primary) hypertension; D50.9 Iron deficiency anemia, unspecified; Z79.899 Other long term (current) drug therapy; Z86.73 Personal history of transient ischemic attack (TIA), and cerebral infarction without residual deficits; Z80.0 Family history of malignant neoplasm of digestive organs; W18.39XA Other fall on same level, initial encounter; Y93.89 Activity, other specified; Y92.89 Other specified places as the place of occurrence of the external cause; Y99.8 Other external cause status
CPT/HCPCS: 36415; 36569; 70450; 70496; 70551; 71045; 71260; 74177; 76937; 80053; 81001; 82378; 82728; 82962; 83540; 83550; 83605; 83735; 84100; 84478; 84484; 85007; 85025; 85027; 85610; 85730; 86850; 86900; 86901; 86920; 87040; 87086; 87426; 93005; 93306; 97110; 97116; 97163; 97530; 99291; G0378; J1100; J1756; J1815; J1885; J2250; J2405; J2470; J2543; J3490

== ENCOUNTER 2024-10-14 14:33 | Inpatient (IN) | payer MEDICARE, OTHER ==
[~2024-10-14] VITALS: Ht 157.5 cm; Wt 46.3 kg
[~2024-10-14 14:33] MED LIST changes: +GLIP5TAB21 PO; +PANT40T PO; -PANT40TA2 PO
--- NOTE | 2024-10-14 15:03 | ED.PDOC ---
History of Present Illness HPI Comments 74 year old female brought in by EMS presents to the ED with a chief complaint of nausea/vomiting onset today. Per EMS, patient has been experiencing nausea/vomiting, diarrhea, abdominal pain, low BP. Upon EMS arrival BP was 88/60, upon ED arrival BP was 46/46. Denies chest pain, shortness of breath, dizziness, headache. No other symptoms or modifying factors present at this time. Time Seen by MD: 14:55 Primary Care Provider: unknown Reviewed Notes: Medications, Allergies Allergies: Coded Allergies: NO KNOWN ALLERGIES (Unverified , 04/05/18) Home Meds Active Scripts Acetaminophen (Tylenol 8 Hour Arthritis) 650 Mg Tab, 650 MG PO TID, #30 TAB Prov:DENIS YEH 08/14/24 Nitrofurantoin Monohydrate Mac (Macrobid) 100 Mg Cap, 100 MG PO BID, #14 CAP Prov:DENIS YEH 08/14/24 Ondansetron Odt 4MG Tab (ZOFRAN PO) 4 Mg Tb, 4 MG PO TID for 7 Days, #21 TAB ODT TAB-DISSOLVE IN MOUTH, THEN SWALLOW Prov:RAMÓN RIDER MD 05/10/24 Baclofen (Baclofen) 10 Mg Tab, 10 MG PO TID PRN, #30 TAB Prov:JAY HE 05/06/24 Sulfamethoxazole-Trimethoprim (Bactrim) 1 Tab Tab, 1 TAB PO BID for 7 Days, #14 TAB 0 Refills Prov:VARGHESE CABRERA 04/11/23 Reported Medications Pantoprazole Sodium Sesquihydr (Pantoprazole Sodium) 40 Mg Tab, 1 TAB PO DAILY 08/25/24 Glipizide (Glipizide) 5 Mg Tab, 1 TAB PO BID 08/25/24 Information Source: Patient, Emergency Med Personnel Mode of Arrival: EMS Severity: Moderate Timing: Hours Duration: Since onset Prehospital treatment: None Past Medical History PAST MEDICAL HISTORY: DM, High Lipids Surgical History: Denies all surgeries 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 Hx Family History Family History: Reviewed,noncontributory to illness Social History Smoker: Non-Smoker Alcohol: Denies ETOH Use Drugs: Denies Drug Use Lives In: Home Constitutional: denies: chills, diaphoresis, fatigue, fever, malaise, sweats, weakness, others EENTM: denies: blurred vision, double vision, ear bleeding, ear discharge, ear drainage, ear pain, ear ringing, eye pain, eye redness, hearing loss, mouth pain, mouth swelling, nasal discharge, nose bleeding, nose congestion, nose pain , photophobia, tearing, throat pain, throat swelling, voice changes, others Respiratory: denies: cough, hemoptysis, orthopnea, SOB at rest, shortness of breath, SOB with excertion, stridor, wheezing, others Cardiovascular: reports: others (low BP); denies: chest pain, dizzy spells, diaphoresis, Dyspnea on exertion, edema, irregular heart beat, left arm pain, lightheadedness, palpitations, PND, syncope Gastrointestinal: reports: abdominal pain, diarrhea, nausea, vomiting; denies: abdomen distended, blood streaked bowels, constipated, dysphagia, difficulty swallowing, hematemesis, melena, poor appetite, poor fluid intake, rectal bleeding, rectal pain, others Genitourinary: denies: abnormal vagina bleeding, burning, dyspareunia, dysuria, flank pain, frequency, hematuria, incontinence, pain, , vagina discharge, urgency, others Neurological: denies: dizziness, fainting, headache, left sided numbness, left sided weakness, numbness, paresthesia, pre-existing deficit, right sided numbness, right sided weakness, seizure, speech problems, tingling, tremors, weakness, others Musculoskeletal: denies: back pain, gout, joint pain, joint swelling, muscle pain, muscle stiffness, neck pain, others Integumetry: denies: bruises, change in color, change in hair/nails, dryness, laceration, lesions, lumps, rash, wounds, others Allergic/Immunocompromised: denies: Difficulty Healing, Frequent Infections, Hives, Itching, others Hematologic/Lymphatic: denies: anemia, blood clots, easy bleeding, easy bruising, swollen glands, others Endocrine: denies: excessive hunger, excessive sweating, excessive thirst, excessive urination, flushing, intolerance to cold, intolerance to heat, unexplained weight gain, unexplained weight loss, others Psychiatric: denies: anxiety, bipolar disorder, depression, hopeless, panic disorder, schizophrenia, sleepless, suicidal, others All Other Systems: Reviewed and Negative Physical Exam General Appearance: Moderate Distress HEENT: Normal ENT Inspection, Pharynx Normal, TMs Normal Neck: Full Range of Motion, Non-Tender, Normal, Normal Inspection Respiratory: Chest Non-Tender, Lungs Clear, No Accessory Muscle Use, No Respiratory Distress, Normal Breath Sounds Cardiovascular: No Edema, No JVD, No Murmur, No Gallop, Normal Peripheral Pulses, Regular Rate/Rhythm Breast Exam: Deferred Gastrointestinal: Other (Surgical scar) Genitalia: Deferred Pelvic: Deferred Rectal: Deferred Extremities: No calf tenderness, Normal capillary refill, Normal inspection, Normal range of motion, Non-tender, No pedal edema Musculoskeletal : Apperance: Normal Neurologic: Alert, library supervisor II-XII nml as Tested, No Motor Deficits, Normal Affect, Normal Mood, No Sensory Deficits Cerebellar Function: NOT DONE Reflexes: NOT DONE Skin: Dry, Normal Color, Warm Peripheral Pulses: 3+ Radial (R), 3+ Radial (L) Lymphatic: No Adenopathy Was a procedure done? Was a procedure done?: No Differential Dx Considerations may include: Sepsis Electrolyte imbalance X-Ray, Labs, Meds, VS Patient alert. Complaining of abdominal discomfort nausea vomiting. Abdomen is soft. Answering questions. Hypotension. Establish intravenous access. Was given fluids. Reviewed her previous visit. Explained to the patient. Continue cardiac monitoring. Time of 1ST Reevaluation: 15:25 Reevaluation 1ST: Unchanged Patient Education/Counseling: Diagnosis, Treatment, Prognosis Family Education/Counseling: No Family Present Additional Information I reviewed the following notes from patient's past medical encounters: The following tests were ordered, and results were reviewed by me: TROP, CBC, XY CHEST, UA, BMP Additional Information was gathered from interviewing the following independent historians: EMS I reviewed and agreed with the following test results read by other providers: XY CHEST I discussed treatment and results with medical personnel and: patient Departure 1 Departure Time of Disposition: 15:08 Impression: Primary Impression: Anemia, unspecified Qualified Codes: D64.9 - Anemia, unspecified Additional Impressions: Gastroenteritis Hypotension Qualified Codes: I95.9 - Hypotension, unspecified Disposition: ADMITTED INPATIENT Admit to: Med Surg Condition: Guarded Critical Care Note Critical Care Time?: Yes (90 min-critical care time only) Stability Stability form required: No Heart Score Heart Score: Heart Score Response (Comments) Value History Slightly Suspicious 0 EKG Normal 0 Age >65 2 Risk Factors >3 or Hx ASHD 2 Troponin Normal limit 0 Total 4 I personally scribed for MICHELLE WALTERS MD ([email or web address]) on 10/14/24 at 15:03. Electronically submitted by Felicia Medeiros ([email or web address]). I personally scribed for MICHELLE WALTERS MD ([email or web address]) on 10/14/24 at 15:13. Electronically submitted by Felicia Medeiros ([email or web address]). MICHELLE WALTERS MD Oct 14, 2024 15:03
[2024-10-14] MEDS: SODIUM CHLORIDE 0.9% 1,000 ML IV ONE ×3 (15:18→18:06)
[2024-10-14 16:13] VITALS: PULSE 111; RESP 18; O2SAT 100
[2024-10-14 16:16] LABS: Basophils # (auto) 0 10 ^3/uL (0-0.2); Basophils % (auto) 0.3 % (0.0-2.0); Eosinophils # (auto) 0 10 ^3/uL (0-0.8); Eosinophils % (auto) 0.6 % (0.0-7.0); Hematocrit 34.2 % (36.0-46.0); Lymphocytes # (auto) 1.7 10 ^3/uL (0.4-5.4); Lymphocytes % (auto) 22.2 % (10.0-50.0); Mean Corpuscular Hemoglobin 26.6 pg (28.0-32.0); Mean Corpuscular Hgb Conc. 32.3 g/dL (32.0-36.0); Mean Corpuscular Volume 82.3 fL (80.0-100.0); Monocytes # (auto) 0.3 10 ^3/uL (0-1.3); Monocytes % (auto) 3.3 % (0.0-12.0); Neutrophils # (auto) 5.6 10 ^3/uL (1.6-8.6); Neutrophils % (auto) 73.6 % (37.0-80.0); Nucleated Red Blood Cells % 0.1 %; Platelet Count (auto) 170 10^3/uL (140-450); Red Blood Cells 4.15 10^6/uL (4.0-5.20); Red Cell Distribution Width 18.8 % (11.8-14.3); White Blood Cell 7.7 10^3/uL (4.4-10.8)
[2024-10-14 16:30] LABS: Anion Gap 11 (5-15); Carbon Dioxide 21 mmol/L (20-31); Chloride 102 mmol/L (98-107); Potassium 4.2 mmol/L (3.5-5.1)
[2024-10-14 16:31] LABS: Calcium 9.7 mg/dL (8.7-10.4)
[2024-10-14 16:36] LABS: BUN/Creatinine Ratio 9.8 (10.0-20.0); Blood Urea Nitrogen 16 mg/dL (9-23)
[2024-10-14 16:43] LABS: Glucose 297 mg/dL (74-106); Sodium 134 mmol/L (136-145)
[2024-10-14] MEDS: PIPERACILLIN-TAZOB 3.375GM 100 ML IV ONE (18:09)
[2024-10-14 18:30] LABS: Urine Bacteria FEW /hpf (None Seen); Urine Blood Negative /uL (Negative); Urine Clarity Clear (Clear); Urine Color Light-Yellow (Yellow); Urine Hyaline Cast FEW /lpf (0 - 2); Urine Mucus FEW (None Seen); Urine Protein, UAD 1+ (Negative); Urine Specific Gravity 1.012 (1.001-1.035); Urine Squamous Epithelial Cell FEW /hpf (<5); Urine Urobilinogen Normal (Negative); Urine WBC 7 /hpf (0 - 5); Urine pH 5.5 (5.0-9.0)
--- NOTE | 2024-10-14 18:37 | DVH ---
CHEST RADIOGRAPH Indication: sob Technique: Single frontal view of the chest was obtained Comparison: XY CHEST PORTABLE on DOS: 08/25/24, XY CHEST XRAY 1 VIEW on DOS: 05/06/24 FINDINGS: Lines and Tubes: None Lungs: Clear Pleura: No effusion. No pneumothorax. Cardiomediastinal contours: Unremarkable Bones: Unremarkable IMPRESSION: Clear lungs.
--- NOTE | 2024-10-14 19:01 | DVH ---
Exam: CT CT AB PEL WO CON-NO ORAL OR IV History: enteritis Comparison Study: None available at time of dictation. TECHNIQUE: Multidetector CT of the abdomen and pelvis without contrast. Axial, coronal and sagittal m ultiplanar reformats were obtained from the axial data set by the technologist. Radiation Dose Information: CT Dose: CTDI volume is 5.07 mGy. Dose-length product is 261.5 mGy*cm FINDINGS: Bibasilar atelectasis. Partially visualized heart is unremarkable. 1.2 cm splenic hypodense lesion. Otherwise, liver, spleen, pancreas and right adrenal gland are unrem arkable. 1.5 cm left adrenal nodule. Cholelithiasis with no evidence of acute cholecystitis. Kidneys, and ureters unremarkable. Urinary bladder is decompressed with Santillan catheter in place. Foc us of calcification within the uterine body. Otherwise uterus and adnexa unremarkable. Fluid-filled mildly distended stomach. Mild wall thickening of the small bowel loops. Status post right hemicolect marcos. Fluid-filled nondistended large bowel. No evidence of intraperitoneal free air . Mild mesenteric edema. No evidence of aortic aneurysm. Moderate atherosclerotic calcification of the aorta and bilateral il iacs. No significant lymphadenopathy. Nonspecific 2.6 x 4.3 x 2.3 cm soft tissue density over the subcutaneous fat of the left pelvic floor ; slightly more prominent when compared to prior imaging. Soft tissue edema. Postsurgical changes of midline ventral abdomen. No destructive osseous lesions noted. Diffuse demineralization. Moderate d egenerative changes of bilateral hips. IMPRESSION: Mild wall thickening of small bowel loops. Correlate for enteritis. Postsurgical changes of right hemicolectomy with liquid stool within the remainder of the colon. Cor relate for diarrheal state. Mild mesenteric edema which may be recent related to the recent surgery. Nonspecific 2.6 x 4.3 x 2.3 cm soft tissue density over the subcutaneous fat of the left pelvic floor ; slightly more prominent when compared to prior imaging. Additional findings as above.
[2024-10-14] MEDS ORDERED: ONDANSETRON HCL 4 MG/2 ML VIAL IV PRN (19:15)
[2024-10-14] MEDS ORDERED: DEXTROSE (50%) 50ML SYRG IV PRN (19:15)
[2024-10-14] MEDS ORDERED: HYDROcodone-ACET 5/325MG TAB PO PRN (19:15)
[2024-10-14] MEDS: PANTOPRAZOLE 40 MG TAB PO ONE (21:09)
[2024-10-14] MEDS: SOD CHL 0.9%/ KCL 20MEQ 1,000 ML IV ONE (21:33)
[2024-10-14 21:53] VITALS: PULSE 97; RESP 17; O2SAT 100
[2024-10-14] MEDS: metroNIDAZOLE 500MG/100ML 100 ML IV SCH (22:48)
[2024-10-15] VITALS (11 sets, daily range): BP systolic 89–150; BP diastolic 50–65; PULSE 69–90; RESP 16–18; TEMP 97.8–98.5; O2SAT 98–100
[2024-10-15] MEDS: InsuLIN REG 1unit/0.01ml Soln (100units/ml) SC SCH
[2024-10-15] MEDS: ACCU-CHEK COMFORT CURVE STRIP VI SCH
[2024-10-15] MEDS: LOPERAMIDE HCL 2 MG CAP/TAB PO PRN (00:21)
--- NOTE | 2024-10-15 02:38 | DVHHP2 ---
History of Present Illness Reason for Visit: Nausea and vomiting History of Present Illness 74-year-old female presents for evaluation of nausea and vomiting. Patient reports that [place] she developed severe nausea, vomiting and explosive watery diarrhea. On arrival patient's blood pressure was noted to be in the low 60s. After multiple boluses of normal saline blood pressure is 92/62. Patient reports mild dizziness. Denies chest pain or shortness for breath. No other acute complaints reported. Past Medical History Dyslipidemia diabetes mellitus Past Surgical History Denies Family History Noncontributory Smoke: No ALCOHOL: none Drugs: None Lives: with Family Review of Systems Review of Systems Review of systems are currently addressed HPI. Allergies: Coded Allergies: NO KNOWN ALLERGIES (Unverified , 04/05/18) Medications Current Medications Medications Dose Ordered Sig/Walt Route Start Time Stop Time Status Last Admin Dose Admin Metronidazole 100 ml @ 100 mls/hr Q8HR IV 10/14/24 22:00 10/14/24 22:48 100 MLS/HR Pantoprazole Sodium 40 mg DAILY@0600 PO 10/15/24 06:00 Loperamide HCl 2 mg PRN PRN PO 10/14/24 19:15 10/15/24 00:21 2 MG Diagnostic Test (Pha) 1 strip Q6HR 10/15/24 00:00 10/15/24 00:00 1 STRIP Insulin Human Regular Q6HR SC 10/15/24 00:00 Dextrose 50 ml UD PRN IV 10/14/24 19:15 Acetaminophen/ Hydrocodone Bitart 1 tab Q4HP PRN PO 10/14/24 19:15 Ondansetron HCl 4 mg Q4HP PRN IV 10/14/24 19:15 Acetaminophen 650 mg Q6HP PRN PO 10/14/24 19:15 Exam Vital Signs Vital Signs Date Time Temp Pulse Resp B/P (MAP) Pulse Ox O2 Delivery O2 Flow Rate FiO2 10/15/24 02:07 97.8 87 96/50 (65) 98 97.8 10/15/24 02:07 18 Room Air* 0 21 Exam Gen: 74-year-old female no apparent distress. Skin: Warm, dry, normal color and texture, no rash. HEENT: Normocephalic atraumatic, mucous membranes moist and pink. Neck: Cervical and supraclavicular nodes normal without enlargement, trachea is midline, thyroid gland is normal without masses. Pulmonary: Clear to auscultation and percussion bilaterally. Cardiac: Regular rate and rhythm. No murmur Abdomen: Soft, nontender, nondistended, bowel sounds present all 4 quadrants, no guarding, no rigidity, no organomegaly. Extremities: No cyanosis, clubbing, no edema Neuro: Cranial nerves II through XII grossly intact, normal affect and speech, no focal motor deficits. Labs/Xrays ORDERING PHYSICIAN: MICHELLE WALTERS MD PROCEDURE(s): CXRP - CHEST PORTABLE REASON: sob ORDER NUMBER(s): [id number], ACCESSION NUMBER(s): [id number] CHEST RADIOGRAPH Indication: sob Technique: Single frontal view of the chest was obtained Comparison: XY CHEST PORTABLE on DOS: 08/25/24, XY CHEST XRAY 1 VIEW on DOS: 05/06/24 FINDINGS: Lines and Tubes: None Lungs: Clear Pleura: No effusion. No pneumothorax. Cardiomediastinal contours: Unremarkable Bones: Unremarkable IMPRESSION: Clear lungs. ATED BY: ERNA MACARIO DO ORDERING PHYSICIAN: MICHELLE WALTERS MD PROCEDURE(s): ABPL - CT AB PEL WO CON-NO ORAL OR IV REASON: enteritis ORDER NUMBER(s): [id number], ACCESSION NUMBER(s): [id number] Exam: CT CT AB PEL WO CON-NO ORAL OR IV History: enteritis Comparison Study: None available at time of dictation. TECHNIQUE: Multidetector CT of the abdomen and pelvis without contrast. Axial, coronal and sagittal multiplanar reformats were obtained from the axial data set by the technologist. Radiation Dose Information: CT Dose: CTDI volume is 5.07 mGy. Dose-length product is 261.5 mGy*cm FINDINGS: Bibasilar atelectasis. Partially visualized heart is unremarkable. 1.2 cm splenic hypodense lesion. Otherwise, liver, spleen, pancreas and right adrenal gland are unremarkable. 1.5 cm left adrenal nodule. Cholelithiasis with no evidence of acute cholecystitis. Kidneys, and ureters unremarkable. Urinary bladder is decompressed with Santillan catheter in place. Focus of calcification within the uterine body. Otherwise uterus and adnexa unremarkable. Fluid-filled mildly distended stomach. Mild wall thickening of the small bowel loops. Status post right hemicolectomy. Fluid- filled nondistended large bowel. No evidence of intraperitoneal free air . Mild mesenteric edema. No evidence of aortic aneurysm. Moderate atherosclerotic calcification of the aorta and bilateral iliacs. No significant lymphadenopathy. Nonspecific 2.6 x 4.3 x 2.3 cm soft tissue density over the subcutaneous fat of the left pelvic floor ; slightly more prominent when compared to prior imaging. Soft tissue edema. Postsurgical changes of midline ventral abdomen. No destructive osseous lesions noted. Diffuse demineralization. Moderate degenerative changes of bilateral hips. IMPRESSION: Mild wall thickening of small bowel loops. Correlate for enteritis. Postsurgical changes of right hemicolectomy with liquid stool within the remainder of the colon. Correlate for diarrheal state. Mild mesenteric edema which may be recent related to the recent surgery. Nonspecific 2.6 x 4.3 x 2.3 cm soft tissue density over the subcutaneous fat of the left pelvic floor ; slightly more prominent when compared to prior imaging. Additional findings as above. ATED BY: PUJA ESTEVES DO DICTATED DATE/TIME: 10/14/24 1858 Labs Test 10/14/24 17:50 10/14/24 15:59 Range/Units Urine Color Light-yellow Yellow Urine Clarity Clear Clear Urine pH 5.5 5.0-9.0 Urine Specific [place] 1.012 1.001-1.035 Urine Protein 1+ H Negative Urine Ketones Negative Negative Urine Blood Negative Negative /uL Urine Nitrite Negative Negative Urine Bilirubin Negative Negative Urine Urobilinogen Normal Negative mg/dL Urine Leukocyte Esterase Trace Negative /uL Urine RBC 2 0 - 4 /hpf Urine WBC 7 0 - 5 /hpf Urine Squamous Epithelial Cells Few <5 /hpf Urine Bacteria Few H None Seen /hpf Urine Hyaline Casts Few 0 - 2 /lpf Urine Mucus Few None Seen Urine Glucose Normal Normal mg/dL White Blood Count 7.7 4.4-10.8 10^3/uL Red Blood Count 4.15 4.0-5.20 10^6/uL Hemoglobin 11.0 L 12.2-16.2 g/dL Hematocrit 34.2 L 36.0-46.0 % Mean Corpuscular Volume 82.3 80.0-100.0 fL Mean Corpuscular Hemoglobin 26.6 L 28.0-32.0 pg Mean Corpuscular Hemoglobin Concent 32.3 32.0-36.0 g/dL Red Cell Distribution Width 18.8 H 11.8-14.3 % Platelet Count 170 140-450 10^3/uL Mean Platelet Volume 7.9 6.9-10.8 fL Neutrophils (%) (Auto) 73.6 37.0-80.0 % Lymphocytes (%) (Auto) 22.2 10.0-50.0 % Monocytes (%) (Auto) 3.3 0.0-12.0 % Eosinophils (%) (Auto) 0.6 0.0-7.0 % Basophils (%) (Auto) 0.3 0.0-2.0 % Neutrophils # (Auto) 5.6 1.6-8.6 10 ^3/uL Lymphocytes # (Auto) 1.7 0.4-5.4 10 ^3/uL Monocytes # (Auto) 0.3 0-1.3 10 ^3/uL Eosinophils # (Auto) 0 0-0.8 10 ^3/uL Basophils # (Auto) 0 0-0.2 10 ^3/uL Nucleated Red Blood Cells 0.1 % Sodium Level 134 L 136-145 mmol/L Potassium Level 4.2 3.5-5.1 mmol/L Chloride Level 102 98-107 mmol/L Carbon Dioxide Level 21 20-31 mmol/L Anion Gap 11 5-15 Blood Urea Nitrogen 16 9-23 mg/dL Creatinine 1.63 H 0.550-1.02 mg/dL Glomerular Filtration Rate Calc 32 >90 mL/min BUN/Creatinine Ratio 9.8 L 10.0-20.0 Serum Glucose 297 H 74-106 mg/dL Calcium Level 9.7 8.7-10.4 mg/dL Troponin I High Sensitivity 9 </=34 ng/L Assessment/Plan Assessment/Plan Assessment Symptomatic hypotension Acute gastroenteritis Acute kidney injury Diabetes mellitus Plan Admit the patient to Med surge to the hospitalist Maintenance IV fluids Flagyl Resume home medications Continue treatment per orders. Plan discussed with: [facility] Procedure Category Date Status Time [facility] 10/14/24 In Process 500mg/100ml (Flagyl 22:00 Stool Bacterial ELICIA 10/14/24 In Process Culture 19:15 Clostridium Difficile ELICIA 10/14/24 In Process Toxin 19:15 Loperamide Capsule PHA 10/14/24 In Process (Imodium Capsule) 19:15 Basic Metabolic Panel LAB 10/15/24 Logged 04:00 Glucose Blood PHA 10/15/24 In Process (Accu-Chek Comfort 00:00 Insulin R (Human) PHA 10/15/24 In Process (Insulin R) 00:00 Dextrose 50% Syringe PHA 10/14/24 In Process 19:15 Admit ADMIT 10/14/24 Transmitted 19:15 Hydrocodone-Acet PHA 10/14/24 In Process 5/325mg Tab ([place] 19:15 Ondansetron Hcl PHA 10/14/24 In Process (Zofran) 19:15 Complete Blood Count LAB 10/15/24 Logged 04:00 Cardiac DIET 10/15/24 Transmitted Diet-2gna,Lofat,Lochol Breakfast Condition: Stable PATRICK 10/14/24 In Process 19:15 Acetaminophen Tablet PHA 10/14/24 In Process (Tylenol Tablet) 19:15 Bedrest With Bathroom PATRICK 10/14/24 In Process Privileg 19:15 Sod Chl 0.9%/ Kcl PHA 10/14/24 In Process 20meq 19:15 Pantoprazole Tablet PHA 10/15/24 In Process (Protonix Tablet) 06:00 Mrsa Screen ELICIA 10/15/24 Logged 02:27 Date of Service: Oct 14, 2024 Billing Provider: B[facility]ANDA [facility] Common Visit Codes: [id number] INP/OBS CARE (HIGH) BRIANDA WILLARD Oct 15, 2024 02:38
[2024-10-15] MEDS: PANTOPRAZOLE 40 MG TAB PO SCH (05:14)
[2024-10-15 07:29] LABS: Basophils # (auto) 0 10 ^3/uL (0-0.2); Basophils % (auto) 0.1 % (0.0-2.0); Eosinophils # (auto) 0 10 ^3/uL (0-0.8); Eosinophils % (auto) 0.3 % (0.0-7.0); Hematocrit 28.8 % (36.0-46.0); Hemoglobin 9.2 g/dL (12.2-16.2); Lymphocytes # (auto) 1.5 10 ^3/uL (0.4-5.4); Lymphocytes % (auto) 22.5 % (10.0-50.0); Mean Corpuscular Hemoglobin 26.3 pg (28.0-32.0); Mean Corpuscular Volume 82.4 fL (80.0-100.0); Monocytes # (auto) 0.4 10 ^3/uL (0-1.3); Monocytes % (auto) 5.8 % (0.0-12.0); Neutrophils # (auto) 4.7 10 ^3/uL (1.6-8.6); Neutrophils % (auto) 71.3 % (37.0-80.0); Nucleated Red Blood Cells % 0.2 %; Platelet Count (auto) 128 10^3/uL (140-450); Red Blood Cells 3.49 10^6/uL (4.0-5.20); Red Cell Distribution Width 18.6 % (11.8-14.3); White Blood Cell 6.6 10^3/uL (4.4-10.8)
[2024-10-15 07:44] LABS: Potassium 4.7 mmol/L (3.5-5.1)
[2024-10-15 07:45] LABS: Anion Gap 11 (5-15)
[2024-10-15 07:48] LABS: Calcium 8.7 mg/dL (8.7-10.4); Carbon Dioxide 16 mmol/L (20-31); Chloride 108 mmol/L (98-107); Sodium 135 mmol/L (136-145)
[2024-10-15 07:51] LABS: BUN/Creatinine Ratio 11.1 (10.0-20.0); Blood Urea Nitrogen 19 mg/dL (9-23)
[2024-10-15 07:58] LABS: Glucose 132 mg/dL (74-106)
--- NOTE | 2024-10-15 14:16 | DVHPN2 ---
Reviewed: Care Plan, H&P, Labs, Medications, Previous Orders, Radiology Changes from previous H/P or p: No Changes Objective Vitals Vital Signs Date Time Temp Pulse Resp B/P (MAP) Pulse Ox O2 Delivery O2 Flow Rate FiO2 10/15/24 10:30 74 105/57 (73) 10/15/24 09:00 98.3 16 99 98.3 10/15/24 08:00 Room Air* 0 21 Intake/Output Intake and Output 10/15/24 07:00 Intake Total 1825 ml Output Total 100 ml Balance 1725 ml Intake Oral 200 ml IV Total 1625 ml Output Urine Total 100 ml Medications Current Medications Medications Dose Ordered Sig/Walt Route Start Time Stop Time Status Last Admin Dose Admin Metronidazole 100 ml @ 100 mls/hr Q8HR IV 10/14/24 22:00 10/15/24 13:20 100 MLS/HR Pantoprazole Sodium 40 mg DAILY@0600 PO 10/15/24 06:00 10/15/24 05:14 40 MG Loperamide HCl 2 mg PRN PRN PO 10/14/24 19:15 10/15/24 05:35 2 MG Diagnostic Test (Pha) 1 strip Q6HR 10/15/24 00:00 10/15/24 12:29 1 STRIP Insulin Human Regular Q6HR SC 10/15/24 00:00 Dextrose 50 ml UD PRN IV 10/14/24 19:15 Acetaminophen/ Hydrocodone Bitart 1 tab Q4HP PRN PO 10/14/24 19:15 Ondansetron HCl 4 mg Q4HP PRN IV 10/14/24 19:15 Acetaminophen 650 mg Q6HP PRN PO 10/14/24 19:15 Laboratory Results Laboratory Tests 10/15/24 06:24 Chemistry Test 10/14/24 15:59 10/15/24 06:24 Calcium Level 9.7 mg/dL (8.7-10.4) 8.7 mg/dL (8.7-10.4) Urinalysis Test 10/14/24 17:50 Urine Color Light-yellow (Yellow) Urine Clarity Clear (Clear) Urine pH 5.5 (5.0-9.0) Urine Specific [place] 1.012 (1.001-1.035) Urine Protein 1+ (Negative) H Urine Ketones Negative (Negative) Urine Blood Negative /uL (Negative) Urine Nitrite Negative (Negative) Urine Bilirubin Negative (Negative) Urine Urobilinogen Normal mg/dL (Negative) Urine Leukocyte Esterase Trace /uL (Negative) Urine RBC 2 /hpf (0 - 4) Urine WBC 7 /hpf (0 - 5) Urine Squamous Epithelial Cells Few /hpf (<5) Urine Bacteria Few /hpf (None Seen) H Urine Hyaline Casts Few /lpf (0 - 2) Urine Mucus Few (None Seen) Urine Glucose Normal mg/dL (Normal) Microbiology Microbiology Date/Time Source Procedure Growth Status 10/15/24 01:00 Stool Stool Culture - Preliminary Resulted 10/15/24 01:00 Stool Shiga Toxin I & II - Final Resulted 10/15/24 01:00 Stool Clostridium difficile Toxin Assay Pending Resulted Labs and/or images reviewed: Labs reviewed by me, Image(s) reviewed by me Assessment/Plan Assessment/Plan Symptomatic hypotension Acute gastroenteritis : Flagyl Acute kidney injury Diabetes mellitus insulin sliding Acute dehydration History of right hemicolectomy for villous adenoma Time spent 55 minutes Plan discussed with: Patient Date of Service: Oct 15, 2024 Billing Provider: MARLIN SHAW MD Common Visit Codes: [id number] INP/OBS CARE(HIGH) MARLIN SHAW MD Oct 15, 2024 14:16
[2024-10-16 01:00] VITALS: BP 148/72; PULSE 79; RESP 17; TEMP 98; O2SAT 99
[2024-10-16 04:56] VITALS: BP 138/65; PULSE 69; RESP 17; TEMP 97.9; O2SAT 99
[2024-10-16 09:00] VITALS: BP 147/66; PULSE 83; RESP 15; TEMP 98.5; O2SAT 100
--- NOTE | 2024-10-16 09:33 | DVHPN2 ---
Reviewed: Care Plan, H&P, Labs, Medications, Previous Orders, Radiology Changes from previous H/P or p: No Changes Objective Vitals Vital Signs Date Time Temp Pulse Resp B/P (MAP) Pulse Ox O2 Delivery O2 Flow Rate FiO2 10/16/24 08:00 Room Air* 0 21 10/16/24 04:56 97.9 69 17 138/65 (89) 99 97.9 Intake/Output Intake and Output 10/16/24 07:00 Intake Total 2268 ml Output Total 300 ml Balance 1968 ml Intake Oral 1068 ml IV Total 1200 ml Output Urine Total 300 ml # Voids 3 # Bowel Movements 2 Medications Current Medications Medications Dose Ordered Sig/Walt Route Start Time Stop Time Status Last Admin Dose Admin Metronidazole 100 ml @ 100 mls/hr Q8HR IV 10/14/24 22:00 10/16/24 05:35 100 MLS/HR Pantoprazole Sodium 40 mg DAILY@0600 PO 10/15/24 06:00 10/16/24 05:40 40 MG Loperamide HCl 2 mg PRN PRN PO 10/14/24 19:15 10/16/24 08:48 2 MG Diagnostic Test (Pha) 1 strip Q6HR 10/15/24 00:00 10/16/24 05:41 1 STRIP Insulin Human Regular Q6HR SC 10/15/24 00:00 Dextrose 50 ml UD PRN IV 10/14/24 19:15 Acetaminophen/ Hydrocodone Bitart 1 tab Q4HP PRN PO 10/14/24 19:15 Ondansetron HCl 4 mg Q4HP PRN IV 10/14/24 19:15 Acetaminophen 650 mg Q6HP PRN PO 10/14/24 19:15 Laboratory Results Laboratory Tests 10/15/24 06:24 Urinalysis Test 10/14/24 17:50 Urine Color Light-yellow (Yellow) Urine Clarity Clear (Clear) Urine pH 5.5 (5.0-9.0) Urine Specific [place] 1.012 (1.001-1.035) Urine Protein 1+ (Negative) H Urine Ketones Negative (Negative) Urine Blood Negative /uL (Negative) Urine Nitrite Negative (Negative) Urine Bilirubin Negative (Negative) Urine Urobilinogen Normal mg/dL (Negative) Urine Leukocyte Esterase Trace /uL (Negative) Urine RBC 2 /hpf (0 - 4) Urine WBC 7 /hpf (0 - 5) Urine Squamous Epithelial Cells Few /hpf (<5) Urine Bacteria Few /hpf (None Seen) H Urine Hyaline Casts Few /lpf (0 - 2) Urine Mucus Few (None Seen) Urine Glucose Normal mg/dL (Normal) Microbiology Microbiology Date/Time Source Procedure Growth Status 10/15/24 10:30 Nose MRSA Screen - Final Complete 10/15/24 01:00 Stool Stool Culture - Preliminary Resulted 10/15/24 01:00 Stool Shiga Toxin I & II - Final Resulted 10/15/24 01:00 Stool Clostridium difficile Toxin Assay - Final Resulted Labs and/or images reviewed: Labs reviewed by me, Image(s) reviewed by me Assessment/Plan Assessment/Plan Symptomatic hypotension resolved Acute gastroenteritis : Flagyl Intermittent diarrhea: [place] Acute kidney injury Diabetes ruled out blood sugars normal DC all diabetic orders check A1c Acute dehydration History of right hemicolectomy for villous adenoma Time spent 55 minutes Kirt at bedside We will DC back to [facility] tomorrow Plan discussed with: Patient My Orders Orders - MARLIN SHAW MD Procedure Category Date Status Time Discontinue [place] PATRICK 10/15/24 In Process Catheter 14:16 Cardiac DIET 10/16/24 Transmitted Diet-2gna,Lofat,Lochol Breakfast Date of Service: Oct 16, 2024 Billing Provider: MARLIN SHAW MD Common Visit Codes: [id number] INP/OBS CARE(HIGH) MARLIN SHAW MD Oct 16, 2024 09:33
[2024-10-16 13:00] VITALS: BP 145/71; PULSE 80; RESP 15; TEMP 97.9; O2SAT 99
[2024-10-16 16:45] VITALS: BP 143/69; PULSE 75; RESP 16; TEMP 97.9; O2SAT 100
[2024-10-16 21:00] VITALS: BP 129/74; PULSE 76; RESP 20; TEMP 98.1; O2SAT 100
[2024-10-16] MEDS: ACETAMINOPHEN 325 MG TAB PO PRN (21:36)
[2024-10-17 01:00] VITALS: BP 148/84; PULSE 71; RESP 20; TEMP 98.1; O2SAT 100
[2024-10-17 05:00] VITALS: BP 137/82; PULSE 82; RESP 20; TEMP 98; O2SAT 100
[2024-10-17 08:49] VITALS: BP 138/68; PULSE 85; RESP 16; TEMP 97.9; O2SAT 98
--- NOTE | 2024-10-17 09:10 | DVHDS2 ---
Discharge Summary Date of Admission Oct 14, 2024 at 19:15 Date of Discharge: Oct 17, 2024 Admitting Diagnosis Nausea vomiting abdominal pain Wounds: None Labs/Diagnostic Data: Laboratory Results Test 10/17/24 05:51 10/16/24 10:24 10/15/24 06:24 10/14/24 17:50 POC Glucose 158 mg/dl (70-106) Hemoglobin A1c 7.1 % A1C (<5.7) White Blood Count 6.6 10^3/uL (4.4-10.8) Red Blood Count 3.49 10^6/uL (4.0-5.20) Hemoglobin 9.2 g/dL (12.2-16.2) Hematocrit 28.8 % (36.0-46.0) Mean Corpuscular Volume 82.4 fL (80.0-100.0) Mean Corpuscular Hemoglobin 26.3 pg (28.0-32.0) Mean Corpuscular Hemoglobin Concent 32.0 g/dL (32.0-36.0) Red Cell Distribution Width 18.6 % (11.8-14.3) Platelet Count 128 10^3/uL (140-450) Mean Platelet Volume 7.9 fL (6.9-10.8) Neutrophils (%) (Auto) 71.3 % (37.0-80.0) Lymphocytes (%) (Auto) 22.5 % (10.0-50.0) Monocytes (%) (Auto) 5.8 % (0.0-12.0) Eosinophils (%) (Auto) 0.3 % (0.0-7.0) Basophils (%) (Auto) 0.1 % (0.0-2.0) Neutrophils # (Auto) 4.7 10 ^3/uL (1.6-8.6) Lymphocytes # (Auto) 1.5 10 ^3/uL (0.4-5.4) Monocytes # (Auto) 0.4 10 ^3/uL (0-1.3) Eosinophils # (Auto) 0 10 ^3/uL (0-0.8) Basophils # (Auto) 0 10 ^3/uL (0-0.2) Nucleated Red Blood Cells 0.2 % Sodium Level 135 mmol/L (136-145) Potassium Level 4.7 mmol/L (3.5-5.1) Chloride Level 108 mmol/L (98-107) Carbon Dioxide Level 16 mmol/L (20-31) Anion Gap 11 (5-15) Blood Urea Nitrogen 19 mg/dL (9-23) Creatinine 1.71 mg/dL (0.550-1.02) Glomerular Filtration Rate Calc 31 mL/min (>90) BUN/Creatinine Ratio 11.1 (10.0-20.0) Serum Glucose 132 mg/dL (74-106) Calcium Level 8.7 mg/dL (8.7-10.4) Urine Color Light-yellow (Yellow) Urine Clarity Clear (Clear) Urine pH 5.5 (5.0-9.0) Urine Specific [place] 1.012 (1.001-1.035) Urine Protein 1+ (Negative) Urine Ketones Negative (Negative) Urine Blood Negative /uL (Negative) Urine Nitrite Negative (Negative) Urine Bilirubin Negative (Negative) Urine Urobilinogen Normal mg/dL (Negative) Urine Leukocyte Esterase Trace /uL (Negative) Urine RBC 2 /hpf (0 - 4) Urine WBC 7 /hpf (0 - 5) Urine Squamous Epithelial Cells Few /hpf (<5) Urine Bacteria Few /hpf (None Seen) Urine Hyaline Casts Few /lpf (0 - 2) Urine Mucus Few (None Seen) Urine Glucose Normal mg/dL (Normal) Test 10/14/24 15:59 Troponin I High Sensitivity 9 ng/L (</=34) Other Laboratory Tests 10/15/24 06:24 Brief Hx & Hospital Course: Patient recently had right hemicolectomy for villous adenoma and was recovering in a custodial and brought in here for nausea and vomiting after eating Irish noodles. Found to have acute gastroenteritis and possible food poisoning treated with IV fluids Flagyl and Imodium and patient has a recovered and is being discharged back to [facility] facility A1c 7.1 patient has mild diabetes. Patient requesting blood sugar to be checked only once in a day Consults/Reason for consult None Operations or Procedures CT abdomen pelvis without contrast Condition at Discharge: Fair Final Diagnosis/Problems List Symptomatic hypotension resolved Acute gastroenteritis : Flagyl Intermittent diarrhea: [place] Acute kidney injury Diabetes ruled out blood sugars normal DC all diabetic orders check A1c Acute dehydration History of right hemicolectomy for villous adenoma Discharge Disposition: Group Home Facility Discharge Instruct/Medications Diet: Consistent carbohydrate Activity: Light activity Follow Up/Referral: Follow up with the custodial Medications: see list 35 (Time taken for discharge summary 35 minutes) Discharge Statement: "Patient was advised to return to the ER or call 911 if any headaches, dizziness, shortness of breath, chest pain, abdominal pain, bleeding, fevers, or worsening of medical condition. Patient was counseled about treatment plan, medications, possible side effects, patientverbalized understanding. All questions were answered to the best of my ability. This discharge took greater then 30 minutes in planning, reviewing documentation, counseling the patient, and discussing with other team members." ASSESSMENT ASSESSMENT Hospital Course Improved Assessment Symptomatic hypotension resolved Acute gastroenteritis : Flagyl Intermittent diarrhea: [place] Acute kidney injury Diabetes ruled out blood sugars normal DC all diabetic orders check A1c Acute dehydration History of right hemicolectomy for villous adenoma Date of Service: Oct 17, 2024 Billing Provider: MARLIN SHAW MD Common Visit Codes: [id number] DISCH DAY >30min MARLIN SHAW MD Oct 17, 2024 09:10
[2024-10-17 10:37] VITALS: BP 138/68; PULSE 85; RESP 16; TEMP 97.9; O2SAT 98
[2024-10-17 13:23] VITALS: BP 149/72; PULSE 84; RESP 18; TEMP 97.9; O2SAT 98
== END 2024-10-17 15:15 | DRG 391 ==
LOC: ER 14:33 → EDBD 14:33 → OVERFLOW 19:15 → CENTRAL 23:35
PROVIDERS: ADMIT Family Medicine; ATTEND Family Medicine
DX: A09 Infectious gastroenteritis and colitis, unspecified (principal); N17.0 Acute kidney failure with tubular necrosis; R57.1 Hypovolemic shock; I95.9 Hypotension, unspecified; D64.9 Anemia, unspecified; E86.0 Dehydration; A05.9 Bacterial foodborne intoxication, unspecified; E78.5 Hyperlipidemia, unspecified; Z90.49 Acquired absence of other specified parts of digestive tract
CPT/HCPCS: 36415; 71045; 74176; 80048; 81001; 82962; 83036; 84484; 85025; 87045; 87081; 87427; 87493; 96361; 96365; 99291; 99292; G0378; J2543; J3490

== ENCOUNTER 2025-01-16 03:26 | Inpatient (IN) | payer MEDICARE, OTHER ==
[~2025-01-16] VITALS: Ht 154.9 cm; Wt 48.0 kg
--- NOTE | 2025-01-16 04:53 | ED.PDOC ---
Back pain HPI HPI Comments Pt presents to the ER due to back pain. Pt reports fall injury x3 weeks ago and has had back pain ever since. Pt was seen by PCP on 12/30/2024 and obtained X ray imaging which showed an age indeterminate T-12 compression fracture. Pt states PCP told her to come to ER if she was unable to walk and if pain increased. Pt reports trouble walking and increased pain. Patient has been taking naproxen and methocarbamol with little help. Patient notes she has never had any back pain in the past until her fall injury 3 weeks ago. Denies numbness, weakness, saddle anesthesia, urinary incontinence, bowel incontinence. Chief Complaint: Back Pain Time Seen by MD: 03:37 Primary Care Provider: Dr. Rivera Reviewed Notes: Nurses Notes, Medications, Allergies Allergies: Coded Allergies: NO KNOWN ALLERGIES (Unverified , 04/05/18) Home Meds Active Scripts Acetaminophen (Tylenol 8 Hour Arthritis) 650 Mg Tab, 650 MG PO TID, #30 TAB Prov:DENIS YEH 08/14/24 Nitrofurantoin Monohydrate Mac (Macrobid) 100 Mg Cap, 100 MG PO BID, #14 CAP Prov:DENIS YEH 08/14/24 Ondansetron Odt 4MG Tab (ZOFRAN PO) 4 Mg Tb, 4 MG PO TID for 7 Days, #21 TAB ODT TAB-DISSOLVE IN MOUTH, THEN SWALLOW Prov:RAMÓN RIDER MD 05/10/24 Baclofen (Baclofen) 10 Mg Tab, 10 MG PO TID PRN, #30 TAB Prov:JAY HE 05/06/24 Sulfamethoxazole-Trimethoprim (Bactrim) 1 Tab Tab, 1 TAB PO BID for 7 Days, #14 TAB 0 Refills Prov:VARGHESE CABRERA 04/11/23 Reported Medications Pantoprazole Sodium Sesquihydr (Pantoprazole Sodium) 40 Mg Tab, 1 TAB PO DAILY 08/25/24 Glipizide (Glipizide) 5 Mg Tab, 1 TAB PO BID 08/25/24 Information Source: Patient Mode of Arrival: Wheelchair Timing: Days Duration: Since onset, Days Location of Back pain: (B) Lumbar, (B) Thoracic Severity: Moderate Prehospital treatment: None Quality: Aching Onset: Fall Modifying Factors: Movement, Twisting, Walking Associated signs and symptoms: None Past Medical History PAST MEDICAL HISTORY: DM, High Lipids Surgical History: Denies all surgeries RECORDING STUDIO [employer]NS[employer]IP History: Denies all RECORDING ST[employer]IO [employer]IP Hx Family History Family History: Reviewed,noncontributory to illness Social History Smoker: Non-Smoker Alcohol: Denies ETOH Use Drugs: Denies Drug Use Lives In: Home Constitutional: reports: others (ANXIOUS ); denies: chills, diaphoresis, fatigue, fever, malaise, sweats, weakness EENTM: denies: blurred vision, double vision, ear bleeding, ear discharge, ear drainage, ear pain, ear ringing, eye pain, eye redness, hearing loss, mouth pain, mouth swelling, nasal discharge, nose bleeding, nose congestion, nose pain, photophobia, tearing, throat pain, throat swelling, voice changes, others Respiratory: denies: cough, hemoptysis, orthopnea, SOB at rest, shortness of breath, SOB with excertion, stridor, wheezing, others Cardiovascular: denies: chest pain, dizzy spells, diaphoresis, Dyspnea on exertion, edema, irregular heart beat, left arm pain, lightheadedness, palpita tions, PND, syncope, others Gastrointestinal: denies: abdomen distended, abdominal pain, blood streaked garth wels, constipated, diarrhea, dysphagia, difficulty swallowing, hematemesis, melena, nausea, poor appetite, poor fluid intake, rectal bleeding, rectal pain, vomiting, others Genitourinary: denies: abnormal vagina bleeding, burning, dyspareunia, dysuria, flank pain, frequency, hematuria, incontinence, pain, , vagina discharge, urgency, others Neurological: denies: dizziness, fainting, headache, left sided numbness, left sided weakness, numbness, paresthesia, pre-existing deficit, right sided numbness, right sided weakness, seizure, speech problems, tingling, tremors, weakness, others Musculoskeletal: reports: back pain (LOWER BACK PAIN), muscle pain; denies: gout, joint pain, joint swelling, muscle stiffness, neck pain, others Integumetry: denies: bruises, change in color, change in hair/nails, dryness, laceration, lesions, lumps, rash, wounds, others Allergic/Immunocompromised: denies: Difficulty Healing, Frequent Infections, Hives, Itching, others Hematologic/Lymphatic: denies: anemia, blood clots, easy bleeding, easy bruising, swollen glands, others Endocrine: denies: excessive hunger, excessive sweating, excessive thirst, excessive urination, flushing, intolerance to cold, intolerance to heat, unexplained weight gain, unexplained weight loss, others Psychiatric: denies: anxiety, bipolar disorder, depression, hopeless, panic disorder, schizophrenia, sleepless, suicidal, others All Other Systems: Reviewed and Negative Physical Exam General Appearance: No Apparent Distress, Normal HEENT: PERRL/EOMI, Pharynx Normal Neck: Full Range of Motion, Non-Tender Respiratory: Lungs Clear, No Respiratory Distress, Normal Breath Sounds Cardiovascular: No Edema, No JVD, No Murmur, No Gallop, Normal Peripheral Pulses, Regular Rate/Rhythm Breast Exam: Deferred Gastrointestinal: No Organomegaly, Non Tender, No Pulsatile Mass, Normal Bowel Sounds, Soft Genitalia: Deferred Pelvic: Deferred Rectal: Deferred Extremities: Normal capillary refill, Normal inspection, Normal range of motion, Non-tender, No pedal edema Musculoskeletal : Location: Bilateral Extremity Location: Back (Moderate tenderness palpated over T 12 through L3 spine with no noted crepitus or step-offs. T12 through L3 paraspinal muscles moderate tenderness right side greater than left. Strength sensory and motion intact positive pedal pulses) Apperance: Tenderness: Moderate (BONY TENDERNESS ON LOW BACK, NO ERYTHEMA, SWELLING AND DEFORMITY. 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 Was a procedure done?: No Back Pain Differential Dx Differential Diagnosis: DJD, Fracture, Musculoskeletal Pain, Strain, Other (INTRACTABLE LOW BACK PAIN) Other Differential Diagnosis DDD X-Ray, Labs, Meds, VS Vital Signs Date Time Temp Pulse Resp B/P (MAP) Pulse Ox O2 Delivery O2 Flow Rate FiO2 01/16/25 06:50 97.9 83 17 136/55 (82) 99 97.9 01/16/25 06:50 83 17 99 Room Air 01/16/25 04:04 98.2 91 12 144/74 (97) 99 98.2 Lab Test 01/16/25 07:00 01/16/25 06:46 Range/Units Urine Color Yellow Yellow Urine Clarity Turbid H Clear Urine pH 5.5 5.0-9.0 Urine Specific [place] 1.020 1.001-1.035 Urine Protein 1+ H Negative Urine Ketones Negative Negative Urine Blood Negative Negative /uL Urine Nitrite Negative Negative Urine Bilirubin Negative Negative Urine Urobilinogen Normal Negative mg/dL Urine Leukocyte Esterase Negative Negative /uL Urine RBC 2 0 - 4 /hpf Urine Microscopic WBC 2 0-5 /HPF Urine Squamous Epithelial Cells Few <5 /hpf Urine Bacteria Few H None Seen /hpf Urine Hyaline Casts Mod 0 - 2 /lpf Urine Mucus Few None Seen Urine Glucose Normal Normal mg/dL White Blood Count 4.6 4.4-10.8 10^3/uL Red Blood Count 3.04 L 4.0-5.20 10^6/uL Hemoglobin 8.1 L 12.2-16.2 g/dL Hematocrit 24.8 L 36.0-46.0 % Mean Corpuscular Volume 81.6 80.0-100.0 fL Mean Corpuscular Hemoglobin 26.6 L 28.0-32.0 pg Mean Corpuscular Hemoglobin Concent 32.7 32.0-36.0 g/dL Red Cell Distribution Width 16.1 H 11.8-14.3 % Platelet Count 120 L 140-450 10^3/uL Mean Platelet Volume 7.1 6.9-10.8 fL Neutrophils (%) (Auto) 58.5 37.0-80.0 % Lymphocytes (%) (Auto) 32.9 10.0-50.0 % Monocytes (%) (Auto) 7.5 0.0-12.0 % Eosinophils (%) (Auto) 0.2 0.0-7.0 % Basophils (%) (Auto) 0.9 0.0-2.0 % Neutrophils # (Auto) 2.7 1.6-8.6 10 ^3/uL Lymphocytes # (Auto) 1.5 0.4-5.4 10 ^3/uL Monocytes # (Auto) 0.3 0-1.3 10 ^3/uL Eosinophils # (Auto) 0 0-0.8 10 ^3/uL Basophils # (Auto) 0 0-0.2 10 ^3/uL Nucleated Red Blood Cells 0.4 % Prothrombin Time 11.3 9.3-11.8 sec Prothrombin Time INR 1.07 0.9-1.15 Sodium Level 133 L 136-145 mmol/L Potassium Level 3.9 3.5-5.1 mmol/L Chloride Level 103 98-107 mmol/L Carbon Dioxide Level 25 20-31 mmol/L Anion Gap 5 5-15 Blood Urea Nitrogen 36 H 9-23 mg/dL Creatinine 1.00 0.550-1.02 mg/dL Glomerular Filtration Rate Calc 58 >90 mL/min BUN/Creatinine Ratio 36.0 H 10.0-20.0 Serum Glucose 182 H 74-106 mg/dL Calcium Level 10.5 H 8.7-10.4 mg/dL Current Medications Medications (Trade) Dose Ordered Sig/Walt Route Start Time Stop Time Status Last Admin Acetaminophen/ Hydrocodone Bitart (Ida 5/325MG Tab) 1 tab ONCE ONCE PO 01/16/25 05:15 01/16/25 05:16 DC 01/16/25 05:47 Sodium Chloride 1,000 ml @ 150 mls/hr Q6H40M ONCE IV 01/16/25 07:00 01/16/25 13:39 DC 01/16/25 07:26 Acetaminophen/ Hydrocodone Bitart (Ida 5/325MG Tab) 1 tab ONCE ONCE PO 01/16/25 08:15 01/16/25 08:16 DC 01/16/25 08:26 Sodium Chloride 1,000 ml @ 1,000 mls/hr Q1H ONCE IV 01/16/25 08:15 01/16/25 09:14 DC 01/16/25 09:05 EXAM: CT LS SPINE WO CONTRAST, CT THORACIC SPINE WO CONTRAS HISTORY: pain/injury COMPARISON: None CTDIvol 12th mGy, DLP 422 mGy*cm. TECHNIQUE: Multiple axial CT images of the spine were obtained using bone algorithm. Axial and coronal reformatting was done. Bone and soft tissue windows were reviewed. FINDINGS: Diffuse osteopenia. Multilevel degenerative changes of the spine. No acute subluxation. Pssn-vk-ymhptmyp T12 vertebral body compression fracture. Age indeterminate, possibly chronic bilateral L3 transverse process minimally displaced fractures. Vascular calcifications of the aorta. IMPRESSION: Gkfu-zf-sfmwgwsk T12 vertebral body compression fracture. Age indeterminate, possibly chronic bilateral L3 transverse process minimally displaced fractures. ATED BY: BERTRAM ROSE MD DICTATED DATE/TIME: 01/16/25621 SIGNED BY: BERTRAM ROSE MD SIGNED DATE/TIME: 01/16/25621 CC: EXAM: CT LS SPINE WO CONTRAST, CT THORACIC SPINE WO CONTRAS HISTORY: pain/injury COMPARISON: None CTDIvol 12th mGy, DLP 422 mGy*cm. TECHNIQUE: Multiple axial CT images of the spine were obtained using bone algorithm. Axial and coronal reformatting was done. Bone and soft tissue windows were reviewed. FINDINGS: Diffuse osteopenia. Multilevel degenerative changes of the spine. No acute subluxation. Lrhl-tb-naxebkgz T12 vertebral body compression fracture. Age indeterminate, possibly chronic bilateral L3 transverse process minimally displaced fractures. Vascular calcifications of the aorta. IMPRESSION: Cauj-kj-vtjdiwuh T12 vertebral body compression fracture. Age indeterminate, possibly chronic bilateral L3 transverse process minimally displaced fractures. ATED BY: BERTRAM ROSE MD DICTATED DATE/TIME: 01/16/25621 SIGNED BY: BERTRAM ROSE MD SIGNED DATE/TIME: 01/16/25621 CC: X-Ray, Labs, Meds, VS Comment Patient's x-ray reviewed thoracic spine shows T12 chronic appearing compression fracture.Will obtain a CT thoracic and lumbar patient continues with moderate to severe pain with pinpoint tenderness at T12 and below. Pending results response to pain consider admitting for intractable pain and MRI in the morning. Patient care will be signed out to oncoming provider at 0600 due to shift change. 0600: PATIENT CARE WA SINGED OUT TO ME, PRESTON YEH PA-C DUE TO SHIFT CHANGE AT 0600. PATIENT INITIALLY PRESENTED WITH LOWER BACK PAIN FOR THE PAST 3 WEEKS. PATIENT WAS ALREADY HAD IMAGING DONE BY HER PRIMARY CARE PHYSICIAN WHICH REVEALED AN AGE INDETERMINATE T12 COMPRESSION FRACTURE, BUT IS STILL EXPERIENCING LOWER BACK PAIN AT THIS TIME THAT HAS WORSENED OVER TIME. PREVIOUS PROVIDER ORDERED CT SCANS OF THE PATIENT'S THORACIC AND LUMBAR SPINE. PATIENT'S CT SCANS CONFIRMED HER T12 COMPRESSION FRACTURE THAT WAS SHOWN ON HER X-RAY FROM 12/30/2024. EXTERNAL MEDICAL RECORDS REVIEWED: [NONE] INDEPENDENT HISTORIANS: [NONE] SOCIAL DETERMINANTS OF HEALTH: [NONE] LABS ORDERED: CBC, BMP, PT INR, UA REVIEWED AND INTERPRETED RESULTS: IMAGING ORDERED: CT LS SPINE, CT T-SPINE TREATMENTS ORDERED: NS 150ML/HR IV, NS 1L IV, NORCO 5/325MG PO PROCEDURES PERFORMED: NONE CRITICAL CARE TIME: NONE I HAVE DISCUSSED THE PATIENT WITH THE ATTENDING PHYSICIAN DR. WALTERS AND HE AGREES WITH THE PATIENT'S PLAN OF CARE AND DISPOSITION. UPON MY PHYSICAL EXAMINATION, THE PATIENT HAD TENDERNESS NOTED TO HER LUMBAR SPINE REGION, BUT NO SADDLE ANESTHESIA, URINARY INCONTINENCE, OR BOWEL INCONTINENCE OR ANY OTHER SYMPTOMS OF CAUDA EQUINA SYNDROME. DUE TO THE PATIENT'S WORSENING PAIN AND CT SCAN RESULTS REVEALING A T12 COMPRESSION FRACTURE, AND I HAVE DETERMINED THE PATIENT SHOULD BE ADMITTED FOR FURTHER TREATMENT AND EVALUATION. THE ON-CALL HOSPITALIST WILL BE CONTACTED FOR ADMISSION OF THIS PATIENT. Images Reviewed?: Images reviewed and evaluated by me Time of 1ST Reevaluation: 05:13 Reevaluation 1ST: Unchanged Time of 2ND Reevaluation: 08:00 Reevaluation 2ND: Unchanged Patient Education/Counseling: Diagnosis, Treatment Family Education/Counseling: Diagnosis, Treatment Assigned to Dr. PRESTON YEH PA-C Change of Shift?: Yes Departure 1 Departure Time of Disposition: 08:00 Impression: Primary Impression: Intractable back pain Additional Impressions: Compression fracture of T12 vertebra Qualified Codes: S22.080G - Wedge compression fracture of t11-T12 vertebra, subsequent encounter for fracture with delayed healing Status post fall CKD (chronic kidney disease) Qualified Codes: N18.31 - Chronic kidney disease, stage 3a Disposition: 09 ADMITTED INPATIENT Condition: Serious Critical Care Note Critical Care Time?: No Stability Stability form required: No Unstable for transfer: Requires medication, ED Physician Assesment, Possible rapid decline I personally scribed for DENIS YEH ([email or web address]) on 01/16/25 at 06:31. Electronically submitted by Daryl Driver ([email or web address]). I personally scribed for DENIS YEH ([email or web address]) on 01/16/25 at 06:35. Electronically submitted by Daryl Driver ([email or web address]). I personally scribed for DENIS YEH ([email or web address]) on 01/16/25 at 07:03. Electronically submitted by Daryl Driver ([email or web address]). [facility] Jan 16, 2025 04:53 DENIS YEH Jan 16, 2025 06:31
[2025-01-16] MEDS: HYDROcodone-ACET 5/325MG TAB PO ONE ×2 (05:47→08:26)
--- NOTE | 2025-01-16 06:25 | DVH ---
EXAM: CT LS SPINE WO CONTRAST, CT THORACIC SPINE WO CONTRAS HISTORY: pain/injury COMPARISON: None CTDIvol 12th mGy, DLP 422 mGy*cm. TECHNIQUE: Multiple axial CT images of the spine were obtained using bone algorithm. Axial and coron al reformatting was done. Bone and soft tissue windows were reviewed. FINDINGS: Diffuse osteopenia. Multilevel degenerative changes of the spine. No acute subluxation. Rgcy-do-tydntrus T12 vertebral body compression fracture. Age indeterminate, possibly chronic bilateral L3 transverse process minimally displaced fractures. Vascular calcifications of the aorta. IMPRESSION: Gwqg-gu-ktnkzywo T12 vertebral body compression fracture. Age indeterminate, possibly chronic bilateral L3 transverse process minimally displaced fractures.
[2025-01-16 07:03] LABS: Basophils # (auto) 0 10 ^3/uL (0-0.2); Basophils % (auto) 0.9 % (0.0-2.0); Eosinophils # (auto) 0 10 ^3/uL (0-0.8); Eosinophils % (auto) 0.2 % (0.0-7.0); Hematocrit 24.8 % (36.0-46.0); Hemoglobin 8.1 g/dL (12.2-16.2); Lymphocytes # (auto) 1.5 10 ^3/uL (0.4-5.4); Lymphocytes % (auto) 32.9 % (10.0-50.0); Mean Corpuscular Hemoglobin 26.6 pg (28.0-32.0); Mean Corpuscular Hgb Conc. 32.7 g/dL (32.0-36.0); Mean Corpuscular Volume 81.6 fL (80.0-100.0); Monocytes # (auto) 0.3 10 ^3/uL (0-1.3); Monocytes % (auto) 7.5 % (0.0-12.0); Neutrophils # (auto) 2.7 10 ^3/uL (1.6-8.6); Neutrophils % (auto) 58.5 % (37.0-80.0); Nucleated Red Blood Cells % 0.4 %; Platelet Count (auto) 120 10^3/uL (140-450); Red Blood Cells 3.04 10^6/uL (4.0-5.20); Red Cell Distribution Width 16.1 % (11.8-14.3); White Blood Cell 4.6 10^3/uL (4.4-10.8)
[2025-01-16 07:12] LABS: Chloride 103 mmol/L (98-107); Potassium 3.9 mmol/L (3.5-5.1)
[2025-01-16 07:13] LABS: Anion Gap 5 (5-15); Carbon Dioxide 25 mmol/L (20-31)
[2025-01-16 07:15] LABS: Calcium 10.5 mg/dL (8.7-10.4); Sodium 133 mmol/L (136-145)
[2025-01-16 07:21] LABS: INR 1.07 (0.9-1.15); Prothrombin Time 11.3 sec (9.3-11.8)
[2025-01-16] MEDS: SODIUM CHLORIDE 0.9% 1,000 ML IV ONE ×2 (07:26→09:05)
[2025-01-16 07:31] LABS: Urine Bacteria FEW /hpf (None Seen); Urine Blood Negative /uL (Negative); Urine Clarity Turbid (Clear); Urine Color Yellow (Yellow); Urine Hyaline Cast MOD /lpf (0 - 2); Urine Mucus FEW (None Seen); Urine Protein, UAD 1+ (Negative); Urine Squamous Epithelial Cell FEW /hpf (<5); Urine Urobilinogen Normal (Negative); Urine WBC 2 /HPF (0-5); Urine pH 5.5 (5.0-9.0)
[2025-01-16 07:33] LABS: Blood Urea Nitrogen 36 mg/dL (9-23); Glucose 182 mg/dL (74-106)
--- NOTE | 2025-01-16 09:09 | DVHHP2 ---
History of Present Illness Reason for Visit: Back pain History of Present Illness Tyson Moralez is a 74-year-old female with past medical history of hypertension, diabetes, and ex lap with right hemicolectomy who presents to the ED with pain status post fall 3 weeks ago. Patient states that the pain is 10/10 throbbing and constant. She states that she was going outside through the front door turned around and her foot had caught on the rug where she tripped and fell. Patient denies any chest pain, shortness of breath, fever, chills, and has been weakness, dizziness, abdominal pain, nausea, vomiting, or diarrhea. Has been in the chair side states that she does use a front wheel walker however currently uses a wheelchair to get around. Cardiovascular: hyperipidemia Endocrine: Diabetes Past Surgical History: Other (Ex lap right hemicolectomy) Family History: None Smoke: No ALCOHOL: none Drugs: None Lives: with Family Domestic Violence: Neg Review of Systems Musculoskeletal: back pain Allergies: Coded Allergies: NO KNOWN ALLERGIES (Unverified , 04/05/18) Exam Vital Signs Vital Signs Date Time Temp Pulse Resp B/P (MAP) Pulse Ox O2 Delivery O2 Flow Rate FiO2 01/16/25 06:50 97.9 83 17 136/55 (82) 99 97.9 01/16/25 06:50 Room Air General Appearance: Alert, Oriented X3, Cooperative, No acute distress HEENT: Atraumatic, PERRLA, EOMI, Mucous membr. moist/pink Respiratory: Clear to auscultation, Normal air movement Cardiovascular: Normal S1, Normal S2, No murmurs Abdominal: Normal bowel sounds, Soft, No tenderness, No hepatospenomegaly, No masses Extremities: No cyanosis, No edema, Normal pulses Skin: No significant lesion Neuro: Normal speech, Normal tone, Sensation intact Psych/Mental Status: Mental status NL, Mood NL Labs/Xrays Labs Test 01/16/25 07:00 01/16/25 06:46 Range/Units Urine Color Yellow Yellow Urine Clarity Turbid H Clear Urine pH 5.5 5.0-9.0 Urine Specific [place] 1.020 1.001-1.035 Urine Protein 1+ H Negative Urine Ketones Negative Negative Urine Blood Negative Negative /uL Urine Nitrite Negative Negative Urine Bilirubin Negative Negative Urine Urobilinogen Normal Negative mg/dL Urine Leukocyte Esterase Negative Negative /uL Urine RBC 2 0 - 4 /hpf Urine Microscopic WBC 2 0-5 /HPF Urine Squamous Epithelial Cells Few <5 /hpf Urine Bacteria Few H None Seen /hpf Urine Hyaline Casts Mod 0 - 2 /lpf Urine Mucus Few None Seen Urine Glucose Normal Normal mg/dL White Blood Count 4.6 4.4-10.8 10^3/uL Red Blood Count 3.04 L 4.0-5.20 10^6/uL Hemoglobin 8.1 L 12.2-16.2 g/dL Hematocrit 24.8 L 36.0-46.0 % Mean Corpuscular Volume 81.6 80.0-100.0 fL Mean Corpuscular Hemoglobin 26.6 L 28.0-32.0 pg Mean Corpuscular Hemoglobin Concent 32.7 32.0-36.0 g/dL Red Cell Distribution Width 16.1 H 11.8-14.3 % Platelet Count 120 L 140-450 10^3/uL Mean Platelet Volume 7.1 6.9-10.8 fL Neutrophils (%) (Auto) 58.5 37.0-80.0 % Lymphocytes (%) (Auto) 32.9 10.0-50.0 % Monocytes (%) (Auto) 7.5 0.0-12.0 % Eosinophils (%) (Auto) 0.2 0.0-7.0 % Basophils (%) (Auto) 0.9 0.0-2.0 % Neutrophils # (Auto) 2.7 1.6-8.6 10 ^3/uL Lymphocytes # (Auto) 1.5 0.4-5.4 10 ^3/uL Monocytes # (Auto) 0.3 0-1.3 10 ^3/uL Eosinophils # (Auto) 0 0-0.8 10 ^3/uL Basophils # (Auto) 0 0-0.2 10 ^3/uL Nucleated Red Blood Cells 0.4 % Prothrombin Time 11.3 9.3-11.8 sec Prothrombin Time INR 1.07 0.9-1.15 Sodium Level 133 L 136-145 mmol/L Potassium Level 3.9 3.5-5.1 mmol/L Chloride Level 103 98-107 mmol/L Carbon Dioxide Level 25 20-31 mmol/L Anion Gap 5 5-15 Blood Urea Nitrogen 36 H 9-23 mg/dL Creatinine 1.00 0.550-1.02 mg/dL Glomerular Filtration Rate Calc 58 >90 mL/min BUN/Creatinine Ratio 36.0 H 10.0-20.0 Serum Glucose 182 H 74-106 mg/dL Calcium Level 10.5 H 8.7-10.4 mg/dL EXAM: CT LS SPINE WO CONTRAST, CT THORACIC SPINE WO CONTRAS HISTORY: pain/injury COMPARISON: None CTDIvol 12th mGy, DLP 422 mGy*cm. TECHNIQUE: Multiple axial CT images of the spine were obtained using bone algorithm. Axial and coronal reformatting was done. Bone and soft tissue windows were reviewed. FINDINGS: Diffuse osteopenia. Multilevel degenerative changes of the spine. No acute subluxation. Meak-yi-xxyuyjnf T12 vertebral body compression fracture. Age indeterminate, possibly chronic bilateral L3 transverse process minimally displaced fractures. Vascular calcifications of the aorta. IMPRESSION: Btsx-sy-sbfzlwxy T12 vertebral body compression fracture. Age indeterminate, possibly chronic bilateral L3 transverse process minimally displaced fractures. EXAM: CT LS SPINE WO CONTRAST, CT THORACIC SPINE WO CONTRAS HISTORY: pain/injury COMPARISON: None CTDIvol 12th mGy, DLP 422 mGy*cm. TECHNIQUE: Multiple axial CT images of the spine were obtained using bone algo rithm. Axial and coronal reformatting was done. Bone and soft tissue windows were reviewed. FINDINGS: Diffuse osteopenia. Multilevel degenerative changes of the spine. No acute subluxation. Zpwo-zo-bcmrnvxr T12 vertebral body compression fracture. Age indeterminate, possibly chronic bilateral L3 transverse process minimally displaced fractures. Vascular calcifications of the aorta. IMPRESSION: Xerz-ue-ioighbrx T12 vertebral body compression fracture. Age indeterminate, possibly chronic bilateral L3 transverse process minimally displaced fractures. Assessment/Plan Assessment/Plan Assessment Anemia Intractable back pain likely due to T12 vertebral body compression fracture Diabetes type 2 poorly controlled History of hyperlipidemia History of ex lap right hemicolectomy Plan Admit to med surge UA noted NS 2 L given ED Antiemetics Pain management PT INR CT thoracic spine CT lumbar spine Hemoglobin A1c ISS and Accu-Cheks NPO IV fluids DVT prophylaxis-Lovenox PUD prophylaxis-Protonix, continue home medication Discussed plan of care with patient, patient's spouse, and nurse Home medications reconciled Spinal surgery consult Plan discussed with: Patient, Spouse Date of Service: Jan 16, 2025 Billing Provider: THON,SALINA K CONSULTING HR PROFESSIONAL Common Visit Codes: [id number] INP/OBS CARE (HIGH) SALMA MICHAEL CONSULTING HR PROFESSIONAL Jan 16, 2025 09:09
[2025-01-16] MEDS ORDERED: DEXTROSE (50%) 50ML SYRG IV PRN (09:15)
[2025-01-16] MEDS: ENOXAPARIN SOD 40 MG/0.4 ML SYRINGE SC SCH (10:05)
[2025-01-16 10:29] VITALS: PULSE 74; RESP 12; O2SAT 98
[2025-01-16] MEDS: ONDANSETRON HCL 4 MG/2 ML VIAL IV PRN (10:55)
[2025-01-16] MEDS: MORPHINE SULFATE INJ 2 MG/ml SYRG IV PRN (10:56)
[2025-01-16] MEDS: ACCU-CHEK COMFORT CURVE STRIP VI SCH (12:02)
[2025-01-16] MEDS: InsuLIN REG 1unit/0.01ml Soln (100units/ml) SC SCH (12:14)
[2025-01-16] MEDS: HYDROcodone-ACET 5/325MG TAB PO PRN (13:48)
[2025-01-16] MEDS: SODIUM CHLORIDE 0.9% 1,000 ML IV SCH (14:00)
[2025-01-16 18:44] VITALS: PULSE 68; RESP 15; O2SAT 98
[2025-01-16 22:30] VITALS: BP 183/83; PULSE 84; RESP 19; TEMP 98.3; O2SAT 97
[2025-01-16 23:30] VITALS: BP 183/83; PULSE 84; RESP 19; TEMP 98.3; O2SAT 97
[2025-01-17] VITALS (8 sets, daily range): BP systolic 118–175; BP diastolic 61–71; PULSE 71–91; RESP 17–18; TEMP 97.3–98.1; O2SAT 94–100
[2025-01-17 06:04] LABS: Alanine Aminotransferase 13 U/L (7-40); Alkaline Phosphatase 67 U/L (46-116); Anion Gap 4 (5-15); Aspartate Aminotransferase 23 U/L (13-40); BUN/Creatinine Ratio 28.9 (10.0-20.0); Calcium 9.3 mg/dL (8.7-10.4); Carbon Dioxide 25 mmol/L (20-31); Potassium 3.7 mmol/L (3.5-5.1); Sodium 136 mmol/L (136-145)
[2025-01-17 06:08] LABS: Albumin 3.1 g/dL (3.2-4.8); Bilirubin, Total 0.3 mg/dL (0.2-1.0); Blood Urea Nitrogen 24 mg/dL (9-23); Chloride 107 mmol/L (98-107); Glucose 155 mg/dL (74-106); Total Protein 10.2 g/dL (5.7-8.2)
[2025-01-17 06:17] LABS: Basophils # (auto) 0 10 ^3/uL (0-0.2); Eosinophils # (auto) 0 10 ^3/uL (0-0.8); Lymphocytes # (auto) 1.6 10 ^3/uL (0.4-5.4); Neutrophils # (auto) 2.5 10 ^3/uL (1.6-8.6)
[2025-01-17 06:21] LABS: Basophils % (auto) 0.4 % (0.0-2.0); Eosinophils % (auto) 0.6 % (0.0-7.0); Hematocrit 24.2 % (36.0-46.0); Hemoglobin 7.8 g/dL (12.2-16.2); Lymphocytes % (auto) 36.2 % (10.0-50.0); Mean Corpuscular Hemoglobin 26.4 pg (28.0-32.0); Mean Corpuscular Hgb Conc. 32.2 g/dL (32.0-36.0); Mean Corpuscular Volume 82.1 fL (80.0-100.0); Monocytes # (auto) 0.2 10 ^3/uL (0-1.3); Monocytes % (auto) 5.3 % (0.0-12.0); Neutrophils % (auto) 57.5 % (37.0-80.0); Nucleated Red Blood Cells % 0.4 %; Platelet Count (auto) 102 10^3/uL (140-450); Red Blood Cells 2.94 10^6/uL (4.0-5.20); Red Cell Distribution Width 16.5 % (11.8-14.3); White Blood Cell 4.3 10^3/uL (4.4-10.8)
--- NOTE | 2025-01-17 10:38 | DVHPN2 ---
Reviewed: Care Plan, H&P, Labs, Medications, Previous Orders, Radiology Changes from previous H/P or p: No Changes Musculoskeletal: back pain Objective Vitals Vital Signs Date Time Temp Pulse Resp B/P (MAP) Pulse Ox O2 Delivery O2 Flow Rate FiO2 01/17/25 08:55 98.1 72 18 148/61 (90) 100 98.1 01/16/25 23:30 Room Air* 0 21 21 Intake/Output Intake and Output 01/17/25 07:00 Intake Total 700 ml Balance 700 ml Intake IV Total 700 ml # Voids 2 Medications Current Medications Medications Dose Ordered Sig/Walt Route Start Time Stop Time Status Last Admin Dose Admin Sodium Chloride 1,000 ml @ 100 mls/hr Q10H IV 01/16/25 13:39 01/16/25 14:00 100 MLS/HR Acetaminophen/ Hydrocodone Bitart 1 tab Q4HP PRN PO 01/16/25 09:00 01/16/25 23:31 1 TAB Ondansetron HCl 4 mg Q4HP PRN IV 01/16/25 09:00 01/16/25 10:55 4 MG Enoxaparin Sodium 40 mg DAILY SC 01/16/25 10:00 01/16/25 11:44 40 MG Acetaminophen 650 mg Q6HP PRN PO 01/16/25 09:00 Morphine Sulfate 2 mg Q4HPRN PRN IV 01/16/25 09:00 01/17/25 06:21 2 MG Diagnostic Test (Pha) 1 strip Q6HR 01/16/25 12:00 01/17/25 06:12 1 STRIP Insulin Human Regular Q6HR SC 01/16/25 12:00 01/17/25 06:24 2 UNITS Dextrose 50 ml UD PRN IV 01/16/25 09:15 Laboratory Results Laboratory Tests 01/17/25 05:24 Chemistry Test 01/17/25 05:24 Albumin 3.1 g/dL (3.2-4.8) L Calcium Level 9.3 mg/dL (8.7-10.4) Total Protein 10.2 g/dL (5.7-8.2) H LFT Test 01/17/25 05:24 Alanine Aminotransferase (ALT) 13 U/L (7-40) Alkaline Phosphatase 67 U/L (46-116) Aspartate Amino Transferase (AST) 23 U/L (13-40) Total Bilirubin 0.3 mg/dL (0.2-1.0) Urinalysis Test 01/16/25 07:00 Urine Color Yellow (Yellow) Urine Clarity Turbid (Clear) H Urine pH 5.5 (5.0-9.0) Urine Specific [place] 1.020 (1.001-1.035) Urine Protein 1+ (Negative) H Urine Ketones Negative (Negative) Urine Blood Negative /uL (Negative) Urine Nitrite Negative (Negative) Urine Bilirubin Negative (Negative) Urine Urobilinogen Normal mg/dL (Negative) Urine Leukocyte Esterase Negative /uL (Negative) Urine RBC 2 /hpf (0 - 4) Urine Microscopic WBC 2 /HPF (0-5) Urine Squamous Epithelial Cells Few /hpf (<5) Urine Bacteria Few /hpf (None Seen) H Urine Hyaline Casts Mod /lpf (0 - 2) Urine Mucus Few (None Seen) Urine Glucose Normal mg/dL (Normal) Labs and/or images reviewed: Labs reviewed by me, Image(s) reviewed by me Assessment/Plan Assessment/Plan Fracture T12 and bilateral transverse processes L3 indeterminate age: [place] morphine consult for spine surgeon Dr. Mojica Mechanical fall at home Moderately controlled diabetes with blood sugars around 180 A1c 7.1 in October 2024 Hypotension Chronic anemia hemoglobin 7.8: Iron infusion History of right hemicolectomy for hepatic flexure mass 2023 Moderate malnutrition Plan discussed with: Patient My Orders Orders - MARLIN SHAW MD Procedure Category Date Status Time Hemoglobin A1c LAB 01/17/25 Logged 10:26 Date of Service: Jan 17, 2025 Billing Provider: MARLIN SHAW MD Common Visit Codes: [id number] INP/OBS CARE(HIGH) MARLIN SHAW MD Jan 17, 2025 10:38
--- NOTE | 2025-01-17 13:04 | DVH ---
XY PELVIS AP HISTORY: Post Fall TECHNICAL DATA: Frontal view was obtained of the pelvis. COMPARISON: None FINDINGS: There is no abnormality involving the bony pelvis. The sacroiliac joints appear normal. There is no a bnormality of the symphysis pubis. The hip joint spaces are symmetric. The proximal femurs demonstrat e no abnormality. IMPRESSION: No acute fracture or dislocation of the pelvis.
[2025-01-17] MEDS: IRON SUCROSE COMPLEX 110 ML IV SCH (13:51)
[2025-01-17] MEDS: cloNIDine HCL 0.1 MG TAB PO PRN (16:50)
[2025-01-18] VITALS (7 sets, daily range): BP systolic 101–145; BP diastolic 48–57; PULSE 64–75; RESP 16–18; TEMP 97.3–98.2; O2SAT 98–100
--- NOTE | 2025-01-18 10:40 | DVHPN2 ---
Reviewed: Care Plan, H&P, Labs, Medications, Previous Orders, Radiology Changes from previous H/P or p: No Changes Musculoskeletal: back pain Objective Vitals Vital Signs Date Time Temp Pulse Resp B/P (MAP) Pulse Ox O2 Delivery O2 Flow Rate FiO2 01/18/25 09:00 98.0 64 16 145/55 (85) 100 98.0 01/18/25 08:00 Nasal Cannula* 2 28 Intake/Output Intake and Output 01/18/25 07:00 Intake Total 2790 ml Balance 2790 ml Intake Oral 1480 ml IV Total 1310 ml # Voids 7 # Bowel Movements 2 Medications Current Medications Medications Dose Ordered Sig/Walt Route Start Time Stop Time Status Last Admin Dose Admin Sodium Chloride 1,000 ml @ 100 mls/hr Q10H IV 01/16/25 13:39 01/18/25 03:32 100 MLS/HR Acetaminophen/ Hydrocodone Bitart 1 tab Q4HP PRN PO 01/16/25 09:00 01/18/25 05:23 1 TAB Ondansetron HCl 4 mg Q4HP PRN IV 01/16/25 09:00 01/16/25 10:55 4 MG Enoxaparin Sodium 40 mg DAILY SC 01/16/25 10:00 01/18/25 09:40 40 MG Acetaminophen 650 mg Q6HP PRN PO 01/16/25 09:00 Morphine Sulfate 2 mg Q4HPRN PRN IV 01/16/25 09:00 01/18/25 03:39 2 MG Diagnostic Test (Pha) 1 strip Q6HR 01/16/25 12:00 01/18/25 05:19 1 STRIP Insulin Human Regular Q6HR SC 01/16/25 12:00 01/17/25 06:24 2 UNITS Dextrose 50 ml UD PRN IV 01/16/25 09:15 Iron Sucrose 110 ml @ 110 mls/hr DAILY@1200 IV 01/17/25 12:00 01/21/25 12:59 01/17/25 13:51 110 MLS/HR Clonidine HCl 0.1 mg Q6HP PRN PO 01/17/25 13:15 01/17/25 16:50 0.1 MG Laboratory Results Laboratory Tests 01/17/25 05:24 Urinalysis Test 01/16/25 07:00 Urine Color Yellow (Yellow) Urine Clarity Turbid (Clear) H Urine pH 5.5 (5.0-9.0) Urine Specific [place] 1.020 (1.001-1.035) Urine Protein 1+ (Negative) H Urine Ketones Negative (Negative) Urine Blood Negative /uL (Negative) Urine Nitrite Negative (Negative) Urine Bilirubin Negative (Negative) Urine Urobilinogen Normal mg/dL (Negative) Urine Leukocyte Esterase Negative /uL (Negative) Urine RBC 2 /hpf (0 - 4) Urine Microscopic WBC 2 /HPF (0-5) Urine Squamous Epithelial Cells Few /hpf (<5) Urine Bacteria Few /hpf (None Seen) H Urine Hyaline Casts Mod /lpf (0 - 2) Urine Mucus Few (None Seen) Urine Glucose Normal mg/dL (Normal) Microbiology Microbiology Date/Time Source Procedure Growth Status 01/17/25 02:24 Nose MRSA Screen - Final Complete Labs and/or images reviewed: Labs reviewed by me, Image(s) reviewed by me Assessment/Plan Assessment/Plan Fracture T12 and bilateral transverse processes L3 indeterminate age: [place] morphine consult for spine surgeon Dr. Mojica Mechanical fall at home Moderately controlled diabetes with blood sugars around 180 A1c 7.1 in October 2024 Hypertension Chronic anemia hemoglobin 7.8: Iron infusion History of right hemicolectomy for hepatic flexure mass 2023 Moderate malnutrition at bedside Plan discussed with: Patient, Spouse My Orders Orders - MARLIN SHAW MD Procedure Category Date Status Time Consultdr. Ezio CONS 01/17/25 Transmitted [place](Spine) 10:38 Iron Sucrose Complex PHA 01/17/25 In Process (Venofer) 12:00 Consistent DIET 01/17/25 Transmitted Carb(Ccho)Diabetes Lunch Clonidine Hcl Tablet PHA 01/17/25 In Process ([place] Tablet) 13:15 Date of Service: Jan 18, 2025 Billing Provider: MARLIN SHAW MD Common Visit Codes: [id number] INP/OBS CARE(HIGH) MARLIN SHAW MD Jan 18, 2025 10:40
[2025-01-19] VITALS (7 sets, daily range): BP systolic 136–169; BP diastolic 49–68; PULSE 47–78; RESP 16–18; TEMP 97.8–99.3; O2SAT 95–100
--- NOTE | 2025-01-19 11:22 | DVHPN2 ---
Reviewed: Care Plan, H&P, Labs, Medications, Previous Orders, Radiology Changes from previous H/P or p: No Changes Musculoskeletal: back pain Objective Vitals Vital Signs Date Time Temp Pulse Resp B/P (MAP) Pulse Ox O2 Delivery O2 Flow Rate FiO2 01/19/25 09:55 68 13 139/57 01/19/25 08:34 97.8 100 97.8 01/19/25 08:05 Room Air* 0 21 Intake/Output Intake and Output 01/19/25 07:00 Intake Total 1500 ml Balance 1500 ml Intake Oral 1500 ml # Voids 5 Medications Current Medications Medications Dose Ordered Sig/Walt Route Start Time Stop Time Status Last Admin Dose Admin Sodium Chloride 1,000 ml @ 100 mls/hr Q10H IV 01/16/25 13:39 01/19/25 09:25 100 MLS/HR Acetaminophen/ Hydrocodone Bitart 1 tab Q4HP PRN PO 01/16/25 09:00 01/19/25 03:30 1 TAB Ondansetron HCl 4 mg Q4HP PRN IV 01/16/25 09:00 01/16/25 10:55 4 MG Enoxaparin Sodium 40 mg DAILY SC 01/16/25 10:00 01/19/25 09:23 40 MG Acetaminophen 650 mg Q6HP PRN PO 01/16/25 09:00 Diagnostic Test (Pha) 1 strip Q6HR 01/16/25 12:00 01/19/25 05:36 1 STRIP Insulin Human Regular Q6HR SC 01/16/25 12:00 01/17/25 06:24 2 UNITS Dextrose 50 ml UD PRN IV 01/16/25 09:15 Iron Sucrose 110 ml @ 110 mls/hr DAILY@1200 IV 01/17/25 12:00 01/21/25 12:59 01/18/25 12:12 110 MLS/HR Clonidine HCl 0.1 mg Q6HP PRN PO 01/17/25 13:15 01/17/25 16:50 0.1 MG Laboratory Results Laboratory Tests 01/17/25 05:24 Urinalysis Test 01/16/25 07:00 Urine Color Yellow (Yellow) Urine Clarity Turbid (Clear) H Urine pH 5.5 (5.0-9.0) Urine Specific [place] 1.020 (1.001-1.035) Urine Protein 1+ (Negative) H Urine Ketones Negative (Negative) Urine Blood Negative /uL (Negative) Urine Nitrite Negative (Negative) Urine Bilirubin Negative (Negative) Urine Urobilinogen Normal mg/dL (Negative) Urine Leukocyte Esterase Negative /uL (Negative) Urine RBC 2 /hpf (0 - 4) Urine Microscopic WBC 2 /HPF (0-5) Urine Squamous Epithelial Cells Few /hpf (<5) Urine Bacteria Few /hpf (None Seen) H Urine Hyaline Casts Mod /lpf (0 - 2) Urine Mucus Few (None Seen) Urine Glucose Normal mg/dL (Normal) Microbiology Microbiology Date/Time Source Procedure Growth Status 01/17/25 02:24 Nose MRSA Screen - Final Complete Labs and/or images reviewed: Labs reviewed by me, Image(s) reviewed by me Assessment/Plan Assessment/Plan Fracture T12 and bilateral transverse processes L3 indeterminate age: DC morphine, continue [place] 5 q.4 hours scheduled consult for spine surgeon Dr. Mojica Mechanical fall at home Moderately controlled diabetes with blood sugars around 180 A1c 7.1 in October 2024 Hypertension Chronic anemia hemoglobin 7.8: Iron infusion Bilateral midthoracic back pain: We will get CT chest rule out rib fractures History of right hemicolectomy for hepatic flexure mass 2023 Moderate malnutrition at bedside Plan discussed with: Patient Date of Service: Jan 19, 2025 Billing Provider: MARLIN SHAW MD Common Visit Codes: [id number] INP/OBS CARE(HIGH) MARLIN SHAW MD Jan 19, 2025 11:22
[2025-01-19] MEDS: HYDROcodone-ACET 5/325MG TAB PO SCH (12:40)
--- NOTE | 2025-01-19 14:12 | DVH ---
CT Chest without intravenous contrast INDICATION: Mechanical fall rule out rib fractures TECHNIQUE: Multidetector spiral CT of the chest was performed from the lung apices to the upper abdom en. Axial, coronal and sagittal multiplanar reformats were performed. Radiation Dose : 1. Chest: CTDI volume is 4.56 mGy. Dose-length product is 161.04 mGy*cm The dose indicators for CT are the volume Computed Tomography (CT) Dose Index (CTDIvol) and the Dose Length Product (DLP), and are measured in units of mGy and mGy-cm, respectively. These indicators are not patient dose, but values generated from the CT scanner acquisition factors. The report includes radiation exposure data for exposures received during this examination. Comparison: None Findings: Lower neck: Normal thyroid. Lungs: Dependent subsegmental atelectasis. Heart/Vascular Structures: Cardiomegaly. Coronary artery calcifications. Vascular calcifications of t he aorta. Lymph Nodes: No adenopathy Pleura: Small bilateral pleural effusions. Musculoskeletal: Moderate T12 vertebral body compression fracture. Soft tissues: Normal. Upper abdomen: Limited portions of the upper abdomen are unremarkable. IMPRESSION: No appreciable rib fractures. Moderate T12 vertebral body compression fracture. Radiation optimization: All CT scans at this facility use at least one of these dose optimization davidson hniques: automated exposure control mA and/or kV adjustment per patient size (includes targeted exam s where dose is matched to clinical indication) or iterative reconstruction.
--- NOTE | 2025-01-19 19:52 | DVHINCON2 ---
Consultation - Spinal Surgery Date Seen: Jan 20, 2025 Referring Physician Referring Physician Attending Doctor: Kenny Larson MD Reason for Consultation Reason for Visit: Back pain History of Present Illness History of Present Illness History of Present Illness Tyson Moralez is a 74-year-old female with past medical history of hypertension, diabetes, and ex lap with right hemicolectomy who presents to the ED with pain status post fall 3 weeks ago. Patient states that the pain is 10/10 throbbing and constant. She states that she was going outside through the front door turned around and her foot had caught on the rug where she tripped and fell. Patient denies any chest pain, shortness of breath, fever, chills, and has been weakness, dizziness, abdominal pain, nausea, vomiting, or diarrhea. Has been in the chair side states that she does use a front wheel walker however currently uses a wheelchair to get around. Past Medical/Surgical History Past Medical/Surgical History Cardiovascular: hyperipidemia Endocrine: Diabetes Past Surgical History: Other (Ex lap right hemicolectomy) Family and Social History Family and Social History Family History: None Smoke: No ALCOHOL: none Drugs: None Lives: with Family Domestic Violence: Neg Allergies and medications Allergies: Coded Allergies: NO KNOWN ALLERGIES (Unverified , 04/05/18) Home Meds Active Scripts Acetaminophen (Tylenol 8 Hour Arthritis) 650 Mg Tab, 650 MG PO TID, #30 TAB Prov:DENIS YEH 08/14/24 Nitrofurantoin Monohydrate Mac (Macrobid) 100 Mg Cap, 100 MG PO BID, #14 CAP Prov:DENIS YEH 08/14/24 Ondansetron Odt 4MG Tab (ZOFRAN PO) 4 Mg Tb, 4 MG PO TID for 7 Days, #21 TAB ODT TAB-DISSOLVE IN MOUTH, THEN SWALLOW Prov:RAMÓN RIDER MD 05/10/24 Baclofen (Baclofen) 10 Mg Tab, 10 MG PO TID PRN, #30 TAB Prov:JAY HE 05/06/24 Sulfamethoxazole-Trimethoprim (Bactrim) 1 Tab Tab, 1 TAB PO BID for 7 Days, #14 TAB 0 Refills Prov:VARGHESE CABRERA 04/11/23 Reported Medications Pantoprazole Sodium Sesquihydr (Pantoprazole Sodium) 40 Mg Tab, 1 TAB PO DAILY 08/25/24 Glipizide (Glipizide) 5 Mg Tab, 1 TAB PO BID 08/25/24 Review of systems Review of Systems: MSK:Abnormal (Excruciating back pain, patient uses a walker or wheelchair to get around), NEURO:Normal (Sensation intact all four extremities) Examination Vital signs Imaging EXAM: CT LS SPINE WO CONTRAST, CT THORACIC SPINE WO CONTRAS HISTORY: pain/injury COMPARISON: None CTDIvol 12th mGy, DLP 422 mGy*cm. TECHNIQUE: Multiple axial CT images of the spine were obtained using bone algorithm. Axial and coronal reformatting was done. Bone and soft tissue win dows were reviewed. FINDINGS: Diffuse osteopenia. Multilevel degenerative changes of the spine. No acute subluxation. Oess-od-jmihwgfw T12 vertebral body compression fracture. Age indeterminate, possibly chronic bilateral L3 transverse process minimally displaced fractures. Vascular calcifications of the aorta. IMPRESSION: Mlgf-cn-cqklsrgm T12 vertebral body compression fracture. Age indeterminate, possibly chronic bilateral L3 transverse process minimally displaced fractures. : CT LS SPINE WO CONTRAST, CT THORACIC SPINE WO CONTRAS HISTORY: pain/injury COMPARISON: None CTDIvol 12th mGy, DLP 422 mGy*cm. TECHNIQUE: Multiple axial CT images of the spine were obtained using bone algorithm. Axial and coronal reformatting was done. Bone and soft tissue windows were reviewed. FINDINGS: Diffuse osteopenia. Multilevel degenerative changes of the spine. No acute subluxation. Jjms-wo-aetmoigw T12 vertebral body compression fracture. Age indeterminate, possibly chronic bilateral L3 transverse process minimally displaced fractures. Vascular calcifications of the aorta. IMPRESSION: Yopf-en-fzgtdcxg T12 vertebral body compression fracture. Age indeterminate, possibly chronic bilateral L3 transverse process minimally displaced fractures. Vital Signs Date Time Temp Pulse Resp B/P (MAP) Pulse Ox O2 Delivery O2 Flow Rate FiO2 01/19/25 17:00 98.0 66 16 169/62 (97) 95 98.0 01/19/25 08:05 Room Air* 0 21 Medications Current Medications Medications (Trade) Dose Ordered Sig/Walt Route PRN Reason Start Time Stop Time Status Last Admin Acetaminophen/ Hydrocodone Bitart ([place] 5/325MG Tab) 1 tab Q4HR PO 01/19/25 14:00 01/19/25 17:21 Laboratory Labs Test 01/19/25 17:20 01/17/25 10:26 01/17/25 05:24 01/16/25 07:00 Range/Units POC Glucose 121 H 70-106 mg/dl Hemoglobin A1c 7.7 H <5.7 % A1C White Blood Count 4.3 L 4.4-10.8 10^3/uL Red Blood Count 2.94 L 4.0-5.20 10^6/uL Hemoglobin 7.8 L 12.2-16.2 g/dL Hematocrit 24.2 L 36.0-46.0 % Mean Corpuscular Volume 82.1 80.0-100.0 fL Mean Corpuscular Hemoglobin 26.4 L 28.0-32.0 pg Mean Corpuscular Hemoglobin Concent 32.2 32.0-36.0 g/dL Red Cell Distribution Width 16.5 H 11.8-14.3 % Platelet Count 102 L 140-450 10^3/uL Mean Platelet Volume 7.4 6.9-10.8 fL Neutrophils (%) (Auto) 57.5 37.0-80.0 % Lymphocytes (%) (Auto) 36.2 10.0-50.0 % Monocytes (%) (Auto) 5.3 0.0-12.0 % Eosinophils (%) (Auto) 0.6 0.0-7.0 % Basophils (%) (Auto) 0.4 0.0-2.0 % Neutrophils # (Auto) 2.5 1.6-8.6 10 ^3/uL Lymphocytes # (Auto) 1.6 0.4-5.4 10 ^3/uL Monocytes # (Auto) 0.2 0-1.3 10 ^3/uL Eosinophils # (Auto) 0 0-0.8 10 ^3/uL Basophils # (Auto) 0 0-0.2 10 ^3/uL Nucleated Red Blood Cells 0.4 % Sodium Level 136 136-145 mmol/L Potassium Level 3.7 3.5-5.1 mmol/L Chloride Level 107 98-107 mmol/L Carbon Dioxide Level 25 20-31 mmol/L Anion Gap 4 L 5-15 Blood Urea Nitrogen 24 #H 9-23 mg/dL Creatinine 0.83 0.550-1.02 mg/dL Glomerular Filtration Rate Calc 73 >90 mL/min BUN/Creatinine Ratio 28.9 H 10.0-20.0 Serum Glucose 155 H 74-106 mg/dL Calcium Level 9.3 8.7-10.4 mg/dL Total Bilirubin 0.3 0.2-1.0 mg/dL Aspartate Amino Transferase (AST) 23 13-40 U/L Alanine Aminotransferase (ALT) 13 7-40 U/L Alkaline Phosphatase 67 46-116 U/L Total Protein 10.2 H 5.7-8.2 g/dL Albumin 3.1 L 3.2-4.8 g/dL Urine Color Yellow Yellow Urine Clarity Turbid H Clear Urine pH 5.5 5.0-9.0 Urine Specific [place] 1.020 1.001-1.035 Urine Protein 1+ H Negative Urine Ketones Negative Negative Urine Blood Negative Negative /uL Urine Nitrite Negative Negative Urine Bilirubin Negative Negative Urine Urobilinogen Normal Negative mg/dL Urine Leukocyte Esterase Negative Negative /uL Urine RBC 2 0 - 4 /hpf Urine Microscopic WBC 2 0-5 /HPF Urine Squamous Epithelial Cells Few <5 /hpf Urine Bacteria Few H None Seen /hpf Urine Hyaline Casts Mod 0 - 2 /lpf Urine Mucus Few None Seen Urine Glucose Normal Normal mg/dL Test 01/16/25 06:46 Range/Units Prothrombin Time 11.3 9.3-11.8 sec Prothrombin Time INR 1.07 0.9-1.15 Microbiology Date/Time Source Procedure Growth Status 01/17/25 02:24 Nose MRSA Screen - Final Complete Examination: GENERAL:Normal, HEENT:Normal, NECK:Normal, LUNGS:Normal, CVS:Normal, ABDOMEN:Normal, MSK:Normal (patient has 5/5 left LE, 4/5 right LE due to pain), SKIN:Normal, NEURO:Normal (sensation intact, LY independently), :Normal Problem List/Assessment/Plan Problems: (1) Muscle spasm of back (2) Compression fracture of T12 vertebra (3) Intractable back pain (4) Status post fall Assessment and Plan Nmoo-lm-amziihrz T12 vertebral body compression fracture. Age indeterminate, possibly chronic bilateral L3 transverse process minimally displaced fractures. Patient appears to be complaining mostly due to muscle spasm that are rated as severe, at this time the patient is able to tolerate firm palpation of the T10- L5 area Continue supportive measures per admitting team's discretion Patient does not need emergent spine surgery at this time recommend staring muscle relaxer as inpatient to establish effectiveness prior to DC Follow up with PCP for PT vs pain management No barriers to DC from a spine surgery perspective 01/25/25 addendum- ordered TLSO brace to be worn with mobility WBAT Call with questions Sang[facility]rell[facility] Orthopaedic Spine Surgery nurse practitioner For Dr Aurelia Mojica Patient was examined, chart reviewed, labs evaluated, and diagnostic studies and findings analyzed. Case was discussed with Dr. Ezio Mojica who formulated the plan of care. This medical document was created using an electronic medical record system with [employer] dictation system. Although this document has been carefully reviewed, there might still be some phonetic and typographical errors. These areas are purely typographical due to imperfections of the software programs, and do not reflect any compromise in the patient's medical care. Plan discussed with Plan discussed with: Patient, Other (sidney [id number]) TAMAR ORELLANA FILING WRITER Jan 19, 2025 19:52
[2025-01-20] VITALS (9 sets, daily range): BP systolic 136–175; BP diastolic 64–75; PULSE 68–96; RESP 16–20; TEMP 97.9–100.7; O2SAT 93–100
[2025-01-20] MEDS: HYDROcodone-ACET 5/325MG TAB PO SCH (08:39)
--- NOTE | 2025-01-20 10:52 | DVHPN2 ---
Reviewed: Care Plan, H&P, Labs, Medications, Previous Orders, Radiology Changes from previous H/P or p: No Changes Musculoskeletal: back pain Objective Vitals Vital Signs Date Time Temp Pulse Resp B/P (MAP) Pulse Ox O2 Delivery O2 Flow Rate FiO2 01/20/25 08:52 98.0 78 20 150/64 (92) 100 98.0 01/19/25 20:00 Nasal Cannula* 2 28 Intake/Output Intake and Output 01/20/25 07:00 Intake Total 2170 ml Output Total 700 ml Balance 1470 ml Intake Oral 2060 ml IV Total 110 ml Output Urine Total 700 ml # Voids 3 Medications Current Medications Medications Dose Ordered Sig/Walt Route Start Time Stop Time Status Last Admin Dose Admin Ondansetron HCl 4 mg Q4HP PRN IV 01/16/25 09:00 01/16/25 10:55 4 MG Enoxaparin Sodium 40 mg DAILY SC 01/16/25 10:00 01/20/25 08:39 40 MG Acetaminophen 650 mg Q6HP PRN PO 01/16/25 09:00 Diagnostic Test (Pha) 1 strip Q6HR 01/16/25 12:00 01/20/25 06:10 1 STRIP Insulin Human Regular Q6HR SC 01/16/25 12:00 01/17/25 06:24 2 UNITS Dextrose 50 ml UD PRN IV 01/16/25 09:15 Iron Sucrose 110 ml @ 110 mls/hr DAILY@1200 IV 01/17/25 12:00 01/21/25 12:59 01/19/25 12:32 110 MLS/HR Clonidine HCl 0.1 mg Q6HP PRN PO 01/17/25 13:15 01/17/25 16:50 0.1 MG Acetaminophen/ Hydrocodone Bitart 1 tab Q4H PO 01/20/25 08:00 01/20/25 08:39 1 TAB Laboratory Results Laboratory Tests 01/17/25 05:24 Urinalysis Test 01/16/25 07:00 Urine Color Yellow (Yellow) Urine Clarity Turbid (Clear) H Urine pH 5.5 (5.0-9.0) Urine Specific [place] 1.020 (1.001-1.035) Urine Protein 1+ (Negative) H Urine Ketones Negative (Negative) Urine Blood Negative /uL (Negative) Urine Nitrite Negative (Negative) Urine Bilirubin Negative (Negative) Urine Urobilinogen Normal mg/dL (Negative) Urine Leukocyte Esterase Negative /uL (Negative) Urine RBC 2 /hpf (0 - 4) Urine Microscopic WBC 2 /HPF (0-5) Urine Squamous Epithelial Cells Few /hpf (<5) Urine Bacteria Few /hpf (None Seen) H Urine Hyaline Casts Mod /lpf (0 - 2) Urine Mucus Few (None Seen) Urine Glucose Normal mg/dL (Normal) Microbiology Microbiology Date/Time Source Procedure Growth Status 01/17/25 02:24 Nose MRSA Screen - Final Complete Labs and/or images reviewed: Labs reviewed by me, Image(s) reviewed by me Assessment/Plan Assessment/Plan Fracture T12 and bilateral transverse processes L3 indeterminate age: DC morphine, continue [place] 5/325, 1 tab q.4 hours scheduled consult for spine surgeon Dr. Mojica, advised no emergency spine surgery needed, advised pain management muscle relaxant and follow up as an outpatient Mechanical fall at home Moderately controlled diabetes with blood sugars around 180 A1c 7.1 in October 2024 Hypertension Chronic anemia hemoglobin 7.8: Iron infusion Bilateral midthoracic back pain: CT chest without contrast negative for rib fractures History of right hemicolectomy for hepatic flexure mass 2023 Moderate malnutrition at bedside Physical therapy ordered Plan discussed with: Patient My Orders Orders - MARLIN SHAW MD Procedure Category Date Status Time Chest Without Contrast CT 01/19/25 Resulted 11:23 Hydrocodone-Acet PHA 01/20/25 In Process 5/325mg Tab ([place] 08:00 Date of Service: Jan 20, 2025 Billing Provider: MARLIN SHAW MD Common Visit Codes: [id number] INP/OBS CARE(HIGH) MARLIN SHAW MD Jan 20, 2025 10:52
[2025-01-20] MEDS: ACETAMINOPHEN 325 MG TAB PO PRN (16:40)
[2025-01-20] MEDS: CARISOPRODOL 350 MG TAB PO SCH (17:53)
[2025-01-21] VITALS (8 sets, daily range): BP systolic 108–154; BP diastolic 53–89; PULSE 79–98; RESP 16–20; TEMP 97.5–101.8; O2SAT 94–100
--- NOTE | 2025-01-21 11:05 | DVHPN2 ---
Reviewed: Care Plan, H&P, Labs, Medications, Previous Orders, Radiology Changes from previous H/P or p: No Changes Musculoskeletal: back pain Objective Vitals Vital Signs Date Time Temp Pulse Resp B/P (MAP) Pulse Ox O2 Delivery O2 Flow Rate FiO2 01/21/25 09:21 101.8 01/21/25 08:38 98 18 154/70 (98) 94 01/20/25 20:00 Nasal Cannula* 2 28 Intake/Output Intake and Output 01/21/25 07:00 Intake Total 910 ml Balance 910 ml Intake Oral 800 ml IV Total 110 ml # Voids 6 # Bowel Movements 5 Medications Current Medications Medications Dose Ordered Sig/Walt Route Start Time Stop Time Status Last Admin Dose Admin Ondansetron HCl 4 mg Q4HP PRN IV 01/16/25 09:00 01/16/25 10:55 4 MG Enoxaparin Sodium 40 mg DAILY SC 01/16/25 10:00 01/20/25 08:39 40 MG Acetaminophen 650 mg Q6HP PRN PO 01/16/25 09:00 01/21/25 09:21 650 MG Diagnostic Test (Pha) 1 strip Q6HR 01/16/25 12:00 01/21/25 05:37 1 STRIP Insulin Human Regular Q6HR SC 01/16/25 12:00 01/17/25 06:24 2 UNITS Dextrose 50 ml UD PRN IV 01/16/25 09:15 Iron Sucrose 110 ml @ 110 mls/hr DAILY@1200 IV 01/17/25 12:00 01/21/25 12:59 01/20/25 12:42 110 MLS/HR Clonidine HCl 0.1 mg Q6HP PRN PO 01/17/25 13:15 01/20/25 16:21 0.1 MG Acetaminophen/ Hydrocodone Bitart 1 tab Q4H PO 01/20/25 08:00 01/21/25 09:21 1 TAB Carisoprodol 350 mg TID PO 01/20/25 14:00 01/21/25 05:34 350 MG Laboratory Results Laboratory Tests 01/17/25 05:24 Urinalysis Test 01/16/25 07:00 Urine Color Yellow (Yellow) Urine Clarity Turbid (Clear) H Urine pH 5.5 (5.0-9.0) Urine Specific [place] 1.020 (1.001-1.035) Urine Protein 1+ (Negative) H Urine Ketones Negative (Negative) Urine Blood Negative /uL (Negative) Urine Nitrite Negative (Negative) Urine Bilirubin Negative (Negative) Urine Urobilinogen Normal mg/dL (Negative) Urine Leukocyte Esterase Negative /uL (Negative) Urine RBC 2 /hpf (0 - 4) Urine Microscopic WBC 2 /HPF (0-5) Urine Squamous Epithelial Cells Few /hpf (<5) Urine Bacteria Few /hpf (None Seen) H Urine Hyaline Casts Mod /lpf (0 - 2) Urine Mucus Few (None Seen) Urine Glucose Normal mg/dL (Normal) Microbiology Microbiology Date/Time Source Procedure Growth Status 01/17/25 02:24 Nose MRSA Screen - Final Complete Labs and/or images reviewed: Labs reviewed by me, Image(s) reviewed by me Assessment/Plan Assessment/Plan Fracture T12 and bilateral transverse processes L3 indeterminate age: DC morphine, continue [place] 5/325, 1 tab q.4 hours scheduled consult for spine surgeon Dr. Mojica, advised no emergency spine surgery needed, advised pain management muscle relaxant and follow up as an outpatient Mechanical fall at home Mild fever to 101 possibly secondary to IV infiltration in the right forearm, warm compressions, DC iron infusion, Tylenol, UTI, urine cultures, flu test, COVID test Moderately controlled diabetes with blood sugars around 180 A1c 7.1 in October 2024 Hypertension Chronic anemia hemoglobin 7.8: Iron infusion Bilateral midthoracic back pain: CT chest without contrast negative for rib fractures History of right hemicolectomy for hepatic flexure mass 2023 Moderate malnutrition at bedside Physical therapy ordered Plan discussed with: Patient, Spouse My Orders Orders - MARLIN SHAW MD Procedure Category Date Status Time Urinalysis LAB 01/21/25 Logged 08:07 Urine Bacterial ELICIA 01/21/25 Uncollected Culture 08:07 Rapid Influenza A&B LAB 01/21/25 Logged 10:57 Covid19 Antigen [facility] LAB 01/21/25 Logged Urinalysis LAB 01/21/25 Logged 10:57 Urine Bacterial ELICIA 01/21/25 Logged Culture 10:57 Date of Service: Jan 21, 2025 Billing Provider: MARLIN SHAW MD Common Visit Codes: [id number] INP/OBS CARE(HIGH) MARLIN SHAW MD Jan 21, 2025 11:05
[2025-01-21 12:15] LABS: COVID19 ANTIGEN SOFIA FIA NEGATIVE (NEGATIVE); Rapid Influenza A Negative (Negative); Rapid Influenza B Negative (Negative)
[2025-01-21 13:09] LABS: Urine Bacteria None Seen /hpf (None Seen)
[2025-01-21 13:15] LABS: Urine Blood Negative /uL (Negative); Urine Clarity Clear (Clear); Urine Color Light-Yellow (Yellow); Urine Protein, UAD 1+ (Negative); Urine Specific Gravity 1.014 (1.001-1.035); Urine Squamous Epithelial Cell None Seen /hpf (<5); Urine Urobilinogen Normal (Negative)
[2025-01-21 14:36] LABS: Urine WBC < 1 /HPF (0-5)
[2025-01-22] VITALS (8 sets, daily range): BP systolic 116–143; BP diastolic 53–76; PULSE 75–98; RESP 16–19; TEMP 97.8–99.7; O2SAT 94–100
--- NOTE | 2025-01-22 10:44 | DVHPN2 ---
Reviewed: Care Plan, H&P, Labs, Medications, Previous Orders, Radiology Changes from previous H/P or p: No Changes Musculoskeletal: back pain Objective Vitals Vital Signs Date Time Temp Pulse Resp B/P (MAP) Pulse Ox O2 Delivery O2 Flow Rate FiO2 01/22/25 08:30 97.8 89 16 124/76 (92) 99 97.8 01/21/25 20:11 Nasal Cannula* 2 28 Intake/Output Intake and Output 01/22/25 07:00 Intake Total 650 ml Balance 650 ml Intake Oral 650 ml # Voids 5 Medications Current Medications Medications Dose Ordered Sig/Walt Route Start Time Stop Time Status Last Admin Dose Admin Ondansetron HCl 4 mg Q4HP PRN IV 01/16/25 09:00 01/16/25 10:55 4 MG Enoxaparin Sodium 40 mg DAILY SC 01/16/25 10:00 01/20/25 08:39 40 MG Acetaminophen 650 mg Q6HP PRN PO 01/16/25 09:00 01/21/25 09:21 650 MG Diagnostic Test (Pha) 1 strip Q6HR 01/16/25 12:00 01/22/25 05:41 1 STRIP Insulin Human Regular Q6HR SC 01/16/25 12:00 01/21/25 11:44 2 UNITS Dextrose 50 ml UD PRN IV 01/16/25 09:15 Clonidine HCl 0.1 mg Q6HP PRN PO 01/17/25 13:15 01/20/25 16:21 0.1 MG Acetaminophen/ Hydrocodone Bitart 1 tab Q4H PO 01/20/25 08:00 01/22/25 09:43 1 TAB Carisoprodol 350 mg TID PO 01/20/25 14:00 01/22/25 06:09 350 MG Laboratory Results Laboratory Tests 01/17/25 05:24 Urinalysis Test 01/16/25 07:00 01/21/25 13:00 Urine Hyaline Casts Mod /lpf (0 - 2) Urine Mucus Few (None Seen) Urine Color Light-yellow (Yellow) Urine Clarity Clear (Clear) Urine pH 6.0 (5.0-9.0) Urine Specific [place] 1.014 (1.001-1.035) Urine Protein 1+ (Negative) H Urine Ketones 1+ (Negative) H Urine Blood Negative /uL (Negative) Urine Nitrite Negative (Negative) Urine Bilirubin Negative (Negative) Urine Urobilinogen Normal mg/dL (Negative) Urine Leukocyte Esterase Negative /uL (Negative) Urine RBC None seen /hpf (0 - 4) Urine Microscopic WBC < 1 /HPF (0-5) Urine Squamous Epithelial Cells None seen /hpf (<5) Urine Bacteria None seen /hpf (None Seen) Urine Glucose Normal mg/dL (Normal) Microbiology Microbiology Date/Time Source Procedure Growth Status 01/17/25 02:24 Nose MRSA Screen - Final Complete Labs and/or images reviewed: Labs reviewed by me, Image(s) reviewed by me Assessment/Plan Assessment/Plan Fracture T12 and bilateral transverse processes L3 indeterminate age: DC morphine, continue [place] 5/325, 1 tab q.4 hours scheduled consult for spine surgeon Dr. Mojica, advised no emergency spine surgery needed, advised pain management muscle relaxant and follow up as an outpatient Mechanical fall at home Mild fever to 101 possibly secondary to IV infiltration in the right forearm, warm compressions, DC iron infusion, Tylenol, Flu test negative COVID test negative Urinalysis negative Moderately controlled diabetes with blood sugars around 180 A1c 7.1 in October 2024 Hypertension Chronic anemia hemoglobin 7.8: Iron infusion Bilateral midthoracic back pain: CT chest without contrast negative for rib fractures History of right hemicolectomy for hepatic flexure mass 2023 Moderate malnutrition at bedside Physical therapy recommending alf facility for rehab as the patient is unable to walk Plan discussed with: Patient My Orders Orders - MARLIN SHAW MD Procedure Category Date Status Time Urine Bacterial ELICIA 01/21/25 In Process Culture 10:57 Date of Service: Jan 22, 2025 Billing Provider: MARLIN SHAW MD Common Visit Codes: [id number] INP/OBS CARE(HIGH) MARLIN SHAW MD Jan 22, 2025 10:44
[2025-01-23] VITALS (7 sets, daily range): BP systolic 120–146; BP diastolic 55–65; PULSE 69–94; RESP 16–19; TEMP 98–98.9; O2SAT 99–100
--- NOTE | 2025-01-23 11:55 | DVHPN2 ---
Reviewed: Care Plan, H&P, Labs, Medications, Previous Orders, Radiology Changes from previous H/P or p: No Changes Musculoskeletal: back pain Objective Vitals Vital Signs Date Time Temp Pulse Resp B/P (MAP) Pulse Ox O2 Delivery O2 Flow Rate FiO2 01/23/25 08:59 98.0 69 19 129/64 (85) 100 98.0 01/23/25 08:00 Room Air* 0 21 Intake/Output Intake and Output 01/23/25 07:00 Intake Total 933 ml Balance 933 ml Intake Oral 933 ml # Voids 12 # Bowel Movements 2 Medications Current Medications Medications Dose Ordered Sig/Walt Route Start Time Stop Time Status Last Admin Dose Admin Ondansetron HCl 4 mg Q4HP PRN IV 01/16/25 09:00 01/16/25 10:55 4 MG Enoxaparin Sodium 40 mg DAILY SC 01/16/25 10:00 01/20/25 08:39 40 MG Acetaminophen 650 mg Q6HP PRN PO 01/16/25 09:00 01/21/25 09:21 650 MG Diagnostic Test (Pha) 1 strip Q6HR 01/16/25 12:00 01/23/25 11:47 1 STRIP Insulin Human Regular Q6HR SC 01/16/25 12:00 01/23/25 04:17 4 UNITS Dextrose 50 ml UD PRN IV 01/16/25 09:15 Clonidine HCl 0.1 mg Q6HP PRN PO 01/17/25 13:15 01/20/25 16:21 0.1 MG Acetaminophen/ Hydrocodone Bitart 1 tab Q4H PO 01/20/25 08:00 01/23/25 09:33 1 TAB Carisoprodol 350 mg TID PO 01/20/25 14:00 01/23/25 05:41 350 MG Laboratory Results Laboratory Tests 01/17/25 05:24 Urinalysis Test 01/16/25 07:00 01/21/25 13:00 Urine Hyaline Casts Mod /lpf (0 - 2) Urine Mucus Few (None Seen) Urine Color Light-yellow (Yellow) Urine Clarity Clear (Clear) Urine pH 6.0 (5.0-9.0) Urine Specific [place] 1.014 (1.001-1.035) Urine Protein 1+ (Negative) H Urine Ketones 1+ (Negative) H Urine Blood Negative /uL (Negative) Urine Nitrite Negative (Negative) Urine Bilirubin Negative (Negative) Urine Urobilinogen Normal mg/dL (Negative) Urine Leukocyte Esterase Negative /uL (Negative) Urine RBC None seen /hpf (0 - 4) Urine Microscopic WBC < 1 /HPF (0-5) Urine Squamous Epithelial Cells None seen /hpf (<5) Urine Bacteria None seen /hpf (None Seen) Urine Glucose Normal mg/dL (Normal) Microbiology Microbiology Date/Time Source Procedure Growth Status 01/21/25 13:00 Voided Urine Urine Culture - Final Complete 01/17/25 02:24 Nose MRSA Screen - Final Complete Labs and/or images reviewed: Labs reviewed by me, Image(s) reviewed by me Assessment/Plan Assessment/Plan Fracture T12 and bilateral transverse processes L3 indeterminate age: DC morphine, continue [place] 5/325, 1 tab q.4 hours scheduled consult for spine surgeon Dr. Mojica, advised no emergency spine surgery needed, advised pain management muscle relaxant and follow up as an outpatient Mechanical fall at home Mild fever to 101 possibly secondary to IV infiltration in the right forearm, warm compressions, DC iron infusion, Tylenol, Keflex 500 mg p.o. q.6 Flu test negative COVID test negative Urinalysis negative Moderately controlled diabetes with blood sugars around 180 A1c 7.1 in October 2024 Hypertension Chronic anemia hemoglobin 7.8: Iron infusion Bilateral midthoracic back pain: CT chest without contrast negative for rib fractures History of right hemicolectomy for hepatic flexure mass 2023 Moderate malnutrition at bedside Physical therapy recommending [facility] for rehab as the patient is unable to walk Venous ultrasound right upper extremity rule out DVT ordered Plan discussed with: Patient My Orders Orders - MARLIN SHAW MD Procedure Category Date Status Time Cephalexin Capsule PHA 01/23/25 Verified (Keflex Capsule) 12:00 Rt Upper Dvt US 01/23/25 Verified 11:53 Date of Service: Jan 23, 2025 Billing Provider: MARLIN SHAW MD Common Visit Codes: [id number] INP/OBS CARE(HIGH) MARLIN SHAW MD Jan 23, 2025 11:55
[2025-01-23] MEDS: CEPHALEXIN 250 MG CAP PO SCH (12:00)
[2025-01-23 13:11] LABS: Basophils # (auto) 0 10 ^3/uL (0-0.2); Eosinophils # (auto) 0 10 ^3/uL (0-0.8); Eosinophils % (auto) 0.3 % (0.0-7.0); Monocytes # (auto) 0.4 10 ^3/uL (0-1.3); Monocytes % (auto) 6.7 % (0.0-12.0); Red Cell Distribution Width 15.8 % (11.8-14.3)
[2025-01-23 13:14] LABS: Basophils % (auto) 0.2 % (0.0-2.0); Hematocrit 25.4 % (36.0-46.0); Hemoglobin 8.1 g/dL (12.2-16.2); Lymphocytes # (auto) 1.7 10 ^3/uL (0.4-5.4); Lymphocytes % (auto) 28.9 % (10.0-50.0); Mean Corpuscular Hgb Conc. 31.9 g/dL (32.0-36.0); Mean Corpuscular Volume 81.4 fL (80.0-100.0); Neutrophils # (auto) 3.8 10 ^3/uL (1.6-8.6); Neutrophils % (auto) 63.9 % (37.0-80.0); Nucleated Red Blood Cells % 0.3 %; Platelet Count (auto) 104 10^3/uL (140-450); Red Blood Cells 3.12 10^6/uL (4.0-5.20); White Blood Cell 5.9 10^3/uL (4.4-10.8)
[2025-01-23 13:25] LABS: Alanine Aminotransferase 24 U/L (7-40); Alkaline Phosphatase 103 U/L (46-116); Anion Gap 6 (5-15); Aspartate Aminotransferase 32 U/L (13-40); BUN/Creatinine Ratio 32.4 (10.0-20.0); Blood Urea Nitrogen 22 mg/dL (9-23); Calcium 8.7 mg/dL (8.7-10.4); Carbon Dioxide 27 mmol/L (20-31); Chloride 100 mmol/L (98-107); Glucose 184 mg/dL (74-106); Potassium 3.4 mmol/L (3.5-5.1); Sodium 133 mmol/L (136-145); Total Protein 9.3 g/dL (5.7-8.2)
[2025-01-23 13:26] LABS: Albumin 2.9 g/dL (3.2-4.8); Bilirubin, Total 0.2 mg/dL (0.2-1.0)
--- NOTE | 2025-01-23 13:54 | DVH ---
RIGHT Upper Extremity Venous Duplex Clinical History: Edema Comparison: None Findings: Duplex Doppler evaluation of the venous system of the RIGHT lower neck and upper extremity including color Doppler and spectral/pulsed waveform analysis was performed. The internal jugular vein demonstrates appropriate compressibility and waveform variability. The subclavian vein is patent on color Doppler evaluation without intraluminal thrombus and demonstra james waveform variability. The visualized portion of the brachiocephalic vein is patent on color Doppler evaluation without intr aluminal thrombus and demonstrates waveform variability. The axillary vein demonstrates appropriate compressibility and waveform variability. The brachial veins demonstrate appropriate compressibility and patency on Doppler evaluation. The basilic vein demonstrates appropriate compressibility and patency on Doppler evaluation. Occlusive thrombus in the cephalic vein. Impression: Occlusive thrombus cephalic vein. If clinical concern/symptoms persist or worsen, short-interval follow-up study is suggested.
[2025-01-24] VITALS (8 sets, daily range): BP systolic 108–142; BP diastolic 52–66; PULSE 70–83; RESP 16–18; TEMP 79.9–97.9; O2SAT 96–100
--- NOTE | 2025-01-24 10:19 | DVHPN2 ---
Reviewed: Care Plan, H&P, Labs, Medications, Previous Orders, Radiology Changes from previous H/P or p: No Changes Musculoskeletal: back pain Objective Vitals Vital Signs Date Time Temp Pulse Resp B/P (MAP) Pulse Ox O2 Delivery O2 Flow Rate FiO2 01/24/25 09:00 79.9 70 18 114/66 (82) 100 79.9 01/24/25 07:40 Room Air* 0 21 Intake/Output Intake and Output 01/24/25 07:00 Intake Total 900 ml Balance 900 ml Intake Oral 900 ml # Voids 6 Medications Current Medications Medications Dose Ordered Sig/Walt Route Start Time Stop Time Status Last Admin Dose Admin Ondansetron HCl 4 mg Q4HP PRN IV 01/16/25 09:00 01/16/25 10:55 4 MG Acetaminophen 650 mg Q6HP PRN PO 01/16/25 09:00 01/21/25 09:21 650 MG Diagnostic Test (Pha) 1 strip Q6HR 01/16/25 12:00 01/24/25 06:10 1 STRIP Insulin Human Regular Q6HR SC 01/16/25 12:00 01/23/25 18:10 3 UNITS Dextrose 50 ml UD PRN IV 01/16/25 09:15 Clonidine HCl 0.1 mg Q6HP PRN PO 01/17/25 13:15 01/20/25 16:21 0.1 MG Acetaminophen/ Hydrocodone Bitart 1 tab Q4H PO 01/20/25 08:00 01/24/25 08:43 1 TAB Carisoprodol 350 mg TID PO 01/20/25 14:00 01/24/25 06:09 350 MG Cephalexin 500 mg Q6HR PO 01/23/25 12:00 01/24/25 06:09 500 MG Laboratory Results Laboratory Tests 01/23/25 12:55 Chemistry Test 01/23/25 12:55 Albumin 2.9 g/dL (3.2-4.8) L Calcium Level 8.7 mg/dL (8.7-10.4) Total Protein 9.3 g/dL (5.7-8.2) H LFT Test 01/23/25 12:55 Alanine Aminotransferase (ALT) 24 U/L (7-40) Alkaline Phosphatase 103 U/L (46-116) Aspartate Amino Transferase (AST) 32 U/L (13-40) Total Bilirubin 0.2 mg/dL (0.2-1.0) Urinalysis Test 01/16/25 07:00 01/21/25 13:00 Urine Hyaline Casts Mod /lpf (0 - 2) Urine Mucus Few (None Seen) Urine Color Light-yellow (Yellow) Urine Clarity Clear (Clear) Urine pH 6.0 (5.0-9.0) Urine Specific [place] 1.014 (1.001-1.035) Urine Protein 1+ (Negative) H Urine Ketones 1+ (Negative) H Urine Blood Negative /uL (Negative) Urine Nitrite Negative (Negative) Urine Bilirubin Negative (Negative) Urine Urobilinogen Normal mg/dL (Negative) Urine Leukocyte Esterase Negative /uL (Negative) Urine RBC None seen /hpf (0 - 4) Urine Microscopic WBC < 1 /HPF (0-5) Urine Squamous Epithelial Cells None seen /hpf (<5) Urine Bacteria None seen /hpf (None Seen) Urine Glucose Normal mg/dL (Normal) Microbiology Microbiology Date/Time Source Procedure Growth Status 01/21/25 13:00 Voided Urine Urine Culture - Final Complete 01/17/25 02:24 Nose MRSA Screen - Final Complete Labs and/or images reviewed: Labs reviewed by me, Image(s) reviewed by me Assessment/Plan Assessment/Plan Fracture T12 and bilateral transverse processes L3 indeterminate age: DC morphine, continue [place] 5/325, 1 tab q.4 hours scheduled consult for spine surgeon Dr. Mojica, advised no emergency spine surgery needed, advised pain management muscle relaxant and follow up as an outpatient Mechanical fall at home Mild fever to 101 possibly secondary to IV infiltration in the right forearm, warm compressions, DC iron infusion, Tylenol, Keflex 500 mg p.o. q.6 Flu test negative COVID test negative Urinalysis negative Moderately controlled diabetes with blood sugars around 180 A1c 7.1 in October 2024 Hypertension Chronic anemia hemoglobin 7.8: Iron infusion Bilateral midthoracic back pain: CT chest without contrast negative for rib fractures History of right hemicolectomy for hepatic flexure mass 2023 Moderate malnutrition at bedside [facility] as the patient is unable to walk DVT Rt cephalic vein: Lovenox 50 mg subQ b.i.d. Plan discussed with: Patient My Orders Orders - MARLIN SHAW MD Procedure Category Date Status Time Cephalexin Capsule PHA 01/23/25 In Process (Keflex Capsule) 12:00 Rt Upper Dvt US 01/23/25 Resulted 11:53 Date of Service: Jan 24, 2025 Billing Provider: MARLIN SHAW MD Common Visit Codes: [id number] INP/OBS CARE(HIGH) MARLIN SHAW MD Jan 24, 2025 10:19
[2025-01-24] MEDS: ENOXAPARIN SOD 60 MG/0.6 ML SYRINGE SC SCH (10:30)
[2025-01-25] VITALS (7 sets, daily range): BP systolic 102–141; BP diastolic 48–67; PULSE 86–109; RESP 16–18; TEMP 97.8–98.7; O2SAT 93–100
[2025-01-25 05:53] LABS: Basophils # (auto) 0 10 ^3/uL (0-0.2); Basophils % (auto) 0.3 % (0.0-2.0); Eosinophils # (auto) 0 10 ^3/uL (0-0.8); Eosinophils % (auto) 0.3 % (0.0-7.0); Hematocrit 27.6 % (36.0-46.0); Hemoglobin 8.6 g/dL (12.2-16.2); Lymphocytes # (auto) 1.7 10 ^3/uL (0.4-5.4); Lymphocytes % (auto) 25.6 % (10.0-50.0); Mean Corpuscular Hemoglobin 26.2 pg (28.0-32.0); Mean Corpuscular Volume 84.4 fL (80.0-100.0); Monocytes # (auto) 0.2 10 ^3/uL (0-1.3); Monocytes % (auto) 3.6 % (0.0-12.0); Neutrophils # (auto) 4.6 10 ^3/uL (1.6-8.6); Neutrophils % (auto) 70.2 % (37.0-80.0); Nucleated Red Blood Cells % 0.3 %; Platelet Count (auto) 111 10^3/uL (140-450); Red Blood Cells 3.27 10^6/uL (4.0-5.20); Red Cell Distribution Width 16.5 % (11.8-14.3); White Blood Cell 6.6 10^3/uL (4.4-10.8)
--- NOTE | 2025-01-25 11:34 | DVHPN2 ---
Reviewed: Care Plan, H&P, Labs, Medications, Previous Orders, Radiology Changes from previous H/P or p: No Changes Musculoskeletal: back pain Objective Vitals Vital Signs Date Time Temp Pulse Resp B/P (MAP) Pulse Ox O2 Delivery O2 Flow Rate FiO2 01/25/25 05:00 97.8 109 18 136/64 (88) 93 97.8 01/24/25 20:00 Room Air* 0 21 Intake/Output Intake and Output 01/25/25 07:00 Intake Total 1240 ml Balance 1240 ml Intake Oral 1240 ml # Voids 7 # Bowel Movements 1 Medications Current Medications Medications Dose Ordered Sig/Walt Route Start Time Stop Time Status Last Admin Dose Admin Ondansetron HCl 4 mg Q4HP PRN IV 01/16/25 09:00 01/16/25 10:55 4 MG Acetaminophen 650 mg Q6HP PRN PO 01/16/25 09:00 01/21/25 09:21 650 MG Diagnostic Test (Pha) 1 strip Q6HR 01/16/25 12:00 01/25/25 11:24 1 STRIP Insulin Human Regular Q6HR SC 01/16/25 12:00 01/24/25 11:36 3 UNITS Dextrose 50 ml UD PRN IV 01/16/25 09:15 Clonidine HCl 0.1 mg Q6HP PRN PO 01/17/25 13:15 01/20/25 16:21 0.1 MG Acetaminophen/ Hydrocodone Bitart 1 tab Q4H PO 01/20/25 08:00 01/25/25 11:23 1 TAB Carisoprodol 350 mg TID PO 01/20/25 14:00 01/25/25 06:13 350 MG Cephalexin 500 mg Q6HR PO 01/23/25 12:00 01/25/25 11:23 500 MG Enoxaparin Sodium 50 mg Q12HR SC 01/24/25 11:00 01/25/25 09:24 50 MG Laboratory Results Laboratory Tests 01/23/25 12:55 01/25/25 04:45 Urinalysis Test 01/16/25 07:00 01/21/25 13:00 Urine Hyaline Casts Mod /lpf (0 - 2) Urine Mucus Few (None Seen) Urine Color Light-yellow (Yellow) Urine Clarity Clear (Clear) Urine pH 6.0 (5.0-9.0) Urine Specific [place] 1.014 (1.001-1.035) Urine Protein 1+ (Negative) H Urine Ketones 1+ (Negative) H Urine Blood Negative /uL (Negative) Urine Nitrite Negative (Negative) Urine Bilirubin Negative (Negative) Urine Urobilinogen Normal mg/dL (Negative) Urine Leukocyte Esterase Negative /uL (Negative) Urine RBC None seen /hpf (0 - 4) Urine Microscopic WBC < 1 /HPF (0-5) Urine Squamous Epithelial Cells None seen /hpf (<5) Urine Bacteria None seen /hpf (None Seen) Urine Glucose Normal mg/dL (Normal) Microbiology Microbiology Date/Time Source Procedure Growth Status 01/21/25 13:00 Voided Urine Urine Culture - Final Complete 01/17/25 02:24 Nose MRSA Screen - Final Complete Labs and/or images reviewed: Labs reviewed by me, Image(s) reviewed by me Assessment/Plan Assessment/Plan Fracture T12 and bilateral transverse processes L3 indeterminate age: DC morphine, continue [place] 5/325, 1 tab q.4 hours scheduled consult for spine surgeon Dr. Mojica, advised no emergency spine surgery needed, advised pain management muscle relaxant and follow up as an outpatient Mechanical fall at home Mild fever to 101 possibly secondary to IV infiltration in the right forearm, warm compressions, DC iron infusion, Tylenol, Keflex 500 mg p.o. q.6 Flu test negative COVID test negative Urinalysis negative Moderately controlled diabetes with blood sugars around 180 A1c 7.1 in October 2024 Hypertension Chronic anemia hemoglobin 7.8: Iron infusion Bilateral midthoracic back pain: CT chest without contrast negative for rib fractures History of right hemicolectomy for hepatic flexure mass 2023 Moderate malnutrition at bedside Physical therapy [facility] facility for [facility] as the patient is unable to walk DVT Rt cephalic vein: Lovenox 50 mg subQ b.i.d. Plan discussed with: Patient Date of Service: Jan 25, 2025 Billing Provider: MARLIN SHAW MD Common Visit Codes: [id number] INP/OBS CARE(HIGH) MARLIN SHAW MD Jan 25, 2025 11:34
[2025-01-26 01:00] VITALS: BP 124/68; PULSE 89; RESP 18; TEMP 98.2; O2SAT 99
[2025-01-26 05:00] VITALS: BP 139/77; PULSE 80; RESP 18; TEMP 98.2; O2SAT 97
[2025-01-26 08:50] VITALS: BP 99/52; PULSE 69; RESP 16; TEMP 97.4; O2SAT 99
[2025-01-26 13:00] VITALS: BP 109/47; PULSE 74; RESP 16; TEMP 97.7; O2SAT 99
[2025-01-26] MEDS ORDERED: MUPIROCIN 2% OINT 15gm or 22gm TOP ONE (13:30)
--- NOTE | 2025-01-26 14:46 | DVHDS2 ---
Discharge Summary Date of Admission Jan 16, 2025 at 08:50 Date of Discharge: Jan 26, 2025 Admitting Diagnosis Severe low back pain status post mechanical fall Wounds: T12 fracture Labs/Diagnostic Data: Laboratory Results Test 01/26/25 05:50 01/25/25 04:45 01/23/25 12:55 01/21/25 13:00 POC Glucose 139 mg/dl (70-106) White Blood Count 6.6 10^3/uL (4.4-10.8) Red Blood Count 3.27 10^6/uL (4.0-5.20) Hemoglobin 8.6 g/dL (12.2-16.2) Hematocrit 27.6 % (36.0-46.0) Mean Corpuscular Volume 84.4 fL (80.0-100.0) Mean Corpuscular Hemoglobin 26.2 pg (28.0-32.0) Mean Corpuscular Hemoglobin Concent 31.0 g/dL (32.0-36.0) Red Cell Distribution Width 16.5 % (11.8-14.3) Platelet Count 111 10^3/uL (140-450) Mean Platelet Volume 7.9 fL (6.9-10.8) Neutrophils (%) (Auto) 70.2 % (37.0-80.0) Lymphocytes (%) (Auto) 25.6 % (10.0-50.0) Monocytes (%) (Auto) 3.6 % (0.0-12.0) Eosinophils (%) (Auto) 0.3 % (0.0-7.0) Basophils (%) (Auto) 0.3 % (0.0-2.0) Neutrophils # (Auto) 4.6 10 ^3/uL (1.6-8.6) Lymphocytes # (Auto) 1.7 10 ^3/uL (0.4-5.4) Monocytes # (Auto) 0.2 10 ^3/uL (0-1.3) Eosinophils # (Auto) 0 10 ^3/uL (0-0.8) Basophils # (Auto) 0 10 ^3/uL (0-0.2) Nucleated Red Blood Cells 0.3 % Sodium Level 133 mmol/L (136-145) Potassium Level 3.4 mmol/L (3.5-5.1) Chloride Level 100 mmol/L (98-107) Carbon Dioxide Level 27 mmol/L (20-31) Anion Gap 6 (5-15) Blood Urea Nitrogen 22 mg/dL (9-23) Creatinine 0.68 mg/dL (0.550-1.02) Glomerular Filtration Rate Calc 90 mL/min (>90) BUN/Creatinine Ratio 32.4 (10.0-20.0) Serum Glucose 184 mg/dL (74-106) Calcium Level 8.7 mg/dL (8.7-10.4) Total Bilirubin 0.2 mg/dL (0.2-1.0) Aspartate Amino Transferase (AST) 32 U/L (13-40) Alanine Aminotransferase (ALT) 24 U/L (7-40) Alkaline Phosphatase 103 U/L (46-116) Total Protein 9.3 g/dL (5.7-8.2) Albumin 2.9 g/dL (3.2-4.8) Urine Color Light-yellow (Yellow) Urine Clarity Clear (Clear) Urine pH 6.0 (5.0-9.0) Urine Specific [place] 1.014 (1.001-1.035) Urine Protein 1+ (Negative) Urine Ketones 1+ (Negative) Urine Blood Negative /uL (Negative) Urine Nitrite Negative (Negative) Urine Bilirubin Negative (Negative) Urine Urobilinogen Normal mg/dL (Negative) Urine Leukocyte Esterase Negative /uL (Negative) Urine RBC None seen /hpf (0 - 4) Urine Microscopic WBC < 1 /HPF (0-5) Urine Squamous Epithelial Cells None seen /hpf (<5) Urine Bacteria None seen /hpf (None Seen) Urine Glucose Normal mg/dL (Normal) Test 01/21/25 11:15 01/17/25 10:26 01/16/25 07:00 01/16/25 06:46 Influenza Type A Antigen Negative (Negative) Influenza Type B Antigen Negative (Negative) SARS-CoV-2 Antigen (Rapid) Negative (NEGATIVE) Hemoglobin A1c 7.7 % A1C (<5.7) Urine Hyaline Casts Mod /lpf (0 - 2) Urine Mucus Few (None Seen) Prothrombin Time 11.3 sec (9.3-11.8) Prothrombin Time INR 1.07 (0.9-1.15) Other Laboratory Tests 01/25/25 04:45 01/23/25 12:55 Brief Hx & Hospital Course: 74-year-old female had a mechanical fall came to the ER for severe back pain found to have T12 fracture of the bilateral transverse processes fracture at L3 indeterminate age. Treated with the pain medications seen by spine surgeon Dr. Mojica. Advised no surgery and conservative management. Flu test negative COVID test negative urinalysis negative mild diabetes treated with the insulin sliding scale A1c 7.1 patient has had anemia chronic 7.8 given iron transfusion. Patient has a history of right hemicolectomy for hepatic flexure mass in 2023. Patient received physical therapy and they advised group home facility placement for rehab. Patient developed right cephalic vein DVT. Placed on Lovenox transitioned to Eliquis patient discharged to group home facility for rehab Consults/Reason for consult Spine surgeon Dr. Mojica Operations or Procedures CT LS spine MRI LS spine Condition at Discharge: Fair Final Diagnosis/Problems List Fracture T12 and bilateral transverse processes L3 indeterminate age: DC morphine, continue [place] 5/325, 1 tab q.4 hours scheduled consult for spine surgeon Dr. Mojica, advised no emergency spine surgery needed, advised pain management muscle relaxant and follow up as an outpatient Mechanical fall at home Mild fever to 101 possibly secondary to IV infiltration in the right forearm, warm compressions, DC iron infusion, Tylenol, Keflex 500 mg p.o. q.6 Flu test negative COVID test negative Urinalysis negative Moderately controlled diabetes with blood sugars around 180 A1c 7.1 in October 2024 Hypertension Chronic anemia hemoglobin 7.8: Iron infusion Bilateral midthoracic back pain: CT chest without contrast negative for rib fractures History of right hemicolectomy for hepatic flexure mass 2023 Moderate malnutrition at bedside Physical therapy recommending group home facility for rehab as the patient is unable to walk DVT Rt cephalic vein: Lovenox 50 mg subQ b.i.d Discharge Disposition: Snf Facility Discharge Instruct/Medications Diet: Regular Activity: Light activity Medications: see list 35 (Time taken for discharge summary 35 minutes) Discharge Statement: "Patient was advised to return to the ER or call 911 if any headaches, dizziness, shortness of breath, chest pain, abdominal pain, bleeding, fevers, or worsening of medical condition. Patient was counseled about treatment plan, medications, possible side effects, patientverbalized understanding. All questions were answered to the best of my ability. This discharge took greater then 30 minutes in planning, reviewing documentation, counseling the patient, and discussing with other team members." ASSESSMENT ASSESSMENT Hospital Course Improved Assessment Fracture T12 and bilateral transverse processes L3 indeterminate age: DC morphine, continue [place] 5/325, 1 tab q.4 hours scheduled consult for spine surgeon Dr. Mojica, advised no emergency spine surgery needed, advised pain management muscle relaxant and follow up as an outpatient Mechanical fall at home Mild fever to 101 possibly secondary to IV infiltration in the right forearm, warm compressions, DC iron infusion, Tylenol, Keflex 500 mg p.o. q.6 Flu test negative COVID test negative Urinalysis negative Moderately controlled diabetes with blood sugars around 180 A1c 7.1 in October 2024 Hypertension Chronic anemia hemoglobin 7.8: Iron infusion Bilateral midthoracic back pain: CT chest without contrast negative for rib fractures History of right hemicolectomy for hepatic flexure mass 2023 Moderate malnutrition at bedside Physical therapy recommending group home facility for rehab as the patient is unable to walk DVT Rt cephalic vein: Lovenox 50 mg subQ b.i.d Date of Service: Jan 26, 2025 Billing Provider: MARLIN SHAW MD Common Visit Codes: [id number] DISCH DAY >30min MARLIN SHAW MD Jan 26, 2025 14:46
[2025-01-26 17:00] VITALS: BP_SYST 124; BP_SYST 153; BP_DIAS 53; BP_DIAS 69; PULSE 77; PULSE 82; RESP 16; RESP 18; TEMP 97.7; TEMP 98; O2SAT 96; O2SAT 98
[2025-01-26 20:00] VITALS: PULSE 70; RESP 18; O2SAT 100
== END 2025-01-26 20:10 | DRG 543 ==
LOC: ER 03:26 → OVERFLOW 08:50 → WEST WING 22:31
PROVIDERS: ADMIT Family Medicine; ATTEND Family Medicine
DX: M48.54XA Collapsed vertebra, not elsewhere classified, thoracic region, initial encounter for fracture (principal); E44.0 Moderate protein-calorie malnutrition; I82.611 Acute embolism and thrombosis of superficial veins of right upper extremity; Z68.41 Body mass index [BMI] 40.0-44.9, adult; D64.9 Anemia, unspecified; I95.9 Hypotension, unspecified; E11.65 Type 2 diabetes mellitus with hyperglycemia; Z20.822 Contact with and (suspected) exposure to COVID-19; E78.5 Hyperlipidemia, unspecified; I12.9 Hypertensive chronic kidney disease with stage 1 through stage 4 chronic kidney disease, or unspecified chronic kidney disease; M62.830 Muscle spasm of back; N18.9 Chronic kidney disease, unspecified; Z79.899 Other long term (current) drug therapy; Z90.49 Acquired absence of other specified parts of digestive tract; W01.0XXA Fall on same level from slipping, tripping and stumbling without subsequent striking against object, initial encounter; Y93.89 Activity, other specified; Y92.008 Other place in unspecified non-institutional (private) residence as the place of occurrence of the external cause; Y99.8 Other external cause status; I16.0 Hypertensive urgency
CPT/HCPCS: 36415; 71250; 72128; 72131; 72170; 80048; 80053; 81001; 82962; 83036; 85025; 85610; 87081; 87086; 87426; 87804; 93971; 96361; 96374; 97110; 97116; 97163; G0378; J1756; J1815; J2405

== ENCOUNTER → 2025-09-25 | Outpatient (CLI) | payer MEDICARE, OTHER ==
[2025-09-25 13:08] LABS: Hematocrit 23.5 % (36.0-46.0); Hemoglobin 7.4 g/dL (12.2-16.2); Mean Corpuscular Hemoglobin 26.1 pg (28.0-32.0); Mean Corpuscular Volume 82.3 fL (80.0-100.0)
[2025-09-25 13:22] LABS: Anisocytosis Slight; Nucleated Red Blood Cells % 1.0 %; Total Cells Counted 100.0 (100)
[2025-09-26 10:07] LABS: Anti-Nuclear Antibody Direct Negative (Negative); Anti-dsDNA Antibody 1 IU/mL (0-9); Antiscleroderma-70 Antibody <0.2 AI (0.0-0.9); Sjogren's Anti-SS-A Antibody <0.2 AI (0.0-0.9); Sjogren's Anti-SS-B Antibody <0.2 AI (0.0-0.9)
== END | disposition home or self-care (01) ==
LOC: LAB 12:33
PROVIDERS: ATTEND Internal Medicine
DX: D69.3 Immune thrombocytopenic purpura (principal)
CPT/HCPCS: 36415; 84132; 85007; 85027; 86160; 86225; 86235; 86376; 86431